=== PATIENT | male | born 1940 | race Caucasian/White ===

== ENCOUNTER 2016-11-12 08:31 | Day surgery (SDC) | payer MEDICARE, OTHER ==
[~2016-11-12 08:31] MED LIST: Acetaminophen TAB* 325 MG PO PRN; Buffered Lidocaine 1% SYR 3ML* 3 ML/SYR SYRINGE INTRADERM ONE
[2016-11-12] MEDS ORDERED: Midazolam* 1 MG/ML 5 ML VIAL (5 MG) ONE (10:05)
[2016-11-12] MEDS ORDERED: fentaNYL* 50 MCG/ML 2 ML VIAL (100 MCG VIAL) ONE (10:05)
[2016-11-12 12:20] VITALS: BP 163/68
--- NOTE | 2016-11-13 04:14 | OP ---
DATE OF OPERATION: 11/12/16 - [facility] DATE OF : 36 SURGEON: Rene Zaldivar MD PREOPERATIVE DIAGNOSIS: Cataract, right eye. POSTOPERATIVE DIAGNOSIS: Cataract, right eye. OPERATIVE PROCEDURE: Phacoemulsification right eye with IOL. DESCRIPTION OF PROCEDURE: The patient was brought to the operating room after being given 1/2% Alcaine with epinephrine drops in the preoperative area. The eye was prepped and draped in the usual sterile fashion. Sterile drape and eyelid speculum were placed. Again, topical 1/2% Alcaine with epinephrine was given. A paracentesis incision was made at the 9 o'clock position with the No.75 blade. Clear cornea incision 2.2 x 2.2-mm was created at the 12 o'clock position starting at the anterior limbus using the 2.2-mm keratome. The anterior chamber was irrigated with 0.4 mL of 1% non-preservative intracameral lidocaine and filled with DisCoVisc. A capsulorrhexis was completed using the cystotome and the Utrata forceps. Hydrodissection was performed with balanced salt solution. The lens nucleus was removed with the Phacoemulsification handpiece without incident. Cortex was removed with the irrigation-aspiration handpiece. The capsular bag was re-inflated using DisCoVisc and an SN60WF 18.5 implant was inserted with the shooter. The irrigation-aspiration handpiece was used to remove all residual DisCoVisc. The eye was refilled with balanced salt solution and the wound checked and found to be watertight. Topical Maxitrol drops were given. The cataract was very dense, of note. [id number]/[facility] #: [id number] [facility]
[2016-11-13] MEDS ORDERED: Lidocaine 1% MPF* 2 ML VIAL ONE (14:34)
[2016-11-13] MEDS ORDERED: Lidocaine 2% EPI 1:200000 MPF* 20 ML VIAL ONE (14:34)
[2016-11-13] MEDS ORDERED: Cyclopentolate 1% OPTH.SOL* 2 ML BTL ONE (14:34)
[2016-11-13] MEDS ORDERED: Phenylephrine 2.5% OPTH.SOL* 2 ML BTL ONE (14:34)
[2016-11-13] MEDS ORDERED: Proparacaine 0.5% OPHTH.SOL* 15 ML BTL ONE (14:34)
[2016-11-13] MEDS ORDERED: acetaZOLAMIDE TAB* 250 MG ONE (14:34)
[2016-11-13] MEDS ORDERED: Povidone Iodine 5% OPTH* 30 ML BTL ONE (14:34)
[2016-11-13] MEDS ORDERED: Flurbiprofen 0.03% OPTH.SOL* 2.5 ML BTL ONE (14:34)
[2016-11-13] MEDS ORDERED: Neomycin/Polymy/Dex OPTH.SUSP* MAXITROL 0.1% 5 ML ONE (14:34)
== END 2016-11-12 12:27 | disposition home or self-care (01) ==
LOC: OREAST 08:31
PROVIDERS: ATTEND Specialist
DX: H25.11 Age-related nuclear cataract, right eye (principal); E11.9 Type 2 diabetes mellitus without complications; I10 Essential (primary) hypertension; I48.91 Unspecified atrial fibrillation; Z79.01 Long term (current) use of anticoagulants
CPT/HCPCS: A9270-GY; J2250; J3010; V2632

== ENCOUNTER 2016-11-19 10:06 | Day surgery (SDC) | payer MEDICARE, OTHER ==
[~2016-11-19 10:06] MED LIST changes: +Cyclopentolate 1% OPTH.SOL* 2 ML BTL ONE; +Flurbiprofen 0.03% OPTH.SOL* 2.5 ML BTL ONE; +Lidocaine 1% MPF* 2 ML VIAL ONE; +Lidocaine 2% EPI 1:200000 MPF* 20 ML VIAL ONE; +Neomycin/Polymy/Dex OPTH.SUSP* MAXITROL 0.1% 5 ML ONE; +Phenylephrine 2.5% OPTH.SOL* 2 ML BTL ONE; +Povidone Iodine 5% OPTH* 30 ML BTL ONE; +Proparacaine 0.5% OPHTH.SOL* 15 ML BTL ONE; +Trypan Blue 0.06% SOL* 0.5 ML BTL ONE; +acetaZOLAMIDE TAB* 250 MG ONE
[2016-11-19] MEDS ORDERED: Propofol* 10 MG/ML 20 ML BTL IV PUSH ONE (13:16)
[2016-11-19 14:50] VITALS: BP 185/69
--- NOTE | 2016-11-20 03:53 | OP ---
DATE OF OPERATION: 11/19/16 - [facility] DATE OF : 36 SURGEON: Rene Zaldivar M.D. PREOPERATIVE DIAGNOSIS: Cataract, left eye. POSTOPERATIVE DIAGNOSIS: Cataract, left eye. OPERATIVE PROCEDURE: Phacoemulsification, left eye, with IOL. DESCRIPTION OF PROCEDURE: The patient was brought to the operating room after being given 1/2% Alcaine with epinephrine drops in the preoperative area. The eye was prepped and draped in the usual sterile fashion. Sterile drape and eyelid speculum were placed. Again, topical 1/2% Alcaine with epinephrine was given. A paracentesis incision was made at the 3 o'clock position with the No.75 blade. Clear cornea incision 2.2 x 2.2-mm was created at the 6 o'clock position starting at the anterior limbus using the 2.2-mm keratome. The anterior chamber was irrigated with 0.4 mL of 1% non-preservative intracameral lidocaine and filled with DisCoVisc. A capsulorrhexis was completed using the cystotome and the Utrata forceps. Hydrodissection was performed with balanced salt solution. The lens nucleus was removed with the Phacoemulsification handpiece without incident. Cortex was removed with the irrigation-aspiration handpiece. The capsular bag was re-inflated using DisCoVisc and an SN60WF 18.5 implant was inserted with the shooter. The irrigation-aspiration handpiece was used to remove all residual DisCoVisc. The eye was refilled with balanced salt solution and the wound checked and found to be watertight. Topical Maxitrol drops were given. A Malyugin ring was used to dilate the pupil prior to capsulorrhexis because of very small pupil removed after insertion of the lens. In addition, prior to the DisCoVisc, VisionBlue was used to stain the anterior capsule. Indication for complex cataract surgery: Iris abnormalities requiring pupil dilation device and white cataract requiring capsular dye. [id number]/[facility] #: [id number] MTDD
== END 2016-11-19 14:08 | disposition home or self-care (01) ==
LOC: OREAST 10:06
PROVIDERS: ATTEND Specialist
DX: H25.12 Age-related nuclear cataract, left eye (principal); Q13.2 Other congenital malformations of iris; E11.9 Type 2 diabetes mellitus without complications; I48.91 Unspecified atrial fibrillation; Z79.01 Long term (current) use of anticoagulants; I10 Essential (primary) hypertension
CPT/HCPCS: A9270-GY; J2704; V2632

== ENCOUNTER 2017-09-13 13:31 | Emergency (ER) | payer MEDICARE, OTHER ==
--- NOTE | 2017-09-13 13:40 | UC ---
Respiratory Complaint HPI - HPI Summary HPI Summary: 77 year old male presents with complains of severe shortness of breath and cough. - History of Current Complaint Stated Complaint: BREATHING COMPLAINT Time Seen by Provider: 09/13/17 13:40 Hx Obtained From: Patient Onset/Duration: Sudden Onset Severity Initially: Moderate Severity Currently: Moderate Pain Scale Used: 0-10 Numeric - 5 Aggravating Factors: Deep Breaths Associated Signs And Symptoms: Positive: Negative - Risk Factors Pulmonary Embolism Risk Factors: Negative - Allergies/Home Medications Allergies/Adverse Reactions: Allergies Allergy/AdvReac Type Severity Reaction Status Date / Time No Known Allergies Allergy Verified 09/13/17 13:45 PMH/Surg Hx/FS Hx/Imm Hx - Surgical History Surgical History: None - Family History Known Family History: Positive: Cardiac Disease - father, in 70s - Social History Alcohol Use: None Substance Use Type: None Smoking Status (MU): Never Smoked Tobacco Review of Systems Constitutional: Negative Skin: Negative Eyes: Negative ENT: Negative Respiratory: Shortness Of Breath, Cough Cardiovascular: Negative Gastrointestinal: Negative Genitourinary: Negative Motor: Negative Neurovascular: Negative Musculoskeletal: Negative Neurological: Negative Psychological: Negative All Other Systems Reviewed And Are Negative: Yes Physical Exam Triage Information Reviewed: Yes Vital Signs Reviewed: Yes Eye Exam: Normal ENT Exam: Normal Dental Exam: Normal Neck exam: Normal Neck: Positive: 1 Respiratory: Positive: Rhonchi, Wheezing Cardiovascular Exam: Normal Abdominal Exam: Normal Musculoskeletal Exam: Normal Neurological Exam: Normal Psychological Exam: Normal Skin Exam: Normal Respiratory Course/Dx - Differential Dx/Diagnosis Provider Diagnoses: shortness of breath. cough Discharge - Discharge Plan Condition: Stable Disposition: [facility] Patient Education Materials: Dyspnea (ED) Referrals: Rafy Dunn MD [Primary Care Provider] -
[2017-09-13 13:51] VITALS: BP 152/93
== END 2017-09-13 14:05 | disposition short-term general hospital (02) ==
LOC: UCEAST 13:31
DX: R06.02 Shortness of breath (principal); R05 Cough; R06.2 Wheezing
CPT/HCPCS: 93005; 99213; G0463

== ENCOUNTER 2017-09-13 14:33 | Inpatient (IN) | payer MEDICARE, OTHER ==
[2017-09-13] MEDS ORDERED: Levofloxacin 750 MG IVPREMIX(* 750 MG/150 ML BAG IVPB ONE (14:52)
[2017-09-13 15:22] LABS: ABS Basophils 0.1 10^3/ul (0-0.2); ABS Eosinophils 0.3 10^3/ul (0-0.6); ABS Lymphocytes 0.7 10^3/ul (1.0-4.8); ABS Monocytes 1.4 10^3/ul (0-0.8); ABS Neutrophils 22.3 10^3/ul (1.5-7.7); ABS Nucleated RBC 0.01 10^3/ul; Eosinophil % 1.1 % (0-6); Hematocrit 39 % (42-52); Hemoglobin 12.9 g/dl (14.0-18.0); Lymphocyte % 2.9 % (25-47); Mean Corpuscular HGB Conc 33 g/dl (31-36); Mean Corpuscular Hemoglobin 27 pg (27-31); Mean Corpuscular Volume 83 fL (80-94); Mean Platelet Volume 8 um3 (7.4-10.4); Nucleated Red Blood Cells % 0; Platelet Count 369 10^3/ul (150-450); Red Blood Count 4.77 10^6/ul (4.0-5.4); Red Cell Distribution Width 16 % (10.5-15); White Blood Count 24.7 10^3/ul (3.5-10.8)
[2017-09-13 15:32] LABS: EGFR Non-African American 91.9 (>60)
--- NOTE | 2017-09-13 15:35 | RAD ---
INDICATION: Shortness of breath and cough x1 week COMPARISON: Chest x-ray dated December 24, 2010 TECHNIQUE: Single AP portable view of the chest was obtained. FINDINGS: Image quality is compromised due to the relative inferiority of a portable chest x-ray. There is moderate cardiomegaly. The pulmonary vasculature appears mildly engorged. Density is seen obscuring the bilateral lung bases and bilateral hemidiaphragms. Visualized bones are normal for the patient's age. IMPRESSION: Chest x-ray findings are most consistent with cardiogenic pulmonary edema with likely bibasilar pleural effusions and possible consolidation at the lung bases.
[2017-09-13] MEDS ORDERED: NS 0.9% 1000 ML* 1,000 ML IV ONE (15:38)
--- NOTE | 2017-09-13 16:34 | RAD ---
INDICATION: Cough and shortness of breath COMPARISON: None TECHNIQUE: Axial source images of the chest were acquired without intravenous contrast from just above the lung apices to the base of the diaphragm. Coronal and sagittal reconstructed images were acquired. FINDINGS: Image quality is degraded by respiratory motion artifact. There is the appearance of circumferential thickening of the right pleura. There are large bibasilar pleural effusions. There is compressive consolidation of the bilateral lower lobes. Fluid extends into the bilateral fissures. There is groundglass opacification in the still aerated portions of the lung. There is no readily apparent mediastinal, hilar, or axillary lymphadenopathy. There is cardiomegaly as well as trace pericardial effusion. At the proximal esophagus just below the level of the epiglottis (sagittal image 44 and axial image 9) there is a air-fluid collection with contrast in the dependent-most portion measuring up to 3 x 4.6 cm in the axial plane and 5 cm in the cephalocaudal projection. More inferiorly there is questionable thickening of the esophagus measuring 6 mm in thickness (image 18). Multilevel degenerative changes of the thoracic spine includes loss of intervertebral disc height and anterior bridging osteophyte formation. Overlying the right chest there is a subcutaneous mixed attenuation collection measuring 3.8 x 4 cm in the axial plane. Limited views of the upper abdomen show no acute abnormalities. IMPRESSION: 1. There are large bibasilar pleural effusions with compressive consolidation of the lower lobes. On the right there is appearance of circumferential pleural thickening, the evaluation of which is limited due to respiratory motion artifact. Differential diagnosis includes loculated pleural effusion or potentially a neoplastic process. 2. Appearance of esophageal thickening at the mid-level esophagus. 3. More proximally there is air-fluid levels in the proximal esophagus including oral contrast in the dependent-most portion. This could represent a Zenker's diverticulum. On a nonemergent basis this can be further characterized with either esophagram or endoscopy. 4. Partially cystic partially solid subcutaneous collection overlying the anterior right chest wall. Please correlate to physical examination.
[2017-09-13] MEDS ORDERED: Albuterol/Ipratropium NEB.SOL* Albuterol 2.5 MG/Ipratropium 0.5 MG 3 ML INH PRN (17:33)
[2017-09-13] MEDS: NS 0.9% 1000 ML* 1,000 ML IV SCH (19:01)
[2017-09-13] MEDS: Ondansetron INJ* 2 MG/ML VIAL IV PRN (19:55)
[2017-09-13] MEDS ORDERED: Rivaroxaban TAB(*) 20 MG TAB PO SCH (21:00)
--- NOTE | 2017-09-13 21:37 | ED ---
Micaela Nix Julia, scribed for Pj Deutsch MD on 09/13/17 at 1455 . Complex/Multi-Sys Presentation - HPI Summary HPI Summary: This patient is a 77 year old M BIBA to [facility] accompanied by his son with a chief complaint of cough for the past two weeks. The patient rates the pain 0/ 10 in severity. Symptoms aggravated by nothing. Symptoms alleviated by nothing. Patient reports nausea, poor appetite, and SOB for the past two weeks. Patient was recently prescribed Cephalexin for bronchitis, but denies any changes in the past 5 days of use. - History Of Current Complaint Chief Complaint: EDGeneral Time Seen by Provider: 09/13/17 14:45 Hx Obtained From: Patient Onset/Duration: Lasting Weeks - 2 Timing: Constant Aggravating Factor(s): nothing Alleviating Factor(s): nothing Associated Signs And Symptoms: Positive: Other - nausea, poor appetite, and SOB - Allergies/Home Medications Allergies/Adverse Reactions: Allergies Allergy/AdvReac Type Severity Reaction Status Date / Time No Known Allergies Allergy Verified 09/13/17 13:45 PMH/Surg Hx/FS Hx/Imm Hx Endocrine/Hematology History: Reports: Hx Diabetes - uses medication to treat Cardiovascular History: Reports: Hx Atrial Fibrillation - treated with blood thinners, Hx Hypertension - uses medication to treat Denies: Hx Myocardial Infarction, Hx Pacemaker/ICD Respiratory History: Denies: Hx Chronic Obstructive Pulmonary Disease (COPD) Musculoskeletal History: Reports: Hx Arthritis - right hand Sensory History: Reports: Hx Cataracts - having surgery, Hx Contacts or Glasses - wears glasses Denies: Hx Hearing Aid Opthamlomology History: Reports: Hx Cataracts - having surgery, Hx Contacts or Glasses - wears glasses - Surgical History Hx Anesthesia Reactions: No Infectious Disease History: No Infectious Disease History: Denies: Traveled Outside the [place] in Last 30 Days - Family History Known Family History: Positive: Cardiac Disease - father, in 70s - Social History Alcohol Use: None Alcohol Amount: quit drinking 12 years ago Hx Substance Use: No Substance Use Type: Reports: None Hx Tobacco Use: No Smoking Status (MU): Never Smoked Tobacco Review of Systems Positive: Shortness Of Breath, Cough Positive: Nausea, Other - decreased appetite All Other Systems Reviewed And Are Negative: Yes Physical Exam - Summary Physical Exam Summary: Appearance: The patient is well-nourished in no acute distress and in no acute pain. Skin: The skin is warm and dry and skin color reflects adequate perfusion. HEENT: The head is normocephalic and atraumatic. The pupils are equal and reactive. The conjunctivae are clear and without drainage. Nares are patent and without drainage. Mouth reveals moist mucous membranes and the throat is without erythema and exudate. The external ears are intact. The ear canals are patent and without drainage. The tympanic membranes are intact. Neck: the neck is supple with full range of motion and non-tender. There are no carotid bruits. There is no neck vein distension. Respiratory: Chest is non-tender. Rhonchi are present bilaterally, worse in R. Lung sounds are symmetrical and equal. Upper airway sounds are present. Cardiovascular: Heart is regular rate and rhythm. There is no murmur or rub auscultated. There is bilateral +2 peripheral edema. Pulses are symmetrical and equal. Abdomen: The abdomen is soft and non-tender. There are normal bowel sounds heard in all four quadrants and there is no organomegaly palpated. Musculoskeletal: There is no back tenderness noted. Extremities are non-tender with full range of motion. There is good capillary refill. There is bilateral +2 peripheral edema with no calf tenderness elicited. Neurological: Patient is alert and oriented to person, place and time. The patient has symmetrical motor strength in all four extremities. Cranial nerves are grossly intact. Deep tendon reflexes are symmetrical and equal in all four extremities. Psychiatric: The patient has an appropriate affect and does not exhibit any anxiety or depression. Triage Information Reviewed: Yes Vital Signs On Initial Exam: Initial Vitals BP 154/70 09/13/17 14:38 Vital Signs Reviewed: Yes - Ran Coma Scale Coma Scale Total: 15 Diagnostics - Vital Signs Vital Signs Temp Pulse Resp BP Pulse Ox 09/13/17 14:39 98.4 F 108 20 154/70 94 09/13/17 14:38 154/70 - Laboratory Lab Results: Lab Results 09/13/17 09/13/17 09/13/17 Range/Units 15:10 15:10 15:10 WBC 24.7 H (3.5-10.8) 10^3/ul RBC 4.77 (4.0-5.4) 10^6/ul Hgb 12.9 L (14.0-18.0) g/dl Hct 39 L (42-52) % MCV 83 (80-94) fL MCH 27 (27-31) pg MCHC 33 (31-36) g/dl RDW 16 H (10.5-15) % Plt Count 369 (150-450) 10^3/ul MPV 8 (7.4-10.4) um3 Neut % (Auto) 90.2 H (38-83) % Lymph % (Auto) 2.9 L (25-47) % [place] % (Auto) 5.5 (1-9) % Eos % (Auto) 1.1 (0-6) % Baso % (Auto) 0.3 (0-2) % Absolute Neuts (auto) 22.3 H (1.5-7.7) 10^3/ul Absolute Lymphs (auto) 0.7 L (1.0-4.8) 10^3/ul Absolute Monos (auto) 1.4 H (0-0.8) 10^3/ul Absolute Eos (auto) 0.3 (0-0.6) 10^3/ul Absolute Basos (auto) 0.1 (0-0.2) 10^3/ul Absolute Nucleated RBC 0.01 10^3/ul Nucleated RBC % 0 Sodium 138 (133-145) mmol/L Potassium 4.2 (3.5-5.0) mmol/L Chloride 106 (101-111) mmol/L Carbon Dioxide 23 (22-32) mmol/L Anion Gap 9 (2-11) mmol/L BUN 30 H (6-24) mg/dL Creatinine 0.81 (0.67-1.17) mg/dL Est GFR ( Amer) 118.2 (>60) Est GFR (Non-Af Amer) 91.9 (>60) BUN/Creatinine Ratio 37.0 H (8-20) Glucose 257 H (70-100) mg/dL Lactic Acid (0.5-2.0) mmol/L Calcium 8.6 (8.6-10.3) mg/dL Total Bilirubin 1.10 H (0.2-1.0) mg/dL AST 53 H (13-39) U/L ALT 61 H (7-52) U/L Alkaline Phosphatase 118 H (34-104) U/L Troponin I 0.03 (<0.04) ng/mL C-Reactive Protein 342.53 H (< 5.00) mg/L B-Natriuretic Peptide 116 H ( - 100) pg/mL Total Protein 6.9 (6.4-8.9) g/dL Albumin 2.6 L (3.2-5.2) g/dL Globulin 4.3 H (2-4) g/dL Albumin/Globulin Ratio 0.6 L (1-3) 09/13/17 Range/Units 15:10 WBC (3.5-10.8) 10^3/ul RBC (4.0-5.4) 10^6/ul Hgb (14.0-18.0) g/dl Hct (42-52) % MCV (80-94) fL MCH (27-31) pg MCHC (31-36) g/dl RDW (10.5-15) % Plt Count (150-450) 10^3/ul MPV (7.4-10.4) um3 Neut % (Auto) (38-83) % Lymph % (Auto) (25-47) % [place] % (Auto) (1-9) % Eos % (Auto) (0-6) % Baso % (Auto) (0-2) % Absolute Neuts (auto) (1.5-7.7) 10^3/ul Absolute Lymphs (auto) (1.0-4.8) 10^3/ul Absolute Monos (auto) (0-0.8) 10^3/ul Absolute Eos (auto) (0-0.6) 10^3/ul Absolute Basos (auto) (0-0.2) 10^3/ul Absolute Nucleated RBC 10^3/ul Nucleated RBC % Sodium (133-145) mmol/L Potassium (3.5-5.0) mmol/L Chloride (101-111) mmol/L Carbon Dioxide (22-32) mmol/L Anion Gap (2-11) mmol/L BUN (6-24) mg/dL Creatinine (0.67-1.17) mg/dL Est GFR ( Amer) (>60) Est GFR (Non-Af Amer) (>60) BUN/Creatinine Ratio (8-20) Glucose (70-100) mg/dL Lactic Acid 1.2 (0.5-2.0) mmol/L Calcium (8.6-10.3) mg/dL Total Bilirubin (0.2-1.0) mg/dL AST (13-39) U/L ALT (7-52) U/L Alkaline Phosphatase (34-104) U/L Troponin I (<0.04) ng/mL C-Reactive Protein (< 5.00) mg/L B-Natriuretic Peptide ( - 100) pg/mL Total Protein (6.4-8.9) g/dL Albumin (3.2-5.2) g/dL Globulin (2-4) g/dL Albumin/Globulin Ratio (1-3) Result Diagrams: 09/13/17 15:10 09/13/17 15:10 Lab Statement: Any lab studies that have been ordered have been reviewed, and results considered in the medical decision making process. - Radiology CXR Radiology Interpretation Completed By: Radiologist - Chest x-ray findings are most consistent with cardiogenic pulmonary edema with likely bibasilar pleural effusions and possible consolidation at the lung bases. ED Physician has reviewed this report. - CT Chest CT Interpretation Completed By: Radiologist - 1. There are large bibasilar pleural effusions with compressive consolidation of the lower lobes. On the right there is appearance of circumferential pleural thickening, the evaluation of which is limited due to respiratory motion artifact. Differential diagnosis includes loculated pleural effusion or potentially a neoplastic process. 2. Appearance of esophageal thickening at the mid-level esophagus. 3. More proximally there is air-fluid levels in the proximal esophagus including oral contrast in the dependent-most portion. This could represent a Zenker's diverticulum. On a nonemergent basis this can be further characterized with either esophagram or endoscopy. 4. Partially cystic partially solid subcutaneous collection overlying the anterior right chest wall. Please correlate to physical examination. ED Physician has reviewed this report. - EKG 14:54 Cardiac Rate: NL EKG Rhythm: Atrial Fibrillation - at 86 BPM EKG Interpretation: L anterior vesicular block, L axis deviation, and L bundle branch block Complex Multi-Symp Course/Dx Course Of Treatment: Mr. Richey presents with worsening SOB and cough. He has been on Keflex for about a week. He was found to have infiltrate vs, pulmonary edema and pleural effusions on CXR and is being admitted to the hospitalist service for further W/U. He got IV antibiotics in the ED and he also did get some IV NS. - Diagnoses Provider Diagnoses: Pneumonia - Critical Care Time Critical Care Time: 30-74 min Discharge - Discharge Plan Condition: Stable Disposition: ADMITTED TO [facility] The documentation as recorded by the Micaela whaley Julia accurately reflects the service I personally performed and the decisions made by me, Pj Deutsch MD.
[2017-09-13] MEDS: Zolpidem TAB* 10 MG PO PRN (23:13)
[2017-09-14] MEDS ORDERED: Metoprolol Tartrate IV* 1 MG/ML 5 ML VIAL IV ONE (02:39)
--- NOTE | 2017-09-14 03:01 | HP ---
cC: Dr. Dunn * [facility] MEDICINE HISTORY AND PHYSICAL: DATE OF ADMISSION: 09/13/17. PRIMARY CARE PHYSICIAN: Dr. Dunn. ATTENDING PHYSICIAN: Dr. Rosalie Montoya * (dictation provided by Buffy Woodward NP ). CHIEF COMPLAINT: Cough and shortness of breath. HISTORY OF PRESENT ILLNESS: Mr. Richey is a 77-year-old male with a past medical history of diabetes, hypertension, AFib on Xarelto, who presents today to the hospital with concern for cough, fever, and shortness of breath. Mr. Richey states that he has been feeling unwell for about a month. He has had a chronic cough. He has had decreased appetite and felt generally unwell. He went to see his primary care physician, Dr. Dunn on Thursday of this past week. At that time it was suspected that perhaps he had bronchitis and he was started on prednisone and Keflex. The patient states that despite starting these antibiotics and prednisone that he has continued to feel worse. He has had worsening cough. He has had fever only as high to about 100. He reports it is painful to take in a deep breath and cough as he feels like his ribs are sore from coughing so much. He reports copious productive sputum; today, he had brown/red sputum. In the emergency room, Mr. Richey had white blood cell count elevated to 24.7. His CRP was 342.53. He went on to have a chest x-ray, which read as follows, "chest x-ray findings are most consistent with cardiogenic pulmonary edema with likely bibasilar pleural effusions and possible consolidations at the lung base." Chest CT is read as follows, "large bibasilar pleural effusions , circumferential pleural thickening, loculated pleural effusion, or potentially a neoplastic process. More proximally there is air fluid level on the proximal esophagus including oral contrast in the dependent most portion, this could represent a Zenker's diverticulum on a nonemergent basis, this can be further characterized with either esophagogram or endoscopy." Patient confirms that he has had some difficulty with swallowing for many years and confirms being told he had a "pouch" in his throat. This symptom is described as unchanged. PAST MEDICAL HISTORY: 1. Diabetes non-insulin dependent. 2. Hypertension. 3. AFib. 4. Gout. 5. History of cataract surgery. MEDICATIONS: 1. Cyanocobalamin 100 mcg p.o. daily. 2. Cholecalciferol 1000 units p.o. daily. 3. Allopurinol 300 mg p.o. daily. 4. Glipizide 20 mg p.o. b.i.d. 5. Amlodipine 10 mg p.o. daily. 6. Rivaroxaban 20 mg p.o. daily. 7. Magnesium 500 mg p.o. daily. 8. Lisinopril 20 mg p.o. b.i.d. ALLERGIES: No known drug allergies. FAMILY HISTORY: The patient reports his dad related to a heart attack at 78, mom related to pancreatitis at 82. SOCIAL HISTORY: No report of alcohol, tobacco, or drug use. The patient lives alone. He states that his son, Timothy, would be the healthcare proxy. REVIEW OF SYSTEMS: In addition to above, the patient does report chronic lower extremity edema. He also has peripheral neuropathy with very poor balance. The other 14-point review of systems was otherwise completed and all those not mentioned above were negative. PHYSICAL EXAMINATION GENERAL: Mr. Richey is sitting in the bed with his son at the bedside. VITAL SIGNS: Temperature 98.4, heart rate 92, respiratory rate 20, O2 saturation 94% on 2 liters nasal cannula, blood pressure 135/59. LUNGS: Diminished bilaterally. There is some tubular breath sounds and some scattered rhonchi. There is no accessory muscle use. HEART: S1, S2. No murmur, rub, or gallop and regular. ABDOMEN: Soft, nontender with bowel sounds positive x4. EXTREMITIES: No cyanosis or edema. NEURO: He alert, he is oriented x3. He moves all extremities equally. There is no facial asymmetry or focal weakness. Extraocular movements are intact. SKIN: Intact. DIAGNOSTIC STUDIES/LAB DATA: Sodium 138, potassium 4.2, chloride 106, serum bicarbonate 23, BUN 30, creatinine 0.81, glucose 257. Troponin 0.03. AST 53, ALT 61, alk phos 118. CRP 342.53, BNP 116. Albumin 2.6. A complete chest CT impression is read as follows: There are large basilar pleural effusions with compressive consolidation of the lower lobe. On the right, there was appearance circumferential pleural thickening the evaluation of which is limited due to respiratory motion artifact. Differential diagnosis includes loculated pleural effusion or potentially a neoplastic process. Appearance of esophageal thickening at the mid level esophagus, more proximally there are air fluid levels in the proximal esophagus including oral contrast in the dependent most portion. This could represent a Zenker's diverticulum on a nonemergent basis, this could be further characterized with either esophagogram or endoscopy. Partially cystic, partially solid subcutaneous collection overlying the right anterior chest wall, please correlate to physical examination. ASSESSMENT AND PLAN: Mr. Richey is a 77-year-old male with a past medical history of atrial fibrillation, hypertension, gout and diabetes, who presents to the hospital today with concern for cough and shortness of breath. In the emergency room, he has been found to have an elevated white blood cell count, elevated CRP, new O2 requirement and concern for pneumonia, possibly with a component of congestive heart failure. Our plans are for inpatient admission as the expected length of stay to be greater than 2 days for the followin. Pneumonia: The patient's elevated CRP and white blood cell count as well as his grossly abnormal CT of the chest raise a strong suspicion for pneumonia. I am also concerned that perhaps he has a loculated abscess. The radiologist is reading this as more of a congestive heart failure with pleural effusion. However, the patient's BNP is low and he has no history of congestive heart failure. I do plan to add on a transthoracic echocardiogram. In terms of the pleural effusions, I would recommend that a thoracentesis be performed for diagnostic and therapeutic purposes. I think based on the fact that the patient is quite stable this evening (only on 2 L nasal cannula) that he does not require an urgent therapeutic thoracentesis tonight. In terms of his pneumonia, plan to treat with ceftriaxone and azithromycin. Blood cultures have been sent. Sputum cultures will be sent. Urine strep and Legionella will be sent. Dr. Wallace has been consulted. The patient will have oxygen available as needed. He will have DuoNeb nebulizers available as needed. In terms of IV fluids, the patient does meet sepsis criteria, but I am very concerned about the extent of his bilateral pleural effusions and worsening respiratory status with large fluid boluses. His blood pressure is stable. His lactic acid is normal. I would like to proceed with fluids with caution and will not be given 30 mL/Kg today. He has had 1 bag of fluids in the emergency room and I can plan to continue at 150 mL/hour times another bag. I will be monitoring his vital signs closely and if he shows any hemodynamic instability, we will repeat lactic acids and adjust fluids as needed. 2. Atrial fibrillation: Continue Xarelto. 3. Hypertension: Plan to hold lisinopril and amlodipine while the patient is acutely ill. 4. Thickened esophagus. Patient reports a long standing history of difficulty swallowing and does not indicate to me that there is any change with these symptoms. Plan to order speech therapy swallow eval. 5. Diabetes: Plan to hold glipizide and provide lispro sliding scale with meals. 6. Code status is full code. This was reviewed with the patient at the bedside. He would accept intubation if necessary. 7. Disposition: To the telemetry floor as the patient is currently only needing 2 L nasal cannula to maintain an O2 saturation greater than 90%. TIME SPENT: Approximately 75 minutes was spent in the admission of this patient , more than half the time spent with the patient at the bedside reviewing the events leading up to this hospitalization, performing physical examination and reviewing my plan of care. BUFFY WOODWARD NP [id number]/[facility] #: [id number] JAIR
[2017-09-14] MEDS: NS 0.9% 1000 ML* 1,000 ML IV SCH (03:37)
[2017-09-14] MEDS ORDERED: Azithromycin IV(*) 500 MG in NS 0.9% 250 ML* 250 ML IVPB SCH (08:00)
[2017-09-14] MEDS: Allopurinol TAB* 300 MG PO SCH (08:46)
[2017-09-14] MEDS: Lisinopril TAB* 10 MG PO SCH ×2 (08:46→20:13)
[2017-09-14] MEDS: Magnesium Oxide TAB* 400 MG PO SCH (08:46)
[2017-09-14] MEDS: amLODIPine TAB* 5 MG PO SCH (08:46)
[2017-09-14] MEDS: Insulin LISPRO* 1 UNITS UNIT SUBCUT SCH ×3 (08:54→18:15)
[2017-09-14 08:55] LABS: ABS Basophils 0.1 10^3/ul (0-0.2); ABS Eosinophils 0 10^3/ul (0-0.6); ABS Lymphocytes 0.6 10^3/ul (1.0-4.8); ABS Monocytes 1.3 10^3/ul (0-0.8); ABS Neutrophils 22.2 10^3/ul (1.5-7.7); ABS Nucleated RBC 0 10^3/ul; Eosinophil % 0 % (0-6); Hematocrit 39 % (42-52); Hemoglobin 12.3 g/dl (14.0-18.0); Lymphocyte % 2.6 % (25-47); Mean Corpuscular HGB Conc 32 g/dl (31-36); Mean Corpuscular Hemoglobin 27 pg (27-31); Mean Corpuscular Volume 84 fL (80-94); Mean Platelet Volume 8 um3 (7.4-10.4); Nucleated Red Blood Cells % 0; Platelet Count 363 10^3/ul (150-450); Red Blood Count 4.63 10^6/ul (4.0-5.4); Red Cell Distribution Width 16 % (10.5-15); White Blood Count 24.2 10^3/ul (3.5-10.8)
[2017-09-14] MEDS ORDERED: cefTRIAXone(*) 1 GM in NS 0.9% 50 ML* 50 ML IVPB SCH (09:00)
[2017-09-14 09:09] LABS: EGFR Non-African American 108.8 (>60)
--- NOTE | 2017-09-14 13:09 | ECHO ---
Patient: ALMA DELIA PANTOJA [facility] Rec#: [id number] : 1940 Date: 09/14/2017 Age: 77y Height: 180.34 cm / 71.0 in Weight: 102.51 kg / 225.9 lbs Sex: M BSA: 2.22 Room#: [facility] Admit Date#: 09/13/2017 Type: Inpatient Referring: Buffy Woodward NP Reading: Farzaneh Brar MD Emergency Room Physician Assistant: Chelsi Blackburn LUIS CC: Lul Marcus MD CC: Rafy Dunn MD Transthoracic Echocardiogram Indication: CHF BP: 150/62 HR: 98 Rhythm: A-Fib Findings History: DM,HTN,a-fib,gout.Study done with HOB at 45 degrees and with patient supine. Technical Comments: The study is technically difficult. Completed at 1207. The study is technically limited due to patient body habitus. The study was technically limited due to the patient's inability to lay in the left lateral decubitus position. Left Ventricle: The left ventricular chamber size is decreased. Moderate concentric left ventricular hypertrophy is observed. There is normal left ventricular systolic function. The estimated ejection fraction is 55-60%. The assessment of diastolic function is non-diagnostic. Left Atrium: The left atrial chamber size is normal. Right Ventricle: The right ventricle is not well visualized. The right ventricular global systolic function is normal. Right Atrium: The right atrium is not well visualized. Aortic Valve: The aortic valve is trileaflet. There is mild thickening of the non coronary cusp. There is no evidence of aortic regurgitation. There is no evidence of aortic stenosis. Mitral Valve: The mitral valve leaflets are mildly thickened. There is a trace of mitral regurgitation. There is no evidence of mitral stenosis. Tricuspid Valve: The tricuspid valve leaflets are normal. There is mild tricuspid regurgitation. There is evidence of mild pulmonary hypertension. There is no tricuspid stenosis. Pulmonic Valve: The pulmonic valve appears normal. There is no evidence of pulmonic regurgitation. There is no pulmonic stenosis. Pericardium: A pericardial fat pad is visualized. Aorta: There is mild dilatation of the ascending aorta. The aortic arch is not well visualized. There is no dilation of the aortic root. Pulmonary Artery: The main pulmonary artery appears normal. Venous: The venous system is not well visualized. Conclusions The study was technically limited, parasternal views good, apicals and subcostals suboptimal. The left ventricular chamber size is decreased. Moderate concentric left ventricular hypertrophy is observed. There is normal left ventricular systolic function. The estimated ejection fraction is 55-60%. The right ventricular global systolic function is normal. The aortic valve is trileaflet, mild sclerosis and normal function. There is a trace of mitral regurgitation. There is mild tricuspid regurgitation. There is evidence of mild pulmonary hypertension: 43 mmHg. There is mild dilatation of the ascending aorta. The patient was in atrial fibrillation throughout the study. Prior echo not available to compare. Measurements Name Value Normal Range RVIDd (AP) 2D 3.2 cm (0.9 - 2.6) IVSd (2D) 1.6 cm (0.6 - 1) LVPWd (2D) 1.3 cm (0.6 - 1) LVIDd (2D) 3.4 cm (3.6 - 5.4) LVIDs (2D) 2.2 cm - LV FS (2D) 36 % (25 - 45) Aortic Annulus 1.7 cm (1.4 - 2.6) Ao root diameter (2D) 3.5 cm (2.1 - 3.5) Ascending Ao 3.5 cm (2.1 - 3.4) LA dimension (AP) 2D 3.7 cm (2.3 - 3.8) Name Value Normal Range MV E-wave Vmax 1.3 m/sec - MV deceleration time 189 msec - LV septal e' Vmax 0.07 m/sec - LV lateral e' Vmax 0.09 m/sec - LV E:e' septal ratio 18.57 ratio - LV E:e' lateral ratio 14.44 ratio - Name Value Normal Range AV Vmax 1.4 m/sec - AV VTI 25.9 cm - AV peak gradient 7.94 mmHg - AV mean gradient 4.38 mmHg - LVOT Vmax 1 m/sec - LVOT VTI 16.3 cm - LVOT peak gradient 3.88 mmHg - LVOT mean gradient 2.06 mmHg - Name Value Normal Range TR Vmax 2.9 m/sec - TR peak gradient 35 mmHg - RAP 8 mmHg - RVSP 43 mmHg - Name Value Normal Range PV Vmax 1 m/sec - PV peak gradient 3.8 mmHg -
--- NOTE | 2017-09-14 14:47 | CONS ---
CC: Dr. Dunn; [facility]; Dr. Lul Marcus. * CONSULTATION/PROCEDURE REPORT: DATE OF CONSULT: 09/14/17. I was contacted by the hospitalist service to evaluate Mr. Richey who was admitted with a diagnosis of pneumonia and started on antibiotics. Patient was noted on a CT scan to have a bilateral pleural effusion and I was contacted for the possibility of thoracentesis. Patient describes a 2-week history of cough, shortness of breath and bilateral rib pain. He has a difficult time taking deep breaths. He denied any fevers. He was started on Keflex by his primary care doctor's office and given a dose of steroids. This did not help at all according to the patient and he presented to the emergency room where a workup included labs and a CT scan described above. Patient is a nonsmoker. PAST MEDICAL HISTORY: Reviewed, insulin-dependent diabetes; hypertension; AFib , on Xarelto, his last dose was yesterday. It has not been started since hospitalization. History of gout. No history of chest surgeries. ALLERGIES: No known drug allergies. SOCIAL HISTORY: He is a never smoker. He lives by himself. His of metastatic breast cancer. REVIEW OF SYSTEMS: He had no fevers or chills. Steroid use as described. Shortness of breath and chest pain as described. 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 He has not been eating. He has been spitting a mucus and has decreased appetite, has not had a bowel movement in at least 3 days. PHYSICAL EXAMINATION: Today, temperature 98.1, heart rate 120s, blood pressure 155/75. He is alert and oriented x3. He has a difficult time moving. He is obese. He is not using accessory muscles for breathing. He is on nasal cannula and has an O2 sat of 94. His respiration rate in the low 20s. Lungs: Decreased breath sounds bilaterally. No wheezing. LABORATORY DATA: White count is 24,000 with left shift. Metabolic panel reviewed, shows an elevated CRP. Shows a mildly elevated alk phos. CT scan of the chest reviewed, shows bilateral pleural effusions. Looks larger on the right with radiology read suggesting loculation. Patient also has esophageal thickening. Elevated white blood cell count and a septic picture with concern for pneumonia , now with CT scan suggestive of bilateral pleural effusions, right worse than left. Differential diagnosis does include parapneumonic process and empyema, but this is less likely with bilateral fluid collections, but given patient's white blood cell count, my recommendation is for thoracentesis for both diagnostic and potentially therapeutic relief. We have chosen the right side to do this and I outlined the details of the procedure to the patient. Going over the risks, benefits and alternatives which include bleeding, infection, need for additional procedures. We described that if the patient had pus on thoracentesis, we consider prompt tube thoracostomy despite him being on blood thinners. Patient agreed. I described briefly with his son as well. Differential diagnosis does include cardiac versus malignant versus infectious process that I am most interested on this day. Patient agreed and signed consent. PROCEDURE NOTE: After prepping the patient thoroughly, the right back was draped. A timeout was performed. The landmarks were obtained and injection of lidocaine for local block was performed at approximately the 9th intercostal space. Incision was made and an 8-Egyptian thoracentesis catheter was placed into the right chest. Yellow transparent fluid was aspirated and the catheter inserted over the needle. Patient tolerated this portion well; however, after I was only able to draw up approximately 100 cc of straw colored material. I slowly withdrew the catheter as we were able to drain more fluid but this did not become anything more than a 100 cc. Specimens were placed in vials for the purpose of both cultures and cytology. A Band-Aid was placed. The patient tolerated the procedure well. Indeed this 100 cc did not reflect what we see on CT scan and patient may benefit from a video assisted thoracostomy. Differential diagnosis again does include malignancy that may be secondary to chest or even possibly esophageal. This is bilaterally and for this reason, I do strongly recommend pulmonary input prior to any intervention. I will discuss this course with Thoracic Surgery, Dr. Gold, regarding the plan going forward and we will see what Dr. Tuttle's input is as well. Meanwhile, we will follow the cultures and we will continue to follow the patient. [id number]/[facility] #: [id number] [facility] CENTERGigi
[2017-09-14] MEDS: Cefepime 2 GM in Dextrose(*) 2 GM/50 ML BAG IV SCH (14:52)
--- NOTE | 2017-09-14 16:16 | PN ---
Subjective Date of Service: 09/14/17 Interval History: Still feels poorly respiratory rivera, had SOB ~3 weeks. outpatient prednisone made him feel nausea. Developed new leg edema 2-3 moths ago. brown and reddish sputum x 1 week pleuritic pain surgery consulted for thora. Dr. Wilkinson drain ~100cc straw color fluid from right. ECHO with EF 55-60% Objective Active Medications: Acetaminophen (Tylenol Tab*) 650 mg PO Q6H PRN PRN Reason: Pain/fever Albuterol/Ipratropium (Duoneb (Albuterol 2.5 Mg/Ipratropium 0.5 Mg)) 1 neb INH Q4H PRN PRN Reason: SOB/WHEEZING Allopurinol (Zyloprim Tab*) 300 mg PO DAILY [facility] Last Admin: 09/14/17 08:46 Dose: 300 mg Amlodipine Besylate (Norvasc Tab*) 10 mg PO DAILY [facility] Last Admin: 09/14/17 08:46 Dose: 10 mg Azithromycin (Zithromax Tab*) 250 mg PO DAILY [facility] Stop: 09/18/17 09:01 Dextrose (D50w Syringe 50 Ml*) 12.5 gm IV PUSH .FOR FS < 60 - SS PRN PRN Reason: FS < 60 Cefepime HCl (Maxipime 2 Gm In Dextrose Duplex (*)) 2 gm in 50 mls @ 100 mls/ hr IV Q12H [facility] Last Admin: 09/14/17 14:52 Dose: 100 mls/hr Insulin Human Lispro (Humalog*) 0 units SUBCUT AC [facility] PRN Reason: Protocol Last Admin: 09/14/17 13:36 Dose: 6 units Lisinopril (Prinivil Tab*) 20 mg PO BID [facility] Last Admin: 09/14/17 08:46 Dose: 20 mg Magnesium Oxide (Magox 400 Tab*) 400 mg PO DAILY [facility] Last Admin: 09/14/17 08:46 Dose: 400 mg Ondansetron HCl (Zofran Inj*) 4 mg IV Q6H PRN PRN Reason: NAUSEA Last Admin: 09/13/17 19:55 Dose: 4 mg Zolpidem Tartrate (Ambien Tab*) 10 mg PO BEDTIME PRN PRN Reason: INSOMNIA Last Admin: 09/13/17 23:13 Dose: 10 mg Vital Signs - 8 hr 09/14/17 11:54 Temperature 98.1 F Pulse Rate 111 Respiratory 17 Rate Blood Pressure 143/70 (mmHg) O2 Sat by Pulse 90 Oximetry Oxygen Devices in Use Now: Simple Face Mask Appearance: somewhat uncomfortable appearing. Eyes: No Scleral Icterus, PERRLA Ears/Nose/Mouth/Throat: NL Teeth, Lips, Gums Respiratory: - - rhonchi left base Cardiovascular: NL Sounds; No Murmurs; No JVD, - - irregularly irregular Abdominal: NL Sounds; No Tenderness; No Distention, No Hepatosplenomegaly Extremities: - - 1+ edema b/l LE. pulses intact. Skin: No Rash or Ulcers Neurological: Alert and Oriented x 3, NL Sensation, NL Muscle Strength and Tone Result Diagrams: 09/14/17 08:41 09/14/17 08:41 Additional Lab and Data: Laboratory Results - last 24 hr 09/14/17 09/14/17 09/14/17 07:48 08:41 08:41 WBC 24.2 H RBC 4.63 Hgb 12.3 L Hct 39 L MCV 84 MCH 27 MCHC 32 RDW 16 H Plt Count 363 MPV 8 Neut % (Auto) 91.7 H Lymph % (Auto) 2.6 L [place] % (Auto) 5.4 Eos % (Auto) 0 Baso % (Auto) 0.3 Absolute Neuts (auto) 22.2 H Absolute Lymphs (auto) 0.6 L Absolute Monos (auto) 1.3 H Absolute Eos (auto) 0 Absolute Basos (auto) 0.1 Absolute Nucleated RBC 0 Nucleated RBC % 0 Sodium 141 Potassium 4.6 Chloride 111 Carbon Dioxide 21 L Anion Gap 9 BUN 22 Creatinine 0.70 Est GFR ( Amer) 139.9 Est GFR (Non-Af Amer) 108.8 BUN/Creatinine Ratio 31.4 H Glucose 226 H POC Glucose (mg/dL) 249 H Calcium 8.7 Total Bilirubin 0.80 AST 40 H ALT 59 H Alkaline Phosphatase 125 H Lactate Dehydrogenase 279 H Total Protein 6.4 Albumin 2.5 L Globulin 3.9 Albumin/Globulin Ratio 0.6 L Procalcitonin Fluid Source Fluid Volume Fluid Color Fluid Appearance Fluid WBC Fluid RBC Fluid Tot Cell Count Fluid Neutrophils Fluid Band Neutrophils Fluid Lymphocytes Fluid Comment Blood Type Antibody Screen 09/14/17 09/14/17 09/14/17 08:41 08:41 13:28 WBC RBC Hgb Hct MCV MCH MCHC RDW Plt Count MPV Neut % (Auto) Lymph % (Auto) [place] % (Auto) Eos % (Auto) Baso % (Auto) Absolute Neuts (auto) Absolute Lymphs (auto) Absolute Monos (auto) Absolute Eos (auto) Absolute Basos (auto) Absolute Nucleated RBC Nucleated RBC % Sodium Potassium Chloride Carbon Dioxide Anion Gap BUN Creatinine Est GFR ( Amer) Est GFR (Non-Af Amer) BUN/Creatinine Ratio Glucose POC Glucose (mg/dL) 250 H Calcium Total Bilirubin AST ALT Alkaline Phosphatase Lactate Dehydrogenase Total Protein Albumin Globulin Albumin/Globulin Ratio Procalcitonin 1.0 H Fluid Source Fluid Volume Fluid Color Fluid Appearance Fluid WBC Fluid RBC Fluid Tot Cell Count Fluid Neutrophils Fluid Band Neutrophils Fluid Lymphocytes Fluid Comment Blood Type B Positive Antibody Screen Negative 09/14/17 13:30 WBC RBC Hgb Hct MCV MCH MCHC RDW Plt Count MPV Neut % (Auto) Lymph % (Auto) [place] % (Auto) Eos % (Auto) Baso % (Auto) Absolute Neuts (auto) Absolute Lymphs (auto) Absolute Monos (auto) Absolute Eos (auto) Absolute Basos (auto) Absolute Nucleated RBC Nucleated RBC % Sodium Potassium Chloride Carbon Dioxide Anion Gap BUN Creatinine Est GFR ( Amer) Est GFR (Non-Af Amer) BUN/Creatinine Ratio Glucose POC Glucose (mg/dL) Calcium Total Bilirubin AST ALT Alkaline Phosphatase Lactate Dehydrogenase Total Protein Albumin Globulin Albumin/Globulin Ratio Procalcitonin Fluid Source Pleural fluid Fluid Volume 10 Fluid Color Deborah Fluid Appearance Cloudy Fluid WBC 38530 Fluid RBC 6181 Fluid Tot Cell Count 100 Fluid Neutrophils 94 Fluid Band Neutrophils 1 Fluid Lymphocytes 5 Fluid Comment Blood Type Antibody Screen Microbiology and Other Data: Microbiology 09/13/17 15:19 Blood Venous Aerobic Blood Culture - Preliminary No Growth Day 1 09/13/17 15:19 Blood Venous Anaerobic Blood Culture - Preliminary No Growth Day 1 09/13/17 15:10 Blood Venous Aerobic Blood Culture - Preliminary No Growth Day 1 09/13/17 15:10 Blood Venous Anaerobic Blood Culture - Preliminary No Growth Day 1 09/14/17 10:30 Nasal Nasal Screen MRSA (PCR)(MACARENA) - Final Mrsa Negative 09/13/17 23:00 Sputum Expectorated Gram Stain - Final 09/13/17 23:00 Sputum Expectorated Sputum Culture - Preliminary YEAST Assess/Plan/Problems-Billing Assessment: 77 yo male PMH NIDDM, HTN, Afib (on Xarelto) presenting with 3 weeks SOB, 1 week productive cough, wbc 24. b/l (R>L) large complex pleural effusions suspicion for parapneumonic. s/p thoracentesis. 2L NC. On cefepime. - Patient Problems (1) Acute respiratory failure with hypoxia Current Visit: Yes Status: Acute Code(s): J96.01 - ACUTE RESPIRATORY FAILURE WITH HYPOXIA SNOMED Code(s): 01608931 Comment: Suspected pneumonia + parapneumonic complex loculated pleural effusions. Switch ceftriaxone to cefepime. continue azithromycin. Appreciate surgery assistance, s/p thoracentesis. f/u studies to determine type of effusion. high wbc. repeat cxr in AM ECHO with preserved EF 55-60% SIRS (leukocytosis, tachycardia, tachypnea). no lactic acidosis MRSA nares negative BCx NGTD x1 sputum cx: YEAST on GS, f/u cx (2) Loculated pleural effusion Current Visit: Yes Status: Acute Code(s): J90 - PLEURAL EFFUSION, NOT ELSEWHERE CLASSIFIED SNOMED Code(s): 212642168 Comment: s/p thora, plan as above. (3) Paroxysmal A-fib Current Visit: Yes Status: Acute Code(s): I48.0 - PAROXYSMAL ATRIAL FIBRILLATION SNOMED Code(s): 865603182 Comment: restart xarelto. (4) Diabetes mellitus Current Visit: Yes Status: Acute Code(s): E11.9 - TYPE 2 DIABETES MELLITUS WITHOUT COMPLICATIONS SNOMED Code(s): 12958383 Comment: takes glipizide, A1Cs around 6 per patient. POCT, SSI qachs carbohydrate consistent diet (5) HTN (hypertension) Current Visit: Yes Status: Acute Code(s): I10 - ESSENTIAL (PRIMARY) HYPERTENSION SNOMED Code(s): 54828571 Comment: home is lisinopril 20mg, amlodipine 10mg. Hold for now in setting of infection. SBP 140-150s. (6) Gout Current Visit: Yes Status: Acute Code(s): M10.9 - GOUT, UNSPECIFIED SNOMED Code(s): 78894681 Comment: continue allopurinol Status and Disposition: medicine inpatient. Attending: Praful Prescott
[2017-09-14] MEDS: GuaiFENesin DM* 5 ML UDC PO PRN ×2 (18:21→19:59)
[2017-09-14] MEDS: Rivaroxaban TAB(*) 20 MG TAB PO SCH (18:49)
[2017-09-14] MEDS: Ondansetron INJ* 2 MG/ML VIAL IV PRN (20:21)
[2017-09-14] MEDS: Zolpidem TAB* 10 MG PO PRN (21:31)
[2017-09-15] MEDS ORDERED: Metoprolol Tartrate IV* 1 MG/ML 5 ML VIAL IV ONE (00:22)
[2017-09-15] MEDS ORDERED: Metoprolol Tartrate IV* 1 MG/ML 5 ML VIAL ONE (00:32)
[2017-09-15] MEDS: Cefepime 2 GM in Dextrose(*) 2 GM/50 ML BAG IV SCH ×2 (01:41→14:51)
[2017-09-15] MEDS: Insulin LISPRO* 1 UNITS UNIT SUBCUT SCH ×3 (08:42→19:02)
[2017-09-15] MEDS ORDERED: Azithromycin TAB* 250 MG PO SCH (09:00)
--- NOTE | 2017-09-15 09:19 | RAD ---
Indication: Pneumonia. 2 views of the chest are reviewed. Interstitial edema consistent with vascular congestion is noted. No alveolar consolidation is identified. Loculated right-sided pleural effusion is noted. When compared to previous exam of September 13, 2017 loculated pleural effusion in the right upper lobe is new. IMPRESSION: Bilateral pleural effusion with new loculated pleural effusion in the right upper lobe.
[2017-09-15] MEDS: amLODIPine TAB* 5 MG PO SCH (10:04)
[2017-09-15] MEDS: Lisinopril TAB* 10 MG PO SCH ×2 (10:04→20:49)
[2017-09-15] MEDS: Magnesium Oxide TAB* 400 MG PO SCH (10:05)
[2017-09-15] MEDS: Allopurinol TAB* 300 MG PO SCH (10:05)
[2017-09-15] MEDS: Rivaroxaban TAB(*) 20 MG TAB PO SCH (10:36)
[2017-09-15 10:59] LABS: ABS Basophils 0 10^3/ul (0-0.2); ABS Eosinophils 0.3 10^3/ul (0-0.6); ABS Lymphocytes 0.8 10^3/ul (1.0-4.8); ABS Monocytes 1.4 10^3/ul (0-0.8); ABS Neutrophils 24.2 10^3/ul (1.5-7.7); ABS Nucleated RBC 0 10^3/ul; Eosinophil % 1.1 % (0-6); Hematocrit 38 % (42-52); Hemoglobin 12.3 g/dl (14.0-18.0); Lymphocyte % 3.1 % (25-47); Mean Corpuscular HGB Conc 32 g/dl (31-36); Mean Corpuscular Hemoglobin 27 pg (27-31); Mean Corpuscular Volume 83 fL (80-94); Mean Platelet Volume 7 um3 (7.4-10.4); Nucleated Red Blood Cells % 0; Platelet Count 378 10^3/ul (150-450); Red Blood Count 4.58 10^6/ul (4.0-5.4); Red Cell Distribution Width 15 % (10.5-15); White Blood Count 26.8 10^3/ul (3.5-10.8)
[2017-09-15] MEDS: Ondansetron INJ* 2 MG/ML VIAL IV PRN (12:53)
--- NOTE | 2017-09-15 15:33 | RAD ---
Indication: Pleural effusions. Real-time sonography of the chest was performed. Complex fluid collection is noted in both hemithorax. Using usual aseptic technique and lidocaine as a local anesthetic a 5-Telugu catheter was placed within the left pleural space. A scant 20 mL of madeline appearing fluid was aspirated. This is likely difficult to aspirate due to the multiple loculation and complex nature of these pleural effusions. The specimen was sent for laboratory evaluation. If drainage is required a chest tube may be indicated. IMPRESSION: Left thoracentesis performed with aspiration of 20 mL of madeline fluid. The pleural fluid appears to be complex bilaterally. This may limit simple aspiration.
[2017-09-15] MEDS: Acetaminophen TAB* 325 MG PO PRN ×2 (15:47→20:50)
--- NOTE | 2017-09-15 17:39 | PN ---
Subjective Date of Service: 09/15/17 Interval History: IR drainage of only 20 cc on left today. Strep Pna from thora yesterday. Cefepime switched to ceftriaxone. Planned OR for right side tomorrow. Objective Active Medications: Acetaminophen (Tylenol Tab*) 650 mg PO Q6H PRN PRN Reason: Pain/fever Last Admin: 09/15/17 15:47 Dose: 650 mg Albuterol/Ipratropium (Duoneb (Albuterol 2.5 Mg/Ipratropium 0.5 Mg)) 1 neb INH Q4H PRN PRN Reason: SOB/WHEEZING Allopurinol (Zyloprim Tab*) 300 mg PO DAILY [facility] Last Admin: 09/15/17 10:05 Dose: 300 mg Amlodipine Besylate (Norvasc Tab*) 10 mg PO DAILY [facility] Last Admin: 09/15/17 10:04 Dose: 10 mg Dextrose (D50w Syringe 50 Ml*) 12.5 gm IV PUSH .FOR FS < 60 - SS PRN PRN Reason: FS < 60 Guaifenesin/Dextromethorphan (Robitussin Dm*) 10 ml PO Q6H PRN PRN Reason: COUGH Last Admin: 09/14/17 19:59 Dose: 10 ml Ceftriaxone Sodium 2 gm/ (Sodium Chloride) 100 mls @ 200 mls/hr IVPB Q24H [facility] Insulin Human Lispro (Humalog*) 0 units SUBCUT AC [facility] PRN Reason: Protocol Last Admin: 09/15/17 12:52 Dose: 6 units Lisinopril (Prinivil Tab*) 20 mg PO BID [facility] Last Admin: 09/15/17 10:04 Dose: 20 mg Magnesium Oxide (Magox 400 Tab*) 400 mg PO DAILY [facility] Last Admin: 09/15/17 10:05 Dose: 400 mg Ondansetron HCl (Zofran Inj*) 4 mg IV Q6H PRN PRN Reason: NAUSEA Last Admin: 09/15/17 12:53 Dose: 4 mg Zolpidem Tartrate (Ambien Tab*) 10 mg PO BEDTIME PRN PRN Reason: INSOMNIA Last Admin: 09/14/17 21:31 Dose: 10 mg Vital Signs - 8 hr 09/15/17 14:56 Temperature 99.1 F Pulse Rate 114 Respiratory 26 Rate Blood Pressure 158/67 (mmHg) O2 Sat by Pulse 94 Oximetry Oxygen Devices in Use Now: Nasal Cannula Appearance: NAD but increasd work of breathing. Neck: NL Appearance and Movements; NL JVP Respiratory: - - rhonchi and decreased sounds on left>right. no wheezing. Cardiovascular: NL Sounds; No Murmurs; No JVD, RRR, - - tachycardic Abdominal: NL Sounds; No Tenderness; No Distention, No Hepatosplenomegaly Extremities: No Edema Skin: No Rash or Ulcers Neurological: Alert and Oriented x 3, NL Sensation, NL Gait Nutrition: Taking PO's Result Diagrams: 09/15/17 10:50 09/15/17 10:50 Additional Lab and Data: Laboratory Results - last 24 hr 09/14/17 09/15/17 09/15/17 13:30 07:39 10:50 WBC 26.8 H RBC 4.58 Hgb 12.3 L Hct 38 L MCV 83 MCH 27 MCHC 32 RDW 15 Plt Count 378 MPV 7 L Neut % (Auto) 90.3 H Lymph % (Auto) 3.1 L [place] % (Auto) 5.4 Eos % (Auto) 1.1 Baso % (Auto) 0.1 Absolute Neuts (auto) 24.2 H Absolute Lymphs (auto) 0.8 L Absolute Monos (auto) 1.4 H Absolute Eos (auto) 0.3 Absolute Basos (auto) 0 Absolute Nucleated RBC 0 Nucleated RBC % 0 Sodium Potassium Chloride Carbon Dioxide Anion Gap BUN Creatinine Est GFR ( Amer) Est GFR (Non-Af Amer) BUN/Creatinine Ratio Glucose POC Glucose (mg/dL) 250 H Calcium Fluid Source Fluid Volume Fluid Color Fluid Appearance Fluid WBC Fluid RBC Fluid Tot Cell Count Fluid Neutrophils Fluid Band Neutrophils Fluid Lymphocytes Fluid Monocytes Fluid Cell Count Rvw By Fluid Comment 09/15/17 09/15/17 09/15/17 10:50 12:37 14:33 WBC RBC Hgb Hct MCV MCH MCHC RDW Plt Count MPV Neut % (Auto) Lymph % (Auto) [place] % (Auto) Eos % (Auto) Baso % (Auto) Absolute Neuts (auto) Absolute Lymphs (auto) Absolute Monos (auto) Absolute Eos (auto) Absolute Basos (auto) Absolute Nucleated RBC Nucleated RBC % Sodium 143 Potassium 4.4 Chloride 112 H Carbon Dioxide 24 Anion Gap 7 BUN 24 Creatinine 0.74 Est GFR ( Amer) 131.2 Est GFR (Non-Af Amer) 102.0 BUN/Creatinine Ratio 32.4 H Glucose 187 H POC Glucose (mg/dL) 205 H Calcium 9.0 Fluid Source Pleural fluid Fluid Volume 27 Fluid Color Yellow Fluid Appearance Clear Fluid WBC 308 Fluid RBC 703 Fluid Tot Cell Count 100 Fluid Neutrophils 88 Fluid Band Neutrophils 2 Fluid Lymphocytes 8 Fluid Monocytes 2 Fluid Cell Count Rvw By Fluid Comment 09/15/17 17:22 WBC RBC Hgb Hct MCV MCH MCHC RDW Plt Count MPV Neut % (Auto) Lymph % (Auto) [place] % (Auto) Eos % (Auto) Baso % (Auto) Absolute Neuts (auto) Absolute Lymphs (auto) Absolute Monos (auto) Absolute Eos (auto) Absolute Basos (auto) Absolute Nucleated RBC Nucleated RBC % Sodium Potassium Chloride Carbon Dioxide Anion Gap BUN Creatinine Est GFR ( Amer) Est GFR (Non-Af Amer) BUN/Creatinine Ratio Glucose POC Glucose (mg/dL) 223 H Calcium Fluid Source Fluid Volume Fluid Color Fluid Appearance Fluid WBC Fluid RBC Fluid Tot Cell Count Fluid Neutrophils Fluid Band Neutrophils Fluid Lymphocytes Fluid Monocytes Fluid Cell Count Rvw By Fluid Comment Microbiology and Other Data: Microbiology 09/15/17 17:05 Urine Legionella Urinary Antigen - Final Negative Legionella 09/15/17 17:05 Urine Streptococcus pneumoniae Ag Screen - Final Negative S. pneumo Antigen 09/15/17 14:33 Pleural Fluid Gram Stain - Preliminary 09/14/17 13:30 Pleural Fluid Gram Stain - Final 09/14/17 13:30 Pleural Fluid Body Fluid Culture - Preliminary Streptococcus Pneumoniae 09/13/17 15:19 Blood Venous Aerobic Blood Culture - Preliminary No Growth Day 2 09/13/17 15:19 Blood Venous Anaerobic Blood Culture - Preliminary No Growth Day 2 09/13/17 15:10 Blood Venous Aerobic Blood Culture - Preliminary No Growth Day 2 09/13/17 15:10 Blood Venous Anaerobic Blood Culture - Preliminary No Growth Day 2 09/13/17 23:00 Sputum Expectorated Gram Stain - Final 09/13/17 23:00 Sputum Expectorated Sputum Culture - Final YEAST 09/14/17 10:30 Nasal Nasal Screen MRSA (PCR)(MACARENA) - Final Mrsa Negative Assess/Plan/Problems-Billing Assessment: 77 yo male PMH NIDDM, HTN, Afib (on Xarelto) presenting with 3 weeks SOB, 1 week productive cough, wbc 24. b/l (R>L) large complex loculated pleural effusions positive for strep pneumonia. s/p thoracentesis x2. Planned OR for possible VATS on right 09/16/16. - Patient Problems (1) Acute respiratory failure with hypoxia Current Visit: Yes Status: Acute Code(s): J96.01 - ACUTE RESPIRATORY FAILURE WITH HYPOXIA SNOMED Code(s): 55500929 Comment: complex loculated pleural effusions. Strep Pna + Appreciate ID recs Switch cefepime back to ceftriaxone 2g q24. stop azithromycin. Appreciate surgery assistance, s/p thoracentesis. f/u studies. high wbc. repeat cxr with right upper effusion ECHO with preserved EF 55-60% SIRS (leukocytosis, tachycardia, tachypnea). no lactic acidosis MRSA nares negative BCx NGTD sputum cx: YEAST on GS (2) Loculated pleural effusion Current Visit: Yes Status: Acute Code(s): J90 - PLEURAL EFFUSION, NOT ELSEWHERE CLASSIFIED SNOMED Code(s): 691603975 Comment: s/p thora, plan as above. (3) Paroxysmal A-fib Current Visit: Yes Status: Acute Code(s): I48.0 - PAROXYSMAL ATRIAL FIBRILLATION SNOMED Code(s): 047117896 Comment: holding xarelto given multiple procedures. (4) Diabetes mellitus Current Visit: Yes Status: Acute Code(s): E11.9 - TYPE 2 DIABETES MELLITUS WITHOUT COMPLICATIONS SNOMED Code(s): 18091908 Comment: takes glipizide, A1Cs around 6 per patient. POCT, SSI qachs carbohydrate consistent diet (5) HTN (hypertension) Current Visit: Yes Status: Acute Code(s): I10 - ESSENTIAL (PRIMARY) HYPERTENSION SNOMED Code(s): 28978394 Comment: lisinopril 20mg BID. amlodipine 10mg (6) Gout Current Visit: Yes Status: Acute Code(s): M10.9 - GOUT, UNSPECIFIED SNOMED Code(s): 50078493 Comment: continue allopurinol Status and Disposition: medicine inpatient. Attending: Praful Prescott
--- NOTE | 2017-09-15 20:39 | CONS ---
PULMONARY CONSULTATION REPORT: DATE OF CONSULT: 09/15/17 CONSULTATION REQUESTED BY: Dr. Prescott; Dr. Wilkinson REASON FOR CONSULTATION: Evaluation of pleural effusion. HISTORY OF PRESENT ILLNESS: The patient is a 77-year-old morbidly obese male with a history of diabetes, hypertension, AFib on Xarelto who presents for evaluation of cough, fever and shortness of breath. The patient is a poor historian. He reports having chronic cough. The patient was seen by a primary care physician for evaluation of generalized malaise and decreased appetite. The patient was suspected to be having bronchitis and was started on prednisone and Keflex. The patient's symptoms did not improve despite treatment with antibiotics and prednisone, cough has worsened. He also reports chest discomfort and difficulty taking deep breath due to the cough. He also reported copious sputum production and also feeling feverish with a T-max of 100. The patient decided to come into the emergency room for further evaluation. The patient reported cough productive of thick brown/red sputum. The patient denies recent travel or sick contacts. The patient also reports having trouble swallowing. He reports choking, while eating on occasions. The patient also reports waking up with cough at night. The patient also reports having regurgitation of food after he finishes eating. The patient never had evaluation for his swallowing difficulty. The patient was noted to have elevated white blood count of 24 in the emergency room along with elevated CRP. I have personally reviewed chest x-ray and CT scan of the chest images with the patient today. The patient noted to have bilateral effusions and basal atelectasis. CT scan showed bilateral pleural effusions with possible loculations, appears to be multiloculated on the right side and with large loculated pocket on the left side. The patient is also noted to have air fluid levels in the proximal esophagus just post glottic area including the oral contrast sitting in the most dependent portion that could be representing Zenker 's diverticulum. The patient reports that he was told that he had pouch in his throat in the past. The patient had a thoracentesis performed by surgery yesterday, only 100 cc of straw colored fluid was being aspirated. Fluid cytology was negative for malignancy, showed neutrophil predominant fluid with a lot of inflammatory cells. Cultures are negative to date, and showed 4+ neutrophils with no organisms. Sputum culture showed yeast and gram positive cocci. The patient was started on broad spectrum antibiotics with cefepime and azithromycin. Pulmonary consultation was requested for evaluation of bilateral pleural effusions. The patient was seen and examined at bedside. Labs and imaging studies were reviewed and were discussed with the patient. The patient reported slight improvement in his symptoms. He still continues to cough significantly and report soreness in his ribs due to the cough. The patient also reports bringing out thick brown tanned phlegm. PAST MEDICAL HISTORY: 1. Diabetes. 2. Hypertension. 3. Afib. 4. Gout. 5. Cataract surgery. MEDICATIONS: 1. Cyanocobalamin. 2. Cholecalciferol. 3. Allopurinol. 4. Glipizide. 5. Amlodipine. 6. Rivaroxaban. 7. Magnesium. 8. Lisinopril. ALLERGIES: No known drug allergies. FAMILY HISTORY: Father of heart attack at age 78, mom related to pancreatitis at age 82. SOCIAL HISTORY: No alcohol, tobacco or drug abuse. REVIEW OF SYSTEMS: All 14 systems were reviewed and as per above. The patient also reports peripheral neuropathy, poor balance and chronic lower extremity edema. The patient denies constipation. The patient also reports difficulty swallowing and choking at times. PHYSICAL EXAM: The patient is a morbidly obese male sitting in bed in no apparent distress. Vital Signs: Temperature 97.9, pulse 103 beats per minute, respiratory rate 20 per minute, O2 sat 94% on 2 L. HEENT: Pupils equal and reactive to light, mucous membranes moist. Lungs: Diminished air entry bilaterally. Scattered rhonchi present. Cardiovascular: S1, S2 present. Regular. No murmurs, gallops, or rubs. Abdomen: Soft, distended. Bowel sounds present. No tenderness. Extremities: Normal range of motion. Skin: No rash or bruises. No cystic lesions noted. Neurologic: No focal deficits. Lymphatic: No palpable cervical or supraclavicular adenopathy. DIAGNOSTIC STUDIES/LAB DATA: WBC count 26.8, hemoglobin 12.3, hematocrit 38, platelet count of 378. Sodium 143, potassium 4.4, chloride 112, bicarb 24, BUN 24, creatinine 0.74, procalcitonin 1, lactic acid within normal limit, CRP elevated at 342. Pleural fluid analysis showed 94% neutrophils with evidence of acute inflammation and cytology negative for malignancy. Chest x-ray and CT scan as described above in HPI. Echocardiogram showed moderate concentric left ventricular hypertrophy with EF of 55% to 60% with normal right ventricular systolic function and mild pulmonary hypertension at 43. Evidence of atrial fibrillation. IMPRESSION/RECOMMENDATION: 77-year-old morbidly obese male with swallowing difficulty and possible episodes of aspiration admitted with bilateral pleural effusions likely loculated effusions due to parapneumonic effusions in the setting of a possible aspiration pneumonia. Multiloculated effusion and pleural thickening on the right side, Dr Wilkinson was unable to drain more than 100 cc yesterday. Given concern with parapneumonic effusion/empyema, he would benefit from VATS given multiple loculations. He also has loculated effusion on the left side that could be drained by IR. The patient is going down for IR-guided thoracentesis on the left side, fluid will be sent for microbiological and hematological testing. I have discussed with Dr. Prescott and Dr. Gold. I have also discussed in detail with the patient the treatment implications. Thank you for allowing me to participate in the care of your patient. Will follow up with you. [id number]/CPS #: [id number] JAIR
[2017-09-15] MEDS: Zolpidem TAB* 10 MG PO PRN (20:50)
--- NOTE | 2017-09-15 23:02 | CONS ---
CONSULTATION REPORT: DATE OF CONSULT: 09/15/17 REQUESTING PHYSICIAN: Dr. Prescott. CONSULTING SERVICE: Infectious Disease. REASON FOR CONSULT: Parapneumonic effusion. IMPRESSION: 1. Likely recent bilateral pneumonia now with bilateral parapneumonic effusion , both have been tapped. The fluid on the right is growing pneumococcus. The one on the left may or may not, he has been on antibiotics for a couple of days so may not grow anything even if it is infected. 2. Diabetes. 3. Hypertension. 4. Atrial fibrillation. RECOMMENDATION: 1. I agree with ceftriaxone 2 g once a day. Plan on 4 to 6 weeks of it through IV via PICC line. 2. He will need definitive drainage of both of the loculated collections on each side. If Surgery is to place a chest tube, perhaps [facility] could place a pigtail drain on the other side. HISTORY OF PRESENT ILLNESS: This is a 77-year-old man with diabetes admitted with 2 to 3 weeks of cough, malaise, fatigue, decreased appetite. He had a CT of his chest done when he came to the hospital on the that showed bilateral pleural effusions with pleural thickening. There is also a note by the radiologist of esophageal thickening and air fluid level in the proximal esophagus. He has ongoing cough, no fevers or chills. He feels a little bit better since he has been here but not really much improvement. He did have thoracentesis on the of the right chest. Today [facility] aspirated the left chest. PAST MEDICAL HISTORY: 1. Diabetes. 2. Hypertension. 3. Atrial fibrillation. 4. Gout. 5. Cataract extraction. MEDICATIONS: 1. Tylenol. 2. Allopurinol. 3. Amlodipine. 4. Lisinopril. 5. Metoprolol. 6. Ceftriaxone 2 g IV 12 hours. 7. Ambien. ALLERGIES: No known drug allergies. FAMILY HISTORY: His father of coronary artery disease at age 80. His mom due to pancreatitis at 82. SOCIAL HISTORY: No alcohol, no tobacco use. He lives by himself in [place]. REVIEW OF SYSTEMS: A 14-point review of systems were all negative except as noted above. PHYSICAL EXAM: Vital Signs: Temperature is 37, heart rate 110, respiratory rate 20, blood pressure 160/67, oxygen saturation 94% on 2 liters. General: He is awake, not in distress. Neurologic: He is oriented x3, follows all commands. HEENT: There is no conjunctival hemorrhage. Oropharynx without lesions. Neck: Supple. Lymph Nodes: There is no inguinal, axillary, or epitrochlear lymphadenopathy. Heart: Irregularly irregular and tachycardic. Lungs: There are decreased breath sounds at the base bilaterally. There is expiratory rhonchi. Abdomen: Soft, nontender, and nondistended. There are bowel sounds present. Skin: There are no rash or splinter hemorrhages. Musculoskeletal: There is no spine tenderness to palpation or joint synovitis. DIAGNOSTIC STUDIES/LAB DATA: White blood cell count 26, hemoglobin 12, platelets 378, creatinine is 0.7. Please see impressions and recommendations as outlined above. Thank you for asking me to see Mr. Richey in consultation. [id number]/CPS #: [id number] JAIR
[2017-09-16] MEDS ORDERED: cefTRIAXone(*) 2 GM in NS 0.9% 100 ML* 100 ML IVPB SCH (02:00)
[2017-09-16] MEDS ORDERED: Diltiazem IV* 5 MG/ML 5 ML VIAL (for loading dose/IV Push) (25 MG) IV SLOW PU ONE (02:43)
[2017-09-16] MEDS: Acetaminophen TAB* 325 MG PO PRN ×3 (02:51→22:13)
--- NOTE | 2017-09-16 02:52 | PN ---
Progress Note - Progress Note Date of Service: 09/16/17 Note: Nursing called reporting AFIB/RVR rate 130s, mildly symptomatic w/ fatigue & sweating. No [address] [place] [address] beds currently available, will therefore transfer to ICU for diltiazem bolus/GTT.
[2017-09-16] MEDS ORDERED: Diltiazem IV VIAL* 125 MG in D5W 100 ML BAG* 100 ML IV SCH (03:00)
[2017-09-16] MEDS ORDERED: Diltiazem DRIP* 100 MG/100 ML ADDV.BAG IVPB ONE (03:12)
[2017-09-16] MEDS ORDERED: Diltiazem IV* 5 MG/ML 5 ML VIAL (for loading dose/IV Push) (25 MG) ONE (03:12)
[2017-09-16 04:53] LABS: ABS Basophils 0 10^3/ul (0-0.2); ABS Eosinophils 0 10^3/ul (0-0.6); ABS Lymphocytes 0.7 10^3/ul (1.0-4.8); ABS Neutrophils 22.7 10^3/ul (1.5-7.7); ABS Nucleated RBC 0.01 10^3/ul; Eosinophil % 0.1 % (0-6); Hematocrit 42 % (42-52); Hemoglobin 13.4 g/dl (14.0-18.0); Lymphocyte % 2.9 % (25-47); Mean Corpuscular HGB Conc 32 g/dl (31-36); Mean Corpuscular Hemoglobin 27 pg (27-31); Mean Corpuscular Volume 85 fL (80-94); Mean Platelet Volume 8 um3 (7.4-10.4); Nucleated Red Blood Cells % 0; Platelet Count 345 10^3/ul (150-450); Red Blood Count 4.93 10^6/ul (4.0-5.4); Red Cell Distribution Width 16 % (10.5-15); White Blood Count 24.5 10^3/ul (3.5-10.8)
[2017-09-16 04:55] LABS: EGFR Non-African American 110.6 (>60)
[2017-09-16] MEDS: Insulin LISPRO* 1 UNITS UNIT SUBCUT SCH ×3 (09:23→18:39)
[2017-09-16] MEDS: amLODIPine TAB* 5 MG PO SCH (09:30)
[2017-09-16] MEDS: Lisinopril TAB* 10 MG PO SCH ×2 (09:30→20:50)
[2017-09-16] MEDS: Magnesium Oxide TAB* 400 MG PO SCH (09:30)
[2017-09-16] MEDS: cefTRIAXone(*) 2 GM in NS 0.9% 100 ML* 100 ML IVPB SCH (09:50)
[2017-09-16] MEDS: Allopurinol TAB* 300 MG PO SCH (10:33)
--- NOTE | 2017-09-16 13:20 | PN ---
Progress Note - Progress Note Date of Service: 09/16/17 - Pulm f/u note Note: Pt seen and examined at bedside. Pt reports not feeling any better, continues to have cough with james brown phleghm with streaks of blood. Was transferred to ICU last night for cardizem drip for A.fib with RVR Active Medications Generic Name Dose Route Start Last Admin Trade Name Freq PRN Reason Stop Dose Admin Acetaminophen 650 mg 09/13/17 17:38 09/16/17 02:51 Tylenol Tab* PO 650 mg Q6H PRN Administration Pain/fever Albuterol/Ipratropium 1 neb 09/13/17 17:33 Duoneb (Albuterol 2.5 Mg/Ipratropium 0.5 Mg) INH Q4H PRN SOB/WHEEZING Allopurinol 300 mg 09/14/17 09:00 09/16/17 10:33 Zyloprim Tab* PO 300 mg DAILY SHIRA Administration Amlodipine Besylate 10 mg 09/14/17 09:00 09/16/17 09:30 Norvasc Tab* PO 10 mg DAILY SHIRA Administration Dextrose 12.5 gm 09/13/17 17:37 D50w Syringe 50 Ml* IV PUSH .FOR FS < 60 - SS PRN FS < 60 Diltiazem HCl 30 mg 09/16/17 13:00 Cardizem Tab* PO Q6HR SHIRA Guaifenesin/Dextromethorphan 10 ml 09/14/17 16:51 09/14/17 19:59 Robitussin Dm* PO 10 ml Q6H PRN Administration COUGH Ceftriaxone Sodium 2 gm/ 100 mls @ 200 mls/hr 09/16/17 09:00 09/16/17 09:50 Sodium Chloride IVPB 200 mls/hr Q24H SHIRA Administration Insulin Human Lispro 0 units 09/14/17 07:30 09/16/17 09:23 Humalog* SUBCUT 6 units AC SHIRA Administration Protocol Lisinopril 20 mg 09/14/17 09:00 09/16/17 09:30 Prinivil Tab* PO 20 mg BID SHIRA Administration Magnesium Oxide 400 mg 09/14/17 09:00 09/16/17 09:30 Magox 400 Tab* PO 400 mg DAILY SHIRA Administration Ondansetron HCl 4 mg 09/13/17 17:39 09/15/17 12:53 Zofran Inj* IV 4 mg Q6H PRN Administration NAUSEA Zolpidem Tartrate 10 mg 09/13/17 22:56 09/15/17 20:50 Ambien Tab* PO 10 mg BEDTIME PRN Administration INSOMNIA Vital Signs Temp Pulse Resp BP Pulse Ox 98.0 F 90 23 137/61 93 09/16/17 03:01 09/16/17 12:01 09/16/17 12:01 09/16/17 12:00 09/16/17 12:01 O/E: Pt in NAD HEENT: PERRLA, No JVD Lungs: diminished air entry, decreased breath sounds at bases, scaterred rhonchi present CVS: S1, S2+ Abd: Obese, BS+ Ext: Normal ROM Neuro: Alert, awake, no focal defecits Laboratory Results - last 24 hr 09/15/17 09/15/17 09/16/17 14:33 17:22 02:35 WBC RBC Hgb Hct MCV MCH MCHC RDW Plt Count MPV Neut % (Auto) Lymph % (Auto) [place] % (Auto) Eos % (Auto) Baso % (Auto) Absolute Neuts (auto) Absolute Lymphs (auto) Absolute Monos (auto) Absolute Eos (auto) Absolute Basos (auto) Absolute Nucleated RBC Nucleated RBC % Sodium Potassium Chloride Carbon Dioxide Anion Gap BUN Creatinine Est GFR ( Amer) Est GFR (Non-Af Amer) BUN/Creatinine Ratio Glucose POC Glucose (mg/dL) 223 H 208 H Calcium Fluid Source Pleural fluid Fluid Volume 27 Fluid Color Yellow Fluid Appearance Clear Fluid WBC 308 Fluid RBC 703 Fluid Tot Cell Count 100 Fluid Neutrophils 88 Fluid Band Neutrophils 2 Fluid Lymphocytes 8 Fluid Monocytes 2 09/16/17 09/16/17 09/16/17 04:23 04:23 08:53 WBC 24.5 H RBC 4.93 Hgb 13.4 L Hct 42 MCV 85 MCH 27 MCHC 32 RDW 16 H Plt Count 345 MPV 8 Neut % (Auto) 92.6 H Lymph % (Auto) 2.9 L [place] % (Auto) 4.2 Eos % (Auto) 0.1 Baso % (Auto) 0.2 Absolute Neuts (auto) 22.7 H Absolute Lymphs (auto) 0.7 L Absolute Monos (auto) 1.0 H Absolute Eos (auto) 0 Absolute Basos (auto) 0 Absolute Nucleated RBC 0.01 Nucleated RBC % 0 Sodium 143 Potassium 4.3 Chloride 112 H Carbon Dioxide 22 Anion Gap 9 BUN 24 Creatinine 0.69 Est GFR ( Amer) 142.2 Est GFR (Non-Af Amer) 110.6 BUN/Creatinine Ratio 34.8 H Glucose 190 H POC Glucose (mg/dL) 213 H Calcium 8.7 Fluid Source Fluid Volume Fluid Color Fluid Appearance Fluid WBC Fluid RBC Fluid Tot Cell Count Fluid Neutrophils Fluid Band Neutrophils Fluid Lymphocytes Fluid Monocytes 09/16/17 12:51 WBC RBC Hgb Hct MCV MCH MCHC RDW Plt Count MPV Neut % (Auto) Lymph % (Auto) [place] % (Auto) Eos % (Auto) Baso % (Auto) Absolute Neuts (auto) Absolute Lymphs (auto) Absolute Monos (auto) Absolute Eos (auto) Absolute Basos (auto) Absolute Nucleated RBC Nucleated RBC % Sodium Potassium Chloride Carbon Dioxide Anion Gap BUN Creatinine Est GFR ( Amer) Est GFR (Non-Af Amer) BUN/Creatinine Ratio Glucose POC Glucose (mg/dL) 208 H Calcium Fluid Source Fluid Volume Fluid Color Fluid Appearance Fluid WBC Fluid RBC Fluid Tot Cell Count Fluid Neutrophils Fluid Band Neutrophils Fluid Lymphocytes Fluid Monocytes 77 y o m non-smoker with swallowing difficulties a/ worsening SOB, cough, fever found to have loculated pl effusions bilaterally Pt with Strep Pneumonia with complex pleural effusions b/l Pt on broad spectrum antibiotics to be adjusted pending susceptibilities D/w dr Gold Pt to have VATS on right side as there is more involvement and to have trial of thrombolytics through chest tube on left side. Plan was also discussed with pt and his sister at bedside He is on Frank drip for A.fib c/w bronchodilators DVT px
--- NOTE | 2017-09-16 13:28 | PN ---
Progress Note - Progress Note Date of Service: 09/16/17 Note: F/U for loculated pleural effusions. Afebrile WBC remains elevated Still dyspsneic and on O2. Unsuccessful attempt to drain left collection yesterday (loculated) Imaging reviewed D/W Matthew Prescott and Parag, as well as with patient. I do not think the right side will be amenable to chest tube with fibrinolystics. He needs a right VATS to clean out the chest and help to re- expand the RLL. Will place left chest tube at the same time, hopefully that will respond to fibrinolytics. If not, may need left VATS to follow. Currently on the OR schedule for Right VATS 09/18/17. He understands and agrees.
[2017-09-16] MEDS: Diltiazem TAB* 30 MG PO SCH ×3 (13:55→23:25)
--- NOTE | 2017-09-16 17:39 | PN ---
Subjective Date of Service: 09/16/17 Interval History: Went into Afib with RVR, placed on dilt gtt at 5. no OR time for VATS today. regurgitating up some food. [employer] did see yesterday. Objective Active Medications: Acetaminophen (Tylenol Tab*) 650 mg PO Q6H PRN PRN Reason: Pain/fever Last Admin: 09/16/17 02:51 Dose: 650 mg Albuterol/Ipratropium (Duoneb (Albuterol 2.5 Mg/Ipratropium 0.5 Mg)) 1 neb INH Q4H PRN PRN Reason: SOB/WHEEZING Allopurinol (Zyloprim Tab*) 300 mg PO DAILY [facility] Last Admin: 09/16/17 10:33 Dose: 300 mg Amlodipine Besylate (Norvasc Tab*) 10 mg PO DAILY [facility] Last Admin: 09/16/17 09:30 Dose: 10 mg Dextrose (D50w Syringe 50 Ml*) 12.5 gm IV PUSH .FOR FS < 60 - SS PRN PRN Reason: FS < 60 Diltiazem HCl (Cardizem Tab*) 30 mg PO Q6HR [facility] Last Admin: 09/16/17 13:55 Dose: 30 mg Guaifenesin/Dextromethorphan (Robitussin Dm*) 10 ml PO Q6H PRN PRN Reason: COUGH Last Admin: 09/14/17 19:59 Dose: 10 ml Ceftriaxone Sodium 2 gm/ (Sodium Chloride) 100 mls @ 200 mls/hr IVPB Q24H [facility] Last Admin: 09/16/17 09:50 Dose: 200 mls/hr Insulin Human Lispro (Humalog*) 0 units SUBCUT AC [facility] PRN Reason: Protocol Last Admin: 09/16/17 13:58 Dose: 6 units Lisinopril (Prinivil Tab*) 20 mg PO BID [facility] Last Admin: 09/16/17 09:30 Dose: 20 mg Magnesium Oxide (Magox 400 Tab*) 400 mg PO DAILY [facility] Last Admin: 09/16/17 09:30 Dose: 400 mg Ondansetron HCl (Zofran Inj*) 4 mg IV Q6H PRN PRN Reason: NAUSEA Last Admin: 09/15/17 12:53 Dose: 4 mg Zolpidem Tartrate (Ambien Tab*) 10 mg PO BEDTIME PRN PRN Reason: INSOMNIA Last Admin: 09/15/17 20:50 Dose: 10 mg Vital Signs - 8 hr 09/16/17 09/16/17 09/16/17 09:45 10:00 11:00 Temperature Pulse Rate 95 95 88 Respiratory 25 36 23 Rate Blood Pressure 145/68 141/69 136/71 (mmHg) O2 Sat by Pulse 96 97 94 Oximetry 09/16/17 09/16/17 09/16/17 11:01 12:00 12:01 Temperature Pulse Rate 90 86 90 Respiratory 22 25 23 Rate Blood Pressure 137/61 (mmHg) O2 Sat by Pulse 94 93 93 Oximetry 09/16/17 15:58 Temperature 98.3 F Pulse Rate Respiratory Rate Blood Pressure (mmHg) O2 Sat by Pulse Oximetry Oxygen Devices in Use Now: Nasal Cannula Appearance: NAD but increased work of breathing. Eyes: No Scleral Icterus, PERRLA Ears/Nose/Mouth/Throat: NL Teeth, Lips, Gums, Mucous Membranes Moist Neck: NL Appearance and Movements; NL JVP Respiratory: Symmetrical Chest Expansion and Respiratory Effort, - - rhonchi and decrreased BS. no wheezing. Cardiovascular: - - irregularly irregular Abdominal: NL Sounds; No Tenderness; No Distention Extremities: No Edema Skin: No Rash or Ulcers Neurological: Alert and Oriented x 3, NL Sensation, NL Muscle Strength and Tone Result Diagrams: 09/16/17 04:23 09/16/17 04:23 Additional Lab and Data: Laboratory Results - last 24 hr 09/14/17 09/14/17 09/15/17 13:30 13:30 14:33 WBC RBC Hgb Hct MCV MCH MCHC RDW Plt Count MPV Neut % (Auto) Lymph % (Auto) [place] % (Auto) Eos % (Auto) Baso % (Auto) Absolute Neuts (auto) Absolute Lymphs (auto) Absolute Monos (auto) Absolute Eos (auto) Absolute Basos (auto) Absolute Nucleated RBC Nucleated RBC % Sodium Potassium Chloride Carbon Dioxide Anion Gap BUN Creatinine Est GFR ( Amer) Est GFR (Non-Af Amer) BUN/Creatinine Ratio Glucose POC Glucose (mg/dL) Calcium Fluid Source Pleural fluid Pleural fluid Fluid Cell Count Rvw By Fluid Glucose Fluid Total Protein 3.7 Fluid LDH 1436 Fluid Amylase 09/15/17 09/15/17 09/15/17 14:33 14:33 14:33 WBC RBC Hgb Hct MCV MCH MCHC RDW Plt Count MPV Neut % (Auto) Lymph % (Auto) [place] % (Auto) Eos % (Auto) Baso % (Auto) Absolute Neuts (auto) Absolute Lymphs (auto) Absolute Monos (auto) Absolute Eos (auto) Absolute Basos (auto) Absolute Nucleated RBC Nucleated RBC % Sodium Potassium Chloride Carbon Dioxide Anion Gap BUN Creatinine Est GFR ( Amer) Est GFR (Non-Af Amer) BUN/Creatinine Ratio Glucose POC Glucose (mg/dL) Calcium Fluid Source Pleural fluid Pleural fluid Pleural fluid Fluid Cell Count Rvw By Fluid Glucose 168 Fluid Total Protein 3.5 Fluid LDH 438 Fluid Amylase 09/15/17 09/16/17 09/16/17 14:33 02:35 04:23 WBC RBC Hgb Hct MCV MCH MCHC RDW Plt Count MPV Neut % (Auto) Lymph % (Auto) [place] % (Auto) Eos % (Auto) Baso % (Auto) Absolute Neuts (auto) Absolute Lymphs (auto) Absolute Monos (auto) Absolute Eos (auto) Absolute Basos (auto) Absolute Nucleated RBC Nucleated RBC % Sodium 143 Potassium 4.3 Chloride 112 H Carbon Dioxide 22 Anion Gap 9 BUN 24 Creatinine 0.69 Est GFR ( Amer) 142.2 Est GFR (Non-Af Amer) 110.6 BUN/Creatinine Ratio 34.8 H Glucose 190 H POC Glucose (mg/dL) 208 H Calcium 8.7 Fluid Source Pleural fluid Fluid Cell Count Rvw By Fluid Glucose Fluid Total Protein Fluid LDH Fluid Amylase 19 09/16/17 09/16/17 09/16/17 04:23 08:53 12:51 WBC 24.5 H RBC 4.93 Hgb 13.4 L Hct 42 MCV 85 MCH 27 MCHC 32 RDW 16 H Plt Count 345 MPV 8 Neut % (Auto) 92.6 H Lymph % (Auto) 2.9 L [place] % (Auto) 4.2 Eos % (Auto) 0.1 Baso % (Auto) 0.2 Absolute Neuts (auto) 22.7 H Absolute Lymphs (auto) 0.7 L Absolute Monos (auto) 1.0 H Absolute Eos (auto) 0 Absolute Basos (auto) 0 Absolute Nucleated RBC 0.01 Nucleated RBC % 0 Sodium Potassium Chloride Carbon Dioxide Anion Gap BUN Creatinine Est GFR ( Amer) Est GFR (Non-Af Amer) BUN/Creatinine Ratio Glucose POC Glucose (mg/dL) 213 H 208 H Calcium Fluid Source Fluid Cell Count Rvw By Fluid Glucose Fluid Total Protein Fluid LDH Fluid Amylase 09/16/17 18:05 WBC RBC Hgb Hct MCV MCH MCHC RDW Plt Count MPV Neut % (Auto) Lymph % (Auto) [place] % (Auto) Eos % (Auto) Baso % (Auto) Absolute Neuts (auto) Absolute Lymphs (auto) Absolute Monos (auto) Absolute Eos (auto) Absolute Basos (auto) Absolute Nucleated RBC Nucleated RBC % Sodium Potassium Chloride Carbon Dioxide Anion Gap BUN Creatinine Est GFR ( Amer) Est GFR (Non-Af Amer) BUN/Creatinine Ratio Glucose POC Glucose (mg/dL) 172 H Calcium Fluid Source Fluid Cell Count Rvw By Fluid Glucose Fluid Total Protein Fluid LDH Fluid Amylase Microbiology and Other Data: Microbiology 09/13/17 15:19 Blood Venous Aerobic Blood Culture - Preliminary No Growth Day 3 09/13/17 15:19 Blood Venous Anaerobic Blood Culture - Preliminary No Growth Day 3 09/13/17 15:10 Blood Venous Aerobic Blood Culture - Preliminary No Growth Day 3 09/13/17 15:10 Blood Venous Anaerobic Blood Culture - Preliminary No Growth Day 3 09/15/17 14:33 Pleural Fluid Gram Stain - Final 09/15/17 14:33 Pleural Fluid Body Fluid Culture - Preliminary No Growth Day 1 09/14/17 13:30 Pleural Fluid Gram Stain - Final 09/14/17 13:30 Pleural Fluid Body Fluid Culture - Preliminary Streptococcus Pneumoniae 09/16/17 03:37 Nasal Nasal Screen MRSA (PCR)(MACARENA) - Final Mrsa Negative 09/15/17 17:05 Urine Legionella Urinary Antigen - Final Negative Legionella 09/15/17 17:05 Urine Streptococcus pneumoniae Ag Screen - Final Negative S. pneumo Antigen 09/13/17 23:00 Sputum Expectorated Gram Stain - Final 09/13/17 23:00 Sputum Expectorated Sputum Culture - Final YEAST 09/14/17 10:30 Nasal Nasal Screen MRSA (PCR)(MACARENA) - Final Mrsa Negative Assess/Plan/Problems-Billing Assessment: 77 yo male PMH NIDDM, HTN, Afib (on Xarelto) presenting with 3 weeks SOB, 1 week productive cough, wbc 24. b/l (R>L) large complex loculated pleural effusions positive for strep pneumonia. s/p thoracentesis x2. Planned OR for possible VATS on right 09/16/16. - Patient Problems (1) Acute respiratory failure with hypoxia Current Visit: Yes Status: Acute Code(s): J96.01 - ACUTE RESPIRATORY FAILURE WITH HYPOXIA SNOMED Code(s): 71738725 Comment: complex loculated pleural exudative effusions. Strep Pna + Planned VATS on right, possibly thursday given booked OR time. will need chest tube and lytics on left. appreciate surgery and pulmonary recs. Appreciate ID recs s/p cefepime back to ceftriaxone 2g q24. Appreciate surgery assistance, s/p thoracentesis. exudative effusion by 11/14 light's criteria. high wbc. repeat cxr with right upper effusion ECHO with preserved EF 55-60% SIRS (leukocytosis, tachycardia, tachypnea). no lactic acidosis MRSA nares negative BCx NGTD sputum cx: YEAST on GS (2) Loculated pleural effusion Current Visit: Yes Status: Acute Code(s): J90 - PLEURAL EFFUSION, NOT ELSEWHERE CLASSIFIED SNOMED Code(s): 089722570 Comment: s/p thora, plan as above. 11/14 Lights criteria: exudative. empyema (3) Paroxysmal A-fib Current Visit: Yes Status: Acute Code(s): I48.0 - PAROXYSMAL ATRIAL FIBRILLATION SNOMED Code(s): 370687119 Comment: holding xarelto given multiple procedures planned. went into RVR s/p dilt gtt. transition to dilt 30po q6. Mg>2, K>4. (4) Diabetes mellitus Current Visit: Yes Status: Acute Code(s): E11.9 - TYPE 2 DIABETES MELLITUS WITHOUT COMPLICATIONS SNOMED Code(s): 61254406 Comment: takes glipizide, A1Cs around 6 per patient. POCT, SSI qachs carbohydrate consistent diet (5) HTN (hypertension) Current Visit: Yes Status: Acute Code(s): I10 - ESSENTIAL (PRIMARY) HYPERTENSION SNOMED Code(s): 66303392 Comment: now dilt as above. lisinopril 20mg BID. amlodipine 10mg (6) Gout Current Visit: Yes Status: Acute Code(s): M10.9 - GOUT, UNSPECIFIED SNOMED Code(s): 47591605 Comment: continue allopurinol Status and Disposition: medicine inpatient. currently boarding in ICU(did not have tele bed during RVR episode), waiting for tele med bed on . Attending: Praful Prescott
[2017-09-16] MEDS: Zolpidem TAB* 10 MG PO PRN (20:49)
[2017-09-17] MEDS: Acetaminophen TAB* 325 MG PO PRN ×2 (03:02→14:47)
[2017-09-17 05:41] LABS: ABS Basophils 0 10^3/ul (0-0.2); ABS Eosinophils 0.1 10^3/ul (0-0.6); ABS Lymphocytes 0.9 10^3/ul (1.0-4.8); ABS Neutrophils 20.1 10^3/ul (1.5-7.7); ABS Nucleated RBC 0 10^3/ul; Eosinophil % 0.4 % (0-6); Hematocrit 38 % (42-52); Hemoglobin 12.1 g/dl (14.0-18.0); Lymphocyte % 3.9 % (25-47); Mean Corpuscular HGB Conc 32 g/dl (31-36); Mean Corpuscular Hemoglobin 27 pg (27-31); Mean Corpuscular Volume 83 fL (80-94); Mean Platelet Volume 8 um3 (7.4-10.4); Nucleated Red Blood Cells % 0; Platelet Count 330 10^3/ul (150-450); Red Blood Count 4.54 10^6/ul (4.0-5.4); Red Cell Distribution Width 16 % (10.5-15); White Blood Count 22.1 10^3/ul (3.5-10.8)
[2017-09-17 06:02] LABS: EGFR Non-African American 118.5 (>60)
[2017-09-17] MEDS: Diltiazem TAB* 30 MG PO SCH ×3 (06:20→17:56)
--- NOTE | 2017-09-17 08:43 | PN ---
Subjective Date of Service: 09/17/17 Interval History: feeling about the same. Afib controlled. Had some abdominal discomfort, was retaining urine >900 on bladder scan and upon insertion of calvo catheter had 3.2L out quickly. relief. longstanding regurgitation of food. Call from lab, unable to get MACARENA on strep pna culture, just not growing. Objective Active Medications: Acetaminophen (Tylenol Tab*) 650 mg PO Q6H PRN PRN Reason: Pain/fever Last Admin: 09/17/17 03:02 Dose: 650 mg Albuterol/Ipratropium (Duoneb (Albuterol 2.5 Mg/Ipratropium 0.5 Mg)) 1 neb INH Q4H PRN PRN Reason: SOB/WHEEZING Allopurinol (Zyloprim Tab*) 300 mg PO DAILY [facility] Last Admin: 09/16/17 10:33 Dose: 300 mg Amlodipine Besylate (Norvasc Tab*) 10 mg PO DAILY [facility] Last Admin: 09/16/17 09:30 Dose: 10 mg Dextrose (D50w Syringe 50 Ml*) 12.5 gm IV PUSH .FOR FS < 60 - SS PRN PRN Reason: FS < 60 Diltiazem HCl (Cardizem Tab*) 30 mg PO Q6HR [facility] Last Admin: 09/17/17 06:20 Dose: 30 mg Guaifenesin/Dextromethorphan (Robitussin Dm*) 10 ml PO Q6H PRN PRN Reason: COUGH Last Admin: 09/14/17 19:59 Dose: 10 ml Ceftriaxone Sodium 2 gm/ (Sodium Chloride) 100 mls @ 200 mls/hr IVPB Q24H [facility] Last Admin: 09/16/17 09:50 Dose: 200 mls/hr Insulin Human Lispro (Humalog*) 0 units SUBCUT AC [facility] PRN Reason: Protocol Last Admin: 09/16/17 18:39 Dose: 3 units Lisinopril (Prinivil Tab*) 20 mg PO BID [facility] Last Admin: 09/16/17 20:50 Dose: 20 mg Magnesium Oxide (Magox 400 Tab*) 400 mg PO DAILY [facility] Last Admin: 09/16/17 09:30 Dose: 400 mg Ondansetron HCl (Zofran Inj*) 4 mg IV Q6H PRN PRN Reason: NAUSEA Last Admin: 09/15/17 12:53 Dose: 4 mg Zolpidem Tartrate (Ambien Tab*) 10 mg PO BEDTIME PRN PRN Reason: INSOMNIA Last Admin: 09/16/17 20:49 Dose: 10 mg Vital Signs - 8 hr 09/17/17 09/17/17 03:36 08:00 Temperature 97.9 F 97.5 F Oxygen Devices in Use Now: Nasal Cannula Appearance: NAD Respiratory: Symmetrical Chest Expansion and Respiratory Effort, - - rhonchi b/l Cardiovascular: - - irregularly irregular, no murmurs Abdominal: NL Sounds; No Tenderness; No Distention, No Hepatosplenomegaly Extremities: - - 1+ edema b/l Skin: No Rash or Ulcers, No Nodules or Sclerosis Neurological: Alert and Oriented x 3, NL Sensation, NL Muscle Strength and Tone Lines/Tubes/Other Access: Clean, Dry and Intact Calvo Result Diagrams: 09/17/17 05:20 09/17/17 05:20 Additional Lab and Data: Laboratory Results - last 24 hr 09/17/17 09/17/17 09/17/17 05:20 05:20 08:14 WBC 22.1 H RBC 4.54 Hgb 12.1 L Hct 38 L MCV 83 MCH 27 MCHC 32 RDW 16 H Plt Count 330 MPV 8 Neut % (Auto) 91.1 H Lymph % (Auto) 3.9 L [place] % (Auto) 4.4 Eos % (Auto) 0.4 Baso % (Auto) 0.2 Absolute Neuts (auto) 20.1 H Absolute Lymphs (auto) 0.9 L Absolute Monos (auto) 1.0 H Absolute Eos (auto) 0.1 Absolute Basos (auto) 0 Absolute Nucleated RBC 0 Nucleated RBC % 0 Sodium 142 Potassium 4.2 Chloride 110 Carbon Dioxide 26 Anion Gap 6 BUN 18 Creatinine 0.65 L Est GFR ( Amer) 152.4 Est GFR (Non-Af Amer) 118.5 BUN/Creatinine Ratio 27.7 H Glucose 226 H POC Glucose (mg/dL) 262 H Calcium 8.4 L Magnesium 2.2 09/17/17 09/17/17 14:02 16:54 WBC RBC Hgb Hct MCV MCH MCHC RDW Plt Count MPV Neut % (Auto) Lymph % (Auto) [place] % (Auto) Eos % (Auto) Baso % (Auto) Absolute Neuts (auto) Absolute Lymphs (auto) Absolute Monos (auto) Absolute Eos (auto) Absolute Basos (auto) Absolute Nucleated RBC Nucleated RBC % Sodium Potassium Chloride Carbon Dioxide Anion Gap BUN Creatinine Est GFR ( Amer) Est GFR (Non-Af Amer) BUN/Creatinine Ratio Glucose POC Glucose (mg/dL) 216 H 286 H Calcium Magnesium Microbiology and Other Data: Microbiology 09/13/17 15:19 Blood Venous Aerobic Blood Culture - Preliminary No Growth Day 4 09/13/17 15:19 Blood Venous Anaerobic Blood Culture - Preliminary No Growth Day 4 09/13/17 15:10 Blood Venous Aerobic Blood Culture - Preliminary No Growth Day 4 09/13/17 15:10 Blood Venous Anaerobic Blood Culture - Preliminary No Growth Day 4 09/15/17 14:33 Pleural Fluid Gram Stain - Final 09/15/17 14:33 Pleural Fluid Body Fluid Culture - Preliminary No Growth Day 2 09/14/17 13:30 Pleural Fluid Gram Stain - Final 09/14/17 13:30 Pleural Fluid Body Fluid Culture - Preliminary Streptococcus Pneumoniae 09/16/17 03:37 Nasal Nasal Screen MRSA (PCR)(MACARENA) - Final Mrsa Negative 09/15/17 17:05 Urine Legionella Urinary Antigen - Final Negative Legionella 09/15/17 17:05 Urine Streptococcus pneumoniae Ag Screen - Final Negative S. pneumo Antigen 09/13/17 23:00 Sputum Expectorated Gram Stain - Final 09/13/17 23:00 Sputum Expectorated Sputum Culture - Final YEAST 09/14/17 10:30 Nasal Nasal Screen MRSA (PCR)([facility]) - Final Mrsa Negative Assess/Plan/Problems-Billing Assessment: 77 yo male PMH NIDDM, HTN, Afib (on Xarelto) presenting with 3 weeks SOB, 1 week productive cough, wbc 24. b/l (R>L) large complex loculated pleural effusions positive for strep pneumonia. s/p thoracentesis x2. Planned OR for VATS on right 09/17/16 and chest tube + lytics on left. Course complicated by Afib w/ RVR and acute urinary retention. - Patient Problems (1) Acute respiratory failure with hypoxia Current Visit: Yes Status: Acute Code(s): J96.01 - ACUTE RESPIRATORY FAILURE WITH HYPOXIA SNOMED Code(s): 73549008 Comment: complex loculated pleural exudative effusions. Strep Pna + Planned VATS on right, monday 09/18. will need chest tube and lytics on left. appreciate surgery and pulmonary recs. Appreciate ID recs s/p cefepime back to ceftriaxone 2g q24. Probably won't be able to get suspetibility as not growing for MACARENA Appreciate surgery assistance, s/p thoracentesis. exudative effusion by 3/3 light's criteria. high wbc. repeat cxr with right upper effusion ECHO with preserved EF 55-60% SIRS (leukocytosis, tachycardia, tachypnea). no lactic acidosis MRSA nares negative BCx NGTD sputum cx: YEAST on GS (2) Loculated pleural effusion Current Visit: Yes Status: Acute Code(s): J90 - PLEURAL EFFUSION, NOT ELSEWHERE CLASSIFIED SNOMED Code(s): 163138336 Comment: s/p thora, plan as above. 11/14 Lights criteria: exudative. empyema (3) Paroxysmal A-fib Current Visit: Yes Status: Acute Code(s): I48.0 - PAROXYSMAL ATRIAL FIBRILLATION SNOMED Code(s): 311936589 Comment: holding xarelto given multiple procedures planned. went into RVR s/p dilt gtt. continue dilt 30po q6. Mg>2, K>4. (4) Diabetes mellitus Current Visit: Yes Status: Acute Code(s): E11.9 - TYPE 2 DIABETES MELLITUS WITHOUT COMPLICATIONS SNOMED Code(s): 92245428 Comment: takes glipizide, A1Cs around 6 per patient. POCT, SSI qachs carbohydrate consistent diet (5) HTN (hypertension) Current Visit: Yes Status: Acute Code(s): I10 - ESSENTIAL (PRIMARY) HYPERTENSION SNOMED Code(s): 67849585 Comment: now dilt as above. lisinopril 20mg BID. amlodipine 10mg (6) Gout Current Visit: Yes Status: Acute Code(s): M10.9 - GOUT, UNSPECIFIED SNOMED Code(s): 12727930 Comment: continue allopurinol (7) Zenker diverticulum Current Visit: Yes Status: Acute Code(s): K22.5 - DIVERTICULUM OF ESOPHAGUS , ACQUIRED SNOMED Code(s): 393034005 Comment: no gus aspiration with TOP COATER eval, regular food, thin liquids with straw. outpatient GI/surgery eval Status and Disposition: medicine inpatient. currently boarding in ICU(did not have tele bed during RVR episode), still waiting for tele med bed on . Attending: Praful Prescott
[2017-09-17] MEDS: Lisinopril TAB* 10 MG PO SCH ×2 (08:52→21:10)
[2017-09-17] MEDS: Allopurinol TAB* 300 MG PO SCH (08:52)
[2017-09-17] MEDS: amLODIPine TAB* 5 MG PO SCH (08:52)
[2017-09-17] MEDS: cefTRIAXone(*) 2 GM in NS 0.9% 100 ML* 100 ML IVPB SCH (08:53)
[2017-09-17] MEDS: Magnesium Oxide TAB* 400 MG PO SCH (08:53)
[2017-09-17] MEDS: Insulin LISPRO* 1 UNITS UNIT SUBCUT SCH ×3 (09:33→17:56)
[2017-09-17] MEDS: traMADol TAB* 50 MG PO PRN ×2 (10:36→18:40)
--- NOTE | 2017-09-17 12:59 | RAD ---
HISTORY: Loculated effusions, hypoxic respiratory failure COMPARISONS: September 15, 2017 VIEWS: 1: frontal portable view of the chest at 11:30 AM FINDINGS: LINES AND TUBES: None. CARDIOMEDIASTINAL SILHOUETTE: The cardiomediastinal silhouette is stable. PLEURA: Again noted are bilateral, right greater than left, pleural effusions. The loculated component of the right upper lobe has resolved. LUNG PARENCHYMA: There is confluent alveolar opacification of the lung bases bilaterally. ABDOMEN: The upper abdomen is clear. There is no subphrenic gas. BONES AND SOFT TISSUES: No bone or soft tissue abnormalities are noted. IMPRESSION: BILATERAL EFFUSIONS WITH BIBASILAR ATELECTASIS VERSUS CONSOLIDATION. THE LOCULATED RIGHT UPPER LOBE COMPONENT IS NO EVIDENT.
--- NOTE | 2017-09-17 14:27 | PN ---
Progress Note - Progress Note Date of Service: 09/17/17 - Pulm f/u note Note: Pt seen and examined at bedside. Reports no change in breathing and cough. Reports chest discomfort from coughing, toradol is helping. Active Medications Generic Name Dose Route Start Last Admin Trade Name Freq PRN Reason Stop Dose Admin Acetaminophen 650 mg 09/13/17 17:38 09/17/17 03:02 Tylenol Tab* PO 650 mg Q6H PRN Administration Pain/fever Albuterol/Ipratropium 1 neb 09/13/17 17:33 Duoneb (Albuterol 2.5 Mg/Ipratropium 0.5 Mg) INH Q4H PRN SOB/WHEEZING Allopurinol 300 mg 09/14/17 09:00 09/17/17 08:52 Zyloprim Tab* PO 300 mg DAILY [facility] Administration Amlodipine Besylate 10 mg 09/14/17 09:00 09/17/17 08:52 Norvasc Tab* PO 10 mg DAILY [facility] Administration Dextrose 12.5 gm 09/13/17 17:37 D50w Syringe 50 Ml* IV PUSH .FOR FS < 60 - SS PRN FS < 60 Diltiazem HCl 30 mg 09/16/17 13:00 09/17/17 06:20 Cardizem Tab* PO 30 mg Q6HR [facility] Administration Guaifenesin/Dextromethorphan 10 ml 09/14/17 16:51 09/14/17 19:59 Robitussin Dm* PO 10 ml Q6H PRN Administration COUGH Ceftriaxone Sodium 2 gm/ 100 mls @ 200 mls/hr 09/16/17 09:00 09/17/17 08:53 Sodium Chloride IVPB 200 mls/hr Q24H [facility] Administration Lactated Ringer's 1,000 mls @ 125 mls/hr 09/18/17 06:00 Lactated Ringers 1000 Ml Bag* IV PER RATE [facility] Insulin Human Lispro 0 units 09/14/17 07:30 09/17/17 09:33 Humalog* SUBCUT 9 units AC [facility] Administration Protocol Lidocaine/Sodium Bicarbonate 0.2 ml 09/18/17 06:00 Buffered Lidocaine 0.9% Syrin* INTRADERM 09/18/17 06:01 ONCE ONE Lisinopril 20 mg 09/14/17 09:00 09/17/17 08:52 Prinivil Tab* PO 20 mg BID [facility] Administration Magnesium Oxide 400 mg 09/14/17 09:00 09/17/17 08:53 Magox 400 Tab* PO 400 mg DAILY [facility] Administration Ondansetron HCl 4 mg 09/13/17 17:39 09/15/17 12:53 Zofran Inj* IV 4 mg Q6H PRN Administration NAUSEA Tramadol HCl 50 mg 09/17/17 10:09 09/17/17 10:36 Ultram* PO 50 mg Q8H PRN Administration PAIN Zolpidem Tartrate 10 mg 09/13/17 22:56 09/16/17 20:49 Ambien Tab* PO 10 mg BEDTIME PRN Administration INSOMNIA Vital Signs Temp Pulse Resp BP Pulse Ox 99.0 F 100 270 137/61 96 09/17/17 11:38 09/17/17 12:43 09/17/17 12:43 09/16/17 12:00 09/17/17 12:43 O/E: Pt in NAD HEENT: PERRLA, No JVD, mucus membrane moist Lungs: diminished air entry, decreased breath sounds at bases, scaterred rhonchi present, no wheeze CVS: S1, S2+ Abd: Obese, BS+ : Dark brown urine through Pink Ext: Normal ROM Neuro: Alert, awake, no focal defecits Laboratory Results - last 24 hr 09/14/17 09/14/17 09/15/17 13:30 13:30 14:33 WBC RBC Hgb Hct MCV MCH MCHC RDW Plt Count MPV Neut % (Auto) Lymph % (Auto) [place] % (Auto) Eos % (Auto) Baso % (Auto) Absolute Neuts (auto) Absolute Lymphs (auto) Absolute Monos (auto) Absolute Eos (auto) Absolute Basos (auto) Absolute Nucleated RBC Nucleated RBC % Sodium Potassium Chloride Carbon Dioxide Anion Gap BUN Creatinine Est GFR ( Amer) Est GFR (Non-Af Amer) BUN/Creatinine Ratio Glucose POC Glucose (mg/dL) Calcium Magnesium Fluid Source Pleural fluid Pleural fluid Fluid Cell Count Rvw By Fluid Glucose Fluid Total Protein 3.7 Fluid LDH 1436 Fluid Amylase 09/15/17 09/15/17 09/15/17 14:33 14:33 14:33 WBC RBC Hgb Hct MCV MCH MCHC RDW Plt Count MPV Neut % (Auto) Lymph % (Auto) [place] % (Auto) Eos % (Auto) Baso % (Auto) Absolute Neuts (auto) Absolute Lymphs (auto) Absolute Monos (auto) Absolute Eos (auto) Absolute Basos (auto) Absolute Nucleated RBC Nucleated RBC % Sodium Potassium Chloride Carbon Dioxide Anion Gap BUN Creatinine Est GFR ( Amer) Est GFR (Non-Af Amer) BUN/Creatinine Ratio Glucose POC Glucose (mg/dL) Calcium Magnesium Fluid Source Pleural fluid Pleural fluid Pleural fluid Fluid Cell Count Rvw By Fluid Glucose 168 Fluid Total Protein 3.5 Fluid LDH 438 Fluid Amylase 09/15/17 09/16/17 09/17/17 14:33 18:05 05:20 WBC RBC Hgb Hct MCV MCH MCHC RDW Plt Count MPV Neut % (Auto) Lymph % (Auto) [place] % (Auto) Eos % (Auto) Baso % (Auto) Absolute Neuts (auto) Absolute Lymphs (auto) Absolute Monos (auto) Absolute Eos (auto) Absolute Basos (auto) Absolute Nucleated RBC Nucleated RBC % Sodium 142 Potassium 4.2 Chloride 110 Carbon Dioxide 26 Anion Gap 6 BUN 18 Creatinine 0.65 L Est GFR ( Amer) 152.4 Est GFR (Non-Af Amer) 118.5 BUN/Creatinine Ratio 27.7 H Glucose 226 H POC Glucose (mg/dL) 172 H Calcium 8.4 L Magnesium 2.2 Fluid Source Pleural fluid Fluid Cell Count Rvw By Fluid Glucose Fluid Total Protein Fluid LDH Fluid Amylase 19 09/17/17 09/17/17 09/17/17 05:20 08:14 14:02 WBC 22.1 H RBC 4.54 Hgb 12.1 L Hct 38 L MCV 83 MCH 27 MCHC 32 RDW 16 H Plt Count 330 MPV 8 Neut % (Auto) 91.1 H Lymph % (Auto) 3.9 L [place] % (Auto) 4.4 Eos % (Auto) 0.4 Baso % (Auto) 0.2 Absolute Neuts (auto) 20.1 H Absolute Lymphs (auto) 0.9 L Absolute Monos (auto) 1.0 H Absolute Eos (auto) 0.1 Absolute Basos (auto) 0 Absolute Nucleated RBC 0 Nucleated RBC % 0 Sodium Potassium Chloride Carbon Dioxide Anion Gap BUN Creatinine Est GFR ( Amer) Est GFR (Non-Af Amer) BUN/Creatinine Ratio Glucose POC Glucose (mg/dL) 262 H 216 H Calcium Magnesium Fluid Source Fluid Cell Count Rvw By Fluid Glucose Fluid Total Protein Fluid LDH Fluid Amylase 77 y o m non-smoker with swallowing difficulties a/ worsening SOB, cough, fever found to have loculated pl effusions bilaterally Pt with Strep Pneumonia with complex pleural effusions b/l Pt on broad spectrum antibiotics to be adjusted pending susceptibilities Continues to have signficant cough with dark phleghm Pt to have VATS on right side as there is more involvement and to have trial of thrombolytics through chest tube on left side, scheduled for tomorrow A.fib is controlled Pain management, incentive spirometry c/w bronchodilators DVT px
[2017-09-17] MEDS: Zolpidem TAB* 10 MG PO PRN (21:05)
[2017-09-18] MEDS: Diltiazem TAB* 30 MG PO SCH ×4 (01:45→18:23)
[2017-09-18] MEDS: Ondansetron INJ* 2 MG/ML VIAL IV PRN (03:27)
[2017-09-18] MEDS ORDERED: Buffered Lidocaine 0.9% SYRIN* 5 ML/SYR SYRINGE INTRADERM ONE (06:00)
[2017-09-18] MEDS: Insulin LISPRO* 1 UNITS UNIT SUBCUT SCH ×4 (08:21→23:48)
[2017-09-18] MEDS: Magnesium Oxide TAB* 400 MG PO SCH (08:47)
[2017-09-18] MEDS: cefTRIAXone(*) 2 GM in NS 0.9% 100 ML* 100 ML IVPB SCH (08:47)
[2017-09-18] MEDS: amLODIPine TAB* 5 MG PO SCH (08:47)
[2017-09-18] MEDS: Allopurinol TAB* 300 MG PO SCH (08:47)
[2017-09-18] MEDS: traMADol TAB* 50 MG PO PRN (09:07)
[2017-09-18 09:21] LABS: Hematocrit 39 % (42-52); Hemoglobin 12.5 g/dl (14.0-18.0); Mean Corpuscular HGB Conc 32 g/dl (31-36); Mean Corpuscular Hemoglobin 27 pg (27-31); Mean Corpuscular Volume 83 fL (80-94); Mean Platelet Volume 8 um3 (7.4-10.4); Platelet Count 316 10^3/ul (150-450); Red Blood Count 4.67 10^6/ul (4.0-5.4); Red Cell Distribution Width 16 % (10.5-15); White Blood Count 20.9 10^3/ul (3.5-10.8)
[2017-09-18 09:34] LABS: EGFR Non-African American 140.7 (>60)
[2017-09-18 10:29] LABS: Monocytes % 4 % (0-13)
[2017-09-18] MEDS ORDERED: Propofol* 10 MG/ML 20 ML BTL IV PUSH ONE (12:23)
[2017-09-18] MEDS ORDERED: Lidocaine 2% PF * 5 ML VIAL ONE (12:23)
[2017-09-18] MEDS ORDERED: Rocuronium* 10 MG/ML VIAL ONE (12:25)
[2017-09-18] MEDS ORDERED: fentaNYL* 50 MCG/ML 2 ML VIAL (100 MCG VIAL) ONE (12:27)
[2017-09-18] MEDS ORDERED: Bupivacaine 0.25% SDV* 30 ML ONE (13:07)
--- NOTE | 2017-09-18 13:56 | PN ---
Progress Note - Progress Note Date of Service: 09/18/17 - Pulm f/u note Note: Pt seen and examined at bedside. Pt denied any new complaints. Pt is awaiting VATS Active Medications Generic Name Dose Route Start Last Admin Trade Name Freq PRN Reason Stop Dose Admin Acetaminophen 650 mg 09/13/17 17:38 09/17/17 14:47 Tylenol Tab* PO 650 mg Q6H PRN Administration Pain/fever Albuterol/Ipratropium 1 neb 09/13/17 17:33 Duoneb (Albuterol 2.5 Mg/Ipratropium 0.5 Mg) INH Q4H PRN SOB/WHEEZING Allopurinol 300 mg 09/14/17 09:00 09/18/17 08:47 Zyloprim Tab* PO 300 mg DAILY [facility] Administration Amlodipine Besylate 10 mg 09/14/17 09:00 09/18/17 08:47 Norvasc Tab* PO 10 mg DAILY [facility] Administration Dextrose 12.5 gm 09/13/17 17:37 D50w Syringe 50 Ml* IV PUSH .FOR FS < 60 - SS PRN FS < 60 Diltiazem HCl 30 mg 09/16/17 13:00 09/18/17 05:57 Cardizem Tab* PO 30 mg Q6HR [facility] Administration Guaifenesin/Dextromethorphan 10 ml 09/14/17 16:51 09/14/17 19:59 Robitussin Dm* PO 10 ml Q6H PRN Administration COUGH Ceftriaxone Sodium 2 gm/ 100 mls @ 200 mls/hr 09/16/17 09:00 09/18/17 08:47 Sodium Chloride IVPB 200 mls/hr Q24H [facility] Administration Lactated Ringer's 1,000 mls @ 125 mls/hr 09/18/17 06:00 09/18/17 07:03 Lactated Ringers 1000 Ml Bag* IV 125 mls/hr PER RATE [facility] Administration Insulin Human Lispro 0 units 09/14/17 07:30 09/18/17 08:21 Humalog* SUBCUT Not Given AC [facility] Protocol Lisinopril 20 mg 09/18/17 21:00 Prinivil Tab* PO BID [facility] Magnesium Oxide 400 mg 09/14/17 09:00 09/18/17 08:47 Magox 400 Tab* PO 400 mg DAILY [facility] Administration Ondansetron HCl 4 mg 09/13/17 17:39 09/18/17 03:27 Zofran Inj* IV 4 mg Q6H PRN Administration NAUSEA Tramadol HCl 50 mg 09/17/17 10:09 09/18/17 09:07 Ultram* PO 50 mg Q8H PRN Administration PAIN Zolpidem Tartrate 10 mg 09/13/17 22:56 09/17/17 21:05 Ambien Tab* PO 10 mg BEDTIME PRN Administration INSOMNIA Vital Signs Temp Pulse Resp BP Pulse Ox 98.4 F 80 20 134/68 92 09/17/17 14:15 09/18/17 07:58 09/18/17 09:07 09/17/17 14:15 09/18/17 07:58 O/E: Pt in NAD HEENT: PERRLA, No JVD, mucus membrane moist Lungs: diminished air entry, decreased breath sounds at bases, scaterred rhonchi present, no wheeze CVS: S1, S2+ Abd: Obese, BS+ : Dark brown urine through Pink Ext: Normal ROM Neuro: Alert, awake, no focal defecits Laboratory Results - last 24 hr 09/17/17 09/17/17 09/18/17 14:02 16:54 06:02 WBC RBC Hgb Hct MCV MCH MCHC RDW Plt Count MPV Neut % (Auto) Lymph % (Auto) [place] % (Auto) Eos % (Auto) Baso % (Auto) Absolute Neuts (auto) Absolute Lymphs (auto) Absolute Monos (auto) Absolute Eos (auto) Absolute Basos (auto) Absolute Nucleated RBC Immature Gran % Neutrophils % Band Neutrophils % Lymphocytes % Monocytes % Eosinophils % Basophils % Myelocytes % Nucleated RBC % Abs Neuts (Manual) Abs Monocytes (Manual) Absolute Eos (Manual) Abs Basophils (Manual) Normal RBC Morphology Sodium Potassium Chloride Carbon Dioxide Anion Gap BUN Creatinine Est GFR ( Amer) Est GFR (Non-Af Amer) BUN/Creatinine Ratio Glucose POC Glucose (mg/dL) 216 H 286 H 228 H Calcium Magnesium 09/18/17 09/18/17 09/18/17 08:31 08:31 10:41 WBC 20.9 H RBC 4.67 Hgb 12.5 L Hct 39 L MCV 83 MCH 27 MCHC 32 RDW 16 H Plt Count 316 MPV 8 Neut % (Auto) Not Reportable Lymph % (Auto) Not Reportable [place] % (Auto) Not Reportable Eos % (Auto) Not Reportable Baso % (Auto) Not Reportable Absolute Neuts (auto) Not Reportable Absolute Lymphs (auto) Not Reportable Absolute Monos (auto) Not Reportable Absolute Eos (auto) Not Reportable Absolute Basos (auto) Not Reportable Absolute Nucleated RBC Not Reportable Immature Gran % 3 Neutrophils % 79 Band Neutrophils % 3 Lymphocytes % 9 L Monocytes % 4 Eosinophils % 0 Basophils % 0 Myelocytes % 5 H Nucleated RBC % Not Reportable Abs Neuts (Manual) 16.5 H Abs Monocytes (Manual) 0.8 Absolute Eos (Manual) 0 Abs Basophils (Manual) 0 Normal RBC Morphology Normal Sodium 140 Potassium 4.0 Chloride 104 Carbon Dioxide 28 Anion Gap 8 BUN 12 Creatinine 0.56 L Est GFR ( Amer) 181.0 Est GFR (Non-Af Amer) 140.7 BUN/Creatinine Ratio 21.4 H Glucose 203 H POC Glucose (mg/dL) 232 H Calcium 8.5 L Magnesium 2.0 09/18/17 12:30 WBC RBC Hgb Hct MCV MCH MCHC RDW Plt Count MPV Neut % (Auto) Lymph % (Auto) [place] % (Auto) Eos % (Auto) Baso % (Auto) Absolute Neuts (auto) Absolute Lymphs (auto) Absolute Monos (auto) Absolute Eos (auto) Absolute Basos (auto) Absolute Nucleated RBC Immature Gran % Neutrophils % Band Neutrophils % Lymphocytes % Monocytes % Eosinophils % Basophils % Myelocytes % Nucleated RBC % Abs Neuts (Manual) Abs Monocytes (Manual) Absolute Eos (Manual) Abs Basophils (Manual) Normal RBC Morphology Sodium Potassium Chloride Carbon Dioxide Anion Gap BUN Creatinine Est GFR ( Amer) Est GFR (Non-Af Amer) BUN/Creatinine Ratio Glucose POC Glucose (mg/dL) 236 H Calcium Magnesium 77 y o m non-smoker with swallowing difficulties a/ worsening SOB, cough, fever found to have loculated pl effusions bilaterally Pt with Strep Pneumonia with complex pleural effusions b/l Pt on broad spectrum antibiotics to be adjusted pending susceptibilities Continues to have signficant cough with dark phleghm inspite of antibiotics Pt to have VATS on right side today as there is more involvement and to have trial of thrombolytics through chest tube on left side after VATS while still in OR Thrombolitics for 3-5 days on left side through chest tube A.fib is controlled Pain management, incentive spirometry c/w bronchodilators DVT px
[2017-09-18] MEDS ORDERED: Cisatracurium* 2 MG/ML MDV 5 ML ONE (14:46)
[2017-09-18] MEDS ORDERED: Midazolam* 1 MG/ML 2 ML VIAL (2 MG) ONE (15:57)
[2017-09-18] MEDS ORDERED: Propofol* 100 ML ONE (15:59)
[2017-09-18] MEDS ORDERED: Morphine INJ* 2 MG/ML 1 ML SYRINGE (TWO MG - NEW SYRINGE VERSION) ONE (16:48)
[2017-09-18] MEDS: Morphine INJ* 2 MG/ML 1 ML SYRINGE (TWO MG - NEW SYRINGE VERSION) IV SCH ×3 (17:00→17:20)
[2017-09-18] MEDS ORDERED: NS 0.9% 1000 ML* 1,000 ML IV ONE (17:22)
[2017-09-18] MEDS ORDERED: Naloxone* 0.4 MG/ML 1 ML VIAL IV PRN (17:39)
--- NOTE | 2017-09-18 17:46 | RAD ---
Indication: Post RIGHT VATS and bilateral chest tube placement. Comparison: September 17, 2017 Technique: Upright AP 1700 hours Report: Endotracheal tube tip 5.8 cm above the [place]. Tip of RIGHT chest tube approximates the mediastinum at the RIGHT midlung zone. Tip of LEFT chest tube approximates the mediastinum at the lower lung zone. Small RIGHT basilar pneumothorax. RIGHT chest wall subcutaneous emphysema.. Negative for mediastinal shift. RIGHT pleural thickening and partial basilar atelectasis. Cardiomegaly. Unremarkable central pulmonary vasculature. IMPRESSION: Small RIGHT basilar pneumothorax. Negative for mediastinal shift. Bilateral chest tubes in place.
[2017-09-18] MEDS ORDERED: Dextrose 50% Syringe 50 ML* 25 GM/50 ML SYRINGE IV PUSH PRN (18:01)
--- NOTE | 2017-09-18 18:05 | PN ---
Subjective Date of Service: 09/18/17 Interval History: Patient sedated with propofol, intubated. Not responding to voice or light touch. Objective Active Medications: Acetaminophen (Tylenol Tab*) 650 mg PO Q6H PRN PRN Reason: Pain/fever Last Admin: 09/17/17 14:47 Dose: 650 mg Albuterol/Ipratropium (Duoneb (Albuterol 2.5 Mg/Ipratropium 0.5 Mg)) 1 neb INH Q4H PRN PRN Reason: SOB/WHEEZING Allopurinol (Zyloprim Tab*) 300 mg PO DAILY [facility] Last Admin: 09/18/17 08:47 Dose: 300 mg Amlodipine Besylate (Norvasc Tab*) 10 mg PO DAILY [facility] Last Admin: 09/18/17 08:47 Dose: 10 mg Chlorhexidine Gluconate (Peridex Mouth Wash 0.12%*) 15 ml TOPICAL Q4H [facility] Dextrose (D50w Syringe 50 Ml*) 12.5 gm IV PUSH .FOR FS < 60 - SS PRN PRN Reason: FS < 60 Diltiazem HCl (Cardizem Tab*) 30 mg PO Q6HR [facility] Last Admin: 09/18/17 16:10 Dose: Not Given Fentanyl Citrate (Fentanyl*) 25 mcg IV SLOW PU Q2H PRN PRN Reason: PAIN Guaifenesin/Dextromethorphan (Robitussin Dm*) 10 ml PO Q6H PRN PRN Reason: COUGH Last Admin: 09/14/17 19:59 Dose: 10 ml Hydrocortisone Sodium Succinate (Solu-Cortef*) 50 mg IV Q6H [facility] Ceftriaxone Sodium 2 gm/ (Sodium Chloride) 100 mls @ 200 mls/hr IVPB Q24H [facility] Last Admin: 09/18/17 08:47 Dose: 200 mls/hr Lactated Ringer's (Lactated Ringers 1000 Ml Bag*) 1,000 mls @ 125 mls/hr IV PER RATE [facility] Last Admin: 09/18/17 07:03 Dose: 125 mls/hr Dornase Santiago 5 mg/ Sodium (Chloride) 50 mls @ 0 mls/hr INTRAPLEUR ONCE ONE PRN Reason: As Directed Stop: 09/19/17 08:01 Alteplase, Recombinant 10 mg/ (Sodium Chloride) 50 mls @ 0 mls/hr INTRAPLEUR ONCE ONE; As Directed PRN Reason: Protocol Stop: 09/19/17 08:01 Propofol (Diprivan*) 100 mls @ 0 mls/hr IV .(Initial Rate) SHIRA; Per Protocol PRN Reason: Protocol Insulin Human Lispro (Humalog*) 0 units SUBCUT AC SHIRA PRN Reason: Protocol Last Admin: 09/18/17 16:09 Dose: Not Given Lisinopril (Prinivil Tab*) 20 mg PO BID [facility] Magnesium Oxide (Magox 400 Tab*) 400 mg PO DAILY [facility] Last Admin: 09/18/17 08:47 Dose: 400 mg Naloxone HCl (Narcan*) 0.08 mg IV Q2M PRN PRN Reason: severe induced resp depression Stop: 09/19/17 09:39 Ondansetron HCl (Zofran Inj*) 4 mg IV Q6H PRN PRN Reason: NAUSEA Last Admin: 09/18/17 03:27 Dose: 4 mg Tramadol HCl (Ultram*) 50 mg PO Q8H PRN PRN Reason: PAIN Last Admin: 09/18/17 09:07 Dose: 50 mg Zolpidem Tartrate (Ambien Tab*) 10 mg PO BEDTIME PRN PRN Reason: INSOMNIA Last Admin: 09/17/17 21:05 Dose: 10 mg Oxygen Devices in Use Now: Endotracheal Tube, Mechanical Ventilator Appearance: Head partly up on ICU bed, intubated. Eyes closed, not moving. Not responding to voice or light touch. Respiratory: Symmetrical Chest Expansion and Respiratory Effort, Clear to Auscultation, Clear to Percussion Cardiovascular: NL Sounds; No Murmurs; No JVD, RRR, No Edema, - Extremities: No Edema, No Clubbing, Cyanosis, - Skin: No Rash or Ulcers, No Nodules or Sclerosis, - Neurological: - - Sedated with propofol. Not responding to voice or light touch. Result Diagrams: 09/18/17 08:31 09/18/17 08:31 Additional Lab and Data: Laboratory Results - last 24 hr 09/17/17 09/17/17 09/17/17 05:20 05:20 08:14 WBC 22.1 H RBC 4.54 Hgb 12.1 L Hct 38 L MCV 83 MCH 27 MCHC 32 RDW 16 H Plt Count 330 MPV 8 Neut % (Auto) 91.1 H Lymph % (Auto) 3.9 L [place] % (Auto) 4.4 Eos % (Auto) 0.4 Baso % (Auto) 0.2 Absolute Neuts (auto) 20.1 H Absolute Lymphs (auto) 0.9 L Absolute Monos (auto) 1.0 H Absolute Eos (auto) 0.1 Absolute Basos (auto) 0 Absolute Nucleated RBC 0 Nucleated RBC % 0 Sodium 142 Potassium 4.2 Chloride 110 Carbon Dioxide 26 Anion Gap 6 BUN 18 Creatinine 0.65 L Est GFR ( Amer) 152.4 Est GFR (Non-Af Amer) 118.5 BUN/Creatinine Ratio 27.7 H Glucose 226 H POC Glucose (mg/dL) 262 H Calcium 8.4 L Magnesium 2.2 09/17/17 09/17/17 14:02 16:54 WBC RBC Hgb Hct MCV MCH MCHC RDW Plt Count MPV Neut % (Auto) Lymph % (Auto) [place] % (Auto) Eos % (Auto) Baso % (Auto) Absolute Neuts (auto) Absolute Lymphs (auto) Absolute Monos (auto) Absolute Eos (auto) Absolute Basos (auto) Absolute Nucleated RBC Nucleated RBC % Sodium Potassium Chloride Carbon Dioxide Anion Gap BUN Creatinine Est GFR ( Amer) Est GFR (Non-Af Amer) BUN/Creatinine Ratio Glucose POC Glucose (mg/dL) 216 H 286 H Calcium Magnesium Microbiology and Other Data: Microbiology 09/13/17 15:19 Blood Venous Aerobic Blood Culture - Preliminary No Growth Day 4 09/13/17 15:19 Blood Venous Anaerobic Blood Culture - Preliminary No Growth Day 4 09/13/17 15:10 Blood Venous Aerobic Blood Culture - Preliminary No Growth Day 4 09/13/17 15:10 Blood Venous Anaerobic Blood Culture - Preliminary No Growth Day 4 09/15/17 14:33 Pleural Fluid Gram Stain - Final 09/15/17 14:33 Pleural Fluid Body Fluid Culture - Preliminary No Growth Day 2 09/14/17 13:30 Pleural Fluid Gram Stain - Final 09/14/17 13:30 Pleural Fluid Body Fluid Culture - Preliminary Streptococcus Pneumoniae 09/16/17 03:37 Nasal Nasal Screen MRSA (PCR)(MACARENA) - Final Mrsa Negative 09/15/17 17:05 Urine Legionella Urinary Antigen - Final Negative Legionella 09/15/17 17:05 Urine Streptococcus pneumoniae Ag Screen - Final Negative S. pneumo Antigen 09/13/17 23:00 Sputum Expectorated Gram Stain - Final 09/13/17 23:00 Sputum Expectorated Sputum Culture - Final YEAST 09/14/17 10:30 Nasal Nasal Screen MRSA (PCR)(MACARENA) - Final Mrsa Negative Assess/Plan/Problems-Billing Assessment: 77 yo male PMH NIDDM, HTN, Afib (on Xarelto) presenting with 3 weeks SOB, 1 week productive cough, wbc 24. b/l (R>L) large complex loculated pleural effusions positive for strep pneumonia. s/p thoracentesis x2. Planned OR for VATS on right 09/17/16 and chest tube + lytics on left. Course complicated by Afib w/ RVR and acute urinary retention. - Patient Problems (1) Loculated pleural effusion Current Visit: Yes Status: Acute Code(s): J90 - PLEURAL EFFUSION, NOT ELSEWHERE CLASSIFIED SNOMED Code(s): 590353919 Comment: S/P VATS 09/18/17, BL CT in place, both draining red fluid. (2) Diabetes mellitus Current Visit: Yes Status: Acute Code(s): E11.9 - TYPE 2 DIABETES MELLITUS WITHOUT COMPLICATIONS SNOMED Code(s): 50161058 Comment: takes glipizide, A1Cs around 6 per patient. POCT, SSI qachs carbohydrate consistent diet (3) Gout Current Visit: Yes Status: Acute Code(s): M10.9 - GOUT, UNSPECIFIED SNOMED Code(s): 92001772 Comment: Resume allopurinol when taking po. (4) HTN (hypertension) Current Visit: Yes Status: Acute Code(s): I10 - ESSENTIAL (PRIMARY) HYPERTENSION SNOMED Code(s): 87611768 Comment: Resume lisinopril 20mg BID, amlodipine 10mg when taking po. Status and Disposition: medicine inpatient. currently boarding in ICU(did not have tele bed during RVR episode), still waiting for tele med bed on .
[2017-09-18] MEDS: Chlorhexidine MOUTHWASH 0.12%* 15 ML UDC TOPICAL SCH ×2 (18:30→20:42)
[2017-09-18] MEDS: Hydrocortisone INJ* 100 MG VIAL IV SCH (18:30)
[2017-09-18] MEDS: Lisinopril TAB* 10 MG PO SCH (21:16)
[2017-09-18] MEDS: Propofol* 100 ML IV SCH (21:31)
[2017-09-18] MEDS ORDERED: NS 0.9% 500 ML* 500 ML IV ONE (22:12)
[2017-09-19] MEDS: Hydrocortisone INJ* 100 MG VIAL IV SCH ×3 (00:06→12:10)
[2017-09-19] MEDS: Insulin LISPRO* 1 UNITS UNIT SUBCUT SCH ×6 (00:06→21:18)
[2017-09-19] MEDS: Chlorhexidine MOUTHWASH 0.12%* 15 ML UDC TOPICAL SCH ×3 (00:06→10:16)
[2017-09-19] MEDS: Diltiazem TAB* 30 MG PO SCH ×5 (00:19→18:01)
[2017-09-19] MEDS: Propofol* 100 ML IV SCH ×3 (02:11→08:58)
[2017-09-19] MEDS ORDERED: Alteplase (CATHFLO)* 10 MG in NS 0.9% 50 ML* 40 ML INTRAPLEUR ONE (08:00)
[2017-09-19] MEDS ORDERED: Alteplase* 100 MG VIAL ONE (08:00)
[2017-09-19] MEDS ORDERED: DORNASE ALFA 1 mg/ml(NF) 5 MG in NS 0.9% 50 ML* 45 ML INTRAPLEUR ONE (08:00)
[2017-09-19 08:10] LABS: Hematocrit 33 % (42-52); Hemoglobin 10.7 g/dl (14.0-18.0); Mean Corpuscular HGB Conc 33 g/dl (31-36); Mean Corpuscular Hemoglobin 27 pg (27-31); Mean Corpuscular Volume 82 fL (80-94); Mean Platelet Volume 8 um3 (7.4-10.4); Platelet Count 302 10^3/ul (150-450); Red Cell Distribution Width 16 % (10.5-15); White Blood Count 21.7 10^3/ul (3.5-10.8)
--- NOTE | 2017-09-19 08:10 | RAD ---
INDICATION: Respiratory failure. COMPARISON: Comparison is made with a prior chest x-ray study from September 18, 2017. TECHNIQUE: A portable view of the chest was obtained. FINDINGS: There is an endotracheal tube present. The catheter tip projects over the midline. The heart appears mildly enlarged and unchanged. There is a chest tube at the right lung base. There appears be a small right basilar pneumothorax which has decreased from the prior exam. There is also a small right basilar infiltrate and pleural reaction present laterally which is unchanged. IMPRESSION: 1. SMALL RIGHT BASILAR PNEUMOTHORAX DECREASED IN SIZE. THERE IS A CHEST TUBE IN PLACE. 2. SMALL RIGHT BASILAR INFILTRATE AND PLEURAL REACTION, UNCHANGED.
[2017-09-19 08:23] LABS: EGFR Non-African American 74.7 (>60)
--- NOTE | 2017-09-19 08:26 | PN ---
Progress Note - Progress Note Date of Service: 09/19/17 Note: POD#1 s/p right VATS for empyema Sedated on vent. Afeb, VS OK UO borderline. right CT level 450, serosang, no airleak left CT level 550. pink serous, no airleak CXR noted, still incomplete expansion of RLL C&S from OR pending WBC 21K Aeration adequate, some coarse sounds dressings clean Plan: Vent, ABX and meds per hospitalist Continue chest tubes Fibrinolytics via LEFT chest tube X 3 days
[2017-09-19 09:05] LABS: Monocytes % 2 % (0-13)
[2017-09-19] MEDS: Allopurinol TAB* 300 MG PO SCH (09:17)
[2017-09-19] MEDS: Lisinopril TAB* 10 MG PO SCH ×2 (09:17→20:42)
[2017-09-19] MEDS: Magnesium Oxide TAB* 400 MG PO SCH (09:17)
[2017-09-19] MEDS: amLODIPine TAB* 5 MG PO SCH (09:17)
[2017-09-19] MEDS: cefTRIAXone(*) 2 GM in NS 0.9% 100 ML* 100 ML IVPB SCH (10:13)
[2017-09-19] MEDS: fentaNYL* 50 MCG/ML 2 ML VIAL (100 MCG VIAL) IV SLOW PU PRN ×2 (11:09→14:26)
--- NOTE | 2017-09-19 11:28 | PN ---
Progress Note - Progress Note Date of Service: 09/19/17 Note: CRITICAL CARE MEDICINE Date: 09/19/2017 Time: 945 SUBJECTIVE: Patient seen and examined. PHYSICAL EXAM: Vital Signs: Reviewed. Neurologic: awakens on prop. follows commands. HEENT: pupils equal. Sclera anicteric. Trachea intubated. Cardiovascular: S1 S2 Respiratory: coarse with b/l rhonchi. able to achieve >50L flow with cpap 15/5 with tv ~500ml. 30% Abdomen: Soft, nt. No r/g/r. Extremities: Warm. Access: pivs, soledad LABS: Reviewed. IMAGING: Reviewed. MEDICATIONS: Reviewed. ASSESSMENT: 77 M Emphyema s/p Right VATS and left chest tube for fibrinolytic tx. Post up, thoracic, resp failure PAF - anticoag held for procedures; not requiring bridge DM HTN PLAN: Neurologic: awakens well. denies pain. stop prop. advance to po pain rx today Cardiovascular: Perfusing. vol status up a touch. seemed to reactive with relative adrenal insuff yesterday and benefit from steroids and IVF. IVF off now and quick back off steroids. Respiratory: gisele. chronic ailments will remain but can liberate from vent. 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 IS. Chest tube, fibrinolytic f/u by surg and pulm. Gastrointestinal: po later today. Renal/Metabolic: stable. f/u lytes Infectious Disease: on C3 and needing chcf with ID follow up. needs picc eventually. Hematology: place on lovenox sq prophylaxis today and then can look to place on therapeutic post soledad out and no more invasive needs. Endocrine: steroid pulse. ssi f/u. Musculoskeletal: oob Psych/Social: f/u support Supportive and preventative care as ordered. SUP: po VTE prophylaxis: lovenox Disposition: ICU today; potential floor tomorrow Code Status: Full Critical Care Time: 35min Arcadio Christopher DO
[2017-09-19] MEDS: Enoxaparin(*) 40 MG/0.4 ML SYR SUBCUT SCH (12:10)
--- NOTE | 2017-09-19 13:04 | PN ---
Progress Note - Progress Note Date of Service: 09/19/17 - Pulm f/u note Note: Pt seen and examined at bedside, Pt s/p extubation this am, had VATS yesterday on right side and chest tube on left side, pain is manageable Active Medications Generic Name Dose Route Start Last Admin Trade Name Freq PRN Reason Stop Dose Admin Acetaminophen 650 mg 09/13/17 17:38 09/17/17 14:47 Tylenol Tab* PO 650 mg Q6H PRN Administration Pain/fever Albuterol/Ipratropium 1 neb 09/13/17 17:33 Duoneb (Albuterol 2.5 Mg/Ipratropium 0.5 Mg) INH Q4H PRN SOB/WHEEZING Allopurinol 300 mg 09/14/17 09:00 09/19/17 09:17 Zyloprim Tab* PO Not Given DAILY [facility]A Amlodipine Besylate 10 mg 09/14/17 09:00 09/19/17 09:17 Norvasc Tab* PO Not Given DAILY [facility] Dextrose 12.5 gm 09/13/17 17:37 D50w Syringe 50 Ml* IV PUSH .FOR FS < 60 - SS PRN FS < 60 Diltiazem HCl 30 mg 09/16/17 13:00 09/19/17 12:11 Cardizem Tab* PO Not Given Q6HR [facility] Enoxaparin Sodium 40 mg 09/19/17 12:00 09/19/17 12:10 Lovenox(*) SUBCUT 40 mg Q24H SHIRA Administration Fentanyl Citrate 25 mcg 09/18/17 16:37 09/19/17 11:09 Fentanyl* IV SLOW PU 25 mcg Q2H PRN Administration PAIN Guaifenesin/Dextromethorphan 10 ml 09/14/17 16:51 09/14/17 19:59 Robitussin Dm* PO 10 ml Q6H PRN Administration COUGH Ceftriaxone Sodium 2 gm/ 100 mls @ 200 mls/hr 09/16/17 09:00 09/19/17 10:13 Sodium Chloride IVPB 200 mls/hr Q24H [facility]A Administration Alteplase, Recombinant 10 mg/ 50 mls @ 0 mls/hr 09/20/17 09:00 Sodium Chloride INTRAPLEUR 09/20/17 09:01 ONCE ONE Protocol As Directed Dornase Santiago 5 mg/ Sodium 50 mls @ 0 mls/hr 09/20/17 09:00 Chloride INTRAPLEUR 09/20/17 09:01 ONCE ONE As Directed Insulin Human Lispro 0 units 09/18/17 20:00 09/19/17 12:10 Humalog* SUBCUT 6 units FS Q4 ICU [facility] Administration Protocol Lisinopril 20 mg 09/18/17 21:00 09/19/17 09:17 Prinivil Tab* PO Not Given BID [facility]A Magnesium Oxide 400 mg 09/14/17 09:00 09/19/17 09:17 Magox 400 Tab* PO Not Given DAILY [facility] Ondansetron HCl 4 mg 09/13/17 17:39 09/18/17 03:27 Zofran Inj* IV 4 mg Q6H PRN Administration NAUSEA Tramadol HCl 50 mg 09/17/17 10:09 09/18/17 09:07 Ultram* PO 50 mg Q8H PRN Administration PAIN Zolpidem Tartrate 10 mg 09/13/17 22:56 09/17/17 21:05 Ambien Tab* PO 10 mg BEDTIME PRN Administration INSOMNIA Vital Signs Temp Pulse Resp BP Pulse Ox 98.4 F 64 24 120/56 99 09/19/17 09:59 09/19/17 10:59 09/19/17 11:09 09/19/17 09:59 09/19/17 10:59 O/E: Pt in NAD HEENT: PERRLA, No JVD, mucus membrane moist Lungs: diminished air entry, decreased breath sounds at bases, scaterred rhonchi present, no wheeze CVS: S1, S2+ Abd: Obese, BS+ : Dark brown urine through Pink Ext: Normal ROM Neuro: Alert, awake, no focal defecits Laboratory Results - last 24 hr 09/18/17 09/18/17 09/18/17 17:15 20:28 23:58 WBC RBC Hgb Hct MCV MCH MCHC RDW Plt Count MPV Neut % (Auto) Lymph % (Auto) [place] % (Auto) Eos % (Auto) Baso % (Auto) Absolute Neuts (auto) Absolute Lymphs (auto) Absolute Monos (auto) Absolute Eos (auto) Absolute Basos (auto) Absolute Nucleated RBC Immature Gran % Neutrophils % Band Neutrophils % Lymphocytes % Monocytes % Eosinophils % Basophils % Metamyelocytes % Promyelocytes % Nucleated RBC % Abs Neuts (Manual) Abs Monocytes (Manual) Absolute Eos (Manual) Abs Basophils (Manual) Normal RBC Morphology Polychromasia Hypochromasia Anisocytosis Sodium Potassium Chloride Carbon Dioxide Anion Gap BUN Creatinine Est GFR ( Amer) Est GFR (Non-Af Amer) BUN/Creatinine Ratio Glucose POC Glucose (mg/dL) 245 H 206 H 221 H Calcium Magnesium 09/19/17 09/19/17 09/19/17 04:37 07:48 07:48 WBC 21.7 H RBC 4.00 Hgb 10.7 L Hct 33 L MCV 82 MCH 27 MCHC 33 RDW 16 H Plt Count 302 MPV 8 Neut % (Auto) Not Reportable Lymph % (Auto) Not Reportable [place] % (Auto) Not Reportable Eos % (Auto) Not Reportable Baso % (Auto) Not Reportable Absolute Neuts (auto) Not Reportable Absolute Lymphs (auto) Not Reportable Absolute Monos (auto) Not Reportable Absolute Eos (auto) Not Reportable Absolute Basos (auto) Not Reportable Absolute Nucleated RBC Not Reportable Immature Gran % 7 Neutrophils % 82 Band Neutrophils % 7 Lymphocytes % 6 L Monocytes % 2 Eosinophils % 0 Basophils % 0 Metamyelocytes % 2 Promyelocytes % 1 Nucleated RBC % Not Reportable Abs Neuts (Manual) 17.8 H Abs Monocytes (Manual) 0.4 Absolute Eos (Manual) 0 Abs Basophils (Manual) 0 Normal RBC Morphology Not Reportable Polychromasia 1+ Hypochromasia 1+ Anisocytosis 1+ Sodium 138 Potassium 4.4 Chloride 106 Carbon Dioxide 26 Anion Gap 6 BUN 24 Creatinine 0.97 Est GFR ( Amer) 96.0 Est GFR (Non-Af Amer) 74.7 BUN/Creatinine Ratio 24.7 H Glucose 179 H POC Glucose (mg/dL) 208 H Calcium 7.6 L Magnesium 1.8 L 09/19/17 11:51 WBC RBC Hgb Hct MCV MCH MCHC RDW Plt Count MPV Neut % (Auto) Lymph % (Auto) [place] % (Auto) Eos % (Auto) Baso % (Auto) Absolute Neuts (auto) Absolute Lymphs (auto) Absolute Monos (auto) Absolute Eos (auto) Absolute Basos (auto) Absolute Nucleated RBC Immature Gran % Neutrophils % Band Neutrophils % Lymphocytes % Monocytes % Eosinophils % Basophils % Metamyelocytes % Promyelocytes % Nucleated RBC % Abs Neuts (Manual) Abs Monocytes (Manual) Absolute Eos (Manual) Abs Basophils (Manual) Normal RBC Morphology Polychromasia Hypochromasia Anisocytosis Sodium Potassium Chloride Carbon Dioxide Anion Gap BUN Creatinine Est GFR ( Amer) Est GFR (Non-Af Amer) BUN/Creatinine Ratio Glucose POC Glucose (mg/dL) 206 H Calcium Magnesium 77 y o m non-smoker with swallowing difficulties a/ worsening SOB, cough, fever found to have loculated pl effusions bilaterally Pt with Strep Pneumonia with complex pleural effusions b/l Pt is s/p VATS on right side and chest tube on left side Pt had tPA and dornase instilled through left chest tube, to be administered twice daily for 3 days No air leak noted, sero sanguinous discharge from chest tubes b/l Pt on broad spectrum antibiotics to be adjusted pending susceptibilities Resp status stable post extubation A.fib is controlled Pain management, incentive spirometry c/w bronchodilators DVT px To be transferred to medical floor later today or tomorrow D/w Dr Arzola
--- NOTE | 2017-09-19 14:00 | OP ---
CC: Dr. Dunn; Dr. Tuttle * DATE OF OPERATION: 09/18/17 - ROOM #332 DATE OF : 36 SURGEON: Tomas Gold MD ENGLISH LANGUAGE ARTS TEACHER: EASTON Mauro ANESTHESIOLOGIST: Dr. Jacky Salomon. ANESTHESIA: General anesthetic, local infiltration by the surgeon. PRE-OP DIAGNOSIS: Bilateral empyema. POST-OP DIAGNOSIS: Bilateral empyema. OPERATIVE PROCEDURE: Right video thoracoscopy with evacuation of empyema and partial pulmonary decortication and left thoracostomy tube. DESCRIPTION OF PROCEDURE: The patient was supine on the operating room table. After adequate general anesthetic, compression stockings, Sathya-Hugger warmer, and Pink catheterization, he was turned in the lateral decubitus position with the right chest upward. He was appropriately padded and secured to the table and appropriately positioned. He had an axillary roll in place. Double-lumen intubation had been accomplished and bronchoscopy was utilized to confirm appropriate placement as well as auscultation. The right chest was then prepped with antiseptic, draped in a sterile fashion. Local infiltrative anesthesia was administered and approximately 3 cm incision was created in roughly the region of the 8th interspace laterally. The pleural space was entered and there was a lot of gelatinous and fibrinous purulent material. This was suctioned out and pulled off the chest wall until a second cannula site could be placed and ultimately a third cannula site was placed, these were both 5 mm. Using the three sites, the entirety of the right pleural space was examined. There was a large amount of empyema fluid and gelatinous material and fibrinopurulent material posteriorly and medially and at the base and this was all picked out and suctioned out. Specimens were sent for culture as well as for pathology. After this was adequately carried out, a 36- [place] chest tube was placed into the right pleural space through the larger incision. It was sutured to the skin with 2-0 Prolene. The skin was closed with 5-0 Vicryl. Sterile dressings were placed. He was then turned back to the supine position and a left chest tube was placed laterally. Approximately a 3-cm incision was created and the chest base entered bluntly. Digital palpation revealed some free space and there was some serous fluid forthcoming. A 32- [place] chest tube was placed into this space and sutured to the skin with 2-0 Prolene and dressing was placed as well. He tolerated the procedure well, was left extubated and brought to intensive care unit in guarded condition. There were no complications. Drain is bilateral chest tube. Sponge, instrument counts were correct. Estimated blood loss less than 100 mL and specimens are as enumerated above. [id number]/[facility] #: [id number] MTDD
[2017-09-19] MEDS: oxyCODONE/Acetamin 5/325 MG* TAB PO PRN ×2 (15:25→20:42)
[2017-09-19] MEDS: Zolpidem TAB* 10 MG PO PRN (22:16)
[2017-09-19] MEDS ORDERED: CMCS: Melatonin (NF) 3 MG TAB PO ONE (23:15)
[2017-09-20] MEDS: traMADol TAB* 50 MG PO PRN (00:19)
[2017-09-20] MEDS: fentaNYL* 50 MCG/ML 2 ML VIAL (100 MCG VIAL) IV SLOW PU PRN ×6 (00:19→22:19)
[2017-09-20] MEDS: Diltiazem TAB* 30 MG PO SCH ×4 (00:19→17:43)
[2017-09-20] MEDS: oxyCODONE/Acetamin 5/325 MG* TAB PO PRN ×4 (05:40→19:26)
[2017-09-20 05:45] LABS: Hematocrit 37 % (42-52); Mean Corpuscular HGB Conc 32 g/dl (31-36); Mean Corpuscular Hemoglobin 27 pg (27-31); Mean Corpuscular Volume 82 fL (80-94); Mean Platelet Volume 9 um3 (7.4-10.4); Platelet Count 300 10^3/ul (150-450); Red Blood Count 4.52 10^6/ul (4.0-5.4); Red Cell Distribution Width 16 % (10.5-15); White Blood Count 19.1 10^3/ul (3.5-10.8)
[2017-09-20 06:01] LABS: EGFR Non-African American 70.5 (>60)
[2017-09-20 07:47] LABS: ABS Basophils 0.1 10^3/ul (0-0.2); ABS Eosinophils 0.1 10^3/ul (0-0.6); ABS Lymphocytes 1.5 10^3/ul (1.0-4.8); ABS Neutrophils 15.8 10^3/ul (1.5-7.7); ABS Nucleated RBC 0 10^3/ul; Eosinophil % 0.4 % (0-6); Lymphocyte % 8.3 % (25-47); Nucleated Red Blood Cells % 0
[2017-09-20] MEDS: Insulin LISPRO* 1 UNITS UNIT SUBCUT SCH ×4 (08:25→20:56)
[2017-09-20] MEDS ORDERED: Alteplase (CATHFLO)* 10 MG in NS 0.9% 50 ML* 40 ML INTRAPLEUR ONE (09:00)
[2017-09-20] MEDS ORDERED: DORNASE ALFA 1 mg/ml(NF) 5 MG in NS 0.9% 50 ML* 45 ML INTRAPLEUR ONE (09:00)
[2017-09-20] MEDS: amLODIPine TAB* 5 MG PO SCH (10:00)
[2017-09-20] MEDS: Magnesium Oxide TAB* 400 MG PO SCH (10:00)
[2017-09-20] MEDS: Lisinopril TAB* 10 MG PO SCH ×2 (10:00→20:53)
[2017-09-20] MEDS: cefTRIAXone(*) 2 GM in NS 0.9% 100 ML* 100 ML IVPB SCH (10:10)
--- NOTE | 2017-09-20 10:16 | PN ---
Progress Note - Progress Note Date of Service: 09/20/17 SOAP: Subjective: Pt seen and examined. POD2 R VATS, L tube thoracostomy Pt extubated yesterday; still c/o b/l "rib pain" Breathing has improved. He is using incentive spirometer and may get transferred to floor today Objective: Temp Pulse Resp BP Pulse Ox 97.3 F 86 20 124/65 98 09/20/17 06:00 09/20/17 06:00 09/20/17 08:51 09/20/17 04:00 09/20/17 06:00 R chest tube 300cc/24hrs serosang, No airleak L chest tube 700cc/24hrs now serosang, but most of the previous output is opaque , james colored; no airleak poor inspiratory effort abdo: obese, NT Pleural fluid strep Pn Assessment: strep pneumonia with b/l pleural effusion/empyema Plan: Dornase,alteplase inused into L shest via chest tube and clamped for 90mins continue current care ID consult;f/u
[2017-09-20] MEDS ORDERED: Furosemide IV* 10 MG/ML VIAL (40 MG) IV SLOW PU ONE (11:11)
[2017-09-20] MEDS ORDERED: Furosemide IV* 10 MG/ML VIAL (40 MG) ONE (11:32)
--- NOTE | 2017-09-20 12:11 | PN ---
Progress Note - Progress Note Date of Service: 09/20/17 Note: CRITICAL CARE MEDICINE Date: 09/20/2017 Time: 935 SUBJECTIVE: Patient seen and examined. doing well. PHYSICAL EXAM: Vital Signs: Reviewed. Neurologic: communicating. HEENT: pupils equal. Sclera anicteric. Cardiovascular: S1 S2 Respiratory: coarse with R rhonchi. NC> chest tubes in place. Abdomen: Soft, nt. No r/g/r. Extremities: Warm. Access: pivs LABS: Reviewed. IMAGING: Reviewed. MEDICATIONS: Reviewed. ASSESSMENT: 77 M Emphyema s/p Right VATS and left chest tube for fibrinolytic tx. Post up, thoracic, resp failure PAF - anticoag held for procedures DM HTN PLAN: Neurologic: stable, explained using po rx for pain control Cardiovascular: Perfusing. vol status up a touch and one dose lasix today and f/ u needs. Respiratory: gisele. NC. IS use. Ct f/u by surg/pulm. Gastrointestinal: po. doing well. Renal/Metabolic: stable. f/u lytes Infectious Disease: on C3 with ID follow up. needs picc eventually. Hematology: place on lovenox sq prophylaxis and f/u with surg for full anticoag start. Endocrine: ssi f/u. start low dose glyburide & then towards home dose needs Musculoskeletal: oob; pt; dc umesh Psych/Social: f/u support Supportive and preventative care as ordered. SUP: po VTE prophylaxis: lovenox Disposition: SSU Code Status: Full Critical Care Time: 25min FCarlos Christopher DO
[2017-09-20] MEDS: Enoxaparin(*) 40 MG/0.4 ML SYR SUBCUT SCH (13:03)
[2017-09-20] MEDS: Allopurinol TAB* 300 MG PO SCH (13:07)
[2017-09-20] MEDS: glipiZIDE TAB* 5 MG PO SCH (13:07)
[2017-09-20] MEDS: Zolpidem TAB* 10 MG PO PRN (20:54)
[2017-09-21] MEDS: oxyCODONE/Acetamin 5/325 MG* TAB PO PRN ×5 (00:10→19:41)
[2017-09-21] MEDS: Diltiazem TAB* 30 MG PO SCH ×4 (00:10→18:06)
[2017-09-21 05:43] LABS: Hematocrit 36 % (42-52); Hemoglobin 11.6 g/dl (14.0-18.0); Mean Corpuscular HGB Conc 32 g/dl (31-36); Mean Corpuscular Hemoglobin 27 pg (27-31); Mean Corpuscular Volume 82 fL (80-94); Mean Platelet Volume 8 um3 (7.4-10.4); Platelet Count 316 10^3/ul (150-450); Red Cell Distribution Width 16 % (10.5-15)
[2017-09-21 06:00] LABS: EGFR Non-African American 68.1 (>60)
[2017-09-21 06:17] LABS: ABS Basophils 0 10^3/ul (0-0.2); ABS Eosinophils 0.1 10^3/ul (0-0.6); ABS Lymphocytes 1.1 10^3/ul (1.0-4.8); ABS Monocytes 1.3 10^3/ul (0-0.8); ABS Neutrophils 23.5 10^3/ul (1.5-7.7); ABS Nucleated RBC 0 10^3/ul; Eosinophil % 0.3 % (0-6); Lymphocyte % 4.1 % (25-47); Nucleated Red Blood Cells % 0
[2017-09-21] MEDS: Insulin LISPRO* 1 UNITS UNIT SUBCUT SCH ×4 (09:21→21:20)
[2017-09-21] MEDS: amLODIPine TAB* 5 MG PO SCH (09:21)
[2017-09-21] MEDS: Magnesium Oxide TAB* 400 MG PO SCH (09:22)
[2017-09-21] MEDS: Allopurinol TAB* 300 MG PO SCH (09:22)
[2017-09-21] MEDS: Lisinopril TAB* 10 MG PO SCH ×2 (09:23→21:18)
[2017-09-21] MEDS: glipiZIDE TAB* 5 MG PO SCH ×2 (09:23→18:05)
[2017-09-21] MEDS: cefTRIAXone(*) 2 GM in NS 0.9% 100 ML* 100 ML IVPB SCH (09:33)
[2017-09-21] MEDS ORDERED: Alteplase (CATHFLO)* 10 MG in NS 0.9% 50 ML* 40 ML INTRAPLEUR ONE (10:00)
[2017-09-21] MEDS ORDERED: DORNASE ALFA 1 mg/ml(NF) 5 MG in NS 0.9% 50 ML* 45 ML INTRAPLEUR ONE (10:00)
[2017-09-21] MEDS ORDERED: Alteplase (CATHFLO)* 2 MG VIAL INTRAPLEUR ONE (10:00)
[2017-09-21] MEDS: Enoxaparin(*) 40 MG/0.4 ML SYR SUBCUT SCH (11:03)
--- NOTE | 2017-09-21 11:32 | PN ---
Subjective Date of Service: 09/21/17 Interval History: Pain level 2-4, relieved by oxycodone/APAP. Some emesis after breakfast, not unusual for him. 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 Objective Active Medications: Acetaminophen (Tylenol Tab*) 650 mg PO Q6H PRN PRN Reason: Pain/fever Last Admin: 09/17/17 14:47 Dose: 650 mg Albuterol/Ipratropium (Duoneb (Albuterol 2.5 Mg/Ipratropium 0.5 Mg)) 1 neb INH Q4H PRN PRN Reason: SOB/WHEEZING Allopurinol (Zyloprim Tab*) 300 mg PO DAILY [facility] Last Admin: 09/21/17 09:22 Dose: 300 mg Amlodipine Besylate (Norvasc Tab*) 10 mg PO DAILY [facility] Last Admin: 09/21/17 09:21 Dose: 10 mg Dextrose (D50w Syringe 50 Ml*) 12.5 gm IV PUSH .FOR FS < 60 - SS PRN PRN Reason: FS < 60 Diltiazem HCl (Cardizem Tab*) 30 mg PO Q6HR [facility] Last Admin: 09/21/17 11:03 Dose: 30 mg Enoxaparin Sodium (Lovenox(*)) 40 mg SUBCUT Q24H [facility] Last Admin: 09/21/17 11:03 Dose: 40 mg Fentanyl Citrate (Fentanyl*) 25 mcg IV SLOW PU Q2H PRN PRN Reason: PAIN Last Admin: 09/20/17 22:19 Dose: 25 mcg Glipizide (Glucotrol Tab*) 10 mg PO 0800,1700 [facility] Guaifenesin/Dextromethorphan (Robitussin Dm*) 10 ml PO Q6H PRN PRN Reason: COUGH Last Admin: 09/14/17 19:59 Dose: 10 ml Ceftriaxone Sodium 2 gm/ (Sodium Chloride) 100 mls @ 200 mls/hr IVPB Q24H [facility] Last Admin: 09/21/17 09:33 Dose: 200 mls/hr Insulin Human Lispro (Humalog*) 0 units SUBCUT ACHS [facility] PRN Reason: Protocol Last Admin: 09/21/17 09:21 Dose: 2 units Lisinopril (Prinivil Tab*) 20 mg PO BID [facility] Last Admin: 09/21/17 09:23 Dose: 20 mg Magnesium Oxide (Magox 400 Tab*) 400 mg PO DAILY [facility] Last Admin: 09/21/17 09:22 Dose: 400 mg Ondansetron HCl (Zofran Inj*) 4 mg IV Q6H PRN PRN Reason: NAUSEA Last Admin: 09/18/17 03:27 Dose: 4 mg Oxycodone/Acetaminophen (Percocet 5/325 Tab*) 2 tab PO Q4H PRN PRN Reason: PAIN Last Admin: 09/21/17 11:03 Dose: 2 tab Tramadol HCl (Ultram*) 50 mg PO Q8H PRN PRN Reason: PAIN Last Admin: 09/20/17 00:19 Dose: 50 mg Vital Signs - 8 hr 09/21/17 09/21/17 09/21/17 04:31 05:52 07:43 Temperature 98.2 F 98.7 F Pulse Rate 88 87 Respiratory 20 18 22 Rate Blood Pressure 151/57 140/57 (mmHg) O2 Sat by Pulse 96 97 Oximetry 09/21/17 09/21/17 09/21/17 08:00 09:13 11:02 Temperature Pulse Rate 80 Respiratory 22 22 Rate Blood Pressure (mmHg) O2 Sat by Pulse 97 Oximetry 09/21/17 11:03 Temperature Pulse Rate Respiratory 18 Rate Blood Pressure (mmHg) O2 Sat by Pulse Oximetry Oxygen Devices in Use Now: Nasal Cannula Appearance: Alert, sitting up in bed. In fair spirits. Looks comfortable at rest. Eyes: No Scleral Icterus Neck: NL Appearance and Movements; NL JVP, No Thyroid Enlargement, Masses Respiratory: Symmetrical Chest Expansion and Respiratory Effort, Clear to Percussion, - - mild diffuse rhonchi Extremities: No Edema, No Clubbing, Cyanosis, - Skin: No Rash or Ulcers, No Nodules or Sclerosis, - - RLE some hyperpigmentation. Neurological: Alert and Oriented x 3, NL Sensation Result Diagrams: 09/21/17 05:16 09/21/17 05:16 Additional Lab and Data: Laboratory Results - last 24 hr 09/17/17 09/17/17 09/17/17 05:20 05:20 08:14 WBC 22.1 H RBC 4.54 Hgb 12.1 L Hct 38 L MCV 83 MCH 27 MCHC 32 RDW 16 H Plt Count 330 MPV 8 Neut % (Auto) 91.1 H Lymph % (Auto) 3.9 L [place] % (Auto) 4.4 Eos % (Auto) 0.4 Baso % (Auto) 0.2 Absolute Neuts (auto) 20.1 H Absolute Lymphs (auto) 0.9 L Absolute Monos (auto) 1.0 H Absolute Eos (auto) 0.1 Absolute Basos (auto) 0 Absolute Nucleated RBC 0 Nucleated RBC % 0 Sodium 142 Potassium 4.2 Chloride 110 Carbon Dioxide 26 Anion Gap 6 BUN 18 Creatinine 0.65 L Est GFR ( Amer) 152.4 Est GFR (Non-Af Amer) 118.5 BUN/Creatinine Ratio 27.7 H Glucose 226 H POC Glucose (mg/dL) 262 H Calcium 8.4 L Magnesium 2.2 09/17/17 09/17/17 14:02 16:54 WBC RBC Hgb Hct MCV MCH MCHC RDW Plt Count MPV Neut % (Auto) Lymph % (Auto) [place] % (Auto) Eos % (Auto) Baso % (Auto) Absolute Neuts (auto) Absolute Lymphs (auto) Absolute Monos (auto) Absolute Eos (auto) Absolute Basos (auto) Absolute Nucleated RBC Nucleated RBC % Sodium Potassium Chloride Carbon Dioxide Anion Gap BUN Creatinine Est GFR ( Amer) Est GFR (Non-Af Amer) BUN/Creatinine Ratio Glucose POC Glucose (mg/dL) 216 H 286 H Calcium Magnesium Microbiology and Other Data: Microbiology 09/13/17 15:19 Blood Venous Aerobic Blood Culture - Preliminary No Growth Day 4 09/13/17 15:19 Blood Venous Anaerobic Blood Culture - Preliminary No Growth Day 4 09/13/17 15:10 Blood Venous Aerobic Blood Culture - Preliminary No Growth Day 4 09/13/17 15:10 Blood Venous Anaerobic Blood Culture - Preliminary No Growth Day 4 09/15/17 14:33 Pleural Fluid Gram Stain - Final 09/15/17 14:33 Pleural Fluid Body Fluid Culture - Preliminary No Growth Day 2 09/14/17 13:30 Pleural Fluid Gram Stain - Final 09/14/17 13:30 Pleural Fluid Body Fluid Culture - Preliminary Streptococcus Pneumoniae 09/16/17 03:37 Nasal Nasal Screen MRSA (PCR)(MACARENA) - Final Mrsa Negative 09/15/17 17:05 Urine Legionella Urinary Antigen - Final Negative Legionella 09/15/17 17:05 Urine Streptococcus pneumoniae Ag Screen - Final Negative S. pneumo Antigen 09/13/17 23:00 Sputum Expectorated Gram Stain - Final 09/13/17 23:00 Sputum Expectorated Sputum Culture - Final YEAST 09/14/17 10:30 Nasal Nasal Screen MRSA (PCR)([facility]ARENA) - Final Mrsa Negative Assess/Plan/Problems-Billing Assessment: 77 yo male PMH NIDDM, HTN, Afib (on Xarelto) presenting with 3 weeks SOB, 1 week productive cough, wbc 24. b/l (R>L) large complex loculated pleural effusions positive for strep pneumonia. s/p thoracentesis x2. Planned OR for VATS on right 09/17/16 and chest tube + lytics on left. Course complicated by Afib w/ RVR and acute urinary retention. - Patient Problems (1) Loculated pleural effusion Current Visit: Yes Status: Acute Code(s): J90 - PLEURAL EFFUSION, NOT ELSEWHERE CLASSIFIED SNOMED Code(s): 064474813 Comment: S/P VATS 09/18/17, BL CT in place, both draining red fluid. C&S grew S. pneumoniae. (2) Diabetes mellitus Current Visit: Yes Status: Acute Code(s): E11.9 - TYPE 2 DIABETES MELLITUS WITHOUT COMPLICATIONS SNOMED Code(s): 48214197 Comment: takes glipizide, A1Cs around 6 per patient. POCT, SSI qachs carbohydrate consistent diet. Increase glypizide to 10 mg bid 09/21. (3) Gout Current Visit: Yes Status: Acute Code(s): M10.9 - GOUT, UNSPECIFIED SNOMED Code(s): 32348358 Comment: Resume allopurinol when taking po. (4) HTN (hypertension) Current Visit: Yes Status: Acute Code(s): I10 - ESSENTIAL (PRIMARY) HYPERTENSION SNOMED Code(s): 60654225 Comment: Continue lisinopril 20mg BID, amlodipine 10mg. (5) Zenker diverticulum Current Visit: Yes Status: Acute Code(s): K22.5 - DIVERTICULUM OF ESOPHAGUS , ACQUIRED SNOMED Code(s): 794806499 Comment: Not clear basis for diagnosis. Video swallow study ordered. Status and Disposition: medicine inpatient. currently boarding in ICU(did not have tele bed during RVR episode), still waiting for tele med bed on 4 .
[2017-09-21] MEDS ORDERED: Bisacodyl SUPP* 10 MG SUPP PR ONE (11:51)
[2017-09-21] MEDS ORDERED: Magnesium Hydroxide LIQ* 30 ML UDC PO PRN (11:53)
[2017-09-21] MEDS: Docusate CAP* 100 MG PO SCH ×2 (14:08→21:18)
--- NOTE | 2017-09-21 14:27 | RAD ---
INDICATION: Pneumonia with history of chest tube placement COMPARISON: Most recent comparison chest x-rays dated September 19, 2017 TECHNIQUE: PA and lateral views of the chest were obtained. FINDINGS: The left-sided chest tube tip terminates over the mid clavicular left lower lung. The right-sided chest tube is appropriately positioned with the tip terminating over the medial aspect of the mid-level right lung. There is no large pneumothorax discernible. There is pleural-based linear density overlying the right lung base. There is right lung costophrenic angle blunting and to a lesser extent left costophrenic angle blunting. IMPRESSION: GIVEN DIFFERENCES IN TECHNIQUE THERE HAS BEEN NO SIGNIFICANT CHANGE IN THE DEGREE OF AERATION RELATIVE TO THE SEPTEMBER 19, 2017 CHEST X-RAY. THERE IS NO VISIBLE PNEUMOTHORAX IN THE PRESENCE OF BILATERAL CHEST TUBES.
--- NOTE | 2017-09-21 14:28 | RAD ---
INDICATION: Recurrent pneumonia. Current bilateral empyema with chest tubes. History of esophageal pouch. Question COMPARISON: No relevant prior exams available on the [facility] [place]ACS for comparison. TECHNIQUE: Videofluoroscopy swallowing function exam performed in conjunction with speech pathology. Patient seated in a Hausted chair and viewed in the lateral plane. The patient swallowed various consistencies of liquids and solid foodstuff coated with barium. Less than one hour fluoroscopy. Multiple cine loops obtained. FINDINGS: Transient laryngeal penetration with thin and nectar thick liquids observed without gus laryngeal aspiration with liquids or solid food stuff. The epiglottis is observed to extend to transverse position without gus inversion on any swallow. Reference [place] images saved on PACS there is a large posteriorly projecting proximal esophageal diverticulum corresponding with findings on September 13, 2017 CT chest exam. IMPRESSION: 1. Transient laryngeal penetration with thin and nectar thick liquids without gus laryngeal aspiration. 2. Decreased excursion of motion of the epiglottis with deglutition. 3. Zenker's diverticulum measuring up to 3 cm AP by 4.6 cm transverse by 5.1 cm cephalocaudal based on correlation with September 13, 2017 CT. CPT II: CPT II Codes: 6045F
--- NOTE | 2017-09-21 15:48 | PN ---
Progress Note - Progress Note Date of Service: 09/21/17 SOAP: Subjective: [][id number] Active Medications Generic Name Dose Route Start Last Admin Trade Name Freq PRN Reason Stop Dose Admin Acetaminophen 650 mg 09/13/17 17:38 09/17/17 14:47 Tylenol Tab* PO 650 mg Q6H PRN Administration Pain/fever Albuterol/Ipratropium 1 neb 09/13/17 17:33 Duoneb (Albuterol 2.5 Mg/Ipratropium 0.5 Mg) INH Q4H PRN SOB/WHEEZING Allopurinol 300 mg 09/14/17 09:00 09/21/17 09:22 Zyloprim Tab* PO 300 mg DAILY [facility] Administration Amlodipine Besylate 10 mg 09/14/17 09:00 09/21/17 09:21 Norvasc Tab* PO 10 mg DAILY [facility] Administration Dextrose 12.5 gm 09/13/17 17:37 D50w Syringe 50 Ml* IV PUSH .FOR FS < 60 - SS PRN FS < 60 Diltiazem HCl 30 mg 09/16/17 13:00 09/21/17 11:03 Cardizem Tab* PO 30 mg Q6HR [facility] Administration Docusate Sodium 100 mg 09/21/17 12:00 09/21/17 14:08 Colace Cap* PO 100 mg BID [facility] Administration Enoxaparin Sodium 40 mg 09/19/17 12:00 09/21/17 11:03 Lovenox(*) SUBCUT 40 mg Q24H [facility] Administration Fentanyl Citrate 25 mcg 09/18/17 16:37 09/20/17 22:19 Fentanyl* IV SLOW PU 25 mcg Q2H PRN Administration PAIN Glipizide 10 mg 09/21/17 17:00 Glucotrol Tab* PO 0800,1700 [facility] Guaifenesin/Dextromethorphan 10 ml 09/14/17 16:51 09/14/17 19:59 Robitussin Dm* PO 10 ml Q6H PRN Administration COUGH Ceftriaxone Sodium 2 gm/ 100 mls @ 200 mls/hr 09/16/17 09:00 09/21/17 09:33 Sodium Chloride IVPB 200 mls/hr Q24H [facility] Administration Insulin Human Lispro 0 units 09/19/17 16:30 09/21/17 14:08 Humalog* SUBCUT 3 units ACHS [facility] Administration Protocol Lisinopril 20 mg 09/18/17 21:00 09/21/17 09:23 Prinivil Tab* PO 20 mg BID [facility] Administration Magnesium Hydroxide 30 ml 09/21/17 11:53 09/21/17 14:07 Milk Of Magnesia Liq* PO 30 ml BID PRN Administration CONSTIPATION Magnesium Oxide 400 mg 09/14/17 09:00 09/21/17 09:22 Magox 400 Tab* PO 400 mg DAILY [facility] Administration Ondansetron HCl 4 mg 09/13/17 17:39 09/18/17 03:27 Zofran Inj* IV 4 mg Q6H PRN Administration NAUSEA Oxycodone/Acetaminophen 2 tab 09/19/17 14:20 09/21/17 15:32 Percocet 5/325 Tab* PO 2 tab Q4H PRN Administration PAIN Tramadol HCl 50 mg 09/17/17 10:09 09/20/17 00:19 Ultram* PO 50 mg Q8H PRN Administration PAIN Objective: [] Vital Signs Temp 98.7 F 09/21/17 07:43 Pulse 80 09/21/17 11:02 Resp 16 09/21/17 15:32 BP 140/57 09/21/17 07:43 Pulse Ox 97 09/21/17 08:00 Intake & Output 09/20/17 09/21/17 09/21/17 18:59 06:59 18:59 Intake Total 1481 620 380 Output Total 4552 662 7699 Balance -134 384 -1053 Intake: IV Fluids 219 LR 219 IVPB 137 LR 137 Oral 1125 620 380 Output: Chest Tube #1 150 160 110 Chest Tube #2 415 76 398 Urine 0 Pink 1050 400 Residual 525 Pink 16 Fr 525 Intake & Output 09/19/17 09/20/17 09/21/17 09/22/17 06:59 06:59 06:59 06:59 Intake Total 3152 2393 2101 380 Output Total 595 2325 1851 1433 Balance 2557 68 250 -1053 Intake: IV Fluids 2846 873 219 LR 2356 614 219 NS (0.9%) 490 259 IVPB 125 120 137 ABX - CEFTRIAXONE 114 120 LR 137 NS (0.9%) 11 Medicated IV 181 80 CC - Propofol/Diprivan 181 80 Oral 0 1320 1745 380 Output: Chest Tube #1 165 275 310 110 Chest Tube #2 120 750 491 398 Urine 0 Pink 310 1300 1050 400 Residual 525 Pink 16 Fr 525 Assessment: [] Plan: []
--- NOTE | 2017-09-21 15:59 | PN ---
Progress Note - Progress Note Date of Service: 09/21/17 - Pulm f/u note Note: Pt seen and examined at bedside. Pt reports pain and discomfort at chest tube insertion site, continues to have trouble swallowing, swallow eval pending Active Medications Generic Name Dose Route Start Last Admin Trade Name Freq PRN Reason Stop Dose Admin Acetaminophen 650 mg 09/13/17 17:38 09/17/17 14:47 Tylenol Tab* PO 650 mg Q6H PRN Administration Pain/fever Albuterol/Ipratropium 1 neb 09/13/17 17:33 Duoneb (Albuterol 2.5 Mg/Ipratropium 0.5 Mg) INH Q4H PRN SOB/WHEEZING Allopurinol 300 mg 09/14/17 09:00 09/21/17 09:22 Zyloprim Tab* PO 300 mg DAILY [facility] Administration Amlodipine Besylate 10 mg 09/14/17 09:00 09/21/17 09:21 Norvasc Tab* PO 10 mg DAILY [facility] Administration Dextrose 12.5 gm 09/13/17 17:37 D50w Syringe 50 Ml* IV PUSH .FOR FS < 60 - SS PRN FS < 60 Diltiazem HCl 30 mg 09/16/17 13:00 09/21/17 11:03 Cardizem Tab* PO 30 mg Q6HR [facility] Administration Docusate Sodium 100 mg 09/21/17 12:00 09/21/17 14:08 Colace Cap* PO 100 mg BID [facility] Administration Enoxaparin Sodium 40 mg 09/19/17 12:00 09/21/17 11:03 Lovenox(*) SUBCUT 40 mg Q24H [facility] Administration Fentanyl Citrate 25 mcg 09/18/17 16:37 09/20/17 22:19 Fentanyl* IV SLOW PU 25 mcg Q2H PRN Administration PAIN Glipizide 10 mg 09/21/17 17:00 Glucotrol Tab* PO 0800,1700 [facility] Guaifenesin/Dextromethorphan 10 ml 09/14/17 16:51 09/14/17 19:59 Robitussin Dm* PO 10 ml Q6H PRN Administration COUGH Ceftriaxone Sodium 2 gm/ 100 mls @ 200 mls/hr 09/16/17 09:00 09/21/17 09:33 Sodium Chloride IVPB 200 mls/hr Q24H [facility] Administration Insulin Human Lispro 0 units 09/19/17 16:30 09/21/17 14:08 Humalog* SUBCUT 3 units ACHS [facility] Administration Protocol Lisinopril 20 mg 09/18/17 21:00 09/21/17 09:23 Prinivil Tab* PO 20 mg BID [facility] Administration Magnesium Hydroxide 30 ml 09/21/17 11:53 09/21/17 14:07 Milk Of Magnesia Liq* PO 30 ml BID PRN Administration CONSTIPATION Magnesium Oxide 400 mg 09/14/17 09:00 09/21/17 09:22 Magox 400 Tab* PO 400 mg DAILY [facility] Administration Ondansetron HCl 4 mg 09/13/17 17:39 09/18/17 03:27 Zofran Inj* IV 4 mg Q6H PRN Administration NAUSEA Oxycodone/Acetaminophen 2 tab 09/19/17 14:20 09/21/17 15:32 Percocet 5/325 Tab* PO 2 tab Q4H PRN Administration PAIN Tramadol HCl 50 mg 09/17/17 10:09 09/20/17 00:19 Ultram* PO 50 mg Q8H PRN Administration PAIN Vital Signs Temp Pulse Resp BP Pulse Ox 97.7 F 110 16 136/48 90 09/21/17 15:25 09/21/17 15:25 09/21/17 15:32 09/21/17 15:25 09/21/17 15:25 O/E: Pt in NAD, morbidly obese male HEENT: PERRLA, No JVD, mucus membrane moist Lungs: diminished air entry, decreased breath sounds at bases, scaterred rhonchi present, no wheeze, b/l chest tubes present CVS: S1, S2+ Abd: Obese, BS+ : Dark brown urine through Pink Ext: Normal ROM Neuro: Alert, awake, no focal defecits WBC 26.0 10^3/ul (3.5-10.8) H RBC 4.40 10^6/ul (4.0-5.4) Hgb 11.6 g/dl (14.0-18.0) L Hct 36 % (42-52) L MCV 82 fL (80-94) MCH 27 pg (27-31) MCHC 32 g/dl (31-36) RDW 16 % (10.5-15) H Plt Count 316 10^3/ul (150-450) MPV 8 um3 (7.4-10.4) Neut % (Auto) 90.6 % (38-83) H Lymph % (Auto) 4.1 % (25-47) L [place] % (Auto) 4.9 % (1-9) Eos % (Auto) 0.3 % (0-6) Baso % (Auto) 0.1 % (0-2) Absolute Neuts (auto) 23.5 10^3/ul (1.5-7.7) H Absolute Lymphs (auto) 1.1 10^3/ul (1.0-4.8) Absolute Monos (auto) 1.3 10^3/ul (0-0.8) H Absolute Eos (auto) 0.1 10^3/ul (0-0.6) Absolute Basos (auto) 0 10^3/ul (0-0.2) Absolute Nucleated RBC 0 10^3/ul Immature Gran % 7 % (0-9) Neutrophils % 82 % (38-83) Band Neutrophils % 7 % (0-8) Lymphocytes % 6 % (25-47) L Monocytes % 2 % (0-13) Eosinophils % 0 % (0-6) Basophils % 0 % (0-2) Metamyelocytes % 2 % (0-2) Myelocytes % 5 % (0-1) H Promyelocytes % 1 % Nucleated RBC % 0 Abs Neuts (Manual) 17.8 10^3/ul (1.5-7.7) H Abs Lymphs (Manual) 1.3 10^3/ul (1.0-4.8) Abs Monocytes (Manual) 0.4 10^3/ul (0-0.8) Absolute Eos (Manual) 0 10^3/ul (0-0.6) Abs Basophils (Manual) 0 10^3/ul (0-0.2) Normal RBC Morphology Not Reportable Polychromasia 1+ Hypochromasia 1+ Anisocytosis 1+ Sodium 138 mmol/L (133-145) Potassium 4.1 mmol/L (3.5-5.0) Chloride 104 mmol/L (101-111) Carbon Dioxide 28 mmol/L (22-32) Anion Gap 6 mmol/L (2-11) BUN 26 mg/dL (6-24) H Creatinine 1.05 mg/dL (0.67-1.17) Est GFR ( Amer) 87.6 (>60) Est GFR (Non-Af Amer) 68.1 (>60) BUN/Creatinine Ratio 24.8 (8-20) H Glucose 180 mg/dL (70-100) H POC Glucose (mg/dL) 152 mg/dL (70-100) H Lactic Acid 1.2 mmol/L (0.5-2.0) Calcium 7.4 mg/dL (8.6-10.3) L Magnesium 1.9 mg/dL (1.9-2.7) Total Bilirubin 0.80 mg/dL (0.2-1.0) AST 40 U/L (13-39) H ALT 59 U/L (7-52) H Alkaline Phosphatase 125 U/L (34-104) H Lactate Dehydrogenase 279 U/L (140-271) H Troponin I 0.03 ng/mL (<0.04) C-Reactive Protein 342.53 mg/L (< 5.00) H B-Natriuretic Peptide 116 pg/mL (-100) H Total Protein 6.4 g/dL (6.4-8.9) Albumin 2.5 g/dL (3.2-5.2) L Globulin 3.9 g/dL (2-4) Albumin/Globulin Ratio 0.6 (1-3) L Procalcitonin 1.0 ng/mL (<0.6) H Fluid Source Pleural fluid Fluid Volume 27 mL Fluid Color Yellow Fluid Appearance Clear Fluid WBC 308 /mcL ([id number]) Fluid RBC 703 /mcL Fluid Tot Cell Count 100 Fluid Neutrophils 88 % Fluid Band Neutrophils 2 % Fluid Lymphocytes 8 % Fluid Monocytes 2 % Fluid Cell Count Rvw By Fluid Glucose 168 mg/dL Fluid Total Protein 3.5 g/dL Fluid LDH 438 U/L Fluid Amylase 19 U/L Fluid Comment Blood Type B Positive Antibody Screen Negative 77 y o m non-smoker with swallowing difficulties a/ worsening SOB, cough, fever found to have loculated pl effusions bilaterally Pt with Strep Pneumonia with complex pleural effusions b/l Pt is s/p VATS on right side and chest tube on left side, chest tubes draining sero sanguinous secretions Pt had tPA and dornase instilled through left chest tube Pt on broad spectrum antibiotics to be adjusted pending susceptibilities A.fib is controlled Pain management, incentive spirometry c/w bronchodilators DVT px
--- NOTE | 2017-09-21 18:29 | PN ---
Progress Note - Progress Note Date of Service: 09/21/17 SOAP: Subjective: [The patient reports rib pain due to coughing and reports white phelgm but denies SOB and chest pain. The pt states he's tolerating the liquid diet but reports nausea this morning that resolved on his own.The patient reports he is not currently ambulating and needs assistance out of bed to the chair. The pt states his last bowel movement was approx. 1.5 weeks ago.] Objective: [] Vital Signs Temp 97.7 F 09/21/17 15:25 Pulse 103 09/21/17 16:08 Resp 20 09/21/17 17:29 BP 136/48 09/21/17 15:25 Pulse Ox 91 09/21/17 16:08 Intake & Output 09/20/17 09/21/17 09/21/17 18:59 06:59 18:59 Intake Total 1481 620 380 Output Total 4886 095 0300 Balance -134 384 -1053 Intake: IV Fluids 219 LR 219 IVPB 137 LR 137 Oral 1125 620 380 Output: Chest Tube #1 150 160 110 Chest Tube #2 415 76 398 Urine 0 Pink 1050 400 Residual 525 Pink 16 Fr 525 Vitals Reviewed: Continue to monitor O2 sat General: The patient was sitting comfortably in his chair. Neurologic: Alert and responsive Lungs: Diffuse rales and rhonchi throughout bilaterally. Heart: S1 and S2 present. Abdomen: Hypoactive bowel sounds. Obese, non-distended, no guarding or rigidity. Serosanguineous fluid is draining bilaterally. Extremities: Distal pulses intact, with +1 edema bilaterally with hyperpigmentation bilaterally below the knees. Assessment: [This is a 77 y.o male POD #3 w/ emphyema s/p right VATS and left chest tube] Plan: [Continue right VATS and left chest tube ] Continue Ceftriaxone <Crystal Valero - Last Filed: 09/22/17 18:10> - Progress Note SOAP: Subjective: [] Objective: [] Assessment: [] Plan: []Will review note w/ student, specifically abd exam findings and plan. <James Washington - Last Filed: 09/23/17 14:38>
[2017-09-22] MEDS: Diltiazem TAB* 30 MG PO SCH ×4 (00:09→17:47)
[2017-09-22] MEDS: oxyCODONE/Acetamin 5/325 MG* TAB PO PRN ×2 (01:59→06:03)
[2017-09-22] MEDS: Allopurinol TAB* 300 MG PO SCH (08:30)
[2017-09-22] MEDS: Docusate CAP* 100 MG PO SCH ×3 (08:31→20:56)
[2017-09-22] MEDS: Lisinopril TAB* 10 MG PO SCH ×2 (08:31→20:39)
[2017-09-22] MEDS: Magnesium Oxide TAB* 400 MG PO SCH (08:31)
[2017-09-22] MEDS: amLODIPine TAB* 5 MG PO SCH (08:31)
[2017-09-22] MEDS: glipiZIDE TAB* 5 MG PO SCH ×2 (08:31→18:17)
[2017-09-22] MEDS: Insulin LISPRO* 1 UNITS UNIT SUBCUT SCH ×4 (08:32→20:52)
[2017-09-22] MEDS: Ondansetron INJ* 2 MG/ML VIAL IV PRN (09:39)
[2017-09-22] MEDS: cefTRIAXone(*) 2 GM in NS 0.9% 100 ML* 100 ML IVPB SCH (10:00)
--- NOTE | 2017-09-22 11:01 | RAD ---
INDICATION: Follow-up empyema. COMPARISON: Comparison is made with a prior CT of the chest from September 13, 2017 and a prior chest x-ray study from September 21, 2017. TECHNIQUE: A CT scan of the chest was performed without intravenous contrast. Contiguous axial sections were obtained from the lung apices through the lung bases. Images were reconstructed in the coronal and sagittal planes. The exam is limited due to motion artifact. FINDINGS: There are small bilateral pleural effusions with chest tubes present toward both lung bases. There is a small right basilar pneumothorax. There are patchy and confluent infiltrates present in the right upper lobe and more confluent bilateral lower lobe infiltrates right greater than left with air bronchograms. There is some high density material within the infiltrates possibly representing contrast from the proper prior swallowing study from September 21, 2017. In addition there is residual contrast at the thoracic inlet within a esophageal diverticulum described on the prior swallowing function test. This measures approximate 4.7 x 3.4 cm in size. There are enlarged lymph nodes in the right paratracheal, pretracheal and subcarinal regions measuring up to 2.2 cm in transverse dimension. These appear slightly more prominent than on the prior study. The heart appears mildly enlarged. There are coronary artery calcifications. No pericardial effusion is present. The thoracic aorta is normal in caliber. There are bridging syndesmophytes in the dorsal spine possibly secondary to ankylosing spondylitis. No significant focal osseous abnormality is seen. IMPRESSION: 1. SMALL BILATERAL PLEURAL EFFUSIONS WITH CHEST TUBES IN PLACE. 2. SMALL RIGHT BASILAR PNEUMOTHORAX. 3. BILATERAL INFILTRATES DEMONSTRATING INTERVAL PROGRESSION WITH SOME HIGH DENSITY MATERIAL WITHIN THE INFILTRATES POSSIBLY FROM ASPIRATION OF CONTRAST FROM THE PRIOR SWALLOWING STUDY. 4. LARGE ZENKER'S DIVERTICULUM CONTAINING RESIDUAL CONTRAST. 5. ENLARGED MEDIASTINAL LYMPH NODES. 6. POSSIBLE ANKYLOSING SPONDYLITIS.
[2017-09-22] MEDS: fentaNYL* 50 MCG/ML 2 ML VIAL (100 MCG VIAL) IV SLOW PU PRN ×4 (11:30→22:47)
--- NOTE | 2017-09-22 11:56 | PN ---
Progress Note - Progress Note Date of Service: 09/22/17 SOAP: Subjective:POD #4 S/P RIGHT VATS;C/O PAIN AT CHEST TUBE SITES [] Objective:ALERT AND ORIENTED;LUNGS:DIMINSHED AIR ENTRY,PRODUCTIVE COUGH,YELLOW SPUTUM;DECREASED BS BASES,SCATTERED RHONCHI,NO WHEEZES;RIGHT CHEST TUBE LEVEL 1340;LEFT CHEST TUBE LEVEL 440,NO AIR LEAK BILAT [] Assessment: Vital Signs Temp 99.0 F 09/22/17 11:33 Pulse 93 09/22/17 11:33 Resp 18 09/22/17 11:33 BP 151/40 09/22/17 11:33 Pulse Ox 87 09/22/17 11:33 Intake & Output 09/21/17 09/22/17 09/22/17 18:59 06:59 18:59 Intake Total 380 740 Output Total 1433 900 Balance -1053 -160 Intake: Oral 380 740 Output: Chest Tube #1 110 150 Chest Tube #2 398 100 Urine 200 Pink 400 450 Residual 525 Pink 16 Fr 525 Other: Estimated Void Small Medium Large # Bowel Movements 0 Estimated Stool Amount Large [] Plan:CT OF CHEST TODAY;CONTINUE SUPPORTIVE CARE []
[2017-09-22] MEDS: Enoxaparin(*) 40 MG/0.4 ML SYR SUBCUT SCH (12:13)
[2017-09-22] MEDS: Albuterol/Ipratropium NEB.SOL* Albuterol 2.5 MG/Ipratropium 0.5 MG 3 ML INH SCH ×2 (13:00→17:04)
[2017-09-22 13:11] LABS: Hematocrit 35 % (42-52); Hemoglobin 11.1 g/dl (14.0-18.0); Mean Corpuscular HGB Conc 32 g/dl (31-36); Mean Corpuscular Hemoglobin 26 pg (27-31); Mean Corpuscular Volume 83 fL (80-94); Mean Platelet Volume 8 um3 (7.4-10.4); Platelet Count 335 10^3/ul (150-450); Red Blood Count 4.23 10^6/ul (4.0-5.4); Red Cell Distribution Width 16 % (10.5-15); White Blood Count 34.5 10^3/ul (3.5-10.8)
--- NOTE | 2017-09-22 13:17 | PN ---
Subjective Date of Service: 09/22/17 Interval History: C/O cough. Objective Active Medications: Acetaminophen (Tylenol Tab*) 650 mg PO Q6H PRN PRN Reason: Pain/fever Last Admin: 09/17/17 14:47 Dose: 650 mg Albuterol/Ipratropium (Duoneb (Albuterol 2.5 Mg/Ipratropium 0.5 Mg)) 1 neb INH [id number] AWAKE [facility] Last Admin: 09/22/17 13:00 Dose: 1 neb Allopurinol (Zyloprim Tab*) 300 mg PO DAILY [facility] Last Admin: 09/22/17 08:30 Dose: 300 mg Amlodipine Besylate (Norvasc Tab*) 10 mg PO DAILY [facility] Last Admin: 09/22/17 08:31 Dose: 10 mg Dextrose (D50w Syringe 50 Ml*) 12.5 gm IV PUSH .FOR FS < 60 - SS PRN PRN Reason: FS < 60 Diltiazem HCl (Cardizem Tab*) 30 mg PO Q6HR [facility] Last Admin: 09/22/17 12:13 Dose: 30 mg Docusate Sodium (Colace Cap*) 100 mg PO BID [facility] Last Admin: 09/22/17 08:31 Dose: 100 mg Enoxaparin Sodium (Lovenox(*)) 40 mg SUBCUT Q24H [facility] Last Admin: 09/22/17 12:13 Dose: 40 mg Fentanyl Citrate (Fentanyl*) 25 mcg IV SLOW PU Q2H PRN PRN Reason: PAIN Last Admin: 09/22/17 11:30 Dose: 25 mcg Glipizide (Glucotrol Tab*) 10 mg PO 0800,1700 [facility] Last Admin: 09/22/17 08:31 Dose: 10 mg Guaifenesin/Dextromethorphan (Robitussin Dm*) 10 ml PO Q6H [facility] Ceftriaxone Sodium 2 gm/ (Sodium Chloride) 100 mls @ 200 mls/hr IVPB Q24H [facility] Last Admin: 09/22/17 10:00 Dose: 200 mls/hr Insulin Human Lispro (Humalog*) 0 units SUBCUT ACHS [facility] PRN Reason: Protocol Last Admin: 09/22/17 12:40 Dose: 2 units Lisinopril (Prinivil Tab*) 20 mg PO BID [facility] Last Admin: 09/22/17 08:31 Dose: 20 mg Magnesium Hydroxide (Milk Of Magnesia Liq*) 30 ml PO BID PRN PRN Reason: CONSTIPATION Last Admin: 09/21/17 14:07 Dose: 30 ml Magnesium Oxide (Magox 400 Tab*) 400 mg PO DAILY [facility] Last Admin: 09/22/17 08:31 Dose: 400 mg Ondansetron HCl (Zofran Inj*) 4 mg IV Q6H PRN PRN Reason: NAUSEA Last Admin: 09/22/17 09:39 Dose: 4 mg Oxycodone/Acetaminophen (Percocet 5/325 Tab*) 2 tab PO Q4H PRN PRN Reason: PAIN Last Admin: 09/22/17 06:03 Dose: 2 tab Tramadol HCl (Ultram*) 50 mg PO Q8H PRN PRN Reason: PAIN Last Admin: 09/20/17 00:19 Dose: 50 mg Vital Signs - 8 hr 09/22/17 09/22/17 09/22/17 06:03 07:26 07:49 Temperature 99.0 F Pulse Rate 78 Respiratory 20 20 16 Rate Blood Pressure 152/45 (mmHg) O2 Sat by Pulse 92 93 Oximetry 09/22/17 09/22/17 09/22/17 08:32 11:30 11:33 Temperature 99.0 F Pulse Rate 93 Respiratory 20 20 18 Rate Blood Pressure 151/40 (mmHg) O2 Sat by Pulse 87 Oximetry 09/22/17 09/22/17 12:45 13:00 Temperature Pulse Rate 92 92 Respiratory 92 Rate Blood Pressure (mmHg) O2 Sat by Pulse 92 Oximetry Oxygen Devices in Use Now: Nasal Cannula, OxyMask Appearance: Alert, partly up in bed. Rhonchorous breathing, tachypneic. Eyes: No Scleral Icterus Neck: NL Appearance and Movements; NL JVP, No Thyroid Enlargement, Masses Respiratory: Symmetrical Chest Expansion and Respiratory Effort, Clear to Percussion, - - diffuse rhonchi/upper airway sounds Extremities: No Edema, No Clubbing, Cyanosis, - Skin: No Rash or Ulcers, No Nodules or Sclerosis, - Neurological: Alert and Oriented x 3, NL Sensation Result Diagrams: 09/22/17 12:51 09/21/17 05:16 Additional Lab and Data: Laboratory Results - last 24 hr 09/17/17 09/17/17 09/17/17 05:20 05:20 08:14 WBC 22.1 H RBC 4.54 Hgb 12.1 L Hct 38 L MCV 83 MCH 27 MCHC 32 RDW 16 H Plt Count 330 MPV 8 Neut % (Auto) 91.1 H Lymph % (Auto) 3.9 L [place] % (Auto) 4.4 Eos % (Auto) 0.4 Baso % (Auto) 0.2 Absolute Neuts (auto) 20.1 H Absolute Lymphs (auto) 0.9 L Absolute Monos (auto) 1.0 H Absolute Eos (auto) 0.1 Absolute Basos (auto) 0 Absolute Nucleated RBC 0 Nucleated RBC % 0 Sodium 142 Potassium 4.2 Chloride 110 Carbon Dioxide 26 Anion Gap 6 BUN 18 Creatinine 0.65 L Est GFR ( Amer) 152.4 Est GFR (Non-Af Amer) 118.5 BUN/Creatinine Ratio 27.7 H Glucose 226 H POC Glucose (mg/dL) 262 H Calcium 8.4 L Magnesium 2.2 09/17/17 09/17/17 14:02 16:54 WBC RBC Hgb Hct MCV MCH MCHC RDW Plt Count MPV Neut % (Auto) Lymph % (Auto) [place] % (Auto) Eos % (Auto) Baso % (Auto) Absolute Neuts (auto) Absolute Lymphs (auto) Absolute Monos (auto) Absolute Eos (auto) Absolute Basos (auto) Absolute Nucleated RBC Nucleated RBC % Sodium Potassium Chloride Carbon Dioxide Anion Gap BUN Creatinine Est GFR ( Amer) Est GFR (Non-Af Amer) BUN/Creatinine Ratio Glucose POC Glucose (mg/dL) 216 H 286 H Calcium Magnesium Microbiology and Other Data: Microbiology 09/13/17 15:19 Blood Venous Aerobic Blood Culture - Preliminary No Growth Day 4 09/13/17 15:19 Blood Venous Anaerobic Blood Culture - Preliminary No Growth Day 4 09/13/17 15:10 Blood Venous Aerobic Blood Culture - Preliminary No Growth Day 4 09/13/17 15:10 Blood Venous Anaerobic Blood Culture - Preliminary No Growth Day 4 09/15/17 14:33 Pleural Fluid Gram Stain - Final 09/15/17 14:33 Pleural Fluid Body Fluid Culture - Preliminary No Growth Day 2 09/14/17 13:30 Pleural Fluid Gram Stain - Final 09/14/17 13:30 Pleural Fluid Body Fluid Culture - Preliminary Streptococcus Pneumoniae 09/16/17 03:37 Nasal Nasal Screen MRSA (PCR)(MACARENA) - Final Mrsa Negative 09/15/17 17:05 Urine Legionella Urinary Antigen - Final Negative Legionella 09/15/17 17:05 Urine Streptococcus pneumoniae Ag Screen - Final Negative S. pneumo Antigen 09/13/17 23:00 Sputum Expectorated Gram Stain - Final 09/13/17 23:00 Sputum Expectorated Sputum Culture - Final YEAST 09/14/17 10:30 Nasal Nasal Screen MRSA (PCR)(MACARENA) - Final Mrsa Negative Assess/Plan/Problems-Billing Assessment: 77 yo male PMH NIDDM, HTN, Afib (on Xarelto) presenting with 3 weeks SOB, 1 week productive cough, wbc 24. b/l (R>L) large complex loculated pleural effusions positive for strep pneumonia. s/p thoracentesis x2. Planned OR for VATS on right 09/17/16 and chest tube + lytics on left. Course complicated by Afib w/ RVR and acute urinary retention. - Patient Problems (1) Loculated pleural effusion Current Visit: Yes Status: Acute Code(s): J90 - PLEURAL EFFUSION, NOT ELSEWHERE CLASSIFIED SNOMED Code(s): 038240836 Comment: S/P VATS 09/18/17, BL CT in place, both draining red fluid. C&S grew S. pneumoniae. Continue ceftriaxone. Alteplase per Dr. Gold. (2) Diabetes mellitus Current Visit: Yes Status: Acute Code(s): E11.9 - TYPE 2 DIABETES MELLITUS WITHOUT COMPLICATIONS SNOMED Code(s): 95134970 Comment: takes glipizide, A1Cs around 6 per patient. POCT, SSI qachs.. FS 155, 144 09/22/17. carbohydrate consistent diet. Increase glypizide to 10 mg bid 09/21. (3) Gout Current Visit: Yes Status: Acute Code(s): M10.9 - GOUT, UNSPECIFIED SNOMED Code(s): 87941269 Comment: Resume allopurinol when taking po. (4) HTN (hypertension) Current Visit: Yes Status: Acute Code(s): I10 - ESSENTIAL (PRIMARY) HYPERTENSION SNOMED Code(s): 18858529 Comment: Continue lisinopril 20mg BID, amlodipine 10mg. (5) Zenker diverticulum Current Visit: Yes Status: Acute Code(s): K22.5 - DIVERTICULUM OF ESOPHAGUS , ACQUIRED SNOMED Code(s): 660859162 Comment: Not clear basis for diagnosis. Video swallow study ordered. (6) COPD (chronic obstructive pulmonary disease) Current Visit: Yes Status: Acute Code(s): J44.9 - CHRONIC OBSTRUCTIVE PULMONARY DISEASE, UNSPECIFIED SNOMED Code(s): 13666720 Comment: Very rnochorous 09/22. Duoneb q4 hr [place]. Guaifenesin scheduled. Status and Disposition: medicine inpatient. currently boarding in ICU(did not have tele bed during RVR episode), still waiting for tele med bed on .
[2017-09-22] MEDS ORDERED: Albuterol (2.5 MG) 0.5 % CONC 2.5 MG/0.5 ML NEB.SOLN (ICU and ED only) INH PRN (13:21)
[2017-09-22 13:58] LABS: ABS Basophils 0 10^3/ul (0-0.2); ABS Eosinophils 0 10^3/ul (0-0.6); ABS Lymphocytes 0.6 10^3/ul (1.0-4.8); ABS Monocytes 1.2 10^3/ul (0-0.8); ABS Neutrophils 32.6 10^3/ul (1.5-7.7); ABS Nucleated RBC 0 10^3/ul; Eosinophil % 0 % (0-6); Lymphocyte % 1.9 % (25-47); Nucleated Red Blood Cells % 0
[2017-09-22] MEDS: GuaiFENesin DM* 5 ML UDC PO SCH ×3 (14:00→20:56)
--- NOTE | 2017-09-22 15:37 | PN ---
Progress Note - Progress Note Date of Service: 09/22/17 Note: Progress Note Critical Care 24 hour events/significant events: Upgraded for respiratory distress. Patient became more tachypneic, hypoxic to 87 %, already on 2-4 L oxygen, but increased to 10L mask now. Sats now 100%. Noted to be more tachycardia and developing lower grade temps to 99.0 today as compared to prior days. Noted WBC increased past 48+ hours, to 34k now. Patient moved to ICU, on 10L, sats 100%, RR 22-28; no acc muscle use now. Tele: rapid afib Vitals: Vital Signs Temp 99.3 F 09/22/17 15:09 Pulse 95 09/22/17 15:09 Resp 27 09/22/17 15:18 BP 121/57 09/22/17 15:09 Pulse Ox 98 09/22/17 15:09 Intake & Output 09/21/17 09/22/17 09/22/17 18:59 06:59 18:59 Intake Total 380 740 0 Output Total 1433 900 235 Balance -1053 -160 -235 Intake: Oral 380 740 0 Output: Chest Tube #1 110 150 60 Chest Tube #2 398 100 25 Urine 200 Pink 400 450 150 Residual 525 Pink 16 Fr 525 Other: Estimated Void Small Medium Large # Bowel Movements 0 Estimated Stool Amount Large O2/Vent: hiflow 30L 100% Infusions: heplock Medications: Acetaminophen (Tylenol Tab*) 650 mg PO Q6H PRN PRN Reason: Pain/fever Last Admin: 09/17/17 14:47 Dose: 650 mg Albuterol (Albuterol (2.5 Mg) 0.5 % Conc) 2.5 mg INH Q2H PRN PRN Reason: DYSPNEA Albuterol/Ipratropium (Duoneb (Albuterol 2.5 Mg/Ipratropium 0.5 Mg)) 1 neb INH [id number] AWAKE [facility] Last Admin: 09/22/17 13:00 Dose: 1 neb Allopurinol (Zyloprim Tab*) 300 mg PO DAILY [facility] Last Admin: 09/22/17 08:30 Dose: 300 mg Amlodipine Besylate (Norvasc Tab*) 10 mg PO DAILY [facility] Last Admin: 09/22/17 08:31 Dose: 10 mg Dextrose (D50w Syringe 50 Ml*) 12.5 gm IV PUSH .FOR FS < 60 - SS PRN PRN Reason: FS < 60 Diltiazem HCl (Cardizem Tab*) 30 mg PO Q6HR [facility] Last Admin: 09/22/17 12:13 Dose: 30 mg Docusate Sodium (Colace Cap*) 100 mg PO BID [facility] Last Admin: 09/22/17 08:31 Dose: 100 mg Enoxaparin Sodium (Lovenox(*)) 40 mg SUBCUT Q24H [facility] Last Admin: 09/22/17 12:13 Dose: 40 mg Fentanyl Citrate (Fentanyl*) 25 mcg IV SLOW PU Q2H PRN PRN Reason: PAIN Last Admin: 09/22/17 11:30 Dose: 25 mcg Glipizide (Glucotrol Tab*) 10 mg PO 0800,1700 [facility] Last Admin: 09/22/17 08:31 Dose: 10 mg Guaifenesin/Dextromethorphan (Robitussin Dm*) 10 ml PO Q6H [facility] Last Admin: 09/22/17 14:00 Dose: Not Given Ceftriaxone Sodium 2 gm/ (Sodium Chloride) 100 mls @ 200 mls/hr IVPB Q24H [facility] Last Admin: 09/22/17 10:00 Dose: 200 mls/hr Insulin Human Lispro (Humalog*) 0 units SUBCUT ACHS [facility] PRN Reason: Protocol Last Admin: 09/22/17 12:40 Dose: 2 units Lisinopril (Prinivil Tab*) 20 mg PO BID [facility] Last Admin: 09/22/17 08:31 Dose: 20 mg Magnesium Hydroxide (Milk Of Magnesia Liq*) 30 ml PO BID PRN PRN Reason: CONSTIPATION Last Admin: 09/21/17 14:07 Dose: 30 ml Magnesium Oxide (Magox 400 Tab*) 400 mg PO DAILY [facility] Last Admin: 09/22/17 08:31 Dose: 400 mg Ondansetron HCl (Zofran Inj*) 4 mg IV Q6H PRN PRN Reason: NAUSEA Last Admin: 09/22/17 09:39 Dose: 4 mg Oxycodone/Acetaminophen (Percocet 5/325 Tab*) 2 tab PO Q4H PRN PRN Reason: PAIN Last Admin: 09/22/17 06:03 Dose: 2 tab Tramadol HCl (Ultram*) 50 mg PO Q8H PRN PRN Reason: PAIN Last Admin: 09/20/17 00:19 Dose: 50 mg Physical Exam: General: awake, alert, mild resp distress, no diaphoresis Head: normocephalic, atraumatic HEENT: no pallor, no icterus, moist mucous membranes Neck: soft, supple, no jvd, no stridor; upper airway secretions+ CVS: tachy, irreg, normal rhythm, no murmur Resp: bilateral air entry, basilar rhales+ and diffuse rhonchi+, no wheeze, no acc muscle use; CTs present b/l Abdomen: soft, nontender, nondistended, bowel sounds present Ext: pulses+, warm, no edema Skin: intact, sacral breakdown++, no dryness Neuro: awake, alert, orientedx3, moving all extremities, no gross focal deficit Labs: Laboratory Results - last 24 hr 09/21/17 09/21/17 09/22/17 17:08 21:09 07:50 WBC RBC Hgb Hct MCV MCH MCHC RDW Plt Count MPV Neut % (Auto) Lymph % (Auto) [place] % (Auto) Eos % (Auto) Baso % (Auto) Absolute Neuts (auto) Absolute Lymphs (auto) Absolute Monos (auto) Absolute Eos (auto) Absolute Basos (auto) Absolute Nucleated RBC Nucleated RBC % POC Glucose (mg/dL) 280 H 203 H 155 H 09/22/17 09/22/17 12:15 12:51 WBC 34.5 H RBC 4.23 Hgb 11.1 L Hct 35 L MCV 83 MCH 26 L MCHC 32 RDW 16 H Plt Count 335 MPV 8 Neut % (Auto) 94.6 H Lymph % (Auto) 1.9 L [place] % (Auto) 3.4 Eos % (Auto) 0 Baso % (Auto) 0.1 Absolute Neuts (auto) 32.6 H Absolute Lymphs (auto) 0.6 L Absolute Monos (auto) 1.2 H Absolute Eos (auto) 0 Absolute Basos (auto) 0 Absolute Nucleated RBC 0 Nucleated RBC % 0 POC Glucose (mg/dL) 144 H Imaging: CT chest 09/22 small effusions bilaterally, small basilar ptx on right only; increased right sided basilar consolidation Assessment: 77y M w/pmhx of NIDDM, HTN, Afib; admitted with resp distress found to have with Strept pneumonia and bilateral empyema, s/p VATS 1/ with decortication. Currently in AFib. Developed respiratory distress on the floor and upgraded to ICU. -Acute Hypoxic Respiratory failure -Strept Pneumonia -Bilateral Strept Empyema, s/p VATS, Bilateral chest tubes, s/p tpa -R/o HCAP -Afib -Zenker Diverticulum COPD Plan: Neuro- stable. awake, alert. delirium prec. CVS- tachy, afib, Rate controlled 90-110. increase cardizem 60mg po q6h. may need IV lopressor if NPO. no AC at this time. repeat blood cx. check LA now. Resp- resp distress. noted CT chest with increased infiltrates. send sputum cx. change ceftriaxone to cefepime and vanco x1 now. cxr tomorrow. Cont hiflow 100% 30lpm, more comfortable now. needs Chest PT. Bronchodilators q4h prn. NPO for today. No indication for intubation at this time, avoid NIV for upper airway secretions for now. CTs in place and draining serous fluid now. will follow. ID- tmax 99, wbc increased to 34. increased RLL infiltrates+. Blood and sputum cx. Change ceftriaxone to cefepime, add vanco. possible HCAP? GI- seems like he cant swallow, gurgling when drinking liquids; keep NPO, repeat swallow tomorrow. Renal- Cr okay, noted slightly increasing. Appears euvolemic. Start NS. check BMP now. Heme- hg okay. plt okay. no full dose AC started back for AFib yet. Endo- fingersticks as needed. will add long acting insulin if BS remain high. Musculsk-pressure ulcer proph. Wounds- new stage 2 sacral pressure wound; pressure prophlaxis, wound care. Nutrition- NPO DVT prophylaxis: SCDs, lovenox sq GI prophylaxis: - Central Line: no Arterial Line: no Pink Cathetor: no Disposition: upgraded to ICU for respiratory failure Code Status: full code Total Critical Care time is 40 minutes, excluding procedures/teaching Jean-Paul Grey MD [employer] (Electronically Signed)
[2017-09-22] MEDS ORDERED: Vancomycin(*) 1,000 MG in NS 0.9% 250 ML* 250 ML IVPB ONE (15:53)
[2017-09-22] MEDS ORDERED: Vancomycin per Pharmacy* NOTE FOLLOW UP SCH (16:00)
[2017-09-22] MEDS: Cefepime(*) 1 GM in NS 0.9% 50 ML* 50 ML IVPB SCH (16:51)
[2017-09-22 17:24] LABS: EGFR Non-African American 75.6 (>60)
--- NOTE | 2017-09-22 22:23 | PN ---
Progress Note - Progress Note Date of Service: 09/22/17 Note: Per RN - patient coughed up after taking applesauce - will keep NPO for now. Order speech therapy eval
[2017-09-23] MEDS: fentaNYL* 50 MCG/ML 2 ML VIAL (100 MCG VIAL) IV SLOW PU PRN ×8 (00:49→14:56)
[2017-09-23] MEDS: GuaiFENesin DM* 5 ML UDC PO SCH ×4 (01:17→22:01)
[2017-09-23] MEDS: Diltiazem TAB* 30 MG PO SCH ×4 (01:17→16:49)
[2017-09-23] MEDS: Vancomycin(*) 1,000 MG in NS 0.9% 250 ML* 250 ML IVPB SCH ×3 (02:05→17:03)
[2017-09-23] MEDS: Cefepime(*) 1 GM in NS 0.9% 50 ML* 50 ML IVPB SCH ×2 (04:44→16:21)
[2017-09-23 05:31] LABS: Hematocrit 33 % (42-52); Hemoglobin 10.2 g/dl (14.0-18.0); Mean Corpuscular HGB Conc 31 g/dl (31-36); Mean Corpuscular Hemoglobin 26 pg (27-31); Mean Corpuscular Volume 83 fL (80-94); Mean Platelet Volume 8 um3 (7.4-10.4); Platelet Count 302 10^3/ul (150-450); Red Blood Count 3.93 10^6/ul (4.0-5.4); Red Cell Distribution Width 16 % (10.5-15); White Blood Count 31.8 10^3/ul (3.5-10.8)
[2017-09-23 05:47] LABS: EGFR Non-African American 73.8 (>60)
--- NOTE | 2017-09-23 08:21 | RAD ---
INDICATION: Pneumonia. COMPARISON: Comparison is made with a prior study from September 21, 2017. TECHNIQUE: A portable view of the chest was obtained. FINDINGS: The heart is moderately enlarged and unchanged. There are bilateral infiltrates in the mid and lower lung martínez which have progressed from the prior study. IMPRESSION: BILATERAL INFILTRATES DEMONSTRATING INTERVAL PROGRESSION.
--- NOTE | 2017-09-23 08:26 | PN ---
Progress Note - Progress Note Date of Service: 09/23/17 Note: POD#5 s/p VATS Back in ICU with resp failure Afeb, VS OK UO large Right CT level 1500ML, no air leak. Still has incomplete expansion RLL Left CT level 500 ml, No air leak Lung sounds still w/ rhonchi CT noted Not expanding RLL. Will discuss w/ Dr Parag Boss Abx per hosp service.
[2017-09-23] MEDS: Insulin LISPRO* 1 UNITS UNIT SUBCUT SCH ×4 (09:47→22:23)
[2017-09-23] MEDS: glipiZIDE TAB* 5 MG PO SCH ×2 (09:51→16:49)
[2017-09-23] MEDS: Allopurinol TAB* 300 MG PO SCH (09:51)
[2017-09-23] MEDS: Docusate CAP* 100 MG PO SCH ×2 (09:51→22:00)
[2017-09-23] MEDS: amLODIPine TAB* 5 MG PO SCH (09:51)
[2017-09-23] MEDS: Magnesium Oxide TAB* 400 MG PO SCH (09:51)
[2017-09-23] MEDS: Lisinopril TAB* 10 MG PO SCH ×2 (09:51→22:00)
--- NOTE | 2017-09-23 10:46 | PN ---
Progress Note - Progress Note Date of Service: 09/23/17 SOAP: Subjective: CC: empyema HPI: 77 yo man with zencker's diverticulum, aspiration, bilateral empyema s/p VATS. More dyspnea yesterday, transferred to ICU. Ongoing cough which is productive. No chest pain, fever, or diarrhea. Objective: Vital Signs Temp 36.8 C 09/23/17 08:00 Pulse 85 09/23/17 07:59 Resp 28 09/23/17 08:52 BP 136/50 09/23/17 07:30 Pulse Ox 100 09/23/17 07:59 Intake & Output 09/22/17 09/23/17 09/23/17 18:59 06:59 18:59 Intake Total 0 808 Output Total 235 575 Balance -235 233 Weight 246 lb 14.684 oz Intake: IV Fluids 98 NS (0.9%) 98 IVPB 710 NS (0.9%) 710 Oral 0 0 Output: Chest Tube #1 60 135 Chest Tube #2 25 15 Pink 150 425 Gen:awake, no distress HEENT:MMM Heart:RRR no murmur Lungs:decr BS at bases, R chest tube serosanguinous fluid Abd:+BS NTND soft Skin: no rash Laboratory Results - last 24 hr 09/22/17 09/22/17 09/22/17 12:15 12:51 16:50 WBC 34.5 H RBC 4.23 Hgb 11.1 L Hct 35 L MCV 83 MCH 26 L MCHC 32 RDW 16 H Plt Count 335 MPV 8 Neut % (Auto) 94.6 H Lymph % (Auto) 1.9 L [place] % (Auto) 3.4 Eos % (Auto) 0 Baso % (Auto) 0.1 Absolute Neuts (auto) 32.6 H Absolute Lymphs (auto) 0.6 L Absolute Monos (auto) 1.2 H Absolute Eos (auto) 0 Absolute Basos (auto) 0 Absolute Nucleated RBC 0 Nucleated RBC % 0 Sodium 137 Potassium 4.7 Chloride 103 Carbon Dioxide 30 Anion Gap 4 BUN 23 Creatinine 0.96 Est GFR ( Amer) 97.2 Est GFR (Non-Af Amer) 75.6 BUN/Creatinine Ratio 24.0 H Glucose 107 H POC Glucose (mg/dL) 144 H Lactic Acid Calcium 7.8 L Magnesium B-Natriuretic Peptide 09/22/17 09/22/17 09/22/17 16:50 16:50 16:59 WBC RBC Hgb Hct MCV MCH MCHC RDW Plt Count MPV Neut % (Auto) Lymph % (Auto) [place] % (Auto) Eos % (Auto) Baso % (Auto) Absolute Neuts (auto) Absolute Lymphs (auto) Absolute Monos (auto) Absolute Eos (auto) Absolute Basos (auto) Absolute Nucleated RBC Nucleated RBC % Sodium Potassium Chloride Carbon Dioxide Anion Gap BUN Creatinine Est GFR ( Amer) Est GFR (Non-Af Amer) BUN/Creatinine Ratio Glucose POC Glucose (mg/dL) 128 H Lactic Acid 1.1 Calcium Magnesium B-Natriuretic Peptide 263 H 09/22/17 09/23/17 09/23/17 20:35 05:15 05:15 WBC 31.8 H RBC 3.93 L Hgb 10.2 L Hct 33 L MCV 83 MCH 26 L MCHC 31 RDW 16 H Plt Count 302 MPV 8 Neut % (Auto) Lymph % (Auto) [place] % (Auto) Eos % (Auto) Baso % (Auto) Absolute Neuts (auto) Absolute Lymphs (auto) Absolute Monos (auto) Absolute Eos (auto) Absolute Basos (auto) Absolute Nucleated RBC Nucleated RBC % Sodium 139 Potassium 5.0 Chloride 105 Carbon Dioxide 27 Anion Gap 7 BUN 26 H Creatinine 0.98 Est GFR ( Amer) 94.9 Est GFR (Non-Af Amer) 73.8 BUN/Creatinine Ratio 26.5 H Glucose 135 H POC Glucose (mg/dL) 150 H Lactic Acid Calcium 8.0 L Magnesium 2.4 B-Natriuretic Peptide Assessment: 1. leukocytosis, slight improvement today ?ongoing aspiration pneumonia/ pneumonitis 2. empyema s/p vats and chest tube; S. pneumo, could also be anaerobes 3. obesity 4. aspiration 5. zenckers diverticulum 6. diabetes Plan: 1. continue ceftriaxone will add clinda, if not improving repeat chest imaging. Discussed with Dr Gold who will discuss thoracotomy with [facility] thoracic surgeon.
--- NOTE | 2017-09-23 11:57 | PN ---
Progress Note - Progress Note Date of Service: 09/23/17 Note: Progress Note Critical Care 24 hour events/significant events: -in bed, less distress -on hiflow, down to 70% now -afebrile -bringing up whatever he eats, vomitting up, only able to take clears/liquids only -run of NSVT this morning x1 Tele: afib, better controlled rate now Vitals: Vital Signs Temp 98.2 F 09/23/17 08:00 Pulse 67 09/23/17 11:31 Resp 24 09/23/17 11:31 BP 127/52 09/23/17 11:31 Pulse Ox 95 09/23/17 11:31 Intake & Output 09/22/17 09/23/17 09/23/17 18:59 06:59 18:59 Intake Total 0 808 Output Total 235 575 Balance -235 233 Weight 246 lb 14.684 oz Intake: IV Fluids 98 NS (0.9%) 98 IVPB 710 NS (0.9%) 710 Oral 0 0 Output: Chest Tube #1 60 135 Chest Tube #2 25 15 Pink 150 425 O2/Vent: hiflow 30L 70% Infusions: heplock Medications: Acetaminophen (Tylenol Tab*) 650 mg PO Q6H PRN PRN Reason: Pain/fever Last Admin: 09/17/17 14:47 Dose: 650 mg Albuterol (Albuterol (2.5 Mg) 0.5 % Conc) 2.5 mg INH Q2H PRN PRN Reason: DYSPNEA Albuterol (Ventolin 2.5 Mg/3 Ml Neb.Dina*) 2.5 mg INH Q4H PRN PRN Reason: SOB/WHEEZING Allopurinol (Zyloprim Tab*) 300 mg PO DAILY REPLACED BY [facility] Last Admin: 09/23/17 09:51 Dose: Not Given Amlodipine Besylate (Norvasc Tab*) 10 mg PO DAILY REPLACED BY [facility] Last Admin: 09/23/17 09:51 Dose: Not Given Dextrose (D50w Syringe 50 Ml*) 12.5 gm IV PUSH .FOR FS < 60 - SS PRN PRN Reason: FS < 60 Diltiazem HCl (Cardizem Tab*) 60 mg PO Q6HR REPLACED BY [facility] Last Admin: 09/23/17 09:36 Dose: Not Given Docusate Sodium (Colace Cap*) 100 mg PO BID REPLACED BY [facility] Last Admin: 09/23/17 09:51 Dose: Not Given Enoxaparin Sodium (Lovenox(*)) 40 mg SUBCUT Q24H REPLACED BY [facility] Last Admin: 09/22/17 12:13 Dose: 40 mg Fentanyl Citrate (Fentanyl*) 25 mcg IV SLOW PU Q2H PRN PRN Reason: PAIN Last Admin: 09/23/17 11:06 Dose: 25 mcg Glipizide (Glucotrol Tab*) 10 mg PO 0800,1700 REPLACED BY [facility] Last Admin: 09/23/17 09:51 Dose: Not Given Guaifenesin/Dextromethorphan (Robitussin Dm*) 10 ml PO Q6H REPLACED BY [facility] Last Admin: 09/23/17 09:36 Dose: Not Given Cefepime HCl 1 gm/ Sodium (Chloride) 50 mls @ 100 mls/hr IVPB Q12H REPLACED BY [facility] Last Admin: 09/23/17 04:44 Dose: 100 mls/hr Vancomycin HCl 1,000 mg/ (Sodium Chloride) 250 mls @ 166.667 mls/hr IVPB Q8H REPLACED BY [facility] Last Admin: 09/23/17 10:05 Dose: 166.667 mls/hr Insulin Human Lispro (Humalog*) 0 units SUBCUT ACHS REPLACED BY [facility] PRN Reason: Protocol Last Admin: 09/23/17 09:47 Dose: 3 units Lisinopril (Prinivil Tab*) 20 mg PO BID REPLACED BY [facility] Last Admin: 09/23/17 09:51 Dose: Not Given Magnesium Hydroxide (Milk Of Magnesia Liq*) 30 ml PO BID PRN PRN Reason: CONSTIPATION Last Admin: 09/21/17 14:07 Dose: 30 ml Magnesium Oxide (Magox 400 Tab*) 400 mg PO DAILY REPLACED BY [facility] Last Admin: 09/23/17 09:51 Dose: Not Given Ondansetron HCl (Zofran Inj*) 4 mg IV Q6H PRN PRN Reason: NAUSEA Last Admin: 09/22/17 09:39 Dose: 4 mg Oxycodone/Acetaminophen (Percocet 5/325 Tab*) 2 tab PO Q4H PRN PRN Reason: PAIN Last Admin: 09/22/17 06:03 Dose: 2 tab Pharmacy Consult (Vancomycin Per Pharmacy*) 1 note FOLLOW UP .VANC PER PHARMACY REPLACED BY [facility] Pharmacy Profile Note (Vancomycin Trough Check) 1 note FOLLOW UP 0900 ONE Stop: 09/24/17 09:01 Tramadol HCl (Ultram*) 50 mg PO Q8H PRN PRN Reason: PAIN Last Admin: 09/20/17 00:19 Dose: 50 mg Physical Exam: General: awake, alert, less resp distress, no diaphoresis Head: normocephalic, atraumatic HEENT: no pallor, no icterus, moist mucous membranes Neck: soft, supple, no jvd, no stridor; upper airway secretions+ CVS: tachy, irreg, normal rhythm, no murmur Resp: bilateral air entry, basilar rhales+ and diffuse rhonchi+, no wheeze, no acc muscle use; CTs present b/l Abdomen: soft, nontender, nondistended, bowel sounds present Ext: pulses+, warm, no edema Skin: intact, sacral breakdown++, no dryness Neuro: awake, alert, orientedx3, moving all extremities, no gross focal deficit Labs: Laboratory Results - last 24 hr 09/22/17 09/22/17 09/22/17 12:15 12:51 16:50 WBC 34.5 H RBC 4.23 Hgb 11.1 L Hct 35 L MCV 83 MCH 26 L MCHC 32 RDW 16 H Plt Count 335 MPV 8 Neut % (Auto) 94.6 H Lymph % (Auto) 1.9 L [place] % (Auto) 3.4 Eos % (Auto) 0 Baso % (Auto) 0.1 Absolute Neuts (auto) 32.6 H Absolute Lymphs (auto) 0.6 L Absolute Monos (auto) 1.2 H Absolute Eos (auto) 0 Absolute Basos (auto) 0 Absolute Nucleated RBC 0 Nucleated RBC % 0 Sodium 137 Potassium 4.7 Chloride 103 Carbon Dioxide 30 Anion Gap 4 BUN 23 Creatinine 0.96 Est GFR ( Amer) 97.2 Est GFR (Non-Af Amer) 75.6 BUN/Creatinine Ratio 24.0 H Glucose 107 H POC Glucose (mg/dL) 144 H Lactic Acid Calcium 7.8 L Magnesium B-Natriuretic Peptide 09/22/17 09/22/17 09/22/17 16:50 16:50 16:59 WBC RBC Hgb Hct MCV MCH MCHC RDW Plt Count MPV Neut % (Auto) Lymph % (Auto) [place] % (Auto) Eos % (Auto) Baso % (Auto) Absolute Neuts (auto) Absolute Lymphs (auto) Absolute Monos (auto) Absolute Eos (auto) Absolute Basos (auto) Absolute Nucleated RBC Nucleated RBC % Sodium Potassium Chloride Carbon Dioxide Anion Gap BUN Creatinine Est GFR ( Amer) Est GFR (Non-Af Amer) BUN/Creatinine Ratio Glucose POC Glucose (mg/dL) 128 H Lactic Acid 1.1 Calcium Magnesium B-Natriuretic Peptide 263 H 09/22/17 09/23/17 09/23/17 20:35 05:15 05:15 WBC 31.8 H RBC 3.93 L Hgb 10.2 L Hct 33 L MCV 83 MCH 26 L MCHC 31 RDW 16 H Plt Count 302 MPV 8 Neut % (Auto) Lymph % (Auto) [place] % (Auto) Eos % (Auto) Baso % (Auto) Absolute Neuts (auto) Absolute Lymphs (auto) Absolute Monos (auto) Absolute Eos (auto) Absolute Basos (auto) Absolute Nucleated RBC Nucleated RBC % Sodium 139 Potassium 5.0 Chloride 105 Carbon Dioxide 27 Anion Gap 7 BUN 26 H Creatinine 0.98 Est GFR ( Amer) 94.9 Est GFR (Non-Af Amer) 73.8 BUN/Creatinine Ratio 26.5 H Glucose 135 H POC Glucose (mg/dL) 150 H Lactic Acid Calcium 8.0 L Magnesium 2.4 B-Natriuretic Peptide Imaging: CT chest 09/22 small effusions bilaterally, small basilar ptx on right only; increased right sided basilar consolidation cxr 09/23 - right lower lobe/middle consolidation increased from prior films, likely left sided retrocardiac infiltrate also. Assessment: 77y M w/pmhx of NIDDM, HTN, Afib; admitted with resp distress found to have with Strept pneumonia and bilateral empyema, s/p VATS 09/18 with decortication. Currently in AFib. Developed respiratory distress on the floor and upgraded to ICU. -Acute Hypoxic Respiratory failure -Strept Pneumonia -Bilateral Strept Empyema, s/p VATS, Bilateral chest tubes, s/p tpa -R/o HCAP, suspect more aspiration pneumonia overlying previous pneumonia -Afib -Zenker Diverticulum COPD Plan: Neuro- stable. awake, alert. delirium prec. CVS- tachy, afib, Rate controlled 90-110. NSVT x1, K 5. check magnesium level. if able to take cardizem then continue. will start cardizem infusion otherwise or PRN iv push. cont cardizem 60mg po q6h. no AC at this time. IV abx for strept pneumonia and aspiration. Resp- on hiflow now, dec fio2 to 70% 30lpm. CXR similar, not worsenign it seems compared to CT. cont to wean fio2. bronchodilators as needed. sputum cx pending. On cefepime now, possible clinda coverage by ID. Bronchodilators q4h prn. NPO now. CTs in place with <150 drainage; air leak on right noted on wall suction. ID- tmax 98-99, wbc increased to 31. increased RLL infiltrates+; suspicious for aspiration, likely from zenkers diverticulum. Now on cefepime. GI- vomitting if more than liquids taken, putrid looking with cough afterward, suspicious for aspiration. keep NPO. GI consult, may need intervention. Renal- Cr okay, start IVF infusion ns 75cc/hr. K 5, will monitor. Heme- hg okay. plt okay. no full dose AC started back for AFib yet. Endo- fingersticks as needed. will add long acting insulin if BS remain high. Musculsk-pressure ulcer proph. Wounds- new stage 2 sacral pressure wound; pressure prophlaxis, wound care. Nutrition- NPO DVT prophylaxis: SCDs, lovenox sq GI prophylaxis: - Central Line: no Arterial Line: no Pink Cathetor: no Disposition: ICU for respiratory failure, suspected aspiration pneumonia Code Status: full code Total Critical Care time is 35 minutes, excluding procedures/teaching Jean-Paul Grey MD Dependency Counselor (Electronically Signed)
[2017-09-23] MEDS: Enoxaparin(*) 40 MG/0.4 ML SYR SUBCUT SCH (12:58)
--- NOTE | 2017-09-23 13:11 | PN ---
Progress Note - Progress Note Date of Service: 09/23/17 - Pulm f/u note Note: Pt seen and examined at bedside. Pt needing high flow, documented aspiration with food. Had another aspiration episode with worsening resp status, b/l chest tubes in place. Active Medications Generic Name Dose Route Start Last Admin Trade Name Freq PRN Reason Stop Dose Admin Acetaminophen 650 mg 09/13/17 17:38 09/17/17 14:47 Tylenol Tab* PO 650 mg Q6H PRN Administration Pain/fever Albuterol 2.5 mg 09/22/17 13:21 Albuterol (2.5 Mg) 0.5 % Conc INH Q2H PRN DYSPNEA Albuterol 2.5 mg 09/22/17 17:16 Ventolin 2.5 Mg/3 Ml Neb.Dina* INH Q4H PRN SOB/WHEEZING Allopurinol 300 mg 09/14/17 09:00 09/23/17 09:51 Zyloprim Tab* PO Not Given DAILY [facility] Amlodipine Besylate 10 mg 09/14/17 09:00 09/23/17 09:51 Norvasc Tab* PO Not Given DAILY [facility] Dextrose 12.5 gm 09/13/17 17:37 D50w Syringe 50 Ml* IV PUSH .FOR FS < 60 - SS PRN FS < 60 Diltiazem HCl 60 mg 09/22/17 15:54 09/23/17 12:25 Cardizem Tab* PO Not Given Q6HR [facility] Docusate Sodium 100 mg 09/21/17 12:00 09/23/17 09:51 Colace Cap* PO Not Given BID [facility] Enoxaparin Sodium 40 mg 09/19/17 12:00 09/23/17 12:58 Lovenox(*) SUBCUT 40 mg Q24H SHIRA Administration Fentanyl Citrate 25 mcg 09/18/17 16:37 09/23/17 12:55 Fentanyl* IV SLOW PU 25 mcg Q2H PRN Administration PAIN Glipizide 10 mg 09/21/17 17:00 09/23/17 09:51 Glucotrol Tab* PO Not Given 0800,1700 SHIRA Guaifenesin/Dextromethorphan 10 ml 09/22/17 13:00 09/23/17 12:59 Robitussin Dm* PO Not Given Q6H [facility] Cefepime HCl 1 gm/ Sodium 50 mls @ 100 mls/hr 09/22/17 16:00 09/23/17 04:44 Chloride IVPB 100 mls/hr Q12H SHIRA Administration Vancomycin HCl 1,000 mg/ 250 mls @ 166.667 mls/hr 09/23/17 01:30 09/23/17 10: 05 Sodium Chloride IVPB 166.667 mls/hr Q8H SHIRA Administration Sodium Chloride 1,000 mls @ 75 mls/hr 09/23/17 12:00 Ns 0.9% 1000 Ml* IV PER RATE SHIRA Insulin Human Lispro 0 units 09/19/17 16:30 09/23/17 12:24 Humalog* SUBCUT 3 units ACHS SHIRA Administration Protocol Lisinopril 20 mg 09/18/17 21:00 09/23/17 09:51 Prinivil Tab* PO Not Given BID [facility] Magnesium Hydroxide 30 ml 09/21/17 11:53 09/21/17 14:07 Milk Of Magnesia Liq* PO 30 ml BID PRN Administration CONSTIPATION Magnesium Oxide 400 mg 09/14/17 09:00 09/23/17 09:51 Magox 400 Tab* PO Not Given DAILY [facility] Ondansetron HCl 4 mg 09/13/17 17:39 09/22/17 09:39 Zofran Inj* IV 4 mg Q6H PRN Administration NAUSEA Oxycodone/Acetaminophen 2 tab 09/19/17 14:20 09/22/17 06:03 Percocet 5/325 Tab* PO 2 tab Q4H PRN Administration PAIN Pharmacy Consult 1 note 09/22/17 16:00 Vancomycin Per Pharmacy* FOLLOW UP .VANC PER PHARMACY [facility] Pharmacy Profile Note 1 note 09/24/17 09:00 Vancomycin Trough Check FOLLOW UP 09/24/17 09:01 0900 ONE Tramadol HCl 50 mg 09/17/17 10:09 09/20/17 00:19 Ultram* PO 50 mg Q8H PRN Administration PAIN Vital Signs Temp Pulse Resp BP Pulse Ox 98.2 F 66 24 137/53 95 09/23/17 08:00 09/23/17 12:15 09/23/17 12:55 09/23/17 12:15 09/23/17 12:15 O/E: Pt in NAD, morbidly obese male HEENT: PERRLA, No JVD, mucus membrane moist Lungs: diminished air entry, decreased breath sounds at bases, scaterred rhonchi present, no wheeze, b/l chest tubes present CVS: S1, S2+ Abd: Obese, BS+ : Dark brown urine through Pink Ext: Normal ROM Neuro: Alert, awake, no focal defecits Laboratory Results - last 24 hr 09/22/17 09/22/17 09/22/17 12:51 16:50 16:50 WBC 34.5 H RBC 4.23 Hgb 11.1 L Hct 35 L MCV 83 MCH 26 L MCHC 32 RDW 16 H Plt Count 335 MPV 8 Neut % (Auto) 94.6 H Lymph % (Auto) 1.9 L [place] % (Auto) 3.4 Eos % (Auto) 0 Baso % (Auto) 0.1 Absolute Neuts (auto) 32.6 H Absolute Lymphs (auto) 0.6 L Absolute Monos (auto) 1.2 H Absolute Eos (auto) 0 Absolute Basos (auto) 0 Absolute Nucleated RBC 0 Nucleated RBC % 0 Sodium 137 Potassium 4.7 Chloride 103 Carbon Dioxide 30 Anion Gap 4 BUN 23 Creatinine 0.96 Est GFR ( Amer) 97.2 Est GFR (Non-Af Amer) 75.6 BUN/Creatinine Ratio 24.0 H Glucose 107 H POC Glucose (mg/dL) Lactic Acid 1.1 Calcium 7.8 L Magnesium B-Natriuretic Peptide 09/22/17 09/22/17 09/22/17 16:50 16:59 20:35 WBC RBC Hgb Hct MCV MCH MCHC RDW Plt Count MPV Neut % (Auto) Lymph % (Auto) [place] % (Auto) Eos % (Auto) Baso % (Auto) Absolute Neuts (auto) Absolute Lymphs (auto) Absolute Monos (auto) Absolute Eos (auto) Absolute Basos (auto) Absolute Nucleated RBC Nucleated RBC % Sodium Potassium Chloride Carbon Dioxide Anion Gap BUN Creatinine Est GFR ( Amer) Est GFR (Non-Af Amer) BUN/Creatinine Ratio Glucose POC Glucose (mg/dL) 128 H 150 H Lactic Acid Calcium Magnesium B-Natriuretic Peptide 263 H 09/23/17 09/23/17 09/23/17 05:15 05:15 09:41 WBC 31.8 H RBC 3.93 L Hgb 10.2 L Hct 33 L MCV 83 MCH 26 L MCHC 31 RDW 16 H Plt Count 302 MPV 8 Neut % (Auto) Lymph % (Auto) [place] % (Auto) Eos % (Auto) Baso % (Auto) Absolute Neuts (auto) Absolute Lymphs (auto) Absolute Monos (auto) Absolute Eos (auto) Absolute Basos (auto) Absolute Nucleated RBC Nucleated RBC % Sodium 139 Potassium 5.0 Chloride 105 Carbon Dioxide 27 Anion Gap 7 BUN 26 H Creatinine 0.98 Est GFR ( Amer) 94.9 Est GFR (Non-Af Amer) 73.8 BUN/Creatinine Ratio 26.5 H Glucose 135 H POC Glucose (mg/dL) 170 H Lactic Acid Calcium 8.0 L Magnesium 2.4 B-Natriuretic Peptide 09/23/17 12:10 WBC RBC Hgb Hct MCV MCH MCHC RDW Plt Count MPV Neut % (Auto) Lymph % (Auto) [place] % (Auto) Eos % (Auto) Baso % (Auto) Absolute Neuts (auto) Absolute Lymphs (auto) Absolute Monos (auto) Absolute Eos (auto) Absolute Basos (auto) Absolute Nucleated RBC Nucleated RBC % Sodium Potassium Chloride Carbon Dioxide Anion Gap BUN Creatinine Est GFR ( Amer) Est GFR (Non-Af Amer) BUN/Creatinine Ratio Glucose POC Glucose (mg/dL) 163 H Lactic Acid Calcium Magnesium B-Natriuretic Peptide 77 y o m non-smoker with swallowing difficulties a/ worsening SOB, cough, fever found to have loculated pl effusions bilaterally Pt with Strep Pneumonia with complex pleural effusions b/l Pt is s/p VATS on right side and chest tube on left side, chest tubes draining sero sanguinous secretions CT chest reviewed, RLL atelectasis and small effusions Pt had non-sustained V tach this am, electrolytes normal Significant hypoxia Might end up needing intubation during bronchoscopy, therefore high risk for procedure Concern remains with possible mucus plugs in RLL with inability to expand the lobe Will discuss with pt and family regarding bronchoscopy given high risk In setting of ongoing aspirations, not sure if bronchoscopy would be permanant fix A.fib is controlled Pain management, incentive spirometry c/w bronchodilators DVT px
--- NOTE | 2017-09-23 14:52 | PN ---
Progress Note - Progress Note Date of Service: 09/23/17 Note: Given continued RLL collapse, I had the CT scans sent to Dr Jorge Vazquez, Chief of Thoracic Surgery at [facility] in [place]. We discussed the clinical picture and the findings at surgery. His interpretation of the scenario is that Mr Richey does NOT need additional surgery at present, and that the major problem is RLL infiltrate, not trapped lung. He believes (as do I) that continued aspiration is likely the driving factor, perhaps from the Zenker's diverticulum. Therefore, I will defer to Pulmonary and Granulator regarding continued medical therapy.
[2017-09-23] MEDS ORDERED: HYDROmorphone INJ* 1 MG/ML CARPUJECT SYRINGE ONE (17:00)
[2017-09-23] MEDS ORDERED: HYDROmorphone INJ* 2 MG/ML CARPUJECT SYRINGE IV SLOW PU ONE (17:10)
[2017-09-23] MEDS ORDERED: HYDROmorphone INJ* 2 MG/ML CARPUJECT SYRINGE IV SLOW PU PRN (20:16)
[2017-09-23] MEDS: HYDROmorphone INJ* 2 MG/ML CARPUJECT SYRINGE IV SLOW PU PRN (22:17)
[2017-09-24] MEDS: Diltiazem TAB* 30 MG PO SCH ×4 (00:20→16:59)
[2017-09-24] MEDS: GuaiFENesin DM* 5 ML UDC PO SCH ×4 (00:53→21:34)
[2017-09-24] MEDS: Vancomycin(*) 1,000 MG in NS 0.9% 250 ML* 250 ML IVPB SCH ×2 (02:27→11:45)
[2017-09-24] MEDS: HYDROmorphone INJ* 2 MG/ML CARPUJECT SYRINGE IV SLOW PU PRN ×7 (02:27→21:58)
[2017-09-24] MEDS: NS 0.9% 1000 ML* 1,000 ML IV SCH ×2 (02:27→16:18)
[2017-09-24] MEDS: Cefepime(*) 1 GM in NS 0.9% 50 ML* 50 ML IVPB SCH (03:53)
[2017-09-24 05:08] LABS: Hematocrit 32 % (42-52); Hemoglobin 10.1 g/dl (14.0-18.0); Mean Corpuscular HGB Conc 31 g/dl (31-36); Mean Corpuscular Hemoglobin 26 pg (27-31); Mean Corpuscular Volume 84 fL (80-94); Mean Platelet Volume 8 um3 (7.4-10.4); Platelet Count 310 10^3/ul (150-450); Red Blood Count 3.85 10^6/ul (4.0-5.4); Red Cell Distribution Width 16 % (10.5-15); White Blood Count 28.3 10^3/ul (3.5-10.8)
[2017-09-24] MEDS: glipiZIDE TAB* 5 MG PO SCH ×2 (07:48→16:59)
[2017-09-24] MEDS: Docusate CAP* 100 MG PO SCH ×2 (08:47→21:36)
[2017-09-24] MEDS: Allopurinol TAB* 300 MG PO SCH (08:47)
[2017-09-24] MEDS: amLODIPine TAB* 5 MG PO SCH (08:47)
[2017-09-24] MEDS: Lisinopril TAB* 10 MG PO SCH ×2 (08:47→21:37)
[2017-09-24] MEDS: Magnesium Oxide TAB* 400 MG PO SCH (08:47)
[2017-09-24] MEDS: Insulin LISPRO* 1 UNITS UNIT SUBCUT SCH ×4 (08:51→21:37)
[2017-09-24] MEDS ORDERED: Vancomycin Trough Check NOTE FOLLOW UP ONE (09:00)
[2017-09-24] MEDS ORDERED: Diltiazem DRIP* 100 MG/100 ML ADDV.BAG IVPB SCH ×2 (10:00→10:58)
[2017-09-24] MEDS ORDERED: metroNIDAZOLE IV 500 MG/100ML* 500 MG/100 ML BAG IVPB SCH (10:00)
--- NOTE | 2017-09-24 10:06 | PN ---
Progress Note - Progress Note Date of Service: 09/24/17 Note: Progress Note Critical Care 24 hour events/significant events: -afebrile, in bed, still with distress -yesterday kept have aspiration with any feeding, would bring up this brownish putrid material with regug -on hiflow 100% and 20lpm now; weaning down -discussed with family yesterday Tele: afib Vitals: Vital Signs Temp 97.8 F 09/24/17 08:00 Pulse 97 09/24/17 09:33 Resp 27 09/24/17 09:33 BP 124/64 09/24/17 09:33 Pulse Ox 94 09/24/17 09:33 Intake & Output 09/23/17 09/24/17 09/24/17 18:59 06:59 18:59 Intake Total 463 1477 Output Total 250 690 Balance 213 787 Weight 250 lb 7.122 oz Intake: IV Fluids 463 811 NS (0.9%) 463 811 IVPB 666 NS (0.9%) 666 Output: Chest Tube #1 170 Chest Tube #2 20 Pink 250 500 Other: # Bowel Movements 1 Estimated Stool Amount Large O2/Vent: hiflow 20L 100% Infusions: ns 75cc/hr Medications: Acetaminophen (Tylenol Tab*) 650 mg PO Q6H PRN PRN Reason: Pain/fever Last Admin: 09/17/17 14:47 Dose: 650 mg Albuterol (Albuterol (2.5 Mg) 0.5 % Conc) 2.5 mg INH Q2H PRN PRN Reason: DYSPNEA Albuterol (Ventolin 2.5 Mg/3 Ml Neb.Dina*) 2.5 mg INH Q4H PRN PRN Reason: SOB/WHEEZING Allopurinol (Zyloprim Tab*) 300 mg PO DAILY [facility] Last Admin: 09/24/17 08:47 Dose: Not Given Amlodipine Besylate (Norvasc Tab*) 10 mg PO DAILY [facility] Last Admin: 09/24/17 08:47 Dose: Not Given Dextrose (D50w Syringe 50 Ml*) 12.5 gm IV PUSH .FOR FS < 60 - SS PRN PRN Reason: FS < 60 Diltiazem HCl (Cardizem Tab*) 60 mg PO Q6HR [facility] Last Admin: 09/24/17 05:38 Dose: Not Given Docusate Sodium (Colace Cap*) 100 mg PO BID [facility] Last Admin: 09/24/17 08:47 Dose: Not Given Enoxaparin Sodium (Lovenox(*)) 40 mg SUBCUT Q24H [facility] Last Admin: 09/23/17 12:58 Dose: 40 mg Glipizide (Glucotrol Tab*) 10 mg PO 0800,1700 [facility] Last Admin: 09/24/17 07:48 Dose: Not Given Guaifenesin/Dextromethorphan (Robitussin Dm*) 10 ml PO Q6H [facility] Last Admin: 09/24/17 06:21 Dose: Not Given Hydromorphone HCl (Dilaudid Inj*) 0.5 mg IV SLOW PU Q2HR PRN PRN Reason: PAIN Last Admin: 09/24/17 02:27 Dose: 0.5 mg Cefepime HCl 1 gm/ Sodium (Chloride) 50 mls @ 100 mls/hr IVPB Q12H [facility] Last Admin: 09/24/17 03:53 Dose: 100 mls/hr Vancomycin HCl 1,000 mg/ (Sodium Chloride) 250 mls @ 166.667 mls/hr IVPB Q8H [facility] Last Admin: 09/24/17 02:27 Dose: 166.667 mls/hr Sodium Chloride (Ns 0.9% 1000 Ml*) 1,000 mls @ 75 mls/hr IV PER RATE [facility] Last Admin: 09/24/17 02:27 Dose: 75 mls/hr Diltiazem HCl (Cardizem Iv Advan*) 100 mg in 100 mls @ 10 mls/hr IVPB .PER RATE [facility] PRN Reason: 10 MG/HR Insulin Human Lispro (Humalog*) 0 units SUBCUT ACHS [facility] PRN Reason: Protocol Last Admin: 09/24/17 08:51 Dose: 3 units Lisinopril (Prinivil Tab*) 20 mg PO BID [facility] Last Admin: 09/24/17 08:47 Dose: Not Given Magnesium Hydroxide (Milk Of Magnesia Liq*) 30 ml PO BID PRN PRN Reason: CONSTIPATION Last Admin: 09/21/17 14:07 Dose: 30 ml Magnesium Oxide (Magox 400 Tab*) 400 mg PO DAILY [facility] Last Admin: 09/24/17 08:47 Dose: Not Given Ondansetron HCl (Zofran Inj*) 4 mg IV Q6H PRN PRN Reason: NAUSEA Last Admin: 09/22/17 09:39 Dose: 4 mg Oxycodone/Acetaminophen (Percocet 5/325 Tab*) 2 tab PO Q4H PRN PRN Reason: PAIN Last Admin: 09/22/17 06:03 Dose: 2 tab Pharmacy Consult (Vancomycin Per Pharmacy*) 1 note FOLLOW UP .VANC PER PHARMACY SHIRA Tramadol HCl (Ultram*) 50 mg PO Q8H PRN PRN Reason: PAIN Last Admin: 09/20/17 00:19 Dose: 50 mg Physical Exam: General: awake, alert, mild resp distress, no diaphoresis Head: normocephalic, atraumatic HEENT: no pallor, no icterus, moist mucous membranes Neck: soft, supple, no jvd, no stridor; upper airway secretions+ CVS: tachy, irreg, normal rhythm, no murmur Resp: bilateral air entry, basilar rhales+ and diffuse rhonchi+, no wheeze, no acc muscle use; CTs present b/l Abdomen: soft, nontender, nondistended, bowel sounds present Ext: pulses+, warm; edema+ b/l LE and upper ext Skin: intact, sacral breakdown++, no dryness Neuro: awake, alert, orientedx3, moving all extremities, no gross focal deficit Labs: Laboratory Results - last 24 hr 09/23/17 09/23/17 09/23/17 09:41 12:10 16:12 WBC RBC Hgb Hct MCV MCH MCHC RDW Plt Count MPV Sodium Potassium Chloride Carbon Dioxide Anion Gap BUN Creatinine Est GFR ( Amer) Est GFR (Non-Af Amer) BUN/Creatinine Ratio Glucose POC Glucose (mg/dL) 170 H 163 H 151 H Calcium Vancomycin Trough 09/24/17 09/24/17 09/24/17 04:55 04:55 07:46 WBC 28.3 H RBC 3.85 L Hgb 10.1 L Hct 32 L MCV 84 MCH 26 L MCHC 31 RDW 16 H Plt Count 310 MPV 8 Sodium 140 Potassium 4.7 Chloride 106 Carbon Dioxide 24 Anion Gap 10 BUN 27 H Creatinine 0.85 Est GFR ( Amer) 111.8 Est GFR (Non-Af Amer) 87.0 BUN/Creatinine Ratio 31.8 H Glucose 145 H POC Glucose (mg/dL) 180 H Calcium 8.2 L Vancomycin Trough 09/24/17 09:30 WBC RBC Hgb Hct MCV MCH MCHC RDW Plt Count MPV Sodium Potassium Chloride Carbon Dioxide Anion Gap BUN Creatinine Est GFR ( Amer) Est GFR (Non-Af Amer) BUN/Creatinine Ratio Glucose POC Glucose (mg/dL) Calcium Vancomycin Trough 18.0 Imaging: CT chest 09/22 small effusions bilaterally, small basilar ptx on right only; increased right sided basilar consolidation cxr 09/23 - right lower lobe/middle consolidation increased from prior films, likely left sided retrocardiac infiltrate also. Assessment: 77y M w/pmhx of NIDDM, HTN, Afib; admitted with resp distress found to have with Strept pneumonia and bilateral empyema, s/p VATS 09/18 with decortication. Currently in AFib. Developed respiratory distress on the floor and upgraded to ICU. -Acute Hypoxic Respiratory failure -Strept Pneumonia -Bilateral Strept Empyema, s/p VATS, Bilateral chest tubes, s/p tpa -acute aspiration pneumonia, Right > Left -Afib -Zenker Diverticulum -aspiration most likely from zenkers divert COPD Plan: Neuro- stable. awake, alert. delirium prec. CVS- tachy, afib, Rate controlled 90-110. unable to take PO due to aspiration. start cardizem infusion 5mg/hr, can wean down if rate controlled. cont cardizem 60mg po q6h if able. no AC at this time. IV abx for strept pneumonia and aspiration. Mild edema, Lasix 40mg iv x1 now. Resp- on hiflow now, 100% but less flow. still has some resp distress, no need for NIV/intubation at this time. Discussed with Pulm yesterday, we all suspect acute aspiration causing this worsening pneumonia. Sputum cx mixed. Chest PT if able. Left CT 10cc and Right Chest tube 40cc, can probably d/c left chest tube in coming 24 hours if surgery okay with it. Changed IV abx to zosyn for anerobe coverage. Bronchodilators q4h prn. NPO now. ID- tmax 98-99, wbc increased to 28. Suspect acute aspiration pneumonia on right , possibly from zenkers. IV abx changed to zosyn for anaerobe coverage, will still cover strept. GI- vomitting with more than a little intake, more like regurgitated contacts that look putrid. keep NPO. GI consult placed. Renal- Cr okay, IVF infusion ns 75cc/hr. Lasix 40mg iv x1 now for edema. Heme- hg okay. plt okay. no full dose AC started back for AFib yet. Endo- fingersticks as needed. will add long acting insulin if BS remain high. Musculsk-pressure ulcer proph. Wounds- new stage 2 sacral pressure wound; pressure prophlaxis, wound care. Nutrition- NPO DVT prophylaxis: SCDs, lovenox sq GI prophylaxis: - Central Line: no Arterial Line: no Pink Cathetor: no Disposition: ICU for respiratory failure, suspected aspiration pneumonia Code Status: full code Total Critical Care time is 35 minutes, excluding procedures/teaching Jean-Paul Grey MD Clinical Cytogeneticist (Electronically Signed)
[2017-09-24] MEDS: Furosemide IV* 10 MG/ML 2 ML VIAL (20 MG) IV SLOW PU ONE ×2 (10:17→20:57)
[2017-09-24] MEDS ORDERED: ZOSYN 3.375 GM x ONE DOSE over 30 miuntes IVPB ×2 (11:15)
[2017-09-24] MEDS: Enoxaparin(*) 40 MG/0.4 ML SYR SUBCUT SCH (12:08)
[2017-09-24] MEDS ORDERED: Piperacillin/Tazobac ADVAN(*) 3.375 GM in NS 0.9% 100 ML* 100 ML IVPB SCH (14:00)
[2017-09-24] MEDS ORDERED: Diltiazem IV VIAL* 125 MG in NS 0.9% 100 ML* 100 ML IV SCH (15:00)
--- NOTE | 2017-09-24 15:13 | PN ---
Progress Note - Progress Note Date of Service: 09/24/17 Note: POD# 6 s/p right VATS Afeb, VS noted UO adequate NPO, still aspiration risk Right CT level 1750, 250 ml since yest AM. No air leak. RLL still not expanded. Left CT unchanged from yest. Alert and comfortable. Rhonchi R>L Cont Abx and nutrition per tank riveter. D/W Dr Grey. Left chest tube removed Leave right chest tube until RLL expanded and Ptx resolved.
[2017-09-24] MEDS: Piperacillin/Tazobactam 13.5 GM IV 24 hour continuous infusion IVPB SCH ×2 (15:37)
--- NOTE | 2017-09-24 16:10 | RAD ---
INDICATION: Status post PICC line placement COMPARISON: Most recent comparison chest x-ray September 23, 2017 TECHNIQUE: Single AP portable view of the chest was obtained. FINDINGS: Image quality is compromised due to the relative inferiority of a portable chest x-ray. There has been interval placement of a right-sided PICC line with the tip terminating at the superior vena cava. Bilateral chest tubes remain in position. Again seen are patchy densities obscuring the bilateral lung bases worse on the left than the right. There is stable cardiomegaly also similar to the previous chest x-ray. Again incidentally noted is a large contrast filled Zenker's diverticulum. IMPRESSION: Interval placement of a right-sided PICC line with the tip terminating at the superior vena cava. Additional chronic and iatrogenic findings are unchanged since the previous chest x-ray.
[2017-09-24] MEDS ORDERED: Diltiazem IV VIAL* 125 MG in NS 0.9% 100 ML* 100 ML IV PRN (17:00)
[2017-09-24] MEDS ORDERED: Furosemide IV* 10 MG/ML VIAL (40 MG) IV SLOW PU ONE (20:00)
[2017-09-24] MEDS: Albuterol 2.5 MG/3 ML NEB.SOL* (0.083%) INH PRN (20:25)
--- NOTE | 2017-09-24 20:41 | RAD ---
INDICATION: Respiratory distress COMPARISON: Chest x-ray September 24, 2017 TECHNIQUE: An AP portable view obtained at 23 2 hours is submitted. FINDINGS: Bones/Soft Tissues: There are no acute bony findings. Cardiomediastinal: The cardiac silhouette is mildly enlarged. The central pulmonary vessels and interstitium are prominent compatible with vascular congestive change with worsening. LUNGS: There are bilateral perihilar infiltrates with consolidation. This could represent alveolar edema or infectious infiltrates. There are bilateral pleural effusions. Overall there is mild worsening. Pleura: There are no pleural effusions. Other: There is residual contrast within the Zenker's diverticulum IMPRESSION: Worsening vascular congestive findings and bilateral infiltrates
[2017-09-24] MEDS ORDERED: Furosemide IV* 10 MG/ML VIAL (40 MG) IV ONE (20:46)
[2017-09-24] MEDS ORDERED: nitroGLYCERIN DRIP* 25,000 MCG/250 ML BTL ONE (20:53)
[2017-09-24] MEDS ORDERED: nitroGLYCERIN DRIP* 25,000 MCG/250 ML BTL IV SCH (21:00)
--- NOTE | 2017-09-24 21:09 | PN ---
Progress Note - Progress Note Date of Service: 09/24/17 Note: Paged for acutely worsening dyspnea. Patient had left CT removed today and right CT is hooked up to water seal. Patient given Lasix 40 mg IV and placed on max vapotherm settings. Repeat CXR shows worsening pulmonary edema. Will give another lasix [address] Grey who also recommended low dose nitro drip at 10 mcg
[2017-09-25] MEDS: Diltiazem TAB* 30 MG PO SCH ×5 (00:58→23:45)
[2017-09-25] MEDS: GuaiFENesin DM* 5 ML UDC PO SCH ×4 (00:58→17:40)
[2017-09-25] MEDS: HYDROmorphone INJ* 2 MG/ML CARPUJECT SYRINGE IV SLOW PU PRN ×6 (04:36→21:54)
[2017-09-25 07:32] LABS: Hematocrit 32 % (42-52); Mean Corpuscular HGB Conc 31 g/dl (31-36); Mean Corpuscular Hemoglobin 26 pg (27-31); Mean Corpuscular Volume 84 fL (80-94); Mean Platelet Volume 8 um3 (7.4-10.4); Platelet Count 287 10^3/ul (150-450); Red Blood Count 3.83 10^6/ul (4.0-5.4); Red Cell Distribution Width 17 % (10.5-15); White Blood Count 21.1 10^3/ul (3.5-10.8)
--- NOTE | 2017-09-25 08:33 | PN ---
Progress Note - Progress Note Date of Service: 09/25/17 Note: S/P VATS Still with dyspnea, needs a lot of support. Right chest tube level 1850 (100 since yest PM) No air leak. Still incomplete expansion RLL. Disc w/ Dr Tuttle No need for additional surgery Abx and nutrition per painting technician. GI & ENT cons for Zenkers and/or PEG
[2017-09-25 08:54] LABS: EGFR Non-African American 68.9 (>60)
[2017-09-25] MEDS: Insulin LISPRO* 1 UNITS UNIT SUBCUT SCH ×5 (09:20→20:29)
[2017-09-25] MEDS: Docusate CAP* 100 MG PO SCH (10:56)
[2017-09-25] MEDS: Magnesium Oxide TAB* 400 MG PO SCH (10:56)
[2017-09-25] MEDS: glipiZIDE TAB* 5 MG PO SCH ×2 (11:08→17:44)
[2017-09-25] MEDS: Allopurinol TAB* 300 MG PO SCH (11:08)
[2017-09-25] MEDS: Lisinopril TAB* 10 MG PO SCH ×2 (11:47→21:08)
[2017-09-25] MEDS: amLODIPine TAB* 5 MG PO SCH (11:47)
--- NOTE | 2017-09-25 12:48 | PN ---
Date of Service: 09/25/17 - [facility] progress note Critical Care Services: Pt seen and examined at bedside, overnight events noted. Pt had worsening hypoxia and is on high flow with 100% FiO2 this am. Continues to have productive cough with thick phleghm. Feeds on hold as he has demonstrated significant aspiration Vital Signs: Temp Pulse Resp BP SpO2 FiO2 97.3 F 85 20 132/62 100 100 09/25/17 11:30 09/25/17 12:00 09/25/17 12:00 09/25/17 12:00 09/25/17 12:00 09/25 08:00 Physical Exam: Gen: Pt in NAD, alert, awake, oriented x3 HEENT: PERRLA, No JVD Lungs: Diminished air entry b/l, rhonchi present, rt chest tube in place Cardiac: S1, S2+, tachycardic, irregular Abdomen: Soft, BS+, Obese Extremities: No edema, pulses+, warm; edema+ b/l LE and upper ext Neuro: awake, alert, orientedx3, moving all extremities, no gross focal deficit Fluid Balance (Past 24 Hours): P=0947 Y=0311 Net 3669 Intake & Output 09/23/17 09/24/17 09/25/17 09/26/17 06:59 06:59 06:59 06:59 Intake Total 808 1940 1416 Output Total 333 526 9587 Balance -2 1000 -3669 Weight 246 lb 14.684 oz 250 lb 7.122 oz Intake: IV Fluids 98 1274 962 NS (0.9%) 98 1274 962 IVPB 710 666 442 NS (0.9%) 710 666 442 Medicated IV 12 Nitro 12 Oral 0 Output: Chest Tube #1 195 170 50 Chest Tube #2 40 20 10 Pink 147 387 2285 Other: Date of Last Bowel 09/24/17 Movement # Bowel Movements 1 1 Estimated Stool Amount Large Small Labs: Laboratory Results - last 24 hr 09/24/17 09/25/17 09/25/17 16:51 06:43 06:43 WBC 21.1 H RBC 3.83 L Hgb 10.0 L Hct 32 L MCV 84 MCH 26 L MCHC 31 RDW 17 H Plt Count 287 MPV 8 Sodium 144 Potassium 4.1 Chloride 108 Carbon Dioxide 27 Anion Gap 9 BUN 27 H Creatinine 1.04 Est GFR ( Amer) 88.6 Est GFR (Non-Af Amer) 68.9 BUN/Creatinine Ratio 26.0 H Glucose 183 H POC Glucose (mg/dL) 149 H Calcium 8.0 L 09/25/17 09:13 WBC RBC Hgb Hct MCV MCH MCHC RDW Plt Count MPV Sodium Potassium Chloride Carbon Dioxide Anion Gap BUN Creatinine Est GFR ( Amer) Est GFR (Non-Af Amer) BUN/Creatinine Ratio Glucose POC Glucose (mg/dL) 192 H Calcium Impression: 77y obese M w/pmhx of NIDDM, HTN, Afib; admitted with resp distress found to have with Strept pneumonia and bilateral loculated effusions, s/p VATS 09/18 with decortication on right side and chest tube with tPA instilled on left with ongong aspiration due to Zenkers diverticulum, worsening hypoxic resp failure, AFib. -Acute Hypoxic Respiratory failure secondary to aspiration PNA -Strept Pneumonia with loculated parapneumonic effusions b/l s/p Rt VATS, s/p tpa on left -Ongoing aspiration pneumonias -Afib, on cardizem -Zenker Diverticulum needs repair -COPD, no exacerbation Plan: 1. Neuro- Awake, alert. No acute neuro issues, delirium prec, aspiration prec. 2. CVS- Afib, Rate controlled for most part, intermittent tachycardic episodes. PO held due to aspiration. c/w cardizem drip 5mg/hr, cont cardizem 60mg po q6h if able to swallow, for now being held. Lasix 40mg iv prn for fluid overload 3. Resp- on hiflow now, 100% FiO2. Resp status is strenuous, might improve with sputum mobilization. Chest PT, percussion bed. Left CT removed 09/24, Right Chest tube 100cc, plan to c/w rt chest tube as per surgery. Bronchodilators q4h prn. 4. ID- Afebrile, wbc trending down, worsening in resp status due to acute aspiration pneumonia, possibly from zenkers. c/w zosyn for anaerobe coverage, D/ w ENT Dr Sims and Dr Gold. Plan to clip Zenkers when resp status slightly improved, might be scheduled for Thursday. 5. GI- ONgoing aspiration with feeds. Will keep NPO. GI consulted yesterday. Doubt if would should be placed with active infection. On TPN until Zenkers could be fixed. Couldnot pass NGT, was coiling in Diverticulum. 6. Renal- Cr okay, Good UO, c/w IVF until TPN is initiated, will d/c IVF then. Lasix prn for edema. 7. Heme- Normocytic anemia, normal platelets, leucocytosis sec to infection. not on anticoagulation for AFib 8. Endo- C/w Sliding scale insulin, Bl sugars not too high. 9. Musculsk- new stage 2 sacral pressure wound, pressure ulcer proph, frequent turning and positioning, wound care. 10. Nutrition- NPO due to aspiration, started on TPN 11. DVT prophylaxis: SCDs, lovenox sq 12. GI prophylaxis: - 13. Psychosocial : Family at bedside, pt and family updated Pink Catheter to prevent bedsores given current bedridden status Disposition: ICU for respiratory failure, aspiration pneumonia Code Status: Full code D/w Dr Sims, Dr Gold Total Critical Care time is 40 minutes, excluding procedures
[2017-09-25] MEDS: Enoxaparin(*) 40 MG/0.4 ML SYR SUBCUT SCH (12:57)
[2017-09-25 13:35] LABS: EGFR Non-African American 70.5 (>60)
[2017-09-25] MEDS: Piperacillin/Tazobactam 13.5 GM IV 24 hour continuous infusion IVPB SCH ×2 (15:43)
[2017-09-25] MEDS: TPN* 24 HR with Dextrose 50% Water* 500 ML, Amino Acid Infusion 10%* 850 ML, Sterile Wa... CENTR SCH ×12 (17:27)
[2017-09-26] MEDS: HYDROmorphone INJ* 2 MG/ML CARPUJECT SYRINGE IV SLOW PU PRN ×8 (00:10→22:35)
[2017-09-26] MEDS: GuaiFENesin DM* 5 ML UDC PO SCH ×4 (00:59→19:26)
[2017-09-26] MEDS: Insulin LISPRO* 1 UNITS UNIT SUBCUT SCH ×6 (02:19→22:34)
[2017-09-26] MEDS: Diltiazem TAB* 30 MG PO SCH (06:07)
[2017-09-26 06:42] LABS: Hematocrit 34 % (42-52); Hemoglobin 10.6 g/dl (14.0-18.0); Mean Corpuscular HGB Conc 32 g/dl (31-36); Mean Corpuscular Hemoglobin 26 pg (27-31); Mean Corpuscular Volume 83 fL (80-94); Mean Platelet Volume 8 um3 (7.4-10.4); Platelet Count 266 10^3/ul (150-450); Red Blood Count 4.04 10^6/ul (4.0-5.4); Red Cell Distribution Width 16 % (10.5-15); White Blood Count 13.7 10^3/ul (3.5-10.8)
[2017-09-26 06:48] LABS: EGFR Non-African American 71.3 (>60)
[2017-09-26] MEDS: Lisinopril TAB* 10 MG PO SCH ×2 (08:20→21:38)
[2017-09-26] MEDS: Allopurinol TAB* 300 MG PO SCH (08:20)
--- NOTE | 2017-09-26 09:26 | PN ---
Date of Service: 09/26/17 - [facility] progress note Critical Care Services: Pt seen and examined at bedside. Pt c/o dry mouth and feeling not well. Asking for ice chips. No acute events o/n. FiO2 requirements coming down. Secretions decreased in amounts Vital Signs: Temp Pulse Resp BP SpO2 FiO2 99.1 F 96 28 126/62 94 60 09/26/17 07:59 09/26/17 09:01 09/26/17 09:01 09/26/17 09:01 09/26/17 09:01 09/26 07:25 Physical Exam: Gen: Pt in NAD, alert, awake, oriented x3 HEENT: PERRLA, No JVD, dry mucus membranes Lungs: Diminished air entry b/l, rhonchi improved, rt chest tube in place, drained 40cc overnight Cardiac: S1, S2+, tachycardic, irregular Abdomen: Soft, BS+, NT Extremities: No edema, pulses+, warm, edema+ b/l LE and upper ext Neuro: awake, alert, orientedx3, moving all extremities, no gross focal deficit Fluid Balance (Past 24 Hours): E=3186 O= 1250 Net 1879 Intake & Output 09/24/17 09/25/17 09/26/17 09/27/17 06:59 06:59 06:59 06:59 Intake Total 1940 1416 3129.1 Output Total 940 5085 1250 Balance 1000 -3669 1879.1 Weight 250 lb 7.122 oz 249 lb 1.957 oz Intake: IV Fluids 8329 793 3256 ABX - ZOSYN 318 NS (0.9%) 9673 009 6060 IVPB 666 442 338 ABX - ZOSYN 338 NS (0.9%) 666 442 Medicated IV 12 189.1 Nitro 12 189.1 TPN/PPN 1034 Oral 0 Output: Chest Tube #1 170 50 150 Chest Tube #2 20 10 Urine 600 Pink 750 5025 500 Other: Date of Last Bowel 09/24/17 Movement # Bowel Movements 1 1 Estimated Stool Amount Large Small Labs: Laboratory Results - last 24 hr 09/25/17 09/25/17 09/25/17 09:13 12:48 13:04 WBC RBC Hgb Hct MCV MCH MCHC RDW Plt Count MPV Sodium 145 Potassium 3.8 Chloride 107 Carbon Dioxide 30 Anion Gap 8 BUN 26 H Creatinine 1.02 Est GFR ( Amer) 90.6 Est GFR (Non-Af Amer) 70.5 BUN/Creatinine Ratio 25.5 H Glucose 165 H POC Glucose (mg/dL) 192 H 191 H Calcium 7.9 L Phosphorus 3.7 Magnesium 2.1 Total Bilirubin 0.40 AST 12 L ALT 12 Alkaline Phosphatase 90 Total Protein 5.6 L Albumin 1.8 L Globulin 3.8 Albumin/Globulin Ratio 0.5 L Prealbumin < 3 L Triglycerides 85 Cholesterol 74 09/25/17 09/25/17 09/26/17 17:27 20:11 02:13 WBC RBC Hgb Hct MCV MCH MCHC RDW Plt Count MPV Sodium Potassium Chloride Carbon Dioxide Anion Gap BUN Creatinine Est GFR ( Amer) Est GFR (Non-Af Amer) BUN/Creatinine Ratio Glucose POC Glucose (mg/dL) 161 H 243 H 350 H Calcium Phosphorus Magnesium Total Bilirubin AST ALT Alkaline Phosphatase Total Protein Albumin Globulin Albumin/Globulin Ratio Prealbumin Triglycerides Cholesterol 09/26/17 09/26/17 09/26/17 06:23 06:24 06:24 WBC 13.7 H RBC 4.04 Hgb 10.6 L Hct 34 L MCV 83 MCH 26 L MCHC 32 RDW 16 H Plt Count 266 MPV 8 Sodium 146 H Potassium 3.6 Chloride 110 Carbon Dioxide 32 Anion Gap 4 BUN 27 H Creatinine 1.01 Est GFR ( Amer) 91.6 Est GFR (Non-Af Amer) 71.3 BUN/Creatinine Ratio 26.7 H Glucose 326 H POC Glucose (mg/dL) 339 H Calcium 8.2 L Phosphorus Magnesium Total Bilirubin AST ALT Alkaline Phosphatase Total Protein Albumin Globulin Albumin/Globulin Ratio Prealbumin Triglycerides Cholesterol Nutrition: NPO due to concern with ongoing aspiration from Zenkers diverticulum, started TPN 09/25/17 Impression: Acute Hypoxic Respiratory failure secondary to aspiration PNA, improving Strept Pneumonia with loculated parapneumonic effusions b/l s/p Rt VATS, s/p tpa on left Ongoing aspiration pneumonias Afib, on cardizem, will start metoprolol IV for rate control as pt is NPO Zenker Diverticulum needs repair COPD, no exacerbation Plan: 1. Neuro- Awake, alert. No acute neuro issues, delirium prec, aspiration prec. 2. CVS- Afib, Rate controlled for most part, intermittent tachycardic episodes. PO held due to aspiration. c/w cardizem drip 5mg/hr, will add metoprolol IV and taper off Cardizem drip given slow recovery. Lasix 40mg iv prn for fluid overload 3. Resp- on hiflow now, FiO2 requirements trending down, will switch to salter. C/w sputum mobilization. Chest PT, percussion bed. Left CT removed 09/24, Right Chest tube 40cc overnight, plan to c/w rt chest tube as per surgery in hope to have expansion of RLL. Bronchodilators q4h prn. 4. ID- Afebrile, wbc trending down, worsening in resp status due to acute aspiration pneumonia, possibly from zenkers. c/w zosyn for anaerobe coverage, watch for hypernatremia, D/w ENT Dr Sims and Dr Gold. Plan to clip Zenkers when resp status slightly improved, might be scheduled for Thursday. Low grade fever overnight. Leucocytosis trending down 5. GI- Ongoing aspiration with feeds. Will keep NPO. GI consult appreciated. Await PEG placement until sepsis resolves and resp status improves. On TPN until Zenkers could be fixed. Couldnot pass NGT yesterday, was coiling in Diverticulum. Pt asking for ice chips, will have to watch closely for aspiration risk 6. Renal- Cr okay, Good UO, TPN is initiated 09/25/17 through PICC line, will d/ c IVF given concern with fluid overload. Lasix prn for edema. 7. Heme- Normocytic anemia, normal platelets, leucocytosis sec to infection, improving. Not on anticoagulation for AFib which likely is recent onset due to sepsis. Will start Lovenox. 8. Endo- C/w Sliding scale insulin, Bl sugars not too high. 9. Musculsk- new stage 2 sacral pressure wound, pressure ulcer proph, frequent turning and positioning, wound care. 10. Nutrition- NPO due to aspiration, started on TPN 11. DVT prophylaxis: SCDs, lovenox sq 12. GI prophylaxis: - PPI 13. Psychosocial : Family at bedside, pt and family updated Pink Catheter to prevent bedsores given current bedridden status Disposition: ICU for respiratory failure, aspiration pneumonia Code Status: Full code Total Critical Care time is 30 minutes, excluding procedures
--- NOTE | 2017-09-26 10:42 | PN ---
Progress Note - Progress Note Date of Service: 09/26/17 Note: S/P right VATS Afeb, VS OK UO large. On TPN Right CT level 1950, 100ml/24 hrs, no air leak Cont pulm care, abx and nutrition per metal grinder and Pulm. Cont right CT Consider repeat CT scan of chest next week
[2017-09-26] MEDS: Metoprolol Tartrate IV* 1 MG/ML 5 ML VIAL IV PRN (10:43)
[2017-09-26] MEDS: Enoxaparin(*) 40 MG/0.4 ML SYR SUBCUT SCH (13:04)
[2017-09-26] MEDS ORDERED: Furosemide IV* 10 MG/ML VIAL (40 MG) IV SLOW PU ONE (13:33)
[2017-09-26] MEDS: Piperacillin/Tazobactam 13.5 GM IV 24 hour continuous infusion IVPB SCH ×2 (15:46)
[2017-09-26] MEDS: TPN* 24 HR with Dextrose 50% Water* 500 ML, Amino Acid Infusion 10%* 850 ML, Sterile Wa... CENTR SCH ×12 (17:09)
[2017-09-26 18:28] LABS: EGFR Non-African American 79.4 (>60)
[2017-09-26] MEDS ORDERED: Magnesium Sulfate 1 GM IV* 1 GM/100 ML BAG IV ONE (21:00)
[2017-09-26] MEDS: KCL premix 10MEQ/50 ML x 4 RUNS IV SCH ×2 (21:54→22:34)
[2017-09-27] MEDS: KCL premix 10MEQ/50 ML x 4 RUNS IV SCH ×2 (00:03→00:54)
[2017-09-27] MEDS ORDERED: KCL 10 MEQ/50 ML IVPREMIX* 10 MEQ/50 ML BAG ONE (00:54)
[2017-09-27] MEDS: GuaiFENesin DM* 5 ML UDC PO SCH ×4 (00:55→19:36)
[2017-09-27] MEDS: HYDROmorphone INJ* 2 MG/ML CARPUJECT SYRINGE IV SLOW PU PRN ×8 (00:58→21:34)
[2017-09-27] MEDS: Insulin LISPRO* 1 UNITS UNIT SUBCUT SCH ×6 (02:23→21:50)
[2017-09-27 06:21] LABS: Hematocrit 27 % (42-52); Hemoglobin 8.6 g/dl (14.0-18.0); Mean Corpuscular HGB Conc 32 g/dl (31-36); Mean Corpuscular Hemoglobin 26 pg (27-31); Mean Corpuscular Volume 83 fL (80-94); Mean Platelet Volume 8 um3 (7.4-10.4); Platelet Count 250 10^3/ul (150-450); Red Blood Count 3.25 10^6/ul (4.0-5.4); Red Cell Distribution Width 16 % (10.5-15); White Blood Count 12.1 10^3/ul (3.5-10.8)
[2017-09-27 06:34] LABS: EGFR Non-African American 74.7 (>60)
[2017-09-27] MEDS: Furosemide IV* 10 MG/ML VIAL (40 MG) IV SLOW PU SCH (08:45)
--- NOTE | 2017-09-27 08:52 | PN ---
Date of Service: 09/27/17 - Critical care f/u note Critical Care Services: Pt seen and examined at bedside this am. Reports feeling better today, asks for ice chips. No acute events o/. Has been able to titrate FiO2 and is currently only salter. Chest PT continued with good mobilization of secretions Vital Signs: Temp Pulse Resp BP SpO2 FiO2 98.8 F 89 16 161/70 100 60 09/27/17 08:00 09/27/17 08:00 09/27/17 08:00 09/27/17 08:00 09/27/17 08:00 09/26 08:00 Physical Exam: Gen: Pt in NAD, alert, awake, sitting upright in bed HEENT:PERRLA, mucus membranes dry, no scleral icterus Lungs:Dimnished air entry at bases, scattered rhonchi + Cardiac: S1, S2+, regular Abdomen:Obese, BS+ Extremities: Edema +b/l LE and upper ext, pulses + Skin: Sacral skin break down Fluid Balance (Past 24 Hours): P=8371 O= 4210 Net-1564 Intake & Output 09/25/17 09/26/17 09/27/17 09/28/17 06:59 06:59 06:59 06:59 Intake Total 1416 3129.1 2646 Output Total 5085 1250 4210 Balance -3669 1879.1 -1564 Weight 249 lb 1.957 oz 244 lb 11.41 oz Intake: IV Fluids 962 1568 812 ABX - ZOSYN 318 488 Mg sulfate 108 NS (0.9%) 962 1250 potassium 216 IVPB 442 338 ABX - ZOSYN 338 NS (0.9%) 442 Medicated IV 12 189.1 23 Nitro 12 189.1 23 TPN/PPN 1034 1791 Oral 0 20 Output: Chest Tube #1 50 150 110 Chest Tube #2 10 Urine 600 Pink 5025 500 4100 Other: Date of Last Bowel 09/24/17 Movement # Bowel Movements 1 Estimated Stool Amount Small Labs: Laboratory Results - last 24 hr 09/26/17 09/26/17 09/26/17 10:42 14:55 18:05 WBC RBC Hgb Hct MCV MCH MCHC RDW Plt Count MPV Sodium 146 H Potassium 3.1 L Chloride 107 Carbon Dioxide 31 Anion Gap 8 BUN 24 Creatinine 0.92 Est GFR ( Amer) 102.1 Est GFR (Non-Af Amer) 79.4 BUN/Creatinine Ratio 26.1 H Glucose 255 H POC Glucose (mg/dL) 225 H 343 H Calcium 7.6 L Magnesium 1.8 L 09/26/17 09/27/17 09/27/17 22:28 02:16 06:05 WBC RBC Hgb Hct MCV MCH MCHC RDW Plt Count MPV Sodium 147 H Potassium 3.8 Chloride 110 Carbon Dioxide 34 H Anion Gap 3 BUN 25 H Creatinine 0.97 Est GFR ( Amer) 96.0 Est GFR (Non-Af Amer) 74.7 BUN/Creatinine Ratio 25.8 H Glucose 269 H POC Glucose (mg/dL) 320 H 297 H Calcium 8.4 L Magnesium 09/27/17 09/27/17 06:05 06:10 WBC 12.1 H RBC 3.25 L Hgb 8.6 L Hct 27 L MCV 83 MCH 26 L MCHC 32 RDW 16 H Plt Count 250 MPV 8 Sodium Potassium Chloride Carbon Dioxide Anion Gap BUN Creatinine Est GFR ( Amer) Est GFR (Non-Af Amer) BUN/Creatinine Ratio Glucose POC Glucose (mg/dL) 299 H Calcium Magnesium Nutrition: Receiving TPN to prevent aspiration PNA. NGT was attempted however was coiling in Zenkers diverticulum, needs adjustment of TPN given electrolyte abnormalities Impression: Acute Hypoxic Respiratory failure secondary to aspiration PNA, improving, now on salter 15L Strept Pneumonia with loculated parapneumonic effusions b/l s/p Rt VATS, s/p tpa on left Ongoing aspiration pneumonias due to Zenkers diverticulum, strict NPO status currently Afib, on metoprolol IV for rate control Zenker Diverticulum needs repair COPD, no exacerbation Plan: 1. Neuro- Awake, alert. No acute neuro issues, delirium prec, aspiration prec. 2. CVS- Afib, Rate controlled, metoprolol IV, Lovenox. Lasix 40mg iv prn for fluid overload 3. Resp- on salter this morning, will taper as tolerated. C/w sputum mobilization. Chest PT, percussion bed. Left CT removed 09/24, Right Chest tube ~ 125cc /24 hrs, plan to c/w rt chest tube as per surgery in hope to have expansion of RLL. Bronchodilators q4h prn. 4. ID- Remains afebrile, wbc trending down, worsening in resp status due to acute aspiration pneumonia, possibly from zenkers. c/w zosyn for anaerobe coverage, hypernatremia, will need adjustments to TPN Plan to clip Zenkers when resp status slightly improved, might be scheduled for 09/29. 5. GI- Ongoing aspiration with feeds. C/w NPO status. Await PEG placement until sepsis resolves and resp status improves if unable to tolerate po inspite of Zenkers being fixed. Pt asking for ice chips, will have to watch closely for aspiration risk. GI ppx 6. Renal- Cr okay, Good UO with Lasix, in negative fluid balance, TPN is initiated 09/25/17 through PICC line, will need adjustment given elctrolyte abnormalities. Hypokalemia, hypomagnesemia, repleted, hypernatremia and elevated bicarb likely sec to contraction alkalosis. D/zaid Nitro drip and IVF. Lasix prn for edema. 7. Heme- Normocytic anemia, normal platelets, leucocytosis sec to infection, improving. C/w Lovenox for DVT px and A.fib. 8. Endo- C/w Sliding scale insulin, Bl sugars slightly elevated since TPN. Will add Insulin through TPN 9. Musculsk- new stage 2 sacral pressure wound, pressure ulcer proph, frequent turning and positioning, wound care to follow on Thursday. 10. Nutrition- NPO due to aspiration, c/w TPN 11. DVT prophylaxis: SCDs, lovenox sq 12. GI prophylaxis: - PPI 13. Psychosocial : Family at bedside, pt and family updated Pink Catheter to prevent bedsores given current bedridden status Disposition: ICU for respiratory failure, aspiration pneumonia Code Status: Full code Total Critical Care time is 25 minutes
[2017-09-27] MEDS: Lisinopril TAB* 10 MG PO SCH ×2 (09:24→19:36)
[2017-09-27] MEDS: Allopurinol TAB* 300 MG PO SCH (09:26)
[2017-09-27] MEDS ORDERED: Insulin GLARGINE(*) 1 UNITS UNIT SUBCUT ONE (10:07)
[2017-09-27] MEDS: Enoxaparin(*) 40 MG/0.4 ML SYR SUBCUT SCH (10:41)
--- NOTE | 2017-09-27 12:12 | PN ---
Progress Note - Progress Note Date of Service: 09/27/17 Note: S/P right VATS Afeb, VS OK UO large. On TPN Right CT level 2100, 150ml/24 hrs, no air leak Cont pulm care, abx and nutrition per clinical professor and Pulm. PEG vs Zenkers repair in the next week Cont right CT Consider repeat CT scan of chest next week
[2017-09-27 14:32] LABS: EGFR Non-African American 74.7 (>60)
[2017-09-27] MEDS: KCL 10 MEQ/50 ML IVPREMIX* 20 MEQ/100 ML BAG IV ONE ×2 (15:17→16:33)
[2017-09-27] MEDS: Piperacillin/Tazobactam 13.5 GM IV 24 hour continuous infusion IVPB SCH ×2 (15:35)
[2017-09-27] MEDS ORDERED: TPN* 24 HR with Dextrose 50% Water* 500 ML, Amino Acid Infusion 10%* 850 ML, Sterile Wa... CENTR SCH ×12 (17:00)
[2017-09-27] MEDS: Metoprolol Tartrate IV* 1 MG/ML 5 ML VIAL IV PRN (19:33)
[2017-09-28] MEDS: HYDROmorphone INJ* 2 MG/ML CARPUJECT SYRINGE IV SLOW PU PRN ×8 (01:24→22:57)
[2017-09-28] MEDS: GuaiFENesin DM* 5 ML UDC PO SCH ×4 (02:15→19:22)
[2017-09-28] MEDS: Insulin LISPRO* 1 UNITS UNIT SUBCUT SCH ×6 (04:00→22:18)
[2017-09-28 05:45] LABS: Hematocrit 29 % (42-52); Hemoglobin 9.4 g/dl (14.0-18.0); Mean Corpuscular HGB Conc 32 g/dl (31-36); Mean Corpuscular Hemoglobin 26 pg (27-31); Mean Corpuscular Volume 82 fL (80-94); Mean Platelet Volume 8 um3 (7.4-10.4); Platelet Count 227 10^3/ul (150-450); Red Blood Count 3.57 10^6/ul (4.0-5.4); Red Cell Distribution Width 16 % (10.5-15); White Blood Count 9.8 10^3/ul (3.5-10.8)
[2017-09-28 05:48] LABS: EGFR Non-African American 85.8 (>60)
[2017-09-28] MEDS: Lisinopril TAB* 10 MG PO SCH ×2 (08:13→21:55)
[2017-09-28] MEDS: Allopurinol TAB* 300 MG PO SCH (08:13)
[2017-09-28] MEDS ORDERED: Insulin GLARGINE(*) 1 UNITS UNIT SUBCUT ONE (10:00)
[2017-09-28] MEDS: Enoxaparin(*) 40 MG/0.4 ML SYR SUBCUT SCH (10:40)
[2017-09-28] MEDS: Furosemide IV* 10 MG/ML VIAL (40 MG) IV SLOW PU SCH (10:44)
[2017-09-28] MEDS ORDERED: Potassium Phosphate IV* 30 MMOLE in NS 0.9% 250 ML* 250 ML IVPB ONE (11:35)
--- NOTE | 2017-09-28 12:01 | PN ---
Progress Note - Progress Note Date of Service: 09/28/17 Note: CRITICAL CARE MEDICINE Date: 09/28/2017 Time: 915 SUBJECTIVE: Patient seen and examined. doing ok. PHYSICAL EXAM: Vital Signs: Reviewed. 6LO2 Neurologic: communicating. HEENT: pupils equal. Sclera anicteric. Cardiovascular: S1 S2 Respiratory: coarse with bl R>L rhonchi. chest tube in place. Abdomen: Soft, nt. No r/g/r. Extremities: Warm. dep edema; stage 2 sacral decubitus Access: picc LABS: Reviewed. IMAGING: Reviewed. MEDICATIONS: Reviewed. ASSESSMENT: 77 M Emphyema s/p Right VATS and left chest tube for fibrinolytic tx; with continued ct. Recurrent aspiration pneumonitis - asssoicated with large zenker divertic Malnutrition mod degree Stage II decub PAF - anticoag held for procedures DM HTN Deconditioning PLAN: Neurologic: stable Cardiovascular: Perfusing. vol status still up a touch and continued lasix use. Respiratory: gisele. NC. IS. Check noncontrast Ct chest today to eval progress. surg following Gastrointestinal: TPN adjusted. sup. plan for zenkers clipping this week. sup Renal/Metabolic: stable. f/u lytes Infectious Disease: on zosyn with ID follow up. Hematology: place on lovenox sq prophylaxis and full anticoag needs post surgical needs. Endocrine: ssi f/u. lantus adjusted. Musculoskeletal: oob; pt. Psych/Social: f/u support Supportive and preventative care as ordered. SUP: H2 added to tpn VTE prophylaxis: lovenox Disposition: ICU thru surgical needs Code Status: Full Critical Care Time: 30min Arcadio Christopher DO
[2017-09-28] MEDS: Piperacillin/Tazobactam 13.5 GM IV 24 hour continuous infusion IVPB SCH ×2 (15:41)
--- NOTE | 2017-09-28 15:52 | RAD ---
HISTORY: Follow-up chest tube, effusions, pneumonitis COMPARISONS: September 22, 2017, September 13, 2017 TECHNIQUE: Multiple contiguous axial CT scans of the chest were obtained without intravenous contrast. Coronal and sagittal multiplanar reformations are also submitted for review. FINDINGS: NECK AND THYROID: The lower neck and thyroid are unremarkable. CHEST WALL: There is no lower cervical, axillary, or supraclavicular lymphadenopathy by size criteria. HEART AND PERICARDIUM: The heart is unremarkable. AORTA AND PULMONARY VASCULATURE: The aorta and pulmonary vasculature are normal. A right-sided PICC line is noted with the tip in the superior cava. MEDIASTINUM: Again noted are enlarged mediastinal lymph nodes, stable. DAIANA: There is no hilar lymphadenopathy by size criteria. AIRWAY AND ESOPHAGUS: Again noted is increased diverticulum containing oral contrast LUNG PARENCHYMA: There is been interval development of a random pattern of nodularity throughout both lungs with patchy ground glass opacification, greater on the right than on the left. There is a 2.4 cm mass of the right upper lobe centered on axial image 21. There is persistent but improving consolidation of the right lower lobe. Again noted is high attenuation material within the right lower lobe PLEURA: There is a right-sided chest tube. There are small bilateral pleural effusions. UPPER ABDOMEN: The upper abdomen is unremarkable. BONES AND SOFT TISSUES: Again noted is diffuse osteopenia with ossification of the anterior syndesmophytes. Again noted is complex soft tissue density of the right breast OTHER: None. IMPRESSION: 1. THERE HAS BEEN INTERVAL DEVELOPMENT OF DIFFUSE NODULARITY THROUGHOUT BOTH LUNGS, GREATER ON THE RIGHT THAN ON THE LEFT. THE PATTERN OF NODULARITY SUGGEST HEMATOGENOUS SPREAD OF INFECTION OR NEOPLASM. 2. PERSISTENT BUT IMPROVING CONSOLIDATION OF THE RIGHT LOWER LOBE. AGAIN NOTED IS HIGH ATTENUATION MATERIAL IN THE RIGHT LOWER LOBE WHICH MAY REFLECT ASPIRATED CONTRAST. 3. THERE IS A 2.4 CM MASS OF THE RIGHT UPPER LOBE. 4. THERE IS A ZENKER'S DIVERTICULUM CONTAINING ORAL CONTRAST. 5. THERE IS STABLE MEDIASTINAL LYMPHADENOPATHY. 6. AGAIN NOTED IS A COMPLEX SOFT TISSUE DENSITY OF THE RIGHT BREAST 7. THERE ARE SMALL BILATERAL PLEURAL EFFUSIONS..
[2017-09-28] MEDS: TPN* 24 HR with Dextrose 50% Water* 500 ML, Amino Acid Infusion 10%* 850 ML, Sterile Wa... CENTR SCH ×12 (17:24)
[2017-09-29] MEDS: HYDROmorphone INJ* 2 MG/ML CARPUJECT SYRINGE IV SLOW PU PRN ×8 (00:59→21:39)
[2017-09-29] MEDS: GuaiFENesin DM* 5 ML UDC PO SCH ×4 (02:21→21:34)
[2017-09-29] MEDS: Insulin LISPRO* 1 UNITS UNIT SUBCUT SCH ×7 (02:25→22:26)
[2017-09-29 06:12] LABS: Hematocrit 43 % (42-52); Mean Corpuscular HGB Conc 33 g/dl (31-36); Mean Corpuscular Hemoglobin 27 pg (27-31); Mean Corpuscular Volume 82 fL (80-94); Mean Platelet Volume 8 um3 (7.4-10.4); Platelet Count 158 10^3/ul (150-450); Red Blood Count 5.24 10^6/ul (4.0-5.4); Red Cell Distribution Width 16 % (10.5-15); White Blood Count 4.5 10^3/ul (3.5-10.8)
[2017-09-29 06:17] LABS: EGFR Non-African American 90.6 (>60)
[2017-09-29] MEDS ORDERED: acetaZOLAMIDE VIAL* 250 MG in NS 0.9% 50 ML* 50 ML IVPB SCH (10:00)
[2017-09-29] MEDS: acetaZOLAMIDE VIAL* 500 MG VIAL IV PUSH SCH ×2 (10:37→22:25)
[2017-09-29] MEDS: Furosemide IV* 10 MG/ML VIAL (40 MG) IV SLOW PU SCH (10:37)
--- NOTE | 2017-09-29 11:37 | PN ---
Progress Note - Progress Note Date of Service: 09/29/17 Note: CRITICAL CARE MEDICINE Date: 09/29/2017 Time: 950 SUBJECTIVE: Patient seen and examined. PHYSICAL EXAM: Vital Signs: Reviewed. 6LO2 Neurologic: communicating. HEENT: pupils equal. Sclera anicteric. Cardiovascular: S1 S2 Respiratory: coarse bl with bl R>L rhonchi. chest tube in place; no leak Abdomen: Soft, nt. No r/g/r. Extremities: Warm. dep edema improved; stage 2 sacral decubitus Access: picc LABS: Reviewed. IMAGING: Reviewed. MEDICATIONS: Reviewed. ASSESSMENT: 77 M Emphyema s/p Right VATS and left chest tube for fibrinolytic tx; with continued ct. Recurrent aspiration pneumonitis - asssoicated with large zenker divertic Malnutrition mod degree PAF - anticoag held for procedures DM, uncontrolled HTN Deconditioning Stage II decub PLAN: Neurologic: stable Cardiovascular: Perfusing. vol status improving. lasix today. Respiratory: gisele on NC. IS. Still week and airation issues. try metaneb today to help maximize his pulm toliet. surg following Gastrointestinal: TPN adjusted, + sup. plan for zenkers clipping tomorrow afternoon. Renal/Metabolic: stable. f/u lytes needs Infectious Disease: on zosyn; picc. ID follow up. Hematology: lovenox sq prophylaxis and full anticoag needs post surgical needs. Endocrine: ssi f/u. lantus adjusted. Musculoskeletal: oob; pt. Psych/Social: f/u support Supportive and preventative care as ordered. SUP: H2 with tpn VTE prophylaxis: lovenox Disposition: ICU thru surgical needs Code Status: Full Critical Care Time: 25min Arcadio Christopher DO
[2017-09-29] MEDS ORDERED: Insulin GLARGINE(*) 1 UNITS UNIT SUBCUT ONE (12:00)
[2017-09-29] MEDS: Albuterol 2.5 MG/3 ML NEB.SOL* (0.083%) INH PRN (12:03)
[2017-09-29] MEDS: Enoxaparin(*) 40 MG/0.4 ML SYR SUBCUT SCH (12:05)
--- NOTE | 2017-09-29 12:15 | PN ---
Progress Note - Progress Note Date of Service: 09/29/17 SOAP: Subjective: Patient seen and examined, feeling about the same. No new complaints. Breathing still an issue, getting a neb treatment at this time. 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
[2017-09-29] MEDS: TPN* 24 HR with Dextrose 50% Water* 500 ML, Amino Acid Infusion 10%* 850 ML, Sterile Wa... CENTR SCH ×12 (17:21)
[2017-09-29] MEDS: Piperacillin/Tazobactam 13.5 GM IV 24 hour continuous infusion IVPB SCH ×2 (18:17)
[2017-09-30] MEDS: HYDROmorphone INJ* 2 MG/ML CARPUJECT SYRINGE IV SLOW PU PRN ×6 (00:33→21:53)
[2017-09-30] MEDS: GuaiFENesin DM* 5 ML UDC PO SCH ×4 (01:10→21:04)
[2017-09-30] MEDS: Insulin LISPRO* 1 UNITS UNIT SUBCUT SCH ×5 (02:40→21:52)
[2017-09-30 08:12] LABS: EGFR Non-African American 83.5 (>60)
[2017-09-30 08:14] LABS: Hematocrit 32 % (42-52); Hemoglobin 10.1 g/dl (14.0-18.0); Mean Corpuscular HGB Conc 32 g/dl (31-36); Mean Corpuscular Hemoglobin 26 pg (27-31); Mean Corpuscular Volume 82 fL (80-94); Mean Platelet Volume 8 um3 (7.4-10.4); Platelet Count 239 10^3/ul (150-450); Red Blood Count 3.84 10^6/ul (4.0-5.4); Red Cell Distribution Width 16 % (10.5-15); White Blood Count 8.4 10^3/ul (3.5-10.8)
[2017-09-30 08:45] LABS: ABS Basophils 0.1 10^3/ul (0-0.2); ABS Eosinophils 0.1 10^3/ul (0-0.6); ABS Lymphocytes 0.9 10^3/ul (1.0-4.8); ABS Monocytes 0.5 10^3/ul (0-0.8); ABS Neutrophils 6.8 10^3/ul (1.5-7.7); ABS Nucleated RBC 0 10^3/ul; Eosinophil % 1.3 % (0-6); Lymphocyte % 10.8 % (25-47); Nucleated Red Blood Cells % 0
--- NOTE | 2017-09-30 08:52 | PN ---
Progress Note - Progress Note Date of Service: 09/30/17 Note: S/P VATS for epyema. Afeb Feels better every day. Breathing getting easier, less O2 requirements. Right chest tube, new pleurevac, level 200 ml. No air leak, still probable small ptx. Abx and nutrition per hotel maintenance engineer. For Zenkers repair today Keep tube at present.
[2017-09-30] MEDS: acetaZOLAMIDE VIAL* 500 MG VIAL IV PUSH SCH (09:50)
[2017-09-30] MEDS: Furosemide IV* 10 MG/ML VIAL (40 MG) IV SLOW PU SCH (09:51)
--- NOTE | 2017-09-30 11:04 | PN ---
Progress Note - Progress Note Date of Service: 09/30/17 Note: CRITICAL CARE MEDICINE Date: 09/30/2017 Time: 950 SUBJECTIVE: Patient seen and examined. PHYSICAL EXAM: Vital Signs: Reviewed. 6LO2 Neurologic: communicating. HEENT: pupils equal. Sclera anicteric. Cardiovascular: S1 S2 Respiratory: coarse but better with less rhonchi. chest tube in place; no leak Abdomen: Soft, nt. No r/g/r. Extremities: Warm. dep edema much better. stage 2 sacral decubitus Access: picc LABS: Reviewed. IMAGING: Reviewed. MEDICATIONS: Reviewed. ASSESSMENT: 77 M Emphyema s/p Right VATS and left chest tube for fibrinolytic tx; with continued ct. Recurrent aspiration pneumonitis - asssoicated with large zenker divertic Malnutrition mod degree PAF - anticoag held for procedures DM, uncontrolled HTN Deconditioning Stage II decub PLAN: plan for OR tonight with pt remaining vented overnight - may be able to maximize lungs a bit more overnight with ppv tx course and look to liberate in am - d/w anesthesia yesterday for this Neurologic: stable; propofol anticipated overnight Cardiovascular: Perfusing. vol status better. on tpn for fluid. can hold further lasix for now. Respiratory: gisele on NC. better with metaneb. again, ppv planned for overnight to help maximize microatelectasis and liberation in am. leaving ct thru or/ppv needs. Gastrointestinal: TPN adjusted. sup. plan for zenkers clipping tonight Renal/Metabolic: stable. lytes better Infectious Disease: on zosyn; picc. ID following Hematology: lovenox held for tonight and resume tomorrow. full anticoag needs post surgical needs. Endocrine: ssi f/u. lantus adjusted. Musculoskeletal: oob; pt. Psych/Social: pt expressed understanding Supportive and preventative care as ordered. SUP: H2 with tpn VTE prophylaxis: lovenox Disposition: ICU Code Status: Full Critical Care Time: 25min Arcadio Christopher DO
[2017-09-30] MEDS ORDERED: Insulin GLARGINE(*) 1 UNITS UNIT SUBCUT ONE (12:00)
--- NOTE | 2017-09-30 15:13 | CONS ---
CONSULTATION REPORT: DATE OF CONSULT: 09/24/17 REQUESTING PHYSICIAN: ICU physician. INDICATION: Zenker's diverticulum. HISTORY OF PRESENT ILLNESS: Mr. Richey is a 77-year-old gentleman with a history of diabetes, hypertension, atrial fibrillation, who presented with aspiration pneumonia and was admitted on the 09/13/17. He has had a long complicated course. He is now in the intensive care unit. He has required bilateral chest tubes. He was found to have a very large Zenker's diverticulum. Reportedly, the patient has known about this for many years and has declined any surgical intervention. Currently, he is on high flow oxygen and the question is whether or not his Zenker's diverticulum is contributing to his aspiration pneumonia. The patient pretty much chokes on anything he eats or drinks. I did have a long discussion with the patient's son in the room with the patient present. He also had a speech and swallow evaluation. PAST MEDICAL HISTORY: Please see the HPI. PAST SURGICAL HISTORY: Include cataract surgery. MEDICATIONS: Upon admission include: 1. Glipizide. 2. Allopurinol. 3. Vitamin B12. 4. Lisinopril. 5. Magnesium. 6. Xarelto. 7. Amlodipine. ALLERGIES: None. FAMILY HISTORY: Coronary artery disease and pancreatitis. SOCIAL HISTORY: The patient's son states that he does not smoke or drink alcohol. REVIEW OF SYSTEMS: Please see the HPI, otherwise 12 systems were reviewed and were unremarkable. PHYSICAL EXAM: Temperature is 97.4, blood pressure is 133/65, O2 sat is 99% on high flow oxygen, pulse is 86. General: Chronically ill-appearing male, alert , fluent, pleasant. HEENT: Mucous membranes are dry without lesions, ulcers, or exudate. Lungs: Coarse breath sounds bilaterally, diminished breath sounds bilaterally. Bilateral chest tubes. Heart: Irregular rate and rhythm. Abdomen: Positive bowel sounds, soft, obese, nontender, and nondistended. DIAGNOSTIC STUDIES/LAB DATA: Of note, his white count is 28.3, hemoglobin is 10.1, platelets of 310, glucose 183, BUN 27. He does have speech and swallow evaluation and a chest CT, which shows a very large Zenker's diverticulum. ASSESSMENT AND PLAN: This pleasant 77-year-old gentleman with multiple medical comorbidities, who continues to have aspiration pneumonia likely from aspiration from a Zenker's diverticulum. at this point, the question is whether or not to repair the Zenker's diverticulum. From a GI standpoint, there is nothing we can offer to repair it. Sometimes, the ears, nose, and throat doctors are able to staple across it. I think it is worthwhile having the ENT surgeon see the patient. Unfortunately, his lungs are in absolutely terrible condition. He is very high risk for any type of procedure. I do not think that an endoscopy is going to benefit him at all. I think even trying to place a Corpak or NG, or feeding tube is going to be very difficult and I would not recommend it. I would not recommend an endoscopy at this point. He may be best served by TPN. I do not think that interventional radiology could either place a PEG tube, as they would have to place the Corpak and I think anytime his upper esophageal sphincter is attempted to be intubated whatever is used will go directly into the extremely large Zenker's. Unfortunately, there is not much for GI to offer at this point, but are available for any further questions. [id number]/[facility] #: [id number] JAIR
[2017-09-30] MEDS ORDERED: Lidocaine 2% PF * 5 ML VIAL ONE (16:43)
[2017-09-30] MEDS ORDERED: Rocuronium* 10 MG/ML VIAL ONE (16:44)
[2017-09-30] MEDS ORDERED: Propofol* 10 MG/ML 20 ML BTL IV PUSH ONE (16:46)
[2017-09-30] MEDS: TPN* 24 HR with Dextrose 50% Water* 500 ML, Amino Acid Infusion 10%* 850 ML, Sterile Wa... CENTR SCH ×12 (16:58)
[2017-09-30] MEDS: Piperacillin/Tazobactam 13.5 GM IV 24 hour continuous infusion IVPB SCH ×2 (16:58)
[2017-09-30] MEDS ORDERED: fentaNYL* 50 MCG/ML 2 ML VIAL (100 MCG VIAL) ONE (17:28)
[2017-09-30] MEDS ORDERED: Midazolam* 1 MG/ML 2 ML VIAL (2 MG) ONE (18:15)
[2017-09-30] MEDS ORDERED: Propofol* 100 ML ONE (18:47)
[2017-09-30] MEDS: Propofol* 100 ML IV SCH (19:00)
--- NOTE | 2017-09-30 19:10 | RAD ---
INDICATION: Postintubation COMPARISON: Most recent comparison chest x-ray September 24, 2017 TECHNIQUE: Single AP portable view of the chest was obtained. FINDINGS: Image quality is compromised due to the relative inferiority of a portable chest x-ray. There is been interval placement of an endotracheal tube with the tip terminating 3 cm above the elif. The right-sided chest tube remains in position with the tip terminating over the medial right upper lung. The heart and mediastinum exhibit normal size and contour. The lungs continue to exhibit patchy density bilaterally but the aeration appears improved when compared to the most recent chest x-ray. There is persistent bibasilar costophrenic angle blunting. Visualized bones are normal for the patient's age. IMPRESSION: 1. Interval placement of an endotracheal tube with the tip terminating about 3 cm above the elif. 2. Relative to the most recent September 24, 2017 chest x-ray there is been mild improvement in the degree of aeration.
[2017-09-30] MEDS: Chlorhexidine MOUTHWASH 0.12%* 15 ML UDC TOPICAL SCH (22:54)
[2017-10-01] MEDS: Propofol* 100 ML IV SCH (00:03)
[2017-10-01] MEDS: Insulin LISPRO* 1 UNITS UNIT SUBCUT SCH ×7 (00:25→23:55)
--- NOTE | 2017-10-01 02:40 | OP ---
DATE OF OPERATION: 09/30/17 - ROOM #ICU-09 DATE OF : 36 SURGEON: Darryl Sims MD ASSOCIATE PROFESSOR OF PHILOSOPHY: None. ANESTHESIA: General. PRE-OP DIAGNOSIS: Zenker's diverticulum. POST-OP DIAGNOSIS: Zenker's diverticulum. OPERATIVE PROCEDURE: Endoscopic stapling of Zenker's diverticulum. ESTIMATED BLOOD LOSS: Negligible. FINDINGS: Large Zenker's diverticulum filled with barium and other particulates. INDICATION: This is a 77-year-old male who was admitted with aspiration pneumonia secondary to Zenker's diverticulum. He ultimately was stabilized from his pulmonary standpoint and the decision was made to proceed with endoscopic stapling. DESCRIPTION OF PROCEDURE: On 09/30/17, the patient was brought to the operating room, general anesthesia was induced and an oral endotracheal tube was placed. The table was turned. The patient was draped and the time-out was performed. A bivalve laryngoscope was used to facilitate exposure to the proximal esophagus. Ultimately, the true esophageal lumen was identified, an OG tube was passed through this and position in the stomach was confirmed, both by aspirating stomach gastric juices as well as listening over the abdomen when air was insufflated. An EndoGIA stapler was then brought into the field. It was placed across the republican wall. It was fired. The area was then inspected with a 0 degree urologic scope. It appeared that there was some more republican wall that could be taken down and so a second firing was performed. Once the entire republican wall was taken down, the procedure was terminated. The orogastric tube was removed, and the patient was then transferred to the ICU bed where he was kept intubated overnight in the ICU. [id number]/[facility] #: [id number] [facility]QUARE HOSPITALGigi
[2017-10-01] MEDS: GuaiFENesin DM* 5 ML UDC PO SCH ×4 (03:27→17:57)
[2017-10-01] MEDS: Chlorhexidine MOUTHWASH 0.12%* 15 ML UDC TOPICAL SCH ×3 (03:30→11:33)
[2017-10-01] MEDS ORDERED: Pantoprazole IV* 40 MG IV SCH (07:30)
[2017-10-01 08:19] LABS: Hematocrit 30 % (42-52); Hemoglobin 9.6 g/dl (14.0-18.0); Mean Corpuscular HGB Conc 33 g/dl (31-36); Mean Corpuscular Hemoglobin 27 pg (27-31); Mean Corpuscular Volume 81 fL (80-94); Mean Platelet Volume 8 um3 (7.4-10.4); Platelet Count 259 10^3/ul (150-450); Red Blood Count 3.62 10^6/ul (4.0-5.4); Red Cell Distribution Width 16 % (10.5-15); White Blood Count 10.9 10^3/ul (3.5-10.8)
[2017-10-01 08:32] LABS: EGFR Non-African American 74.7 (>60)
[2017-10-01 09:20] LABS: Monocytes % 4 % (0-13)
--- NOTE | 2017-10-01 09:57 | PN ---
Progress Note - Progress Note Date of Service: 10/01/17 Note: S/P right Vats for empyema On vent s/p Zenkers repair. Right chest tube 275 ml (75/24 hr) No air leak, still large fluctuation. Right breast mass about 3 cm, unchanged from previous. Likely benign sebaceous cyst, but will arrange FNA to prove. Vent, abx, nutrition per gameroom technician FNA by Dr Dorsey, I D/W him. Keep chest tube at present
[2017-10-01] MEDS: Enoxaparin(*) 40 MG/0.4 ML SYR SUBCUT SCH (10:06)
--- NOTE | 2017-10-01 11:04 | PN ---
Progress Note - Progress Note Date of Service: 10/01/17 Note: CRITICAL CARE MEDICINE Date: 10/01/2017 Time: 915 SUBJECTIVE: Patient seen and examined. PHYSICAL EXAM: Vital Signs: Reviewed. 30%, cmv. Neurologic: communicating. rass -1 HEENT: pupils equal. Sclera anicteric. Cardiovascular: S1 S2 distant Respiratory: coarse bl; less rhonchi but there. ct ok. ett in place Abdomen: Soft, nt. No r/g/r. Extremities: Warm. dep edema better. Access: picc LABS: Reviewed. IMAGING: Reviewed. MEDICATIONS: Reviewed. ASSESSMENT: 77 M Emphysema s/p Right VATS and left chest tube for fibrinolytic tx; with continued ct. Recurrent aspiration pneumonitis Acute hypoxic resp failure large zenker divertic s/p clipping Malnutrition mod degree PAF - anticoag held for procedures DM, uncontrolled HTN Deconditioning Stage II decub PLAN: Neurologic: stable; off propofol. denies pain Cardiovascular: Perfusing. vol status ok. on tpn. Respiratory: gisele ppv and benefits for what it was worth overnight. liberate back to nc today. Gastrointestinal: TPN adjusted. sup. swallow eval tomorrow and potential clears tomorrow Renal/Metabolic: stable. lytes ok Infectious Disease: on zosyn; ID following Hematology: lovenox sq. soft tissue bx planned via surg Endocrine: ssi. lantus adjusted. Musculoskeletal: oob; pt reconsult Psych/Social: pt expressed understanding of plans Supportive and preventative care as ordered. SUP: H2 with tpn VTE prophylaxis: lovenox Disposition: ICU Code Status: Full Critical Care Time: 35min Arcadio Christopher DO
[2017-10-01] MEDS: HYDROmorphone INJ* 2 MG/ML CARPUJECT SYRINGE IV SLOW PU PRN ×6 (11:24→22:49)
[2017-10-01] MEDS ORDERED: Insulin GLARGINE(*) 1 UNITS UNIT SUBCUT ONE (12:00)
[2017-10-01] MEDS: Piperacillin/Tazobactam 13.5 GM IV 24 hour continuous infusion IVPB SCH ×2 (15:38)
[2017-10-01] MEDS: AMINO ACID INFUSION CENTR SCH ×12 (16:30)
[2017-10-01] MEDS: [UNRECOGNIZED DRUG - OTHER] CENTR SCH ×12 (16:30)
[2017-10-01] MEDS: WATER CENTR SCH ×12 (16:30)
[2017-10-01] MEDS: DEXTROSE CENTR SCH ×12 (16:30)
[2017-10-01] MEDS: TPN CENTR SCH ×12 (16:30)
[2017-10-02] MEDS: GuaiFENesin DM* 5 ML UDC PO SCH ×4 (00:29→18:13)
[2017-10-02] MEDS: HYDROmorphone INJ* 2 MG/ML CARPUJECT SYRINGE IV PRN ×7 (02:05→21:59)
[2017-10-02] MEDS: Insulin LISPRO* 1 UNITS UNIT SUBCUT SCH ×5 (04:35→22:18)
[2017-10-02 06:47] LABS: EGFR Non-African American 79.4 (>60)
[2017-10-02 06:55] LABS: Hematocrit 29 % (42-52); Hemoglobin 9.1 g/dl (14.0-18.0); Mean Corpuscular HGB Conc 32 g/dl (31-36); Mean Corpuscular Hemoglobin 26 pg (27-31); Mean Corpuscular Volume 82 fL (80-94); Mean Platelet Volume 9 um3 (7.4-10.4); Platelet Count 261 10^3/ul (150-450); Red Blood Count 3.53 10^6/ul (4.0-5.4); Red Cell Distribution Width 16 % (10.5-15); White Blood Count 10.7 10^3/ul (3.5-10.8)
[2017-10-02] MEDS: Enoxaparin(*) 40 MG/0.4 ML SYR SUBCUT SCH (07:57)
--- NOTE | 2017-10-02 08:14 | PN ---
Progress Note - Progress Note Date of Service: 10/02/17 SOAP: Subjective:s/p Right VATS for empyema 09/18/17 [] Objective:afeb,VSS,extubated s/p zenker's repair,O2 sat 98%;R chest tube level 340(65ml/24h) [] Assessment:no air leak [] Plan:continue chest tube abx diet recommendations per ENT;nutrition per music producer []
--- NOTE | 2017-10-02 09:37 | PN ---
Progress Note - Progress Note Date of Service: 10/02/17 Note: CRITICAL CARE MEDICINE Date: 10/02/2017 Time: 920 SUBJECTIVE: Patient seen and examined. PHYSICAL EXAM: Vital Signs: Reviewed. 6L Neurologic: communicating well. HEENT: pupils equal. Sclera anicteric. Cardiovascular: S1 S2 distant Respiratory: coarse but fairly well; better patten. nonlabored. ct Abdomen: Soft, nt. No r/g/r. Extremities: Warm. dep edema improving Access: picc LABS: Reviewed. IMAGING: Reviewed. MEDICATIONS: Reviewed. ASSESSMENT: 77 M Emphysema s/p Right VATS and chest tube. Recurrent aspiration pneumonitis Acute hypoxic resp failure large zenker divertic s/p clipping 09/30 Malnutrition mod degree PAF - anticoag held for procedures - look to resume soon DM, uncontrolled HTN Deconditioning Stage II decub PLAN: Neurologic: stable Cardiovascular: Perfusing. vol status ok. Respiratory: gisele well. IS. oob. chest tube f/u per surg. Gastrointestinal: TPN adjusted. sup. swallow eval today and possible clears. go slow Renal/Metabolic: stable. lytes ok. bun up post lasix. Infectious Disease: on zosyn; ID following Hematology: lovenox sq. soft tissue bx and then consider resumption of his full anticoag needs Endocrine: ssi. lantus adjusted. Musculoskeletal: oob; pt Psych/Social: pt expressed understanding of plans Supportive and preventative care as ordered. SUP: H2 with tpn VTE prophylaxis: lovenox prophylaxis currently Disposition: ICU Code Status: Full Critical Care Time: 25min Arcadio Christopher DO
[2017-10-02] MEDS: Insulin GLARGINE(*) 1 UNITS UNIT SUBCUT SCH (10:33)
[2017-10-02] MEDS: Allopurinol TAB* 300 MG PO SCH (13:20)
[2017-10-02] MEDS: Lisinopril TAB* 10 MG PO SCH (13:21)
[2017-10-02] MEDS: [UNRECOGNIZED DRUG - OTHER] CENTR SCH ×12 (18:09)
[2017-10-02] MEDS: WATER CENTR SCH ×12 (18:09)
[2017-10-02] MEDS: TPN CENTR SCH ×12 (18:09)
[2017-10-02] MEDS: AMINO ACID INFUSION CENTR SCH ×12 (18:09)
[2017-10-02] MEDS: DEXTROSE CENTR SCH ×12 (18:09)
[2017-10-02] MEDS: ZOSYN 3.375 GM Q8H per EXTENDED INFUSION IVPB SCH ×2 (18:23)
[2017-10-03] MEDS: HYDROmorphone INJ* 2 MG/ML CARPUJECT SYRINGE IV PRN ×8 (01:05→23:50)
[2017-10-03] MEDS: GuaiFENesin DM* 5 ML UDC PO SCH ×4 (01:05→21:05)
[2017-10-03] MEDS: ZOSYN 3.375 GM Q8H per EXTENDED INFUSION IVPB SCH ×6 (03:10→17:57)
[2017-10-03] MEDS: Insulin LISPRO* 1 UNITS UNIT SUBCUT SCH ×4 (04:08→22:35)
[2017-10-03] MEDS: Enoxaparin(*) 40 MG/0.4 ML SYR SUBCUT SCH (09:59)
[2017-10-03] MEDS: Insulin GLARGINE(*) 1 UNITS UNIT SUBCUT SCH (10:00)
--- NOTE | 2017-10-03 12:35 | PN ---
Subjective Date of Service: 10/03/17 Interval History: Pt is feeling about the same. He continues to intermittently cough up sputum that is creamy with blood streaks. He denies significant SOB at rest but does state when he gets rolled around in bed he becomes SOB. He denies any diarrhea. He does not like thickened liquids and is resistant to taking liquids that are thickened. Objective Active Medications: Albuterol (Ventolin 2.5 Mg/3 Ml Neb.Dina*) 2.5 mg INH Q4H PRN PRN Reason: SOB/WHEEZING Last Admin: 09/29/17 12:03 Dose: 2.5 mg Dextrose (D50w Syringe 50 Ml*) 12.5 gm IV PUSH .FOR FS < 60 - SS PRN PRN Reason: FS < 60 Enoxaparin Sodium (Lovenox(*)) 40 mg SUBCUT Q24H [facility] [place] Last Admin: 10/03/17 09:59 Dose: 40 mg Guaifenesin/Dextromethorphan (Robitussin Dm*) 10 ml PO Q6H [facility] [place] Last Admin: 10/03/17 06:15 Dose: Not Given Heparin Sodium (Porcine) (Heparin Flush Picc/Ml/Cvc(*)) 0 ml FLUSH 0600,1800 [facility] [place] PRN Reason: Protocol Last Admin: 10/03/17 06:18 Dose: 1 ml Hydromorphone HCl (Dilaudid Inj*) 1 mg IV Q3H PRN PRN Reason: PAIN Last Admin: 10/03/17 11:25 Dose: 1 mg Dextrose 500 ml/ Amino Acids 1 ,000 ml/ Fat Emulsion Intravenous 250 ml/ Sodium Chloride 75 meq/ Potassium Chloride 80 meq/ Potassium Phosphate 15 mmole/ Calcium Gluconate 15 meq/ Magnesium Sulfate 10 meq/ Multivitamins 10 ml/ Trace Metals 1 ml/Famotidine 20 mg/ Nutrition ( Parenteral) 1,861.471 mls @ 77.5 mls/ hr CENTR 1700 [facility] [place] Last Admin: 10/02/17 18:09 Dose: 77.5 mls/hr Piperacillin Sod/Tazobactam (Sod 3.375 gm/ Sodium Chloride) 100 mls @ 25 mls/ hr IVPB Q8H [facility] [place] Last Admin: 10/03/17 11:26 Dose: 25 mls/hr Insulin Glargine (Lantus(*)) 80 units SUBCUT Q24H [facility] Last Admin: 10/03/17 10:00 Dose: 80 units Insulin Human Lispro (Humalog*) 0 units SUBCUT Q6H [facility] PRN Reason: Protocol Last Admin: 10/03/17 09:59 Dose: 6 units Metoprolol Tartrate (Lopressor Iv*) 5 mg IV Q6H PRN PRN Reason: BLOOD PRESSURE Last Admin: 09/27/17 19:33 Dose: 5 mg Ondansetron HCl (Zofran Inj*) 4 mg IV Q6H PRN PRN Reason: NAUSEA Last Admin: 09/22/17 09:39 Dose: 4 mg Vital Signs - 8 hr 10/03/17 10/03/17 10/03/17 04:27 05:11 07:24 Temperature 97.9 F 97.3 F Pulse Rate 66 66 Respiratory 16 18 20 Rate Blood Pressure 153/49 154/54 (mmHg) O2 Sat by Pulse 99 97 Oximetry 10/03/17 10/03/17 10/03/17 07:25 08:00 08:50 Temperature Pulse Rate Respiratory 20 20 19 Rate Blood Pressure (mmHg) O2 Sat by Pulse Oximetry 10/03/17 11:25 Temperature Pulse Rate Respiratory 18 Rate Blood Pressure (mmHg) O2 Sat by Pulse Oximetry Oxygen Devices in Use Now: Nasal Cannula Appearance: Elderly male sitting up in a chair, NAD Eyes: No Scleral Icterus Ears/Nose/Mouth/Throat: Mucous Membranes Moist Respiratory: Symmetrical Chest Expansion and Respiratory Effort, - - coarse ronchi in lower lobes, upper lobes sound clear Cardiovascular: NL Sounds; No Murmurs; No JVD, RRR, No Edema Abdominal: NL Sounds; No Tenderness; No Distention Extremities: No Clubbing, Cyanosis Skin: No Nodules or Sclerosis Neurological: Alert and Oriented x 3 Result Diagrams: 10/02/17 06:18 10/02/17 06:18 Additional Lab and Data: Laboratory Results - last 24 hr 09/17/17 09/17/17 09/17/17 05:20 05:20 08:14 WBC 22.1 H RBC 4.54 Hgb 12.1 L Hct 38 L MCV 83 MCH 27 MCHC 32 RDW 16 H Plt Count 330 MPV 8 Neut % (Auto) 91.1 H Lymph % (Auto) 3.9 L [place] % (Auto) 4.4 Eos % (Auto) 0.4 Baso % (Auto) 0.2 Absolute Neuts (auto) 20.1 H Absolute Lymphs (auto) 0.9 L Absolute Monos (auto) 1.0 H Absolute Eos (auto) 0.1 Absolute Basos (auto) 0 Absolute Nucleated RBC 0 Nucleated RBC % 0 Sodium 142 Potassium 4.2 Chloride 110 Carbon Dioxide 26 Anion Gap 6 BUN 18 Creatinine 0.65 L Est GFR ( Amer) 152.4 Est GFR (Non-Af Amer) 118.5 BUN/Creatinine Ratio 27.7 H Glucose 226 H POC Glucose (mg/dL) 262 H Calcium 8.4 L Magnesium 2.2 09/17/17 09/17/17 14:02 16:54 WBC RBC Hgb Hct MCV MCH MCHC RDW Plt Count MPV Neut % (Auto) Lymph % (Auto) [place] % (Auto) Eos % (Auto) Baso % (Auto) Absolute Neuts (auto) Absolute Lymphs (auto) Absolute Monos (auto) Absolute Eos (auto) Absolute Basos (auto) Absolute Nucleated RBC Nucleated RBC % Sodium Potassium Chloride Carbon Dioxide Anion Gap BUN Creatinine Est GFR ( Amer) Est GFR (Non-Af Amer) BUN/Creatinine Ratio Glucose POC Glucose (mg/dL) 216 H 286 H Calcium Magnesium Microbiology and Other Data: Microbiology 09/13/17 15:19 Blood Venous Aerobic Blood Culture - Preliminary No Growth Day 4 09/13/17 15:19 Blood Venous Anaerobic Blood Culture - Preliminary No Growth Day 4 09/13/17 15:10 Blood Venous Aerobic Blood Culture - Preliminary No Growth Day 4 09/13/17 15:10 Blood Venous Anaerobic Blood Culture - Preliminary No Growth Day 4 09/15/17 14:33 Pleural Fluid Gram Stain - Final 09/15/17 14:33 Pleural Fluid Body Fluid Culture - Preliminary No Growth Day 2 09/14/17 13:30 Pleural Fluid Gram Stain - Final 09/14/17 13:30 Pleural Fluid Body Fluid Culture - Preliminary Streptococcus Pneumoniae 09/16/17 03:37 Nasal Nasal Screen MRSA (PCR)(MACARENA) - Final Mrsa Negative 09/15/17 17:05 Urine Legionella Urinary Antigen - Final Negative Legionella 09/15/17 17:05 Urine Streptococcus pneumoniae Ag Screen - Final Negative S. pneumo Antigen 09/13/17 23:00 Sputum Expectorated Gram Stain - Final 09/13/17 23:00 Sputum Expectorated Sputum Culture - Final YEAST 09/14/17 10:30 Nasal Nasal Screen MRSA (PCR)(MACARENA) - Final Mrsa Negative Assess/Plan/Problems-Billing Mr Richey is a 77 yo M who has a PMHx significant for NIDDM, HTN and Afib (on Xarelto) who presented to the ER with 3 weeks of SOB, 1 week productive cough and was admitted for bilateral pneumonia with empyema. - Patient Problems (1) Acute respiratory failure with hypoxia Current Visit: Yes Status: Acute Code(s): J96.01 - ACUTE RESPIRATORY FAILURE WITH HYPOXIA SNOMED Code(s): 96422814 Comment: Present on admission secondary to bilateral pneumococcal pneumonia with bilateral empyema +/- aspiration pneumonitis secondary to zenker's diverticulum. The patient is now down to 3L supplemental O2. (2) Empyema Current Visit: Yes Status: Acute Code(s): J86.9 - PYOTHORAX WITHOUT FISTULA SNOMED Code(s): 911862518 Comment: On presentation to the hospital the patient was diagnsosed with bilateral pneumonia and likely empyemas. He had a L chest tube, now removed, and a VATS on the R with the chest tube still in place. Continue IV Abx therapy x [address] Wallace. Will need to decide on which abx to continue however -for now continue zosyn. (3) Zenker diverticulum Current Visit: Yes Status: Acute Code(s): K22.5 - DIVERTICULUM OF ESOPHAGUS , ACQUIRED SNOMED Code(s): 604844745 Comment: The patient is now s/p clipping of the zenker diverticulum. Advance slowly per ENT recommendations. It is thought the diverticulum was likely leading to recurrent aspiration. (4) Malnutrition of moderate degree Current Visit: Yes Status: Acute Code(s): E44.0 - MODERATE PROTEIN-CALORIE MALNUTRITION SNOMED Code(s): 518769723 Comment: Continue TPN for now. Continue clear liquid diet (nectar thick) x48hr then full liquids x48hr then soft x 48hr then regular x48hr. (5) Diabetes mellitus Current Visit: Yes Status: Acute Code(s): E11.9 - TYPE 2 DIABETES MELLITUS WITHOUT COMPLICATIONS SNOMED Code(s): 07849874 Comment: While on TPN will continue lantus as his sugars are under decent control, but at home he only takes glipizide 20mg BID. We do not have a recent A1c in the hospital labs. (6) Urinary retention Current Visit: Yes Status: Acute Code(s): R33.9 - RETENTION OF URINE, UNSPECIFIED SNOMED Code(s): 442961124 Comment: Keep calvo in place as he had >3L of urine in his bladder when the calvo was placed. He will need to follow up with urology as an outpatient. (7) Paroxysmal A-fib Current Visit: Yes Status: Acute Code(s): I48.0 - PAROXYSMAL ATRIAL FIBRILLATION SNOMED Code(s): 428499971 Comment: Xarelto remain on hold due to numerous procedures this hospitalization. Once his chest tube is removed I suspect it can be resumed. His HR is regular today. Will continue prn metoprolol. (8) HTN (hypertension) Current Visit: Yes Status: Acute Code(s): I10 - ESSENTIAL (PRIMARY) HYPERTENSION SNOMED Code(s): 83785088 Comment: BP is under fair control off his usual home medications. Continue to monitor. (9) DVT prophylaxis Current Visit: Yes Status: Acute Code(s): WTG7347 - SNOMED Code(s): 704893791 Comment: lovenox for now-will need to determine when to restart xarelto (10) Full code status Current Visit: Yes Status: Acute Code(s): Z78.9 - OTHER SPECIFIED HEALTH STATUS SNOMED Code(s): 892697461 Status and Disposition: .
[2017-10-03] MEDS: [UNRECOGNIZED DRUG - OTHER] CENTR SCH ×12 (17:32)
[2017-10-03] MEDS: AMINO ACID INFUSION CENTR SCH ×12 (17:32)
[2017-10-03] MEDS: DEXTROSE CENTR SCH ×12 (17:32)
[2017-10-03] MEDS: WATER CENTR SCH ×12 (17:32)
[2017-10-03] MEDS: TPN CENTR SCH ×12 (17:32)
[2017-10-04] MEDS: GuaiFENesin DM* 5 ML UDC PO SCH ×4 (01:03→17:48)
[2017-10-04] MEDS: HYDROmorphone INJ* 2 MG/ML CARPUJECT SYRINGE IV PRN ×6 (02:57→22:46)
[2017-10-04] MEDS: ZOSYN 3.375 GM Q8H per EXTENDED INFUSION IVPB SCH ×6 (03:03→18:01)
[2017-10-04] MEDS: Insulin LISPRO* 1 UNITS UNIT SUBCUT SCH ×4 (05:19→22:48)
[2017-10-04] MEDS: Albuterol 2.5 MG/3 ML NEB.SOL* (0.083%) INH PRN (06:55)
[2017-10-04] MEDS: Enoxaparin(*) 40 MG/0.4 ML SYR SUBCUT SCH (08:32)
--- NOTE | 2017-10-04 10:24 | PN ---
Progress Note - Progress Note Date of Service: 10/04/17 SOAP: Subjective: C/o chest tube, "was only supposed to be in 3 days." Breathing OK. Objective: Vital Signs Temp 98.0 F 10/04/17 07:51 Pulse 65 10/04/17 07:51 Resp 22 10/04/17 08:30 BP 157/51 10/04/17 07:51 Pulse Ox 96 10/04/17 07:51 Right chest tube intact with 100ml/28h Intake & Output 10/03/17 10/04/17 10/04/17 18:59 06:59 18:59 Intake Total 2770 258 Output Total 850 1428 Balance 1920 -1170 Intake: IV Fluids 45 22 ABX - ZOSYN 25 NS (0.9%) 20 22 IVPB 100 116 ABX - ZOSYN 100 116 TPN/PPN 1735 Oral 890 120 Output: Chest Tube #1 0 78 Pink 850 1350 Other: Estimated Stool Amount Large Medium Large Laboratory Results - last 24 hr 10/03/17 10/03/17 10/03/17 09:51 16:15 22:30 POC Glucose (mg/dL) 201 H 195 H 181 H 10/04/17 05:10 POC Glucose (mg/dL) 199 H Assessment: s/p VATS Plan: Cont CT to H20 seal. Likely removal in next few days.
[2017-10-04] MEDS: Insulin GLARGINE(*) 1 UNITS UNIT SUBCUT SCH ×2 (10:47→22:49)
--- NOTE | 2017-10-04 11:16 | PN ---
Subjective Date of Service: 10/04/17 Interval History: Pt is feeling about the same today. Nursing notes that the patient has liquid stool just oozing out of his bottom constantly. He denies any SOB while sitting upright but does note SOB when being turned and positioned. He is frustrated that the R chest tube has not been removed yet. Objective Active Medications: Albuterol (Ventolin 2.5 Mg/3 Ml Neb.Dina*) 2.5 mg INH Q4H PRN PRN Reason: SOB/WHEEZING Last Admin: 10/04/17 06:55 Dose: 2.5 mg Dextrose (D50w Syringe 50 Ml*) 12.5 gm IV PUSH .FOR FS < 60 - SS PRN PRN Reason: FS < 60 Enoxaparin Sodium (Lovenox(*)) 40 mg SUBCUT Q24H [facility] Last Admin: 10/04/17 08:32 Dose: 40 mg Guaifenesin/Dextromethorphan (Robitussin Dm*) 10 ml PO Q6H [facility] Last Admin: 10/04/17 06:23 Dose: Not Given Heparin Sodium (Porcine) (Heparin Flush Picc/Ml/Cvc(*)) 0 ml FLUSH 0600,1800 [facility] PRN Reason: Protocol Last Admin: 10/04/17 06:29 Dose: 1 ml Hydromorphone HCl (Dilaudid Inj*) 1 mg IV Q3H PRN PRN Reason: PAIN Last Admin: 10/04/17 08:28 Dose: 1 mg Dextrose 500 ml/ Amino Acids 1 ,000 ml/ Fat Emulsion Intravenous 250 ml/ Sodium Chloride 75 meq/ Potassium Chloride 80 meq/ Potassium Phosphate 15 mmole/ Calcium Gluconate 15 meq/ Magnesium Sulfate 10 meq/ Multivitamins 10 ml/ Trace Metals 1 ml/Famotidine 20 mg/ Nutrition ( Parenteral) 1,861.471 mls @ 77.5 mls/ hr CENTR 1700 [facility] Last Admin: 10/03/17 17:32 Dose: 77.5 mls/hr Piperacillin Sod/Tazobactam (Sod 3.375 gm/ Sodium Chloride) 100 mls @ 25 mls/ hr IVPB Q8H [facility] Last Admin: 10/04/17 10:47 Dose: 25 mls/hr Insulin Glargine (Lantus(*)) 10 units SUBCUT BEDTIME [facility] Insulin Glargine (Lantus(*)) 80 units SUBCUT 0900 [facility] Insulin Human Lispro (Humalog*) 0 units SUBCUT Q6H [facility] PRN Reason: Protocol Last Admin: 10/04/17 10:45 Dose: 6 units Ondansetron HCl (Zofran Inj*) 4 mg IV Q6H PRN PRN Reason: NAUSEA Last Admin: 09/22/17 09:39 Dose: 4 mg Vital Signs - 8 hr 10/04/17 10/04/17 10/04/17 03:42 04:00 04:10 Temperature 98.2 F Pulse Rate 64 Respiratory 20 24 Rate Blood Pressure 156/58 (mmHg) O2 Sat by Pulse 98 100 Oximetry 10/04/17 10/04/17 10/04/17 07:51 08:28 08:30 Temperature 98.0 F Pulse Rate 65 Respiratory 24 22 22 Rate Blood Pressure 157/51 (mmHg) O2 Sat by Pulse 96 Oximetry 10/04/17 09:30 Temperature Pulse Rate Respiratory 16 Rate Blood Pressure (mmHg) O2 Sat by Pulse Oximetry Oxygen Devices in Use Now: Nasal Cannula Appearance: Elderly male sitting up in bed, NAD Eyes: No Scleral Icterus Ears/Nose/Mouth/Throat: Mucous Membranes Moist Respiratory: Symmetrical Chest Expansion and Respiratory Effort, Clear to Auscultation - with coarse ronchi at the bases Cardiovascular: NL Sounds; No Murmurs; No JVD, RRR, No Edema Abdominal: - - hyperactive bowel sounds, soft, NT, ND Extremities: No Clubbing, Cyanosis Skin: No Nodules or Sclerosis, - - shearing wounds noted to both buttocks, yoli cleft and sacrum Neurological: Alert and Oriented x 3 Result Diagrams: 10/02/17 06:18 10/02/17 06:18 Additional Lab and Data: Laboratory Results - last 24 hr 09/17/17 09/17/17 09/17/17 05:20 05:20 08:14 WBC 22.1 H RBC 4.54 Hgb 12.1 L Hct 38 L MCV 83 MCH 27 MCHC 32 RDW 16 H Plt Count 330 MPV 8 Neut % (Auto) 91.1 H Lymph % (Auto) 3.9 L [place] % (Auto) 4.4 Eos % (Auto) 0.4 Baso % (Auto) 0.2 Absolute Neuts (auto) 20.1 H Absolute Lymphs (auto) 0.9 L Absolute Monos (auto) 1.0 H Absolute Eos (auto) 0.1 Absolute Basos (auto) 0 Absolute Nucleated RBC 0 Nucleated RBC % 0 Sodium 142 Potassium 4.2 Chloride 110 Carbon Dioxide 26 Anion Gap 6 BUN 18 Creatinine 0.65 L Est GFR ( Amer) 152.4 Est GFR (Non-Af Amer) 118.5 BUN/Creatinine Ratio 27.7 H Glucose 226 H POC Glucose (mg/dL) 262 H Calcium 8.4 L Magnesium 2.2 09/17/17 09/17/17 14:02 16:54 WBC RBC Hgb Hct MCV MCH MCHC RDW Plt Count MPV Neut % (Auto) Lymph % (Auto) [place] % (Auto) Eos % (Auto) Baso % (Auto) Absolute Neuts (auto) Absolute Lymphs (auto) Absolute Monos (auto) Absolute Eos (auto) Absolute Basos (auto) Absolute Nucleated RBC Nucleated RBC % Sodium Potassium Chloride Carbon Dioxide Anion Gap BUN Creatinine Est GFR ( Amer) Est GFR (Non-Af Amer) BUN/Creatinine Ratio Glucose POC Glucose (mg/dL) 216 H 286 H Calcium Magnesium Microbiology and Other Data: Microbiology 09/13/17 15:19 Blood Venous Aerobic Blood Culture - Preliminary No Growth Day 4 09/13/17 15:19 Blood Venous Anaerobic Blood Culture - Preliminary No Growth Day 4 09/13/17 15:10 Blood Venous Aerobic Blood Culture - Preliminary No Growth Day 4 09/13/17 15:10 Blood Venous Anaerobic Blood Culture - Preliminary No Growth Day 4 09/15/17 14:33 Pleural Fluid Gram Stain - Final 09/15/17 14:33 Pleural Fluid Body Fluid Culture - Preliminary No Growth Day 2 09/14/17 13:30 Pleural Fluid Gram Stain - Final 09/14/17 13:30 Pleural Fluid Body Fluid Culture - Preliminary Streptococcus Pneumoniae 09/16/17 03:37 Nasal Nasal Screen MRSA (PCR)(MACARENA) - Final Mrsa Negative 09/15/17 17:05 Urine Legionella Urinary Antigen - Final Negative Legionella 09/15/17 17:05 Urine Streptococcus pneumoniae Ag Screen - Final Negative S. pneumo Antigen 09/13/17 23:00 Sputum Expectorated Gram Stain - Final 09/13/17 23:00 Sputum Expectorated Sputum Culture - Final YEAST 09/14/17 10:30 Nasal Nasal Screen MRSA (PCR)(MACARENA) - Final Mrsa Negative Assess/Plan/Problems-Billing Mr Richey is a 77 yo M who has a PMHx significant for NIDDM, HTN and Afib (on Xarelto) who presented to the ER with 3 weeks of SOB, 1 week productive cough and was admitted for bilateral pneumonia with empyema. - Patient Problems (1) Acute respiratory failure with hypoxia Current Visit: Yes Status: Acute Code(s): J96.01 - ACUTE RESPIRATORY FAILURE WITH HYPOXIA SNOMED Code(s): 09916401 Comment: Present on admission secondary to bilateral pneumococcal pneumonia with bilateral empyema +/- aspiration pneumonitis secondary to zenker's diverticulum. The patient is now down to 2-3L supplemental O2 with saturations in the mid to high 90's. (2) Empyema Current Visit: Yes Status: Acute Code(s): J86.9 - PYOTHORAX WITHOUT FISTULA SNOMED Code(s): 550635062 Comment: On presentation to the hospital the patient was diagnsosed with bilateral pneumonia and likely empyemas. He had a L chest tube, now removed, and a VATS on the R with the chest tube still in place-~100ml of fluid drained in 28hr. Will need to keep R chest tube in place for now and I have tried to explain to the patient why it needs to stay. He states his pain is controlled well on his current regimen. Continue IV Abx therapy x [address] Wallace. Will need to decide on which abx to continue however-for now continue zosyn. (3) Zenker diverticulum Current Visit: Yes Status: Acute Code(s): K22.5 - DIVERTICULUM OF ESOPHAGUS , ACQUIRED SNOMED Code(s): 399096570 Comment: The patient is now s/p clipping of the zenker diverticulum. Advance slowly per ENT recommendations. It is thought the diverticulum was likely leading to recurrent aspiration. Advance diet to full liquids starting tomorrow. The patient hates the thickened clears-repeat swallow eval to see if he still needs thickened liquids. (4) Malnutrition of moderate degree Current Visit: Yes Status: Acute Code(s): E44.0 - MODERATE PROTEIN-CALORIE MALNUTRITION SNOMED Code(s): 900941425 Comment: Continue TPN for now. Continue clear liquid diet (nectar thick) x48hr then full liquids x48hr then soft x 48hr then regular x48hr. (5) Diabetes mellitus Current Visit: Yes Status: Acute Code(s): E11.9 - TYPE 2 DIABETES MELLITUS WITHOUT COMPLICATIONS SNOMED Code(s): 69991044 Comment: Sugars are now quite elevated. Add lantus 10 units SQ at bedtime. Continue to follow sugars and cover with lispro. (6) Urinary retention Current Visit: Yes Status: Acute Code(s): R33.9 - RETENTION OF URINE, UNSPECIFIED SNOMED Code(s): 762376084 Comment: Keep calvo in place as he had >3L of urine in his bladder when the calvo was placed. He will need to follow up with urology as an outpatient. (7) Paroxysmal A-fib Current Visit: Yes Status: Acute Code(s): I48.0 - PAROXYSMAL ATRIAL FIBRILLATION SNOMED Code(s): 063219937 Comment: Xarelto remain on hold due to numerous procedures this hospitalization. Once his chest tube is removed I suspect it can be resumed. His HR is regular today. Will continue prn metoprolol. (8) HTN (hypertension) Current Visit: Yes Status: Acute Code(s): I10 - ESSENTIAL (PRIMARY) HYPERTENSION SNOMED Code(s): 53640417 Comment: BP is under fair control off his usual home medications. Continue to monitor. (9) DVT prophylaxis Current Visit: Yes Status: Acute Code(s): YBD6838 - SNOMED Code(s): 982786394 Comment: lovenox for now-will need to determine when to restart xarelto (10) Full code status Current Visit: Yes Status: Acute Code(s): Z78.9 - OTHER SPECIFIED HEALTH STATUS SNOMED Code(s): 399460677 Status and Disposition: .
[2017-10-04] MEDS: [UNRECOGNIZED DRUG - OTHER] CENTR SCH ×12 (17:49)
[2017-10-04] MEDS: AMINO ACID INFUSION CENTR SCH ×12 (17:49)
[2017-10-04] MEDS: WATER CENTR SCH ×12 (17:49)
[2017-10-04] MEDS: DEXTROSE CENTR SCH ×12 (17:49)
[2017-10-04] MEDS: TPN CENTR SCH ×12 (17:49)
[2017-10-05] MEDS: GuaiFENesin DM* 5 ML UDC PO SCH ×4 (03:18→19:32)
[2017-10-05] MEDS: ZOSYN 3.375 GM Q8H per EXTENDED INFUSION IVPB SCH ×2 (03:21)
[2017-10-05] MEDS: HYDROmorphone INJ* 2 MG/ML CARPUJECT SYRINGE IV PRN ×6 (03:39→22:15)
[2017-10-05] MEDS: Insulin LISPRO* 1 UNITS UNIT SUBCUT SCH ×4 (04:27→22:11)
[2017-10-05] MEDS ORDERED: Alteplase (CATHFLO)* 2 MG VIAL IV ONE ×3 (05:43→07:00)
[2017-10-05 05:54] LABS: Hematocrit 29 % (42-52); Hemoglobin 9.5 g/dl (14.0-18.0); Mean Corpuscular HGB Conc 33 g/dl (31-36); Mean Corpuscular Hemoglobin 27 pg (27-31); Mean Corpuscular Volume 81 fL (80-94); Mean Platelet Volume 8 um3 (7.4-10.4); Platelet Count 291 10^3/ul (150-450); Red Blood Count 3.54 10^6/ul (4.0-5.4); Red Cell Distribution Width 17 % (10.5-15); White Blood Count 10.4 10^3/ul (3.5-10.8)
[2017-10-05 06:10] LABS: EGFR Non-African American 116.4 (>60)
--- NOTE | 2017-10-05 09:16 | PN ---
Progress Note - Progress Note Date of Service: 10/05/17 Note: S/P right VATS for empyema. Comfortable, breathing well, no dyspnea at rest. CT level 180 ml, serous. No air leak. Hopefully get CT out in the next couple of days.
--- NOTE | 2017-10-05 09:31 | PN ---
Subjective Date of Service: 10/05/17 Interval History: Pt is feeling ok. He continues to have profuse diarrhea. He denies any SOB. No significant pain at the chest tube site. He states he worked with PT today. Objective Active Medications: Albuterol (Ventolin 2.5 Mg/3 Ml Neb.Dina*) 2.5 mg INH Q4H PRN PRN Reason: SOB/WHEEZING Last Admin: 10/04/17 06:55 Dose: 2.5 mg Dextrose (D50w Syringe 50 Ml*) 12.5 gm IV PUSH .FOR FS < 60 - SS PRN PRN Reason: FS < 60 Enoxaparin Sodium (Lovenox(*)) 40 mg SUBCUT Q24H [facility] Last Admin: 10/04/17 08:32 Dose: 40 mg Guaifenesin/Dextromethorphan (Robitussin Dm*) 10 ml PO Q6H [facility] Last Admin: 10/05/17 08:06 Dose: Not Given Heparin Sodium (Porcine) (Heparin Flush Picc/Ml/Cvc(*)) 0 ml FLUSH 0600,1800 [facility] PRN Reason: Protocol Last Admin: 10/05/17 05:13 Dose: 1 ml Hydromorphone HCl (Dilaudid Inj*) 1 mg IV Q3H PRN PRN Reason: PAIN Last Admin: 10/05/17 08:11 Dose: 1 mg Dextrose 500 ml/ Amino Acids 1 ,000 ml/ Fat Emulsion Intravenous 250 ml/ Sodium Chloride 75 meq/ Potassium Chloride 80 meq/ Potassium Phosphate 15 mmole/ Calcium Gluconate 15 meq/ Magnesium Sulfate 10 meq/ Multivitamins 10 ml/ Trace Metals 1 ml/Famotidine 20 mg/ Nutrition ( Parenteral) 1,861.471 mls @ 77.5 mls/ hr CENTR 1700 [facility] Last Admin: 10/04/17 17:49 Dose: 77.5 mls/hr Piperacillin Sod/Tazobactam (Sod 3.375 gm/ Sodium Chloride) 100 mls @ 25 mls/ hr IVPB Q8H [facility] Last Admin: 10/05/17 03:21 Dose: 25 mls/hr Insulin Glargine (Lantus(*)) 10 units SUBCUT BEDTIME [facility] Last Admin: 10/04/17 22:49 Dose: 10 units Insulin Glargine (Lantus(*)) 80 units SUBCUT 0900 [facility] Insulin Human Lispro (Humalog*) 0 units SUBCUT Q6H [facility] PRN Reason: Protocol Last Admin: 10/05/17 04:27 Dose: 2 units Ondansetron HCl (Zofran Inj*) 4 mg IV Q6H PRN PRN Reason: NAUSEA Last Admin: 09/22/17 09:39 Dose: 4 mg Opium Tincture (Opium Tincture*) 6 mg PO QID [facility] Vital Signs - 8 hr 10/05/17 10/05/17 10/05/17 01:51 03:39 03:45 Temperature 98.1 F Pulse Rate 65 Respiratory 22 30 Rate Blood Pressure 171/57 (mmHg) O2 Sat by Pulse 99 97 Oximetry 10/05/17 10/05/17 07:10 08:11 Temperature 97.9 F Pulse Rate 65 Respiratory 20 18 Rate Blood Pressure 156/56 (mmHg) O2 Sat by Pulse 98 Oximetry Oxygen Devices in Use Now: Nasal Cannula Appearance: Elderly male sitting up eating breakfast, NAD Eyes: No Scleral Icterus Ears/Nose/Mouth/Throat: Mucous Membranes Moist Respiratory: Symmetrical Chest Expansion and Respiratory Effort, - - ronchi at bases Cardiovascular: NL Sounds; No Murmurs; No JVD, RRR, No Edema Abdominal: NL Sounds; No Tenderness; No Distention Extremities: No Clubbing, Cyanosis Skin: No Nodules or Sclerosis, - - nurse will contact me at the time of dressing change to inspect the wounds Neurological: Alert and Oriented x 3 Result Diagrams: 10/05/17 05:41 10/05/17 05:41 Additional Lab and Data: Laboratory Results - last 24 hr 09/17/17 09/17/17 09/17/17 05:20 05:20 08:14 WBC 22.1 H RBC 4.54 Hgb 12.1 L Hct 38 L MCV 83 MCH 27 MCHC 32 RDW 16 H Plt Count 330 MPV 8 Neut % (Auto) 91.1 H Lymph % (Auto) 3.9 L [place] % (Auto) 4.4 Eos % (Auto) 0.4 Baso % (Auto) 0.2 Absolute Neuts (auto) 20.1 H Absolute Lymphs (auto) 0.9 L Absolute Monos (auto) 1.0 H Absolute Eos (auto) 0.1 Absolute Basos (auto) 0 Absolute Nucleated RBC 0 Nucleated RBC % 0 Sodium 142 Potassium 4.2 Chloride 110 Carbon Dioxide 26 Anion Gap 6 BUN 18 Creatinine 0.65 L Est GFR ( Amer) 152.4 Est GFR (Non-Af Amer) 118.5 BUN/Creatinine Ratio 27.7 H Glucose 226 H POC Glucose (mg/dL) 262 H Calcium 8.4 L Magnesium 2.2 09/17/17 09/17/17 14:02 16:54 WBC RBC Hgb Hct MCV MCH MCHC RDW Plt Count MPV Neut % (Auto) Lymph % (Auto) [place] % (Auto) Eos % (Auto) Baso % (Auto) Absolute Neuts (auto) Absolute Lymphs (auto) Absolute Monos (auto) Absolute Eos (auto) Absolute Basos (auto) Absolute Nucleated RBC Nucleated RBC % Sodium Potassium Chloride Carbon Dioxide Anion Gap BUN Creatinine Est GFR ( Amer) Est GFR (Non-Af Amer) BUN/Creatinine Ratio Glucose POC Glucose (mg/dL) 216 H 286 H Calcium Magnesium Microbiology and Other Data: Microbiology 09/13/17 15:19 Blood Venous Aerobic Blood Culture - Preliminary No Growth Day 4 09/13/17 15:19 Blood Venous Anaerobic Blood Culture - Preliminary No Growth Day 4 09/13/17 15:10 Blood Venous Aerobic Blood Culture - Preliminary No Growth Day 4 09/13/17 15:10 Blood Venous Anaerobic Blood Culture - Preliminary No Growth Day 4 09/15/17 14:33 Pleural Fluid Gram Stain - Final 09/15/17 14:33 Pleural Fluid Body Fluid Culture - Preliminary No Growth Day 2 09/14/17 13:30 Pleural Fluid Gram Stain - Final 09/14/17 13:30 Pleural Fluid Body Fluid Culture - Preliminary Streptococcus Pneumoniae 09/16/17 03:37 Nasal Nasal Screen MRSA (PCR)(MACARENA) - Final Mrsa Negative 09/15/17 17:05 Urine Legionella Urinary Antigen - Final Negative Legionella 09/15/17 17:05 Urine Streptococcus pneumoniae Ag Screen - Final Negative S. pneumo Antigen 09/13/17 23:00 Sputum Expectorated Gram Stain - Final 09/13/17 23:00 Sputum Expectorated Sputum Culture - Final YEAST 09/14/17 10:30 Nasal Nasal Screen MRSA (PCR)(MACARENA) - Final Mrsa Negative Assess/Plan/Problems-Billing Mr Richey is a 77 yo M who has a PMHx significant for NIDDM, HTN and Afib (on Xarelto) who presented to the ER with 3 weeks of SOB, 1 week productive cough and was admitted for bilateral pneumonia with empyema. - Patient Problems (1) Acute respiratory failure with hypoxia Current Visit: Yes Status: Acute Code(s): J96.01 - ACUTE RESPIRATORY FAILURE WITH HYPOXIA SNOMED Code(s): 04532229 Comment: Present on admission secondary to bilateral pneumococcal pneumonia with bilateral empyema +/- aspiration pneumonitis secondary to zenker's diverticulum. The patient is now down to 2L supplemental O2 with saturations in the mid to high 90's. Wean off O2 today. (2) Empyema Current Visit: Yes Status: Acute Code(s): J86.9 - PYOTHORAX WITHOUT FISTULA SNOMED Code(s): 951153985 Comment: The patient, once taking soft foods, will be changed to ceftriaxone 2g IV daily and clinadmycin orally to complete several more weeks of therapy. Continue chest tube drainage for now. Possibly the chest tube can be removed in the next couple days and he can go to [facility] later this week. (3) Zenker diverticulum Current Visit: Yes Status: Acute Code(s): K22.5 - DIVERTICULUM OF ESOPHAGUS , ACQUIRED SNOMED Code(s): 701868771 Comment: The patient is now s/p clipping of the zenker diverticulum. Advance diet to full liquids today. I believe the patient is still aspirating as when I went in his room this AM he was drinking grape juice that was not thickened and he subsequently coughed very vigorously afterward. Repeat swallow eval is needed. (4) Malnutrition of moderate degree Current Visit: Yes Status: Acute Code(s): E44.0 - MODERATE PROTEIN-CALORIE MALNUTRITION SNOMED Code(s): 789869438 Comment: Continue TPN and advance diet to fulls. Likely stop TPN if pt is able to eat soft foods without difficulty. (5) Diabetes mellitus Current Visit: Yes Status: Acute Code(s): E11.9 - TYPE 2 DIABETES MELLITUS WITHOUT COMPLICATIONS SNOMED Code(s): 10204373 Comment: Sugars have been improved over the last couple checks. Will continue current regimen and monitor the sugars. As he comes off the TPN the amount of lantus needed will likely decrease dramatically. (6) Urinary retention Current Visit: Yes Status: Acute Code(s): R33.9 - RETENTION OF URINE, UNSPECIFIED SNOMED Code(s): 916819840 Comment: Keep calvo in place as he had >3L of urine in his bladder when the calvo was placed. He will need to follow up with urology as an outpatient. (7) Paroxysmal A-fib Current Visit: Yes Status: Acute Code(s): I48.0 - PAROXYSMAL ATRIAL FIBRILLATION SNOMED Code(s): 334782607 Comment: Xarelto remain on hold due to numerous procedures this hospitalization. Once his chest tube is removed I suspect it can be resumed. His HR is regular today. (8) HTN (hypertension) Current Visit: Yes Status: Acute Code(s): I10 - ESSENTIAL (PRIMARY) HYPERTENSION SNOMED Code(s): 45362920 Comment: BP is now elevated will start enalaprilat until taking pills. (9) DVT prophylaxis Current Visit: Yes Status: Acute Code(s): [id number] - SNOMED Code(s): 502721014 Comment: lovenox for now-will need to determine when to restart xarelto (10) Full code status Current Visit: Yes Status: Acute Code(s): Z78.9 - OTHER SPECIFIED HEALTH STATUS SNOMED Code(s): 471362848 Status and Disposition: .
[2017-10-05] MEDS: Insulin GLARGINE(*) 1 UNITS UNIT SUBCUT SCH ×2 (09:41→20:00)
[2017-10-05] MEDS: Enoxaparin(*) 40 MG/0.4 ML SYR SUBCUT SCH (09:41)
--- NOTE | 2017-10-05 10:26 | PN ---
Progress Note - Progress Note Date of Service: 10/05/17 SOAP: Subjective: CC: empyema HPI: 77 yo man with zencker's diverticulum which was repaired here, aspiration, bilateral empyema s/p VATS. Multiple liquid stools per day. No abd pain fever or rash. Objective: Vital Signs Temp 36.6 C 10/05/17 07:10 Pulse 65 10/05/17 07:10 Resp 18 10/05/17 09:51 BP 156/56 10/05/17 07:10 Pulse Ox 98 10/05/17 07:10 Intake & Output 10/04/17 10/05/17 10/05/17 18:59 06:59 18:59 Intake Total 2840 50 320 Output Total 476 1338 Balance 2364 -1288 320 Intake: IV Fluids 175 NS (0.9%) 175 IVPB 220 ABX - ZOSYN 220 TPN/PPN 1795 Oral 650 50 320 Output: Chest Tube #1 26 38 Pink 450 1300 Other: Date of Last Bowel 10/05/17 Movement # Bowel Movements 1 1 Estimated Stool Amount Medium Large Gen:awake, no distress HEENT:MMM Heart:RRR no murmur Lungs: CTA BL Abd:+BS NTND soft Skin: no rash Laboratory Results - last 24 hr 10/04/17 10/04/17 10/04/17 10:28 16:57 22:34 WBC RBC Hgb Hct MCV MCH MCHC RDW Plt Count MPV Sodium Potassium Chloride Carbon Dioxide Anion Gap BUN Creatinine Est GFR ( Amer) Est GFR (Non-Af Amer) BUN/Creatinine Ratio Glucose POC Glucose (mg/dL) 242 H 192 H 143 H Calcium Total Bilirubin AST ALT Alkaline Phosphatase C-Reactive Protein Total Protein Albumin Globulin Albumin/Globulin Ratio 10/05/17 10/05/17 10/05/17 04:20 05:41 05:41 WBC 10.4 RBC 3.54 L Hgb 9.5 L Hct 29 L MCV 81 MCH 27 MCHC 33 RDW 17 H Plt Count 291 MPV 8 Sodium 135 Potassium 4.5 Chloride 111 Carbon Dioxide 22 Anion Gap 2 BUN 20 Creatinine 0.66 L Est GFR ( Amer) 149.7 Est GFR (Non-Af Amer) 116.4 BUN/Creatinine Ratio 30.3 H Glucose 87 POC Glucose (mg/dL) 135 H Calcium 8.5 L Total Bilirubin 0.50 AST 23 ALT 31 Alkaline Phosphatase 85 C-Reactive Protein 90.11 H Total Protein 6.5 Albumin 2.0 L Globulin 4.5 H Albumin/Globulin Ratio 0.4 L 10/05/17 09:56 WBC RBC Hgb Hct MCV MCH MCHC RDW Plt Count MPV Sodium Potassium Chloride Carbon Dioxide Anion Gap BUN Creatinine Est GFR ( Amer) Est GFR (Non-Af Amer) BUN/Creatinine Ratio Glucose POC Glucose (mg/dL) 95 Calcium Total Bilirubin AST ALT Alkaline Phosphatase C-Reactive Protein Total Protein Albumin Globulin Albumin/Globulin Ratio Assessment: 1. empyema s/p vats and chest tube; S. pneumo, could also be anaerobes 2. zencker's diverticulum s/p endoscopic repair 3. obesity 4. aspiration 5. diabetes 6. diarrhea due to zosyn Plan: 1. change zosyn to ceftriaxone day with follow up chest imaging. 25 minutes floor time >50% face to face in counseling regarding antibiotic and follow up imaging plans
[2017-10-05] MEDS: Opium Tincture* 6 MG/0.6 ML ORAL.LIQ SYRINGE PO SCH ×4 (10:32→20:00)
--- NOTE | 2017-10-05 10:49 | PN ---
Progress Note - Progress Note Date of Service: 10/05/17 Note: Buttock wounds inspected as pt was getting cleaned up. Areas of shearing noted but on the medial R buttock there is a stage II-III pressure ulcer. Will get wound care consult. For now continue pressure relieving measures and mepilex over the wound. The patient's frequent loose stools are likely a major impact to wound development. I have started tincture of opium to try to firm up the stools. No evidence of Cdiff.
[2017-10-05] MEDS: cefTRIAXone(*) 2 GM in NS 0.9% 100 ML* 100 ML IVPB SCH (11:34)
[2017-10-05] MEDS: Enalaprilat IV* 1.25 MG/ML 1 ML VIAL (1.25 MG) IV PRN (12:37)
[2017-10-05] MEDS: TPN CENTR SCH ×12 (18:34)
[2017-10-05] MEDS: WATER CENTR SCH ×12 (18:34)
[2017-10-05] MEDS: [UNRECOGNIZED DRUG - OTHER] CENTR SCH ×12 (18:34)
[2017-10-05] MEDS: DEXTROSE CENTR SCH ×12 (18:34)
[2017-10-05] MEDS: AMINO ACID INFUSION CENTR SCH ×12 (18:34)
[2017-10-06] MEDS: Enalaprilat IV* 1.25 MG/ML 1 ML VIAL (1.25 MG) IV PRN ×3 (00:04→19:45)
[2017-10-06] MEDS: GuaiFENesin DM* 5 ML UDC PO SCH ×4 (01:43→17:59)
[2017-10-06] MEDS: HYDROmorphone INJ* 2 MG/ML CARPUJECT SYRINGE IV PRN ×6 (02:51→22:04)
[2017-10-06] MEDS: Insulin LISPRO* 1 UNITS UNIT SUBCUT SCH ×4 (04:19→21:59)
[2017-10-06] MEDS: Albuterol 2.5 MG/3 ML NEB.SOL* (0.083%) INH PRN (04:24)
[2017-10-06] MEDS: Opium Tincture* 6 MG/0.6 ML ORAL.LIQ SYRINGE PO SCH ×4 (08:54→20:36)
[2017-10-06] MEDS: Enoxaparin(*) 40 MG/0.4 ML SYR SUBCUT SCH (08:56)
[2017-10-06] MEDS: Insulin GLARGINE(*) 1 UNITS UNIT SUBCUT SCH ×2 (11:34→20:36)
[2017-10-06] MEDS: cefTRIAXone(*) 2 GM in NS 0.9% 100 ML* 100 ML IVPB SCH (12:09)
--- NOTE | 2017-10-06 12:45 | PN ---
Progress Note - Progress Note Date of Service: 10/06/17 SOAP: Subjective: Reports doing well, feeling better everyday, anxious to go back home. Denies any complaints. Would like his CT out if possible. Objective: Awake and alert, in NAD VSS, afebrile Lungs with decreased breath sounds, no wheezes, CT secured, no air leak. CT output [address] removed, Vaseline gauze and clean dressing applied. Assessment: Right sided empyema, s/p VATS, improving, Chest Tube d/c'ed Plan: D/C plans per medicine. Please contact surgical associates with any concerns.
--- NOTE | 2017-10-06 16:18 | PN ---
Subjective Date of Service: 10/06/17 Interval History: Pt is feeling fine. He denies any pain or SOB. His chest tube was removed earlier today. Diarrhea is improved today. Objective Active Medications: Albuterol (Ventolin 2.5 Mg/3 Ml Neb.Dina*) 2.5 mg INH Q4H PRN PRN Reason: SOB/WHEEZING Last Admin: 10/06/17 04:24 Dose: 2.5 mg Dextrose (D50w Syringe 50 Ml*) 12.5 gm IV PUSH .FOR FS < 60 - SS PRN PRN Reason: FS < 60 Enalaprilat (Vasotec Iv*) 0.625 mg IV Q6H PRN PRN Reason: SBP>150 Last Admin: 10/06/17 08:55 Dose: 0.625 mg Enoxaparin Sodium (Lovenox(*)) 40 mg SUBCUT Q24H [facility] Last Admin: 10/06/17 08:56 Dose: 40 mg Guaifenesin/Dextromethorphan (Robitussin Dm*) 10 ml PO Q6H [facility] Last Admin: 10/06/17 12:15 Dose: Not Given Heparin Sodium (Porcine) (Heparin Flush Picc/Ml/Cvc(*)) 0 ml FLUSH 0600,1800 [facility] PRN Reason: Protocol Last Admin: 10/06/17 05:35 Dose: 2 ml Hydromorphone HCl (Dilaudid Inj*) 1 mg IV Q3H PRN PRN Reason: PAIN Last Admin: 10/06/17 15:32 Dose: 1 mg Dextrose 500 ml/ Amino Acids 1 ,000 ml/ Fat Emulsion Intravenous 250 ml/ Sodium Chloride 75 meq/ Potassium Chloride 80 meq/ Potassium Phosphate 15 mmole/ Calcium Gluconate 15 meq/ Magnesium Sulfate 10 meq/ Multivitamins 10 ml/ Trace Metals 1 ml/Famotidine 20 mg/ Nutrition ( Parenteral) 1,861.471 mls @ 77.5 mls/ hr CENTR 1700 [facility] Last Admin: 10/05/17 18:34 Dose: 77.5 mls/hr Ceftriaxone Sodium 2 gm/ (Sodium Chloride) 100 mls @ 200 mls/hr IVPB Q24H [facility] Last Admin: 10/06/17 12:09 Dose: 200 mls/hr Insulin Glargine (Lantus(*)) 10 units SUBCUT BEDTIME [facility] Last Admin: 10/05/17 20:00 Dose: 10 units Insulin Glargine (Lantus(*)) 80 units SUBCUT 0900 [facility] Last Admin: 10/06/17 11:34 Dose: 80 unit Insulin Human Lispro (Humalog*) 0 units SUBCUT Q6H [facility] PRN Reason: Protocol Last Admin: 10/06/17 11:32 Dose: 3 units Ondansetron HCl (Zofran Inj*) 4 mg IV Q6H PRN PRN Reason: NAUSEA Last Admin: 09/22/17 09:39 Dose: 4 mg Opium Tincture (Opium Tincture*) 6 mg PO QID [facility] Last Admin: 10/06/17 14:20 Dose: 6 mg Vital Signs - 8 hr 10/06/17 10/06/17 10/06/17 08:54 08:55 11:35 Temperature Pulse Rate 70 Respiratory 16 16 20 Rate Blood Pressure (mmHg) O2 Sat by Pulse 99 Oximetry 10/06/17 10/06/17 10/06/17 11:42 12:09 13:10 Temperature 98.6 F Pulse Rate 66 Respiratory 20 16 20 Rate Blood Pressure 151/50 (mmHg) O2 Sat by Pulse 98 Oximetry 10/06/17 10/06/17 10/06/17 14:20 15:25 15:32 Temperature 98.6 F Pulse Rate 65 Respiratory 20 20 18 Rate Blood Pressure 157/48 (mmHg) O2 Sat by Pulse 99 Oximetry Oxygen Devices in Use Now: Nasal Cannula Appearance: Elderly male sitting up in bed, NAD Eyes: No Scleral Icterus Ears/Nose/Mouth/Throat: Mucous Membranes Moist Respiratory: Symmetrical Chest Expansion and Respiratory Effort, Clear to Auscultation - diminished breath sounds in all lung martínez but clear Cardiovascular: NL Sounds; No Murmurs; No JVD, RRR, No Edema Abdominal: NL Sounds; No Tenderness; No Distention Extremities: No Clubbing, Cyanosis Skin: No Nodules or Sclerosis Neurological: Alert and Oriented x 3 Result Diagrams: 10/05/17 05:41 10/05/17 05:41 Additional Lab and Data: Laboratory Results - last 24 hr 09/17/17 09/17/17 09/17/17 05:20 05:20 08:14 WBC 22.1 H RBC 4.54 Hgb 12.1 L Hct 38 L MCV 83 MCH 27 MCHC 32 RDW 16 H Plt Count 330 MPV 8 Neut % (Auto) 91.1 H Lymph % (Auto) 3.9 L [place] % (Auto) 4.4 Eos % (Auto) 0.4 Baso % (Auto) 0.2 Absolute Neuts (auto) 20.1 H Absolute Lymphs (auto) 0.9 L Absolute Monos (auto) 1.0 H Absolute Eos (auto) 0.1 Absolute Basos (auto) 0 Absolute Nucleated RBC 0 Nucleated RBC % 0 Sodium 142 Potassium 4.2 Chloride 110 Carbon Dioxide 26 Anion Gap 6 BUN 18 Creatinine 0.65 L Est GFR ( Amer) 152.4 Est GFR (Non-Af Amer) 118.5 BUN/Creatinine Ratio 27.7 H Glucose 226 H POC Glucose (mg/dL) 262 H Calcium 8.4 L Magnesium 2.2 09/17/17 09/17/17 14:02 16:54 WBC RBC Hgb Hct MCV MCH MCHC RDW Plt Count MPV Neut % (Auto) Lymph % (Auto) [place] % (Auto) Eos % (Auto) Baso % (Auto) Absolute Neuts (auto) Absolute Lymphs (auto) Absolute Monos (auto) Absolute Eos (auto) Absolute Basos (auto) Absolute Nucleated RBC Nucleated RBC % Sodium Potassium Chloride Carbon Dioxide Anion Gap BUN Creatinine Est GFR ( Amer) Est GFR (Non-Af Amer) BUN/Creatinine Ratio Glucose POC Glucose (mg/dL) 216 H 286 H Calcium Magnesium Microbiology and Other Data: Microbiology 09/13/17 15:19 Blood Venous Aerobic Blood Culture - Preliminary No Growth Day 4 09/13/17 15:19 Blood Venous Anaerobic Blood Culture - Preliminary No Growth Day 4 09/13/17 15:10 Blood Venous Aerobic Blood Culture - Preliminary No Growth Day 4 09/13/17 15:10 Blood Venous Anaerobic Blood Culture - Preliminary No Growth Day 4 09/15/17 14:33 Pleural Fluid Gram Stain - Final 09/15/17 14:33 Pleural Fluid Body Fluid Culture - Preliminary No Growth Day 2 09/14/17 13:30 Pleural Fluid Gram Stain - Final 09/14/17 13:30 Pleural Fluid Body Fluid Culture - Preliminary Streptococcus Pneumoniae 09/16/17 03:37 Nasal Nasal Screen MRSA (PCR)(MACARENA) - Final Mrsa Negative 09/15/17 17:05 Urine Legionella Urinary Antigen - Final Negative Legionella 09/15/17 17:05 Urine Streptococcus pneumoniae Ag Screen - Final Negative S. pneumo Antigen 09/13/17 23:00 Sputum Expectorated Gram Stain - Final 09/13/17 23:00 Sputum Expectorated Sputum Culture - Final YEAST 09/14/17 10:30 Nasal Nasal Screen MRSA (PCR)(MACARENA) - Final Mrsa Negative Assess/Plan/Problems-Billing Mr Richey is a 77 yo M who has a PMHx significant for NIDDM, HTN and Afib (on Xarelto) who presented to the ER with 3 weeks of SOB, 1 week productive cough and was admitted for bilateral pneumonia with empyema. - Patient Problems (1) Acute respiratory failure with hypoxia Current Visit: Yes Status: Acute Code(s): J96.01 - ACUTE RESPIRATORY FAILURE WITH HYPOXIA SNOMED Code(s): 14505576 Comment: Present on admission secondary to bilateral pneumococcal pneumonia with bilateral empyema +/- aspiration pneumonitis secondary to zenker's diverticulum. The patient is now down to 2L supplemental O2 with saturations in the mid to high 90's. The patient remains on the O2 and is hesitant to be weaned. (2) Empyema Current Visit: Yes Status: Acute Code(s): J86.9 - PYOTHORAX WITHOUT FISTULA SNOMED Code(s): 021996279 Comment: The had severe sepsis evolving on admission secondary bilateral pneumoccal pneumonia and bilateraly empyemas. Sepsis has since resolved. His chest tube was removed today. Will repeat labs tomorrow AM. Monitor for signs of worsening infection. Continue ceftriaxone 2g IV daily. Will discuss adding clindamycin with Dr. Wallace. (3) Zenker diverticulum Current Visit: Yes Status: Acute Code(s): K22.5 - DIVERTICULUM OF ESOPHAGUS , ACQUIRED SNOMED Code(s): 775134333 Comment: The patient is now s/p clipping of the zenker diverticulum. Continue full liquids today and if he continues to do well will advance to soft tomorrow. (4) Malnutrition of moderate degree Current Visit: Yes Status: Acute Code(s): E44.0 - MODERATE PROTEIN-CALORIE MALNUTRITION SNOMED Code(s): 718019568 Comment: Continue TPN and advance diet to fulls. Stop TPN tomorrow evening after advancing to soft foods. (5) Diabetes mellitus Current Visit: Yes Status: Acute Code(s): E11.9 - TYPE 2 DIABETES MELLITUS WITHOUT COMPLICATIONS SNOMED Code(s): 64950880 Comment: Sugars are generally under good control. Continue current regimen of lantus. (6) Urinary retention Current Visit: Yes Status: Acute Code(s): R33.9 - RETENTION OF URINE, UNSPECIFIED SNOMED Code(s): 171044534 Comment: Keep calvo in place as he had >3L of urine in his bladder when the calvo was placed. He will need to follow up with urology as an outpatient. (7) Paroxysmal A-fib Current Visit: Yes Status: Acute Code(s): I48.0 - PAROXYSMAL ATRIAL FIBRILLATION SNOMED Code(s): 317383739 Comment: Resume xarelto tomorrow. (8) HTN (hypertension) Current Visit: Yes Status: Acute Code(s): I10 - ESSENTIAL (PRIMARY) HYPERTENSION SNOMED Code(s): 05345248 Comment: BP is mildly elevated. Continue enalaprilat and likely resume oral antihypertensive tomorrow. (9) DVT prophylaxis Current Visit: Yes Status: Acute Code(s): WLW8197 - SNOMED Code(s): 903152303 Comment: lovenox for now-will need to determine when to restart xarelto (10) Full code status Current Visit: Yes Status: Acute Code(s): Z78.9 - OTHER SPECIFIED HEALTH STATUS SNOMED Code(s): 194347683 Status and Disposition: .
[2017-10-06] MEDS: [UNRECOGNIZED DRUG - OTHER] CENTR SCH ×12 (18:11)
[2017-10-06] MEDS: AMINO ACID INFUSION CENTR SCH ×12 (18:11)
[2017-10-06] MEDS: TPN CENTR SCH ×12 (18:11)
[2017-10-06] MEDS: DEXTROSE CENTR SCH ×12 (18:11)
[2017-10-06] MEDS: WATER CENTR SCH ×12 (18:11)
[2017-10-07] MEDS: GuaiFENesin DM* 5 ML UDC PO SCH ×3 (00:32→13:09)
[2017-10-07] MEDS: HYDROmorphone INJ* 2 MG/ML CARPUJECT SYRINGE IV PRN ×7 (02:38→22:40)
[2017-10-07] MEDS: Insulin LISPRO* 1 UNITS UNIT SUBCUT SCH ×4 (04:45→21:26)
[2017-10-07] MEDS: Enalaprilat IV* 1.25 MG/ML 1 ML VIAL (1.25 MG) IV PRN ×2 (04:46→20:03)
[2017-10-07 05:18] LABS: EGFR Non-African American 132.5 (>60)
[2017-10-07 05:31] LABS: Hematocrit 28 % (42-52); Hemoglobin 8.8 g/dl (14.0-18.0); Mean Corpuscular HGB Conc 32 g/dl (31-36); Mean Corpuscular Hemoglobin 26 pg (27-31); Mean Corpuscular Volume 81 fL (80-94); Mean Platelet Volume 8 um3 (7.4-10.4); Platelet Count 335 10^3/ul (150-450); Red Cell Distribution Width 17 % (10.5-15); White Blood Count 9.5 10^3/ul (3.5-10.8)
[2017-10-07 05:55] LABS: ABS Basophils 0.1 10^3/ul (0-0.2); ABS Eosinophils 0.2 10^3/ul (0-0.6); ABS Monocytes 0.8 10^3/ul (0-0.8); ABS Neutrophils 7.4 10^3/ul (1.5-7.7); ABS Nucleated RBC 0 10^3/ul; Eosinophil % 1.7 % (0-6); Lymphocyte % 10.2 % (25-47); Nucleated Red Blood Cells % 0
[2017-10-07] MEDS: Opium Tincture* 6 MG/0.6 ML ORAL.LIQ SYRINGE PO SCH ×2 (09:45→13:08)
[2017-10-07] MEDS: Insulin GLARGINE(*) 1 UNITS UNIT SUBCUT SCH (09:46)
[2017-10-07] MEDS: Enoxaparin(*) 40 MG/0.4 ML SYR SUBCUT SCH (09:47)
[2017-10-07] MEDS: Albuterol 2.5 MG/3 ML NEB.SOL* (0.083%) INH PRN (10:40)
[2017-10-07] MEDS: cefTRIAXone(*) 2 GM in NS 0.9% 100 ML* 100 ML IVPB SCH (10:41)
--- NOTE | 2017-10-07 15:07 | PN ---
Subjective Date of Service: 10/07/17 Interval History: Pt is feeling ok. He denies any SOB. He states his diarrhea had essentially resolved. Objective Active Medications: Albuterol (Ventolin 2.5 Mg/3 Ml Neb.Dina*) 2.5 mg INH Q4H PRN PRN Reason: SOB/WHEEZING Last Admin: 10/07/17 10:40 Dose: 2.5 mg Dextrose (D50w Syringe 50 Ml*) 12.5 gm IV PUSH .FOR FS < 60 - SS PRN PRN Reason: FS < 60 Enalaprilat (Vasotec Iv*) 0.625 mg IV Q6H PRN PRN Reason: SBP>150 Last Admin: 10/07/17 04:46 Dose: 0.625 mg Enoxaparin Sodium (Lovenox(*)) 40 mg SUBCUT Q24H [facility] Last Admin: 10/07/17 09:47 Dose: 40 mg Guaifenesin/Dextromethorphan (Robitussin Dm*) 10 ml PO Q6H [facility] Last Admin: 10/07/17 13:09 Dose: Not Given Heparin Sodium (Porcine) (Heparin Flush Picc/Ml/Cvc(*)) 0 ml FLUSH 0600,1800 [facility] PRN Reason: Protocol Last Admin: 10/07/17 11:48 Dose: 1 ml Hydromorphone HCl (Dilaudid Inj*) 1 mg IV Q3H PRN PRN Reason: PAIN Last Admin: 10/07/17 13:09 Dose: 1 mg Dextrose 500 ml/ Amino Acids 1 ,000 ml/ Fat Emulsion Intravenous 250 ml/ Sodium Chloride 75 meq/ Potassium Chloride 80 meq/ Potassium Phosphate 15 mmole/ Calcium Gluconate 15 meq/ Magnesium Sulfate 10 meq/ Multivitamins 10 ml/ Trace Metals 1 ml/Famotidine 20 mg/ Nutrition ( Parenteral) 1,861.471 mls @ 77.5 mls/ hr [facility] 1700 [facility] Stop: 10/07/17 16:59 Last Admin: 10/06/17 18:11 Dose: 77.5 mls/hr Ceftriaxone Sodium 2 gm/ (Sodium Chloride) 100 mls @ 200 mls/hr IVPB Q24H [facility] Last Admin: 10/07/17 10:41 Dose: 200 mls/hr Insulin Glargine (Lantus(*)) 10 units SUBCUT BEDTIME [facility] Last Admin: 10/06/17 20:36 Dose: 10 units Insulin Glargine (Lantus(*)) 80 units SUBCUT 0900 [facility] Last Admin: 10/07/17 09:46 Dose: 80 unit Insulin Human Lispro (Humalog*) 0 units SUBCUT Q6H [facility] PRN Reason: Protocol Last Admin: 10/07/17 09:33 Dose: Not Given Ondansetron HCl (Zofran Inj*) 4 mg IV Q6H PRN PRN Reason: NAUSEA Last Admin: 09/22/17 09:39 Dose: 4 mg Opium Tincture (Opium Tincture*) 6 mg PO QID [facility] Last Admin: 10/07/17 13:08 Dose: 6 mg Vital Signs - 8 hr 10/07/17 10/07/17 10/07/17 07:43 07:45 07:56 Temperature 99.0 F Pulse Rate 137 136 Respiratory 20 16 Rate Blood Pressure 157/74 (mmHg) O2 Sat by Pulse 90 94 Oximetry 10/07/17 10/07/17 10/07/17 08:02 08:03 08:26 Temperature Pulse Rate 65 108 Respiratory 19 Rate Blood Pressure (mmHg) O2 Sat by Pulse 95 95 95 Oximetry 10/07/17 10/07/17 10/07/17 09:45 09:48 11:31 Temperature 98.0 F Pulse Rate 73 Respiratory 16 16 20 Rate Blood Pressure 146/56 (mmHg) O2 Sat by Pulse 97 Oximetry 10/07/17 10/07/17 10/07/17 11:38 11:51 13:08 Temperature Pulse Rate Respiratory 18 16 16 Rate Blood Pressure (mmHg) O2 Sat by Pulse Oximetry 10/07/17 10/07/17 13:09 14:25 Temperature Pulse Rate Respiratory 16 16 Rate Blood Pressure (mmHg) O2 Sat by Pulse Oximetry Oxygen Devices in Use Now: Nasal Cannula Appearance: Elderly male lying in bed, NAD Eyes: No Scleral Icterus Ears/Nose/Mouth/Throat: Mucous Membranes Moist Respiratory: Symmetrical Chest Expansion and Respiratory Effort, Clear to Auscultation Cardiovascular: NL Sounds; No Murmurs; No JVD, RRR, No Edema Abdominal: NL Sounds; No Tenderness; No Distention Extremities: No Clubbing, Cyanosis Skin: No Nodules or Sclerosis, - - decubitus ulcer not inspected today Neurological: Alert and Oriented x 3 Result Diagrams: 10/07/17 04:50 10/07/17 04:50 Additional Lab and Data: Laboratory Results - last 24 hr 09/17/17 09/17/17 09/17/17 05:20 05:20 08:14 WBC 22.1 H RBC 4.54 Hgb 12.1 L Hct 38 L MCV 83 MCH 27 MCHC 32 RDW 16 H Plt Count 330 MPV 8 Neut % (Auto) 91.1 H Lymph % (Auto) 3.9 L [place] % (Auto) 4.4 Eos % (Auto) 0.4 Baso % (Auto) 0.2 Absolute Neuts (auto) 20.1 H Absolute Lymphs (auto) 0.9 L Absolute Monos (auto) 1.0 H Absolute Eos (auto) 0.1 Absolute Basos (auto) 0 Absolute Nucleated RBC 0 Nucleated RBC % 0 Sodium 142 Potassium 4.2 Chloride 110 Carbon Dioxide 26 Anion Gap 6 BUN 18 Creatinine 0.65 L Est GFR ( Amer) 152.4 Est GFR (Non-Af Amer) 118.5 BUN/Creatinine Ratio 27.7 H Glucose 226 H POC Glucose (mg/dL) 262 H Calcium 8.4 L Magnesium 2.2 09/17/17 09/17/17 14:02 16:54 WBC RBC Hgb Hct MCV MCH MCHC RDW Plt Count MPV Neut % (Auto) Lymph % (Auto) [place] % (Auto) Eos % (Auto) Baso % (Auto) Absolute Neuts (auto) Absolute Lymphs (auto) Absolute Monos (auto) Absolute Eos (auto) Absolute Basos (auto) Absolute Nucleated RBC Nucleated RBC % Sodium Potassium Chloride Carbon Dioxide Anion Gap BUN Creatinine Est GFR ( Amer) Est GFR (Non-Af Amer) BUN/Creatinine Ratio Glucose POC Glucose (mg/dL) 216 H 286 H Calcium Magnesium Microbiology and Other Data: Microbiology 09/13/17 15:19 Blood Venous Aerobic Blood Culture - Preliminary No Growth Day 4 09/13/17 15:19 Blood Venous Anaerobic Blood Culture - Preliminary No Growth Day 4 09/13/17 15:10 Blood Venous Aerobic Blood Culture - Preliminary No Growth Day 4 09/13/17 15:10 Blood Venous Anaerobic Blood Culture - Preliminary No Growth Day 4 09/15/17 14:33 Pleural Fluid Gram Stain - Final 09/15/17 14:33 Pleural Fluid Body Fluid Culture - Preliminary No Growth Day 2 09/14/17 13:30 Pleural Fluid Gram Stain - Final 09/14/17 13:30 Pleural Fluid Body Fluid Culture - Preliminary Streptococcus Pneumoniae 09/16/17 03:37 Nasal Nasal Screen MRSA (PCR)(MACARENA) - Final Mrsa Negative 09/15/17 17:05 Urine Legionella Urinary Antigen - Final Negative Legionella 09/15/17 17:05 Urine Streptococcus pneumoniae Ag Screen - Final Negative S. pneumo Antigen 09/13/17 23:00 Sputum Expectorated Gram Stain - Final 09/13/17 23:00 Sputum Expectorated Sputum Culture - Final YEAST 09/14/17 10:30 Nasal Nasal Screen MRSA (PCR)(MACARENA) - Final Mrsa Negative Assess/Plan/Problems-Billing Mr Richey is a 77 yo M who has a PMHx significant for NIDDM, HTN and Afib (on Xarelto) who presented to the ER with 3 weeks of SOB, 1 week productive cough and was admitted for bilateral pneumonia with empyema. - Patient Problems (1) Acute respiratory failure with hypoxia Current Visit: Yes Status: Acute Code(s): J96.01 - ACUTE RESPIRATORY FAILURE WITH HYPOXIA SNOMED Code(s): 49470670 Comment: Present on admission secondary to bilateral pneumococcal pneumonia with bilateral empyema +/- aspiration pneumonitis secondary to zenker's diverticulum. The patient is now down to 2L supplemental O2 with saturations in the mid to high 90's. The patient remains on the O2 and is hesitant to be weaned. (2) Empyema Current Visit: Yes Status: Acute Code(s): J86.9 - PYOTHORAX WITHOUT FISTULA SNOMED Code(s): 820865513 Comment: The had severe sepsis evolving on admission secondary bilateral pneumoccal pneumonia and bilateraly empyemas. Sepsis has since resolved. His chest tube was removed 10/06/17. Repeat labs show a normal WBC count. Continue ceftriaxone 2g IV daily. Today is D#. (3) Zenker diverticulum Current Visit: Yes Status: Acute Code(s): K22.5 - DIVERTICULUM OF ESOPHAGUS , ACQUIRED SNOMED Code(s): 697100710 Comment: The patient is now s/p clipping of the zenker diverticulum. Diet advanced to soft. Continue to monitor for tolerance of diet and get repeat swallow eval to see if he can be advanced from nectar to thin liquids. (4) Malnutrition of moderate degree Current Visit: Yes Status: Acute Code(s): E44.0 - MODERATE PROTEIN-CALORIE MALNUTRITION SNOMED Code(s): 801189969 Comment: Stop TPN after today's bag finishes. Continue soft diet x48hr then advance to regular. (5) Diabetes mellitus Current Visit: Yes Status: Acute Code(s): E11.9 - TYPE 2 DIABETES MELLITUS WITHOUT COMPLICATIONS SNOMED Code(s): 42276748 Comment: Sugars are under good control but I suspect after the TPN stops his sugars will drop. Stop lantus starting tomorrow and watch sugars. (6) Urinary retention Current Visit: Yes Status: Acute Code(s): R33.9 - RETENTION OF URINE, UNSPECIFIED SNOMED Code(s): 383350412 Comment: Keep calvo in place as he had >3L of urine in his bladder when the calvo was placed. He will need to follow up with urology as an outpatient. (7) Paroxysmal A-fib Current Visit: Yes Status: Acute Code(s): I48.0 - PAROXYSMAL ATRIAL FIBRILLATION SNOMED Code(s): 053277326 Comment: Resume xarelto tonight. The patient had an elevated HR early this AM but spontaneously decreased. EKG not completely difinitive for afib but I am suspicious as he has the h/o PAF. (8) HTN (hypertension) Current Visit: Yes Status: Acute Code(s): I10 - ESSENTIAL (PRIMARY) HYPERTENSION SNOMED Code(s): 81459287 Comment: Resume amlodipine tomorrow. (9) DVT prophylaxis Current Visit: Yes Status: Acute Code(s): [id number] - SNOMED Code(s): 592230561 Comment: start xarelto this evening (10) Full code status Current Visit: Yes Status: Acute Code(s): Z78.9 - OTHER SPECIFIED HEALTH STATUS SNOMED Code(s): 578800704 Status and Disposition: .
[2017-10-07] MEDS: Opium Tincture* 6 MG/0.6 ML ORAL.LIQ SYRINGE PO PRN ×2 (18:14→21:41)
[2017-10-07] MEDS: Rivaroxaban TAB(*) 20 MG TAB PO SCH (21:30)
[2017-10-07] MEDS: D5NS 0.9% 1000 ML BAG* 1,000 ML IV SCH (21:33)
[2017-10-08] MEDS: HYDROmorphone INJ* 2 MG/ML CARPUJECT SYRINGE IV PRN ×2 (01:53→06:28)
[2017-10-08] MEDS: Enalaprilat IV* 1.25 MG/ML 1 ML VIAL (1.25 MG) IV PRN (03:33)
[2017-10-08] MEDS: Dextrose 50% Syringe 50 ML* 25 GM/50 ML SYRINGE IV PUSH PRN (06:01)
[2017-10-08] MEDS: Insulin LISPRO* 1 UNITS UNIT SUBCUT SCH ×4 (07:43→21:40)
--- NOTE | 2017-10-08 08:27 | PN ---
Subjective Date of Service: 10/08/17 Interval History: Pt is feeling fine this AM. He was noted to be lethargic when his blood sugar was so low. He denies any pain currently. He is upset that I want to hold his d/ c to CR until his sugars are stable. Objective Active Medications: Albuterol (Ventolin 2.5 Mg/3 Ml Neb.Dina*) 2.5 mg INH Q4H PRN PRN Reason: SOB/WHEEZING Last Admin: 10/07/17 10:40 Dose: 2.5 mg Amlodipine Besylate (Norvasc Tab*) 5 mg PO DAILY REPLACED BY [facility] Dextrose (D50w Syringe 50 Ml*) 12.5 gm IV PUSH .FOR FS < 60 - SS PRN PRN Reason: FS < 60 Last Admin: 10/08/17 06:01 Dose: 12.5 gm Enalaprilat (Vasotec Iv*) 0.625 mg IV Q6H PRN PRN Reason: SBP>150 Last Admin: 10/08/17 03:33 Dose: 0.625 mg Heparin Sodium (Porcine) (Heparin Flush Picc/Ml/Cvc(*)) 0 ml FLUSH 0600,1800 REPLACED BY [facility] PRN Reason: Protocol Last Admin: 10/08/17 06:13 Dose: 2 ml Hydromorphone HCl (Dilaudid Inj*) 1 mg IV Q3H PRN PRN Reason: PAIN Last Admin: 10/08/17 06:28 Dose: 1 mg Ceftriaxone Sodium 2 gm/ (Sodium Chloride) 100 mls @ 200 mls/hr IVPB Q24H REPLACED BY [facility] Last Admin: 10/07/17 10:41 Dose: 200 mls/hr Dextrose/Sodium Chloride (D5ns 0.9% 1000 Ml Bag*) 1,000 mls @ 75 mls/hr IV PER RATE REPLACED BY [facility] Last Admin: 10/07/17 21:33 Dose: 75 mls/hr Insulin Human Lispro (Humalog*) 0 units SUBCUT ACHS REPLACED BY [facility] PRN Reason: Protocol Last Admin: 10/08/17 07:43 Dose: Not Given Ondansetron HCl (Zofran Inj*) 4 mg IV Q6H PRN PRN Reason: NAUSEA Last Admin: 09/22/17 09:39 Dose: 4 mg Opium Tincture (Opium Tincture*) 6 mg PO QID PRN PRN Reason: diarrhea Last Admin: 10/07/17 21:41 Dose: 6 mg Oxycodone/Acetaminophen (Percocet 5/325 Tab*) 1 tab PO Q4H PRN PRN Reason: PAIN Rivaroxaban (Xarelto(*)) 20 mg PO DAILY@2100 [facility] Last Admin: 10/07/17 21:30 Dose: 20 mg Vital Signs - 8 hr 10/08/17 10/08/17 10/08/17 01:53 03:24 03:29 Temperature 97.7 F Pulse Rate 88 Respiratory 20 18 16 Rate Blood Pressure 158/46 (mmHg) O2 Sat by Pulse 95 Oximetry 10/08/17 10/08/17 10/08/17 06:28 07:32 07:43 Temperature 98.2 F Pulse Rate 66 Respiratory 18 24 16 Rate Blood Pressure 145/55 (mmHg) O2 Sat by Pulse 97 Oximetry Oxygen Devices in Use Now: Nasal Cannula Appearance: Elderly male sitting up in bed, awake, alert, NAD Eyes: No Scleral Icterus Ears/Nose/Mouth/Throat: Mucous Membranes Moist Respiratory: Symmetrical Chest Expansion and Respiratory Effort, Clear to Auscultation - diminished breath sounds at the bases Cardiovascular: NL Sounds; No Murmurs; No JVD, RRR, No Edema Abdominal: NL Sounds; No Tenderness; No Distention Extremities: No Clubbing, Cyanosis Skin: No Nodules or Sclerosis, - - decubitus to be inspected when he is getting cleaned up Neurological: Alert and Oriented x 3 Result Diagrams: 10/07/17 04:50 10/07/17 04:50 Additional Lab and Data: Laboratory Results - last 24 hr 09/17/17 09/17/17 09/17/17 05:20 05:20 08:14 WBC 22.1 H RBC 4.54 Hgb 12.1 L Hct 38 L MCV 83 MCH 27 MCHC 32 RDW 16 H Plt Count 330 MPV 8 Neut % (Auto) 91.1 H Lymph % (Auto) 3.9 L [place] % (Auto) 4.4 Eos % (Auto) 0.4 Baso % (Auto) 0.2 Absolute Neuts (auto) 20.1 H Absolute Lymphs (auto) 0.9 L Absolute Monos (auto) 1.0 H Absolute Eos (auto) 0.1 Absolute Basos (auto) 0 Absolute Nucleated RBC 0 Nucleated RBC % 0 Sodium 142 Potassium 4.2 Chloride 110 Carbon Dioxide 26 Anion Gap 6 BUN 18 Creatinine 0.65 L Est GFR ( Amer) 152.4 Est GFR (Non-Af Amer) 118.5 BUN/Creatinine Ratio 27.7 H Glucose 226 H POC Glucose (mg/dL) 262 H Calcium 8.4 L Magnesium 2.2 09/17/17 09/17/17 14:02 16:54 WBC RBC Hgb Hct MCV MCH MCHC RDW Plt Count MPV Neut % (Auto) Lymph % (Auto) [place] % (Auto) Eos % (Auto) Baso % (Auto) Absolute Neuts (auto) Absolute Lymphs (auto) Absolute Monos (auto) Absolute Eos (auto) Absolute Basos (auto) Absolute Nucleated RBC Nucleated RBC % Sodium Potassium Chloride Carbon Dioxide Anion Gap BUN Creatinine Est GFR ( Amer) Est GFR (Non-Af Amer) BUN/Creatinine Ratio Glucose POC Glucose (mg/dL) 216 H 286 H Calcium Magnesium Microbiology and Other Data: Microbiology 09/13/17 15:19 Blood Venous Aerobic Blood Culture - Preliminary No Growth Day 4 09/13/17 15:19 Blood Venous Anaerobic Blood Culture - Preliminary No Growth Day 4 09/13/17 15:10 Blood Venous Aerobic Blood Culture - Preliminary No Growth Day 4 09/13/17 15:10 Blood Venous Anaerobic Blood Culture - Preliminary No Growth Day 4 09/15/17 14:33 Pleural Fluid Gram Stain - Final 09/15/17 14:33 Pleural Fluid Body Fluid Culture - Preliminary No Growth Day 2 09/14/17 13:30 Pleural Fluid Gram Stain - Final 09/14/17 13:30 Pleural Fluid Body Fluid Culture - Preliminary Streptococcus Pneumoniae 09/16/17 03:37 Nasal Nasal Screen MRSA (PCR)(MACARENA) - Final Mrsa Negative 09/15/17 17:05 Urine Legionella Urinary Antigen - Final Negative Legionella 09/15/17 17:05 Urine Streptococcus pneumoniae Ag Screen - Final Negative S. pneumo Antigen 09/13/17 23:00 Sputum Expectorated Gram Stain - Final 09/13/17 23:00 Sputum Expectorated Sputum Culture - Final YEAST 09/14/17 10:30 Nasal Nasal Screen MRSA (PCR)([facility]ARE[facility]) - Final Mrsa Negative Assess/Plan/Problems-Billing Mr Richey is a 77 yo M who has a PMHx significant for NIDDM, HTN and Afib (on Xarelto) who presented to the ER with 3 weeks of SOB, 1 week productive cough and was admitted for bilateral pneumonia with empyema. - Patient Problems (1) Acute respiratory failure with hypoxia Current Visit: Yes Status: Acute Code(s): J96.01 - ACUTE RESPIRATORY FAILURE WITH HYPOXIA SNOMED Code(s): 21991068 Comment: Present on admission secondary to bilateral pneumococcal pneumonia with bilateral empyema +/- aspiration pneumonitis secondary to zenker's diverticulum-now resolved. The patient is now down to 2L supplemental O2 with saturations in the mid to high 90's. (2) Empyema Current Visit: Yes Status: Acute Code(s): J86.9 - PYOTHORAX WITHOUT FISTULA SNOMED Code(s): 571511803 Comment: The patient developed the empyema secondary to likely bilateral S. pneumoniae pneumonia. He is s/p VATS on the R and bilateral chest tubes. Continue ceftriaxone 2g IV daily. Today is D#. (3) Zenker diverticulum Current Visit: Yes Status: Acute Code(s): K22.5 - DIVERTICULUM OF ESOPHAGUS , ACQUIRED SNOMED Code(s): 562131864 Comment: The patient is now s/p clipping of the zenker diverticulum. Continue soft diet today and can advance to regular consistency diet starting tomorrow. Speech still recommends nectar thick liquids. He will need a swallow eval next week to see if he can be upgraded to thin liquids. (4) Malnutrition of moderate degree Current Visit: Yes Status: Acute Code(s): E44.0 - MODERATE PROTEIN-CALORIE MALNUTRITION SNOMED Code(s): 044248716 Comment: TPN stopped last night. Continue soft diet advancing to regular. (5) Diabetes mellitus Current Visit: Yes Status: Acute Code(s): E11.9 - TYPE 2 DIABETES MELLITUS WITHOUT COMPLICATIONS SNOMED Code(s): 20819875 Comment: The patient went hypoglycemic last night like I suspected. He was started on D5NS but still dropped his sugars even lower this AM. Will hold off on discharging the patient to [facility] today to make sure his sugars stabilize. (6) Urinary retention Current Visit: Yes Status: Acute Code(s): R33.9 - RETENTION OF URINE, UNSPECIFIED SNOMED Code(s): 367043123 Comment: Keep calvo in place as he had >3L of urine in his bladder when the calvo was placed. He will need to follow up with urology as an outpatient. (7) Paroxysmal A-fib Current Visit: Yes Status: Acute Code(s): I48.0 - PAROXYSMAL ATRIAL FIBRILLATION SNOMED Code(s): 431732839 Comment: Continue xarelto and monitor for elevated HRs. (8) HTN (hypertension) Current Visit: Yes Status: Acute Code(s): I10 - ESSENTIAL (PRIMARY) HYPERTENSION SNOMED Code(s): 36252713 Comment: BP mildly elevated. Will monitor BP after pt gets his amlodipine. (9) DVT prophylaxis Current Visit: Yes Status: Acute Code(s): GBA3780 - SNOMED Code(s): 462451220 Comment: dejahto (10) Full code status Current Visit: Yes Status: Acute Code(s): Z78.9 - OTHER SPECIFIED HEALTH STATUS SNOMED Code(s): 726263238 Status and Disposition: .
[2017-10-08] MEDS ORDERED: Loperamide CAP* 2 MG PO PRN (08:40)
[2017-10-08] MEDS: oxyCODONE/Acetamin 5/325 MG* TAB PO PRN ×3 (10:44→19:02)
[2017-10-08] MEDS: cefTRIAXone(*) 2 GM in NS 0.9% 100 ML* 100 ML IVPB SCH (10:45)
[2017-10-08] MEDS: amLODIPine TAB* 5 MG PO SCH (10:45)
[2017-10-08] MEDS: D5NS 0.9% 1000 ML BAG* 1,000 ML IV SCH (10:48)
[2017-10-08] MEDS ORDERED: cefTRIAXone(*) 2 GM in D5W 50 ML BAG* 50 ML IVPB SCH (12:19)
[2017-10-08] MEDS: Rivaroxaban TAB(*) 20 MG TAB PO SCH (21:50)
[2017-10-09] MEDS: Dextrose 50% Syringe 50 ML* 25 GM/50 ML SYRINGE IV PUSH PRN ×2 (01:26→07:33)
[2017-10-09] MEDS: oxyCODONE/Acetamin 5/325 MG* TAB PO PRN ×4 (02:33→17:03)
[2017-10-09 06:25] LABS: Hematocrit 28 % (42-52); Hemoglobin 9.2 g/dl (14.0-18.0); Mean Corpuscular HGB Conc 32 g/dl (31-36); Mean Corpuscular Hemoglobin 26 pg (27-31); Mean Corpuscular Volume 80 fL (80-94); Mean Platelet Volume 8 um3 (7.4-10.4); Platelet Count 337 10^3/ul (150-450); Red Blood Count 3.54 10^6/ul (4.0-5.4); Red Cell Distribution Width 17 % (10.5-15); White Blood Count 9.1 10^3/ul (3.5-10.8)
[2017-10-09 06:45] LABS: EGFR Non-African American 135.2 (>60)
[2017-10-09 06:49] LABS: ABS Basophils 0.1 10^3/ul (0-0.2); ABS Eosinophils 0.2 10^3/ul (0-0.6); ABS Lymphocytes 0.9 10^3/ul (1.0-4.8); ABS Monocytes 0.7 10^3/ul (0-0.8); ABS Neutrophils 7.4 10^3/ul (1.5-7.7); ABS Nucleated RBC 0 10^3/ul; Lymphocyte % 9.6 % (25-47); Nucleated Red Blood Cells % 0
[2017-10-09] MEDS: Insulin LISPRO* 1 UNITS UNIT SUBCUT SCH ×4 (08:10→21:11)
[2017-10-09] MEDS: amLODIPine TAB* 5 MG PO SCH (08:15)
--- NOTE | 2017-10-09 08:26 | PN ---
Progress Note - Progress Note Date of Service: 10/09/17 SOAP: Subjective: Patient seen and examined at bedside. Reports nausea since yesterday, but no vomiting. Denies abdominal pain or chest pain. Less appetite, moving his bowels , denies any distension. No dizziness or syncopal episodes, not ambulating much. Objective: Awake and alert, comfortable in bed, in NAD Vitals stable, afebrile, BP 160s/90s Abdomen soft, NT, mildly distended. Bowel sounds active. Lungs clear to auscultation. Heart RRR Labs noted, blood glucose still low 50s and 60s last night. I/O's noted Assessment: s/p R VATS for bilateral pneumonia complicated with empyema Hypoglycemia Plan: Medical management, D/C plans Chest tube removed earlier this week, may shower at this point. Keep clean, dry dressing on CT insertion site until completely healed F/U with [facility] as outpatient once discharged
--- NOTE | 2017-10-09 08:53 | PN ---
Subjective Date of Service: 10/09/17 Interval History: Pt is feeling poorly today. He c/o nausea that has been present for the last couple days. He states he has not been eating much over the last couple days. He passed a large amount of gas this AM. Objective Active Medications: Albuterol (Ventolin 2.5 Mg/3 Ml Neb.Dina*) 2.5 mg INH Q4H PRN PRN Reason: SOB/WHEEZING Last Admin: 10/07/17 10:40 Dose: 2.5 mg Amlodipine Besylate (Norvasc Tab*) 5 mg PO DAILY [facility] Last Admin: 10/09/17 08:15 Dose: 5 mg Dextrose (D50w Syringe 50 Ml*) 12.5 gm IV PUSH .FOR FS < 60 - SS PRN PRN Reason: FS < 60 Last Admin: 10/09/17 07:33 Dose: 12.5 gm Heparin Sodium (Porcine) (Heparin Flush Picc/Ml/Cvc(*)) 0 ml FLUSH 0600,1800 [facility] PRN Reason: Protocol Last Admin: 10/09/17 06:30 Dose: 3 ml Ceftriaxone Sodium 2 gm/ (Dextrose) 50 mls @ 100 mls/hr IVPB 1100 [facility] Insulin Human Lispro (Humalog*) 0 units SUBCUT ACHS [facility] PRN Reason: Protocol Last Admin: 10/09/17 08:10 Dose: Not Given Loperamide HCl (Imodium Cap*) 2 mg PO .SEE DIRECTIONS PRN PRN Reason: DIARRHEA Ondansetron HCl (Zofran Inj*) 4 mg IV Q6H PRN PRN Reason: NAUSEA Last Admin: 09/22/17 09:39 Dose: 4 mg Oxycodone/Acetaminophen (Percocet 5/325 Tab*) 1 tab PO Q4H PRN PRN Reason: PAIN Last Admin: 10/09/17 02:33 Dose: 1 tab Rivaroxaban (Xarelto(*)) 20 mg PO DAILY@2100 [facility] Last Admin: 10/08/17 21:50 Dose: 20 mg Simethicone (Mylicon Tab*) 80 mg PO Q6H PRN PRN Reason: gas distention Vital Signs - 8 hr 10/09/17 10/09/17 10/09/17 02:33 03:46 05:30 Temperature 98.1 F Pulse Rate 65 84 Respiratory 20 16 22 Rate Blood Pressure 178/59 (mmHg) O2 Sat by Pulse 98 Oximetry 10/09/17 10/09/17 10/09/17 07:41 08:03 08:22 Temperature 98.4 F Pulse Rate 69 Respiratory 22 20 18 Rate Blood Pressure 169/63 (mmHg) O2 Sat by Pulse 99 Oximetry Oxygen Devices in Use Now: Nasal Cannula - 2L-99% Appearance: Elderly male sitting up in bed, NAD Eyes: No Scleral Icterus Ears/Nose/Mouth/Throat: Mucous Membranes Moist Respiratory: Symmetrical Chest Expansion and Respiratory Effort, - - bibasilar coarse crackles Cardiovascular: NL Sounds; No Murmurs; No JVD, RRR, No Edema Abdominal: - - BS hypoactive, soft, NT, mildly distended, tympanic to percussion Extremities: No Clubbing, Cyanosis Skin: - - decubitus ulcer not inspected today Neurological: Alert and Oriented x 3 Result Diagrams: 10/09/17 05:43 10/09/17 05:43 Additional Lab and Data: Laboratory Results - last 24 hr 09/17/17 09/17/17 09/17/17 05:20 05:20 08:14 WBC 22.1 H RBC 4.54 Hgb 12.1 L Hct 38 L MCV 83 MCH 27 MCHC 32 RDW 16 H Plt Count 330 MPV 8 Neut % (Auto) 91.1 H Lymph % (Auto) 3.9 L Otoe % (Auto) 4.4 Eos % (Auto) 0.4 Baso % (Auto) 0.2 Absolute Neuts (auto) 20.1 H Absolute Lymphs (auto) 0.9 L Absolute Monos (auto) 1.0 H Absolute Eos (auto) 0.1 Absolute Basos (auto) 0 Absolute Nucleated RBC 0 Nucleated RBC % 0 Sodium 142 Potassium 4.2 Chloride 110 Carbon Dioxide 26 Anion Gap 6 BUN 18 Creatinine 0.65 L Est GFR ( Amer) 152.4 Est GFR (Non-Af Amer) 118.5 BUN/Creatinine Ratio 27.7 H Glucose 226 H POC Glucose (mg/dL) 262 H Calcium 8.4 L Magnesium 2.2 09/17/17 09/17/17 14:02 16:54 WBC RBC Hgb Hct MCV MCH MCHC RDW Plt Count MPV Neut % (Auto) Lymph % (Auto) Otoe % (Auto) Eos % (Auto) Baso % (Auto) Absolute Neuts (auto) Absolute Lymphs (auto) Absolute Monos (auto) Absolute Eos (auto) Absolute Basos (auto) Absolute Nucleated RBC Nucleated RBC % Sodium Potassium Chloride Carbon Dioxide Anion Gap BUN Creatinine Est GFR ( Amer) Est GFR (Non-Af Amer) BUN/Creatinine Ratio Glucose POC Glucose (mg/dL) 216 H 286 H Calcium Magnesium Microbiology and Other Data: Microbiology 09/13/17 15:19 Blood Venous Aerobic Blood Culture - Preliminary No Growth Day 4 09/13/17 15:19 Blood Venous Anaerobic Blood Culture - Preliminary No Growth Day 4 09/13/17 15:10 Blood Venous Aerobic Blood Culture - Preliminary No Growth Day 4 09/13/17 15:10 Blood Venous Anaerobic Blood Culture - Preliminary No Growth Day 4 09/15/17 14:33 Pleural Fluid Gram Stain - Final 09/15/17 14:33 Pleural Fluid Body Fluid Culture - Preliminary No Growth Day 2 09/14/17 13:30 Pleural Fluid Gram Stain - Final 09/14/17 13:30 Pleural Fluid Body Fluid Culture - Preliminary Streptococcus Pneumoniae 09/16/17 03:37 Nasal Nasal Screen MRSA (PCR)(MACARENA) - Final Mrsa Negative 09/15/17 17:05 Urine Legionella Urinary Antigen - Final Negative Legionella 09/15/17 17:05 Urine Streptococcus pneumoniae Ag Screen - Final Negative S. pneumo Antigen 09/13/17 23:00 Sputum Expectorated Gram Stain - Final 09/13/17 23:00 Sputum Expectorated Sputum Culture - Final YEAST 09/14/17 10:30 Nasal Nasal Screen MRSA (PCR)(MACARENA) - Final Mrsa Negative Assess/Plan/Problems-Billing Mr Richey is a 77 yo M who has a PMHx significant for NIDDM, HTN and Afib (on Xarelto) who presented to the ER with 3 weeks of SOB, 1 week productive cough and was admitted for bilateral pneumonia with empyema. - Patient Problems (1) Acute respiratory failure with hypoxia Current Visit: Yes Status: Acute Code(s): J96.01 - ACUTE RESPIRATORY FAILURE WITH HYPOXIA SNOMED Code(s): 35127344 Comment: Present on admission secondary to bilateral pneumococcal pneumonia with bilateral empyema +/- aspiration pneumonitis secondary to zenker's diverticulum-now resolved. The patient was taken off O2 yesterday but has been placed back on 2L for comfort. (2) Empyema Current Visit: Yes Status: Acute Code(s): J86.9 - PYOTHORAX WITHOUT FISTULA SNOMED Code(s): 551630298 Comment: The patient developed the empyema secondary to bilateral S. pneumoniae pneumonia. He is s/p VATS on the R and bilateral chest tubes. Continue ceftriaxone 2g IV daily. Today is D# . (3) Zenker diverticulum Current Visit: Yes Status: Acute Code(s): K22.5 - DIVERTICULUM OF ESOPHAGUS , ACQUIRED SNOMED Code(s): 629766292 Comment: Will advance diet to regular consistency today but he still needs nectar thick liquids. He will need a swallow eval at [facility] next week. Will need to determine if he needs to follow up with ENT. (4) Malnutrition of moderate degree Current Visit: Yes Status: Acute Code(s): E44.0 - MODERATE PROTEIN-CALORIE MALNUTRITION SNOMED Code(s): 198235407 Comment: Off TPN. Continue regular diet. (5) Diabetes mellitus Current Visit: Yes Status: Acute Code(s): E11.9 - TYPE 2 DIABETES MELLITUS WITHOUT COMPLICATIONS SNOMED Code(s): 30902177 Comment: The patient remains hypoglycemic this AM. He has not been eating much as he has been nauseated. No insulin at this time. Hold glipizide. Will hold off on d/c to rehab until his sugars have stabilized. (6) Urinary retention Current Visit: Yes Status: Acute Code(s): R33.9 - RETENTION OF URINE, UNSPECIFIED SNOMED Code(s): 936189336 Comment: Keep calvo in place as he had >3L of urine in his bladder when the calvo was placed. He will need to follow up with urology as an outpatient. (7) Paroxysmal A-fib Current Visit: Yes Status: Acute Code(s): I48.0 - PAROXYSMAL ATRIAL FIBRILLATION SNOMED Code(s): 306435500 Comment: Continue xarelto and monitor for elevated HRs. (8) HTN (hypertension) Current Visit: Yes Status: Acute Code(s): I10 - ESSENTIAL (PRIMARY) HYPERTENSION SNOMED Code(s): 55541134 Comment: BP is more elevated today. Will increase amlodipine to 10mg daily. (9) DVT prophylaxis Current Visit: Yes Status: Acute Code(s): TRI0274 - SNOMED Code(s): 334073560 Comment: darline (10) Full code status Current Visit: Yes Status: Acute Code(s): Z78.9 - OTHER SPECIFIED HEALTH STATUS SNOMED Code(s): 478971569 Status and Disposition: .
[2017-10-09] MEDS: Simethicone TAB* 80 MG TAB.CHEW PO PRN ×2 (09:49→17:03)
[2017-10-09] MEDS ORDERED: amLODIPine TAB* 5 MG PO ONE (10:00)
--- NOTE | 2017-10-09 10:00 | RAD ---
HISTORY: Evaluate for obstruction. Pneumonia. No other history is provided. COMPARISONS: None relevant VIEWS: Frontal and left lateral decubitus views of the abdomen. FINDINGS: BOWEL: There is diffuse distention of the large bowel measuring up to 4.5 cm. There is distention mild dilatation of the cecum. There is a paucity of bowel gas in the rectum. There is enlargement of stool within the distal colon. CALCULI: There are no abnormal calculi. BONES AND SOFT TISSUES: Degenerative changes are noted of the spine. OTHER FINDINGS: The lung bases are clear. There is no appreciable free intraperitoneal gas. IMPRESSION: GASEOUS DISTENTION AND MILD DILATATION OF THE COLON WITH PAUCITY OF GAS IN THE RECTUM. THE DIFFERENTIAL INCLUDES DISTAL COLONIC OBSTRUCTION, OBSTIPATION, OR COLONIC PSEUDOOBSTRUCTION.
[2017-10-09] MEDS: cefTRIAXone(*) 2 GM in D5W 50 ML BAG* 50 ML IVPB SCH (12:07)
[2017-10-09] MEDS: Lisinopril TAB* 10 MG PO SCH (14:45)
[2017-10-09] MEDS: Rivaroxaban TAB(*) 20 MG TAB PO SCH (21:11)
[2017-10-10] MEDS: Albuterol 2.5 MG/3 ML NEB.SOL* (0.083%) INH PRN ×3 (02:53→20:00)
[2017-10-10] MEDS: oxyCODONE/Acetamin 5/325 MG* TAB PO PRN ×4 (07:58→20:28)
[2017-10-10] MEDS: Insulin LISPRO* 1 UNITS UNIT SUBCUT SCH ×4 (09:41→20:28)
[2017-10-10] MEDS: amLODIPine TAB* 5 MG PO SCH (09:41)
[2017-10-10] MEDS: Lisinopril TAB* 10 MG PO SCH (09:41)
--- NOTE | 2017-10-10 11:06 | PN ---
Subjective Date of Service: 10/10/17 Interval History: Patient had dyspnea overnight, responded well to nebulized albuterol. Had diarrhea overnight, messed bed. Denies abdo pain. This morning having intermittent chest pain, anterior, respirophasic. Has h/o a- fib Family History: Unchanged from Admission Social History: Unchanged from Admission Past Medical History: Unchanged from Admission Objective Active Medications: Albuterol (Ventolin 2.5 Mg/3 Ml Neb.Dina*) 2.5 mg INH Q4H PRN PRN Reason: SOB/WHEEZING Last Admin: 10/10/17 02:53 Dose: 2.5 mg Amlodipine Besylate (Norvasc Tab*) 10 mg PO DAILY [facility] Last Admin: 10/10/17 09:41 Dose: 10 mg Dextrose (D50w Syringe 50 Ml*) 12.5 gm IV PUSH .FOR FS < 60 - SS PRN PRN Reason: FS < 60 Last Admin: 10/09/17 07:33 Dose: 12.5 gm Heparin Sodium (Porcine) (Heparin Flush Picc/Ml/Cvc(*)) 0 ml FLUSH 0600,1800 [facility] PRN Reason: Protocol Last Admin: 10/10/17 05:58 Dose: 3 ml Ceftriaxone Sodium 2 gm/ (Dextrose) 50 mls @ 100 mls/hr IVPB 1100 [facility] Last Admin: 10/09/17 12:07 Dose: 100 mls/hr Insulin Human Lispro (Humalog*) 0 units SUBCUT ACHS [facility] PRN Reason: Protocol Last Admin: 10/10/17 09:41 Dose: 3 unit Lisinopril (Prinivil Tab*) 10 mg PO DAILY [facility] Last Admin: 10/10/17 09:41 Dose: 10 mg Ondansetron HCl (Zofran Inj*) 4 mg IV Q6H PRN PRN Reason: NAUSEA Last Admin: 09/22/17 09:39 Dose: 4 mg Oxycodone/Acetaminophen (Percocet 5/325 Tab*) 1 tab PO Q4H PRN PRN Reason: PAIN Last Admin: 10/10/17 07:58 Dose: 1 tab Rivaroxaban (Xarelto(*)) 20 mg PO DAILY@2100 [facility] Last Admin: 10/09/17 21:11 Dose: 20 mg Simethicone (Mylicon Tab*) 80 mg PO Q6H PRN PRN Reason: gas distention Last Admin: 10/09/17 17:03 Dose: 80 mg Vital Signs - 8 hr 10/10/17 10/10/17 07:58 09:34 Temperature 36.3 C Pulse Rate 66 93 Respiratory 20 Rate Blood Pressure 146/52 151/63 (mmHg) O2 Sat by Pulse 98 93 Oximetry Oxygen Devices in Use Now: Nasal Cannula Appearance: no distress Eyes: No Scleral Icterus Ears/Nose/Mouth/Throat: NL Teeth, Lips, Gums Neck: No Thyroid Enlargement, Masses Respiratory: - - rales LLL, coarse airways sounds Cardiovascular: NL Sounds; No Murmurs; No JVD, - - irregular Abdominal: NL Sounds; No Tenderness; No Distention, No Hepatosplenomegaly Lymphatic: No Cervical Adenopathy Neurological: Alert and Oriented x 3 Lines/Tubes/Other Access: Clean, Dry and Intact Pink, Clean, Dry and Intact Peripheral IV Nutrition: Taking PO's Result Diagrams: 10/09/17 05:43 10/09/17 05:43 Additional Lab and Data: Microbiology and Other Data: Microbiology 10/04/17 18:30 Stool Stool Gross Appearance - Final 10/04/17 18:30 Stool C. difficile DNA Amplification - Final 027 Presumptive NEGATIVE Toxigenic C.diff NEGATIVE 09/18/17 14:15 Tissue - Pleura, Rt Lung Wound Gram Stain - Final 09/18/17 14:15 Tissue - Pleura, Rt Lung Skin and Soft Tissue MRSA/MSSA (PCR - Final Mrsa Negative S.aureus Negative No Growth Day 4 09/14/17 13:30 Pleural Fluid Gram Stain - Final 09/14/17 13:30 Pleural Fluid Body Fluid Culture - Final Streptococcus Pneumoniae Assess/Plan/Problems-Billing Mr Richey is a 77 yo M who has a PMHx significant for NIDDM, HTN and Afib (on Xarelto) who presented to the ER with 3 weeks of SOB, 1 week productive cough and was admitted for bilateral pneumonia with empyema. - Patient Problems (1) Chest pain at rest Current Visit: Yes Status: Acute Priority: Medium Code(s): R07.9 - CHEST PAIN, UNSPECIFIED SNOMED Code(s): 9159606 Comment: - EKG shows a-fib, RBBB, LAFB, no ischemia - new chest pain is likely due to pleural irritation or GERD (2) Loculated pleural effusion Current Visit: Yes Status: Acute Priority: Medium Code(s): J90 - PLEURAL EFFUSION, NOT ELSEWHERE CLASSIFIED SNOMED Code(s): 511607897 Comment: S/P VATS 09/18/17, BL CT in place, both draining red fluid. C&S grew S. pneumoniae. Continue ceftriaxone. Alteplase per Dr. Glod. (3) Acute respiratory failure with hypoxia Current Visit: Yes Status: Acute Priority: High Code(s): J96.01 - ACUTE RESPIRATORY FAILURE WITH HYPOXIA SNOMED Code(s): 61930469 Comment: Resp failure now resolved, was secondary to bilateral pneumococcal pneumonia with bilateral empyema (4) Paroxysmal A-fib Current Visit: Yes Status: Acute Priority: Medium Code(s): I48.0 - PAROXYSMAL ATRIAL FIBRILLATION SNOMED Code(s): 251542876 Comment: Continue xarelto and monitor for elevated HRs. (5) Empyema Current Visit: Yes Status: Acute Priority: High Code(s): J86.9 - PYOTHORAX WITHOUT FISTULA SNOMED Code(s): 220291716 Comment: The patient developed the empyema secondary to bilateral S. pneumoniae pneumonia. He is s/p VATS on the R and bilateral chest tubes, now removed. Continue ceftriaxone 2g IV daily. Today is D# . (6) DVT prophylaxis Current Visit: Yes Status: Acute Priority: Low Code(s): IQT3843 - SNOMED Code(s): 121986567 Comment: xarelto (7) Diabetes mellitus Current Visit: Yes Status: Acute Priority: Medium Code(s): E11.9 - TYPE 2 DIABETES MELLITUS WITHOUT COMPLICATIONS SNOMED Code(s): 56430510 Comment: - hypoglycemia resolved - continue to hold glipizide. - can be discharged to SNF bed or transition to [facility] when available Status and Disposition: Inpatient. Will need acute rehab at SNF in 1-2 days when antibiotics completed
[2017-10-10] MEDS: cefTRIAXone(*) 2 GM in D5W 50 ML BAG* 50 ML IVPB SCH (11:11)
[2017-10-10] MEDS: Rivaroxaban TAB(*) 20 MG TAB PO SCH (20:28)
[2017-10-10] MEDS: CMCS Melatonin (NF) 3 MG TAB PO SCH (23:43)
[2017-10-11] MEDS: Albuterol 2.5 MG/3 ML NEB.SOL* (0.083%) INH PRN ×2 (00:18→08:13)
[2017-10-11] MEDS: oxyCODONE/Acetamin 5/325 MG* TAB PO PRN ×6 (00:29→23:00)
[2017-10-11] MEDS ORDERED: Albuterol 2.5 MG/3 ML NEB.SOL* (0.083%) INH ONE (01:36)
[2017-10-11 05:58] LABS: Hematocrit 25 % (42-52); Hematocrit for Retic CNT 25 % (42-52); Hemoglobin 8.1 g/dl (14.0-18.0); Mean Corpuscular HGB Conc 32 g/dl (31-36); Mean Corpuscular Hemoglobin 26 pg (27-31); Mean Corpuscular Volume 80 fL (80-94); Mean Platelet Volume 8 um3 (7.4-10.4); Platelet Count 285 10^3/ul (150-450); RBC Retic Count 3.12 10^6/ul (4.6-6.2); Red Blood Count 3.12 10^6/ul (4.0-5.4); Red Cell Distribution Width 17 % (10.5-15); White Blood Count 7.6 10^3/ul (3.5-10.8)
[2017-10-11 06:26] LABS: ABS Basophils 0.1 10^3/ul (0-0.2); ABS Eosinophils 0.2 10^3/ul (0-0.6); ABS Lymphocytes 0.9 10^3/ul (1.0-4.8); ABS Monocytes 0.6 10^3/ul (0-0.8); ABS Neutrophils 5.8 10^3/ul (1.5-7.7); ABS Nucleated RBC 0 10^3/ul; Corrected Retic Count 2.2 % (0.5-1.5); Lymphocyte % 11.6 % (25-47); Nucleated Red Blood Cells % 0
[2017-10-11] MEDS: Ondansetron INJ* 2 MG/ML VIAL IV PRN (07:08)
[2017-10-11] MEDS: amLODIPine TAB* 5 MG PO SCH (08:58)
[2017-10-11] MEDS: Insulin LISPRO* 1 UNITS UNIT SUBCUT SCH ×4 (08:58→21:12)
[2017-10-11] MEDS: Lisinopril TAB* 10 MG PO SCH (08:59)
[2017-10-11] MEDS ORDERED: Docusate CAP* 100 MG PO PRN (09:23)
--- NOTE | 2017-10-11 09:36 | PN ---
Subjective Date of Service: 10/11/17 Interval History: Patient had some wheezing overnight, had albuterol X2. Still coughing, but managable. No significant chest pain. Willing to get up to chair today. Family History: Unchanged from Admission Social History: Unchanged from Admission Past Medical History: Unchanged from Admission Objective Active Medications: Albuterol (Ventolin 2.5 Mg/3 Ml Neb.Dina*) 2.5 mg INH Q4H PRN PRN Reason: SOB/WHEEZING Last Admin: 10/11/17 08:13 Dose: 2.5 mg Amlodipine Besylate (Norvasc Tab*) 10 mg PO DAILY [facility] Last Admin: 10/11/17 08:58 Dose: 10 mg Dextrose (D50w Syringe 50 Ml*) 12.5 gm IV PUSH .FOR FS < 60 - SS PRN PRN Reason: FS < 60 Last Admin: 10/09/17 07:33 Dose: 12.5 gm Docusate Sodium (Colace Cap*) 100 mg PO BID PRN PRN Reason: CONSTIPATION Ferrous Sulfate (Ferrous Sulfate Tab*) 325 mg PO BID [facility] Glipizide (Glucotrol Tab*) 2.5 mg PO BID [facility] Heparin Sodium (Porcine) (Heparin Flush Picc/Ml/Cvc(*)) 0 ml FLUSH 0600,1800 [facility] PRN Reason: Protocol Last Admin: 10/11/17 05:24 Dose: 3 ml Ceftriaxone Sodium 2 gm/ (Dextrose) 50 mls @ 100 mls/hr IVPB 1100 [facility] Stop: 10/12/17 10:59 Last Admin: 10/10/17 11:11 Dose: 100 mls/hr Ceftriaxone Sodium 2 gm/ (Sodium Chloride) 50 mls @ 100 mls/hr IVPB DAILY@1100 [facility] Insulin Human Lispro (Humalog*) 0 units SUBCUT ACHS [facility] PRN Reason: Protocol Last Admin: 10/11/17 08:58 Dose: 6 unit Lisinopril (Prinivil Tab*) 10 mg PO DAILY [facility] Last Admin: 10/11/17 08:59 Dose: 10 mg Melatonin (Melatonin (Nf)) 3 mg PO BEDTIME [facility] Last Admin: 10/10/17 23:43 Dose: 3 mg Ondansetron HCl (Zofran Inj*) 4 mg IV Q6H PRN PRN Reason: NAUSEA Last Admin: 10/11/17 07:08 Dose: 4 mg Oxycodone/Acetaminophen (Percocet 5/325 Tab*) 1 tab PO Q4H PRN PRN Reason: PAIN Last Admin: 10/11/17 08:59 Dose: 1 tab Rivaroxaban (Xarelto(*)) 20 mg PO DAILY@2100 [facility] Last Admin: 10/10/17 20:28 Dose: 20 mg Simethicone (Mylicon Tab*) 80 mg PO Q6H PRN PRN Reason: gas distention Last Admin: 10/09/17 17:03 Dose: 80 mg Vital Signs - 8 hr 10/11/17 10/11/17 10/11/17 08:00 08:16 08:17 Temperature Pulse Rate 65 Respiratory 20 20 Rate Blood Pressure (mmHg) O2 Sat by Pulse 97 97 Oximetry Oxygen Devices in Use Now: Nasal Cannula Appearance: alert, no distress Ears/Nose/Mouth/Throat: Clear Oropharnyx Respiratory: - - rales LT base, otherwise clear Cardiovascular: RRR, - - 2/6 systolic murmur Abdominal: NL Sounds; No Tenderness; No Distention, No Hepatosplenomegaly Extremities: No Edema Neurological: Alert and Oriented x 3 Lines/Tubes/Other Access: Clean, Dry and Intact PICC Line Nutrition: Taking PO's Result Diagrams: 10/11/17 05:33 10/09/17 05:43 Additional Lab and Data: Laboratory Tests 10/11/17 10/11/17 05:33 05:33 RBC (Retic) 3.12 L HCT (Retic) 25 L Retic Count, Calc 4.0 H Corrected Retic Count 2.2 H Iron 15 L TIBC 176 L % Saturation 9 L Unsat Iron Binding 161 Vitamin B12 1313 H Microbiology and Other Data: Microbiology 10/04/17 18:30 Stool Stool Gross Appearance - Final 10/04/17 18:30 Stool C. difficile DNA Amplification - Final 027 Presumptive NEGATIVE Toxigenic C.diff NEGATIVE 09/22/17 17:35 Sputum Expectorated Gram Stain - Final 09/22/17 17:35 Sputum Expectorated Sputum Culture - Final YEAST Normal Marjorie 09/22/17 16:50 Blood Venous Aerobic Blood Culture - Final 09/22/17 16:50 Blood Venous Anaerobic Blood Culture - Final No Growth Day 5 No Growth Day 5 09/18/17 14:15 Tissue - Pleura, Rt Lung Wound Gram Stain - Final 09/18/17 14:15 Tissue - Pleura, Rt Lung Skin and Soft Tissue MRSA/MSSA (PCR - Final Mrsa Negative S.aureus Negative No Growth Day 4 09/18/17 14:15 Misc Source (See Comment) - Pleura, Rt Lung Anaerobic Culture - Final No Growth Day 4 09/16/17 03:37 Nasal Nasal Screen MRSA (PCR)([facility]ARE[facility]) - Final Mrsa Negative 09/15/17 14:33 Pleural Fluid Gram Stain - Final 09/15/17 14:33 Pleural Fluid Body Fluid Culture - Final No Growth Day 4 Assess/Plan/Problems-Billing Mr Richey is a 77 yo M who has a PMHx significant for NIDDM, HTN and Afib (on Xarelto) who presented to the ER with 3 weeks of SOB, 1 week productive cough and was admitted for bilateral pneumonia with empyema. - Patient Problems (1) Chest pain at rest Current Visit: Yes Status: Acute Priority: Medium Code(s): R07.9 - CHEST PAIN, UNSPECIFIED SNOMED Code(s): 5343178 Comment: - mild chest pain is likely due to pleural irritation or GERD (2) Loculated pleural effusion Current Visit: Yes Status: Acute Priority: Medium Code(s): J90 - PLEURAL EFFUSION, NOT ELSEWHERE CLASSIFIED SNOMED Code(s): 432361272 Comment: S/P VATS 09/18/17, chest tubes now removed C&S grew S. pneumoniae. Continue ceftriaxone. (3) Acute respiratory failure with hypoxia Current Visit: Yes Status: Acute Priority: High Code(s): J96.01 - ACUTE RESPIRATORY FAILURE WITH HYPOXIA SNOMED Code(s): 62593213 Comment: Resp failure now resolved, was secondary to bilateral pneumococcal pneumonia with bilateral empyema (4) Paroxysmal A-fib Current Visit: Yes Status: Acute Priority: Medium Code(s): I48.0 - PAROXYSMAL ATRIAL FIBRILLATION SNOMED Code(s): 849333033 Comment: Continue xarelto and monitor for elevated HRs. (5) Empyema Current Visit: Yes Status: Acute Priority: High Code(s): J86.9 - PYOTHORAX WITHOUT FISTULA SNOMED Code(s): 446666903 Comment: The patient developed the empyema secondary to bilateral S. pneumoniae pneumonia. He is s/p VATS on the R and bilateral chest tubes, now removed. Continue ceftriaxone 2g IV daily. Today is D# . (6) DVT prophylaxis Current Visit: Yes Status: Acute Priority: Low Code(s): FYX2332 - SNOMED Code(s): 886523881 Comment: darline (7) Diabetes mellitus Current Visit: Yes Status: Acute Priority: Medium Code(s): E11.9 - TYPE 2 DIABETES MELLITUS WITHOUT COMPLICATIONS SNOMED Code(s): 93779461 Comment: - hypoglycemia resolved - sugars trending higher, restarting lower dose glipizide - can be discharged to SNF bed or transition to [facility] when available (8) Iron deficiency anemia Current Visit: Yes Status: Acute Priority: Medium Code(s): D50.9 - IRON DEFICIENCY ANEMIA, UNSPECIFIED SNOMED Code(s): 18986379 Comment: -iron indices low -starting oral iron and stool softener Status and Disposition: Inpatient. Will need acute rehab at SNF in 1-2 days, can go to SNF with IV antibiotics if allowed
[2017-10-11] MEDS: Ferrous Sulfate TAB* 325 MG PO SCH ×2 (10:44→21:12)
[2017-10-11] MEDS: cefTRIAXone(*) 2 GM in D5W 50 ML BAG* 50 ML IVPB SCH (10:44)
[2017-10-11] MEDS: glipiZIDE TAB* 5 MG PO SCH ×2 (10:44→21:12)
[2017-10-11] MEDS: CMCS Melatonin (NF) 3 MG TAB PO SCH (21:12)
[2017-10-11] MEDS: Rivaroxaban TAB(*) 20 MG TAB PO SCH (21:12)
[2017-10-12] MEDS: oxyCODONE/Acetamin 5/325 MG* TAB PO PRN ×2 (06:31→10:43)
[2017-10-12] MEDS: Ondansetron INJ* 2 MG/ML VIAL IV PRN (07:56)
[2017-10-12] MEDS: Albuterol 2.5 MG/3 ML NEB.SOL* (0.083%) INH PRN (09:39)
[2017-10-12] MEDS: Ferrous Sulfate TAB* 325 MG PO SCH (10:09)
[2017-10-12] MEDS: Lisinopril TAB* 10 MG PO SCH (10:09)
[2017-10-12] MEDS: amLODIPine TAB* 5 MG PO SCH (10:10)
[2017-10-12] MEDS: glipiZIDE TAB* 5 MG PO SCH (10:11)
[2017-10-12] MEDS: Insulin LISPRO* 1 UNITS UNIT SUBCUT SCH ×2 (10:12→13:58)
--- NOTE | 2017-10-12 10:58 | PN ---
Subjective Date of Service: 10/12/17 Interval History: Patient seen and examined at bedside. Denies fever, chills, V/D Pt states that he continues to intermittently have shortness of breath and upper chest discomfort when he is turned and repositioned in bed. Pt also reports continued intermittent nausea. Verbal permission obtained from the patient to photograph buttock wound for chart. Family History: Unchanged from Admission Social History: Unchanged from Admission Past Medical History: Unchanged from Admission Objective Active Medications: Albuterol (Ventolin 2.5 Mg/3 Ml Neb.Dina*) 2.5 mg INH Q4H PRN Reason: SOB/ WHEEZING Amlodipine Besylate (Norvasc Tab*) 10 mg PO DAILY [facility] Dextrose (D50w Syringe 50 Ml*) 12.5 gm IV PUSH .FOR FS < 60 - SS PRN Reason: FS < 60 Docusate Sodium (Colace Cap*) 100 mg PO BID PRN Reason: CONSTIPATION Ferrous Sulfate (Ferrous Sulfate Tab*) 325 mg PO BID [facility] Glipizide (Glucotrol Tab*) 2.5 mg PO BID [facility] Heparin Sodium (Porcine) (Heparin Flush Picc/Ml/Cvc(*)) 0 ml FLUSH 0600,1800 [facility] Ceftriaxone Sodium 2 gm/ (Dextrose) 50 mls @ 100 mls/hr IVPB 1100 SHIRA Stop: 10/12/17 10:59 Ceftriaxone Sodium 2 gm/ (Sodium Chloride) 50 mls @ 100 mls/hr IVPB DAILY@1100 [facility] Insulin Human Lispro (Humalog*) 0 units SUBCUT ACHS [facility] Lisinopril (Prinivil Tab*) 10 mg PO DAILY [facility] Melatonin (Melatonin (Nf)) 3 mg PO BEDTIME [facility] Ondansetron HCl (Zofran Inj*) 4 mg IV Q6H PRN Reason: NAUSEA Oxycodone/Acetaminophen (Percocet 5/325 Tab*) 1 tab PO Q4H PRN Reason: PAIN Rivaroxaban (Xarelto(*)) 20 mg PO DAILY@2100 [facility] Simethicone (Mylicon Tab*) 80 mg PO Q6H PRN Reason: gas distention Vital Signs - 8 hr 10/12/17 10/12/17 10/12/17 03:31 06:31 07:28 Temperature 98.3 F 98.1 F Pulse Rate 65 66 Respiratory 20 24 24 Rate Blood Pressure 136/50 135/57 (mmHg) O2 Sat by Pulse 94 90 Oximetry 10/12/17 10/12/17 10/12/17 08:18 08:19 09:06 Temperature Pulse Rate 66 Respiratory 20 20 Rate Blood Pressure (mmHg) O2 Sat by Pulse 92 92 Oximetry 10/12/17 10:43 Temperature Pulse Rate Respiratory 20 Rate Blood Pressure (mmHg) O2 Sat by Pulse Oximetry Oxygen Devices in Use Now: Nasal Cannula - 2L Appearance: NAD, laying in bed Ears/Nose/Mouth/Throat: Mucous Membranes Moist Respiratory: Symmetrical Chest Expansion and Respiratory Effort, Clear to Auscultation - , diminished Cardiovascular: NL Sounds; No Murmurs; No JVD, - - Heart rate irregular Abdominal: NL Sounds; No Tenderness; No Distention Extremities: - - 1+ bilateral LE edema Skin: - - Stage 2 pressure injury to right buttock/leatha cleft. Leatha cleft wound 1 x 4 cm and right buttock 3 x 3 cm. Neurological: Alert and Oriented x 3, NL Muscle Strength and Tone Lines/Tubes/Other Access: Clean, Dry and Intact PICC Line - site benign Nutrition: Taking PO's Result Diagrams: 10/11/17 05:33 10/09/17 05:43 Additional Lab and Data: Laboratory Tests 10/11/17 10/11/17 05:33 05:33 RBC (Retic) 3.12 L HCT (Retic) 25 L Retic Count, Calc 4.0 H Corrected Retic Count 2.2 H Iron 15 L TIBC 176 L % Saturation 9 L Unsat Iron Binding 161 Vitamin B12 1313 H Microbiology and Other Data: Microbiology 10/04/17 18:30 Stool Stool Gross Appearance - Final 10/04/17 18:30 Stool C. difficile DNA Amplification - Final 027 Presumptive NEGATIVE Toxigenic C.diff NEGATIVE 09/22/17 17:35 Sputum Expectorated Gram Stain - Final 09/22/17 17:35 Sputum Expectorated Sputum Culture - Final YEAST Normal Marjorie 09/22/17 16:50 Blood Venous Aerobic Blood Culture - Final 09/22/17 16:50 Blood Venous Anaerobic Blood Culture - Final No Growth Day 5 No Growth Day 5 09/18/17 14:15 Tissue - Pleura, Rt Lung Wound Gram Stain - Final 09/18/17 14:15 Tissue - Pleura, Rt Lung Skin and Soft Tissue MRSA/MSSA (PCR - Final Mrsa Negative S.aureus Negative No Growth Day 4 09/18/17 14:15 Misc Source (See Comment) - Pleura, Rt Lung Anaerobic Culture - Final No Growth Day 4 09/16/17 03:37 Nasal Nasal Screen MRSA (PCR)(MACARENA) - Final Mrsa Negative 09/15/17 14:33 Pleural Fluid Gram Stain - Final 09/15/17 14:33 Pleural Fluid Body Fluid Culture - Final No Growth Day 4 Assess/Plan/Problems-Billing Mr. Richey is a 77 yo M who has a PMHx significant for NIDDM, HTN and Afib ( on Xarelto) who presented to the ER with 3 weeks of SOB, 1 week productive cough and was admitted for bilateral pneumonia with empyema. - Patient Problems (1) Acute respiratory failure with hypoxia Code(s): J96.01 - ACUTE RESPIRATORY FAILURE WITH HYPOXIA SNOMED Code(s): 00830815 Comment: - Improving, continues to require supplemental O2 @ 2L via NC - Secondary to bilateral pneumococcal pneumonia with bilateral empyema and possible aspiration PNA secondary to zenker's diverticulum (2) Empyema Code(s): J86.9 - PYOTHORAX WITHOUT FISTULA SNOMED Code(s): 959471589 Comment: - The patient developed empyema secondary to bilateral S. pneumoniae pneumonia. - 1/5 s/p VATS on the R and bilateral chest tubes, now removed. - Continue ceftriaxone 2g IV daily for 2 more weeks. (3) Zenker diverticulum Code(s): K22.5 - DIVERTICULUM OF ESOPHAGUS, ACQUIRED SNOMED Code(s): 801558488 Comment: - S/P endoscopic clipping - He will need a swallow eval at [facility] week - Continue to advance diet as able per speech therapy recomendatins - Will need follow up with ENT, Dr. Sims's office will call Pt's family (4) Malnutrition of moderate degree Code(s): E44.0 - MODERATE PROTEIN-CALORIE MALNUTRITION SNOMED Code(s): 094045615 Comment: - Off TPN. Continue to advance diet as able per Speech Therapy. (5) Urinary retention Code(s): R33.9 - RETENTION OF URINE, UNSPECIFIED SNOMED Code(s): 096167113 Comment: - Keep calvo in place as he had >3L of urine in his bladder when the calvo was placed. - He will need to follow up with urology as an outpatient. (6) Diabetes mellitus Code(s): E11.9 - TYPE 2 DIABETES MELLITUS WITHOUT COMPLICATIONS SNOMED Code(s) : 79075632 Comment: - Hypoglycemia resolved - Glucose 120-180's - Continue glipizide (7) Paroxysmal A-fib Code(s): I48.0 - PAROXYSMAL ATRIAL FIBRILLATION SNOMED Code(s): 411456083 Comment: - Continue xarelto and monitor for elevated HRs. (8) COPD (chronic obstructive pulmonary disease) Code(s): J44.9 - CHRONIC OBSTRUCTIVE PULMONARY DISEASE, UNSPECIFIED SNOMED Code(s): 76514618 Comment: - No signs of acute exacerbation at this time - Continue albuterol nebs as needed (9) Gout Code(s): M10.9 - GOUT, UNSPECIFIED SNOMED Code(s): 63721281 Comment: - Resume allopurinol (10) HTN (hypertension) Code(s): I10 - ESSENTIAL (PRIMARY) HYPERTENSION SNOMED Code(s): 92907908 Comment: - SBP 120-140's - Continue amlodipine (11) Iron deficiency anemia Code(s): D50.9 - IRON DEFICIENCY ANEMIA, UNSPECIFIED SNOMED Code(s): 53005505 Comment: - Iron indices low - Continue Iron (12) DVT prophylaxis Code(s): SCA6276 - SNOMED Code(s): 001427179 Comment: - Xarelto (13) Full code status Code(s): Z78.9 - OTHER SPECIFIED HEALTH STATUS SNOMED Code(s): 543985454 Status and Disposition: Inpatient. Plan for discharge to [facility] today with 2 more weeks of IV ABX.
[2017-10-12] MEDS ORDERED: CEFTRIAXONE IVPB SCH (11:00)
[2017-10-12] MEDS ORDERED: NS 0.9% IVPB SCH (11:00)
[2017-10-12 11:39] VITALS: BP 141/51
--- NOTE | 2017-10-12 12:46 | RAD ---
INDICATION: Empyema COMPARISON: Chest x-ray September 30, 2017; CT chest September 28, 2017 TECHNIQUE: AP seated and views were obtained. FINDINGS: Bones/Soft Tissues: There are no acute bony findings. There is interval extubation. There is a right-sided PICC catheter terminating in the superior vena cava. The right-sided chest tube is been removed Cardiomediastinal: Cardiac silhouette and central pulmonary vessels are prominent. Lungs: There is diffuse interstitial infiltrative changes which appear stable. There may be right retrocardiac consolidative change. This portion lung field is not well evaluated on this AP seated view. There is hyperaeration.. Pleura: There are small bilateral pleural effusions.. Other: None IMPRESSION: ENLARGED CARDIAC SILHOUETTE WITH DIFFUSE INTERSTITIAL INFILTRATIVE CHANGES AND SMALL BILATERAL PLEURAL EFFUSIONS. INTERVAL REMOVAL OF RIGHT-SIDED CHEST TUBE
--- NOTE | 2017-10-12 15:42 | DS ---
CC: Dr. Dunn; [facility]* DISCHARGE SUMMARY: DATE OF ADMISSION: 09/13/17 DATE OF DISCHARGE: 10/12/17 ATTENDING PHYSICIAN: Dr. Meme Will* (dictated by Kvng Villafana NP) PRIMARY CARE PROVIDER: Dr. Dunn. PRIMARY DIAGNOSES: 1. Sepsis, resolved. 2. Acute respiratory failure with hypoxia, improving. 3. Bilateral pneumococcal pneumonia with bilateral empyemas, improving. 4. Zenker's diverticulum. 5. Malnutrition. 6. Urinary retention. 7. Sepsis on admission, resolved. 8. Stage II pressure injury to right buttock and yoli cleft. SECONDARY DIAGNOSES: 1. Diabetes mellitus. 2. Hypertension. 3. Atrial fibrillation. 4. Gout. CONSULTATIONS WHILE IN THE HOSPITAL: 1. Dr. Fili Wilkinson with General Surgery. 2. Dr. Mattie Tuttle with Pulmonology. 3. Dr. Crow Wallace with Infectious Disease. 4. Dr. Dequan Sheehan with Gastroenterology. 5. Dr. Darryl Sims with ENT. PROCEDURES WHILE IN THE HOSPITAL: 1. Status post thoracentesis on 09/14/[address] Fili Wilkinson. 2. Status post left thoracentesis on 09/15/[address] Davidson. 3. Status post a right video thoracoscopy with evacuation of empyema and partial pulmonary decortication and left thoracostomy tube on 09/18/[address] Gold. 4. Status post endoscopic stapling of Zenker's diverticulum on 09/30/[address] Darryl Sims. 5. Status post fine-needle aspiration of right breast lump on 10/01/[address] Tomas Gold. STUDIES WHILE IN THE HOSPITAL: 1. Chest x-ray on 09/13/17. Radiologist's impression: Chest x-ray findings are more consistent with cardiogenic pulmonary edema with likely bibasilar pleural effusions and possible consolidation at the lung bases. 2. Chest CTA on 09/13/17. Radiologist's impression: There are large bibasilar pleural effusions with compressive consolidation at the lower lobes. On the right, there is appearance of circumferential pleural thickening, the evaluation of which is limited due to respiratory motion artifact. Differential diagnosis includes loculated pleural effusion or potentially a neoplastic process. Appearance of esophageal thickening at the mid level esophagus. More prominently, there is fluid- filled level in the proximal esophagus including oral contrast in the dependent most portion. This could represent a Zenker's diverticulum. On a nonemergent basis, this can be further characterized with either esophagogram or endoscopy. Partial cystic, partially solid subcutaneous collection underlying the anterior right chest wall. Please correlate to physical examination. 3. Transthoracic echocardiogram on 09/14/17. Music Theory Teacher's conclusion: The study was technically limited, parasternal views good, apical and subcostal suboptimal. The left ventricle chamber size is decreased. Moderate concentric left ventricular hypertrophy is observed. There is normal left ventricular systolic function. The estimated ejection fraction is 55% to 60%. The right ventricular global systolic function is normal. Aortic valve is trileaflet, mild sclerosis, and normal function. There is trace of mitral regurgitation, mild tricuspid regurgitation. There is evidence of mild pulmonary hypertension , 43 mmHg. There is mild dilation of the ascending aorta. The patient was in atrial fibrillation throughout the study, prior echo not available for comparison. 4. Chest x-ray on 09/15/17. Radiologist's impression: Bilateral pleural effusions with new loculated pleural effusions in the right upper lobe. 5. Thoracentesis, ultrasound on 09/15/17. Radiologist's impression: Left thoracentesis performed with aspiration of 20 mL of madeline fluid. The pleural fluid appears to be complex bilaterally. This may limit simple aspiration. 6. Chest x-ray on 09/17/17. Radiologist's impression: Bilateral effusions with bibasilar atelectasis versus consolidation. The loculated right upper lobe component is not evident. 7. Chest x-ray on 09/18/17. Radiologist's impression: Small right basilar pneumothorax. Negative for mediastinal shift. Bilateral chest tubes in place. 8. Chest x-ray on 09/19/17. Radiologist's impression: Small right basilar pneumothorax decreased in size. There is a chest tube in place. Small right basilar infiltrate and pleural reaction, unchanged. 9. Chest x-ray on 09/21/17. Radiologist's impression: Given differences in technique, there has been no significant change in the decrease of aeration relative to 09/19/17 chest x-ray. There is no visible pneumothorax in the presence of bilateral chest tubes. 10. Video fluoroscopic swallow function test on 09/21/17. Radiologist's impression: Transient laryngeal penetration with thin and nectar thick liquids without gus laryngeal aspiration. Decreased excursion of motion of the epiglottis with . Zenker's diverticulum measuring up to 3 cm AP x 4.6 cm transverse x 5.1 cm cephalocaudal based on correlation with 09/13/[address] on 09/22/17. Radiologist's impression: Small bilateral pleural effusions with chest tubes in place, small right basilar pneumothorax. Bilateral infiltrates demonstrating interval progression with some high-density material within the infiltrates possibly from aspiration of contrast from the prior swallow study. Large Zenker's diverticulum containing residual contrast. Enlarged mediastinal lymph nodes. Possible ankylosing spondylitis. 12. Chest x-ray on 09/23/17. Radiologist's impression: Bilateral infiltrates demonstrating interval progression. 13. Chest x-ray on 09/24/17 at 1504. Radiologist's impression: Interval placement of right-sided PICC with the tip terminating at the superior vena cava. Additional chronic and iatrogenic findings are unchanged since the previous chest x- ray. 14. Chest x-ray on 09/24/17 at 2025. Radiologist's impression: Worsening vascular congestive findings and bilateral infiltrates. 15. Chest CT on 09/28/17. Radiologist's impression: There has been interval development of diffuse nodularity throughout both lungs, greater on the right than the left. The pattern of nodularity suggests hematogenous spread of infection or neoplasm. Persistent but improving consolidation of the right lower lobe. Again noted is high-attenuation material in the right lower lobe, which may reflect aspirated contrast. There is a 2.4-cm mass of the right upper lobe. There is a Zenker's diverticulum containing oral contrast. There is a stable mediastinal lymphadenopathy. Again, noticed is a complex soft tissue density of the right breast. There is a small bilateral pleural effusion. 16. Chest x-ray from 09/30/17. Radiologist's impression: Interval placement of an endotracheal tube with tip terminating at about 3 cm above the elif. Relative to the most recent 09/24/17 chest x-ray, there has been a mild improvement in the degree of aeration. 17. Abdominal x-ray on 10/09/17. Radiologist's impression: Gaseous distention and mild dilation of the colon with paucity of gas in the rectum. A differential includes distal colonic obstruction, obstipation, or colonic pseudoobstruction. 18. Chest x-ray from 10/12/17. Radiologist's impression: Enlarged cardiac silhouette with diffuse interstitial infiltrative changes and small bilateral pleural effusions. Interval removal of right-sided chest tube. DISCHARGE MEDICATIONS: New home medications: 1. Albuterol 2.5 mg/3 mL 0.083% 2.5 mg inhalation every 4 hours as needed for shortness of breath or wheeze. 2. Colace 100 mg oral twice daily as needed for constipation. 3. Ferrous sulfate 325 mg oral twice daily. 4. Heparin flush 1 mL twice daily per protocol. 5. Lispro insulin sliding scale, 2 units of lispro for 130 to 150 glucose; glucose 151 to 200, 3 units; 201 to 250, 6 units; 251 to 300, 9 units; 301 to 350, 12 units; 351 to 400, 15 units. 6. Melatonin 3 mg oral daily at bedtime as needed for sleep. 7. Percocet 5/325 one tablet oral every 4 hours as needed for pain. 8. Simethicone 80 mg oral every 6 hours as needed for gas distention. 9. Ceftriaxone 2 g intravenous daily for 14 more days. 10. Zofran 4 mg oral every 6 hours as needed for nausea. Continued home meds: 1. Xarelto 20 mg oral daily. 2. Allopurinol 300 mg oral daily. 3. Amlodipine 10 mg oral daily. 4. Vitamin B12 100 mcg oral daily. 5. Vitamin D3 1000 units oral daily. Changed home medications: 1. Glipizide decreased from 20 mg oral twice daily to 2.5 mg oral twice daily. 2. Lisinopril decreased from 20 mg oral twice daily to 10 mg oral daily. Discontinued home medications: Magnesium. HISTORY OF PRESENT ILLNESS: Mr. Richey is a 77-year-old male with past medical history significant for diabetes, hypertension, atrial fibrillation, on Xarelto, who presented to the hospital with concerns of cough, fever, and shortness of breath. Mr. Richey had been feeling unwell for a month with a chronic cough, decreased appetite, and generally feeling unwell. He presented to his primary care provider's office, Dr. Dunn, on Thursday of the week prior to his admission. At that time, it was felt that perhaps he had bronchitis. He was started on prednisone and Keflex. Despite being on antibiotics and prednisone, the patient continued to feel worse. He had worsening of his cough and had fevers as high as about 100. He also had pain with deep inspiration and a cough and had sore ribs from coughing so much. He was also reporting copious amounts of productive sputum that was red and brown. Based to this, he presented to the emergency room. While in the emergency room, he had white blood cell count of 24.7, CRP of 342.53. He had a chest x-ray showing cardiogenic pulmonary edema with likely bibasilar pleural effusions and possible consolidation at the lung bases. He had a chest CT showing a large bibasilar pleural effusion, circumferential pleural thickening, loculated pleural effusion, or potentially a neoplastic process and more prominently the air-fluid level of the proximal esophagus including oral contrast in the dependent most portion that could represent a Zenker's diverticulum. The patient confirmed having difficulty swallowing for many years and had been told he had a "pouch" in his throat. Due to the patient 's presentation and workup in the emergency room, the hospitalists were asked to evaluate the patient for admission. While in the hospital, the patient was treated for acute respiratory failure with hypoxia, suspected to be secondary to bilateral pneumococcal pneumonia with bilateral empyema with possible aspiration pneumonitis secondary to Zenker' s diverticulum. The patient was eventually weaned down on his supplemental oxygen with saturations in the mid to high 90s. For his empyema, he presented to the hospital with severe sepsis that was evolving on admission secondary to his bilateral pneumococcal pneumonia and bilateral empyemas. His sepsis resolved during his stay. He had had chest tubes removed on 10/06/17. He has continued on ceftriaxone 2 g IV for his Zenker's diverticulum. He was status post clipping of the Zenker's diverticulum on 09/30/[address] Sims. He was advanced from full liquids to soft with nectar thick with a goal to get to regular consistency diet, but he needs to continue to work with Speech Therapy to achieve this. He has malnutrition, was on TPN, and then has been weaned off TPN since 10/07/17. For his diabetes mellitus, his glucoses have been under good control. He did have an episode of hypoglycemia. He was resumed back on his oral antihyperglycemics at home. For urinary retention, he had greater than 3 L in his bladder. He had a Pink catheter placed. He will need to follow up with Urology outpatient. Paroxysmal atrial fibrillation has been controlled. He has been continued on Xarelto. His blood pressures have been slightly elevated. He has been continued on his home meds at decreased rate. During his stay, he also underwent a VATS procedure with Dr. Gold on 09/18/17 in addition to a tPA infusion to his left lung. He has had a stage II to III pressure ulcer to his buttocks. He has been turned in position frequently. It was felt he needed rehab needs with OT, PT, and speech therapy, due to his deconditioning from S. pneumoniae pneumonia and empyema. Mr. Richey is stable for discharge to [facility] today. Vital signs are as follows: Temperature 98.0, heart rate 95, respiratory rate 22, O2 sat 95% on 2 L via nasal cannula, blood pressure 141/51. DISCHARGE PLANS: Mr. Richey will be discharged to [facility] today. Activity as tolerated. He should be on a consistent carbohydrate diet with nectar thick liquids and a soft diet. As he works his speech therapy, he should be transitioned to a regular consistency diet. As far as his Zenker's diverticulum, he should be seen in followup by Dr. Sims. Dr. Sims's office will contact the family to set up a followup appointment. He should continue to work with Speech Therapy and advance his diet as tolerated. For his S. pneumoniae pneumonia with empyema, he should continue on IV ceftriaxone 2 g daily for 2 more weeks. He should have physical therapy and occupational therapy eval and continued treatment. He should be seen in followup by [facility] next week for his acute respiratory failure with hypoxia. He should be continued on oxygen at 2 L via nasal cannula to keep his O2 sats greater than 94%. In regards to his urinary retention, he should continue to have a urinary catheter and follow up with Urology outpatient. The patient should return to the emergency room for any chest pain, shortness of breath. He should be seen by provider at [facility] per their protocol. This is a summarized report of a complex medical history and hospital stay. For further details, please see the entire medical record. TIME SPENT: Time for this discharge was approximately 60 minutes, greater than half of that was spent with the patient discussing discharge plans and instructions. CONDITION ON DISCHARGE: Stable. KVNG VILLAFANA, LYDIA [id number]/[facility] #: [id number] JAIR
== END 2017-10-12 15:00 | DRG 853 ==
LOC: ED 14:33 → MED 17:23 → ICU 09-16 03:32 → MEDTELE 09-17 12:15 → ICU 09-18 16:09 → SSU 09-20 17:38 → ICU 09-22 14:55 → SSU 10-02 09:28
PROVIDERS: ADMIT Hospitalist; ATTEND Internal Medicine
PROC: 0W993ZZ Drainage of Right Pleural Cavity, Percutaneous Approach (ICD-10-PCS; 2017-09-14)
PROC: 0W9B3ZX Drainage of Left Pleural Cavity, Percutaneous Approach, Diagnostic (ICD-10-PCS; 2017-09-15)
PROC: 0T9B70Z Drainage of Bladder with Drainage Device, Via Natural or Artificial Opening (ICD-10-PCS; 2017-09-17)
PROC: 0W9940Z Drainage of Right Pleural Cavity with Drainage Device, Percutaneous Endoscopic Approach (ICD-10-PCS; 2017-09-18)
PROC: 5A1945Z Respiratory Ventilation, 24-96 Consecutive Hours (ICD-10-PCS; 2017-09-18)
PROC: 0W9B40Z Drainage of Left Pleural Cavity with Drainage Device, Percutaneous Endoscopic Approach (ICD-10-PCS; 2017-09-18)
PROC: 0BCN4ZZ Extirpation of Matter from Right Pleura, Percutaneous Endoscopic Approach (ICD-10-PCS; 2017-09-18)
PROC: 0BH17EZ Insertion of Endotracheal Airway into Trachea, Via Natural or Artificial Opening (ICD-10-PCS; 2017-09-18)
PROC: 3E0L3GC Introduction of Other Therapeutic Substance into Pleural Cavity, Percutaneous Approach (ICD-10-PCS; 2017-09-19)
PROC: 02HV33Z Insertion of Infusion Device into Superior Vena Cava, Percutaneous Approach (ICD-10-PCS; principal; 2017-09-24)
PROC: 0WPBX0Z Removal of Drainage Device from Left Pleural Cavity, External Approach (ICD-10-PCS; 2017-09-24)
PROC: 3E0336Z Introduction of Nutritional Substance into Peripheral Vein, Percutaneous Approach (ICD-10-PCS; 2017-09-25)
PROC: 0HBT3ZX Excision of Right Breast, Percutaneous Approach, Diagnostic (ICD-10-PCS; 2017-10-01)
PROC: 0DB48ZZ Excision of Esophagogastric Junction, Via Natural or Artificial Opening Endoscopic (ICD-10-PCS; 2017-10-02)
PROC: 0WP9X0Z Removal of Drainage Device from Right Pleural Cavity, External Approach (ICD-10-PCS; 2017-10-06)
DX: A41.9 Sepsis, unspecified organism (principal); J69.0 Pneumonitis due to inhalation of food and vomit; J96.01 Acute respiratory failure with hypoxia; J86.9 Pyothorax without fistula; I47.2 Ventricular tachycardia; J81.1 Chronic pulmonary edema; E44.0 Moderate protein-calorie malnutrition; L89.152 Pressure ulcer of sacral region, stage 2; J13 Pneumonia due to Streptococcus pneumoniae; J90 Pleural effusion, not elsewhere classified; J44.0 Chronic obstructive pulmonary disease with (acute) lower respiratory infection; K52.1 Toxic gastroenteritis and colitis; F05 Delirium due to known physiological condition; I45.2 Bifascicular block; S27.0XXA Traumatic pneumothorax, initial encounter; L89.313 Pressure ulcer of right buttock, stage 3; L89.312 Pressure ulcer of right buttock, stage 2; R65.20 Severe sepsis without septic shock; E11.649 Type 2 diabetes mellitus with hypoglycemia without coma; E66.01 Morbid (severe) obesity due to excess calories; I27.20 Pulmonary hypertension, unspecified; I48.0 Paroxysmal atrial fibrillation; M19.041 Primary osteoarthritis, right hand; M10.9 Gout, unspecified; R33.9 Retention of urine, unspecified; I08.3 Combined rheumatic disorders of mitral, aortic and tricuspid valves; D64.9 Anemia, unspecified; B95.3 Streptococcus pneumoniae as the cause of diseases classified elsewhere; N63.10 Unspecified lump in the right breast, unspecified quadrant; T36.0X5A Adverse effect of penicillins, initial encounter; Y92.239 Unspecified place in hospital as the place of occurrence of the external cause; D50.9 Iron deficiency anemia, unspecified; R11.0 Nausea; R13.10 Dysphagia, unspecified; I10 Essential (primary) hypertension; R59.0 Localized enlarged lymph nodes; Z98.42 Cataract extraction status, left eye; Z98.41 Cataract extraction status, right eye; Z82.49 Family history of ischemic heart disease and other diseases of the circulatory system; Z80.3 Family history of malignant neoplasm of breast; Z68.31 Body mass index [BMI] 31.0-31.9, adult; Z79.01 Long term (current) use of anticoagulants; Z79.4 Long term (current) use of insulin
CPT/HCPCS: 10021; 32555; 36415; 71010; 71045; 71046; 71250; 74019; 74230; 80048; 80053; 80202; 82150; 82465; 82607; 82945; 82947; 83540; 83550; 83605; 83615; 83735; 83880; 83986; 84100; 84134; 84145; 84157; 84478; 84484; 85025; 85027; 85045; 86140; 86850; 86900; 86901; 87040; 87070; 87073; 87077; 87205; 87493; 87640; 87641; 87899; 88112; 88172; 88173; 88304; 88305; 89051; 93005; 93306; 94002; 94003; 94640; 94667; 94668; 94760; 99213; A9270-GY; C1751; C1776; G0463; J0456; J0692; J0696; J1120; J1170; J1650; J1720; J1940; J2250; J2270; J2405; J2543; J2704; J2997; J3010; J3370; J3475; J3480; J3490; J7611; J7639

== ENCOUNTER 2017-11-09 17:42 | Emergency (ER) | payer MEDICARE, OTHER ==
--- OUTSIDE RECORDS SUMMARY | 2017-11-09 18:37 | XMS REPORT ---
:1940 External Reference #:[id number] Author Organization [facility] Address [address] [address] Phone [phone] Care Team Providers Name Role Phone Rafy Dunn MD Primary Care Physician Unavailable Payers Type Date Identification Numbers Payment Provider Subscriber Medicare Primary Effective: Policy Number: Medicare Darrin E 2008 [id number] Heliseva PayID: [id number] [address] [place] [address] Commercial Policy Number: [id number] [facility] Darrin E Heliseva Group Number: [id number] [address] PayID: [id number] [place] [address] Medigap Part B Expires: 2017 Policy Number: Aet [employer] Darrin House [id number] Heliseva Group Number: [id number] [id number] PayID: [id number] [place] [address] Problems Date Description Provider Status Onset: 01/17/2015 Atrial fibrillation Lul Marcus M.D., [facility], Active [facility] Onset: 02/25/2016 Chronic atrial fibrillation Lul Marcus M.D., [facility], Active [facility] Family History Date Family Member(s) Problem(s) Comments General Hypertension Grand mother, Aunt General Emphysema Grand father Father [place] Siblings 3 HTN Social History Type Date Description Comments Marital Status Lives With Alone Occupation Retired Cigarette Use Never Smoked Cigarettes ETOH Use Denies alcohol use Smoking Patient has never smoked Recreational Drug Use Denies Drug Use Daily Caffeine Consumes on average 3 cups of decaff coffee per day Exercise Type/Frequency Exercises rarely General Hx Text Do you follow a special diet : diabetic diet Do you have problems snoring, day time fatigue: hx of snoring witness son, sometimes daytime fatigue. Allergies, Adverse Reactions, Alerts Date Description Reaction Status Severity Comments 01/03/2015 Keflex active constipation 01/17/2015 Lopressor active lightheaded Medications Medication Date Status Form Strength Qnty SIG Indications Ordering Provider Lotrimin Ultra 10/21 Active Cream 1% 36gm apply Sony twice Schwed, daily to M.D. right chest Xarelto 01/17 Active Tablets 20mg 90tab 1 by mouth I48.91 Lul s every day Efren Marcus M.D., [facility], [facility] Lisinopril Active Tablets 20mg 180ta /2 by Lul bs mouth Schwartz sav Marcus M.D., [facility], [facility] Allopurinol Active Tablets 300mg 1 by mouth Unknown / every day Norvasc Active Tablets 10mg 1 by mouth every day Multivitamins Active Capsules 1 by mouth every day Vitamin D3 Active Tablets 1000Unit 1 tablet Unknown /0000 by mouth everyday Vitamin B-12 Active 1000Units daily Glipizide Active Tablets 2.5mg 1 tab Niziol twice sav Hillman MD Albuterol Sulfate Active Nebulizer (2.5mg/3M 1 vial via / L) 0.083% nebulizer 4 times daily as needed Colace Active Capsules 100mg 1 tab by Unknown / mouth 2 times a day as needed Cyanocobalamin Active Tablets Sub 100mcg take one /0000 capsule/ta blet daily sublingual ly Ferrous Sulfate Active Tablets 325(65Fe) 1 by mouth Unknown /0000 mg every day Lunesta Active Tablets 1mg as needed / for sleep Melatonin Active Capsules 3mg 1 capsules Unknown /0000 by mouth every 24 hours as needed for insomnia Milk Of Magnesia Active Suspension 400mg/5ML give 30 Unknown / milliliter s by mouth once daily as needed constipati on Ondansetron Active Tablets 4mg dissolve /0000 Dispers one tablet orally every 8 hours as needed for nausea. Percocet Active Tablets 2.5-325mg take 1 Unknown /0000 every 6 hours as needed for pain Rocephin Active Solution 2gm IV until Unknown /0000 Rec 10/25/17 Simethicone Active Chewtabs 80mg 1 tab by Unknown /0000 mouth at at bedtime for bloating or gas pain Timolol Maleate Hx Tablets 10mg 1 tab by Unknown /0000 mouth two - times a 01/17 day or directed Glipizide Hx Tablets 5mg 3 by mouth Unknown /0000 twice a - day 01/03 Indomethacin Hx Capsules 50mg as needed Unknown /0000 - 02/23 Triamcinolone Hx Ointment 0.5% apply to Unknown Acet /0000 affected - area three 02/23 daily as needed Neurontin Hx Capsules 300mg 1 by mouth Unknown /0000 three - times 01/16 Hydrochlorothiazi Hx Tablets 25mg 1 by mouth Unknown de / every day - 01/[address] Hx Table[address] 325mg 1 by mouth Unknown /0000 every day - 03/04 Famotidine Hx Tablets 20mg take one Unknown /0000 tablet as - needed 02/24 Magnesium Hx Tablets 500mg 1 by mouth Unknown /0000 every day Rivaroxaban 00 Hx 1 at Unknown /0000 bedtime (20mg) Medications Administered in Office Medication Date Status Form Strength Qnty SIG Indications Ordering Provider Inj, Administered Injection Lul Schwartz Regadenoson, 015 Amrit, 0.1 MG PRASHANT Matthews, F[place]NA Technetium TC Administered Injection uLl Schwartz 99M 015 Amrit TetrofCassie turner, PRASHANT, Per Unit Dose LOVE Up To 40 Millicuries Vital Signs Date Vital Result Comment 10/21/2017 Height 71 inches 5'11" Weight 225.00 lb Heart Rate 82 /min BP Systolic 150 mmHg BP Diastolic 72 mmHg Respiratory Rate 16 /min Body Temperature 98.0 F BMI (Body Mass Index) 31.4 kg/m2 02/25/2017 Height 71 inches 5'11" Weight 254.50 lb Heart Rate 64 /min BP Systolic Sitting 136 mmHg rue lg cuff BP Diastolic Sitting 68 mmHg rue lg cuff BP Systolic Standing 142 mmHg rue lg cuff BP Diastolic Standing 60 mmHg rue lg cuff Respiratory Rate 16 /min BMI (Body Mass Index) 35.5 kg/m2 Ejection Fraction 55-60% date 01/23/15 ECHO 02/25/2016 Height 71 inches 5'11" Weight 248.75 lb with shoes Heart Rate 60 /min BP Systolic Sitting 148 mmHg Ra lrg cuff BP Diastolic Sitting 70 mmHg Ra lrg cuff BP Systolic Standing 154 mmHg Ra krg cuff BP Diastolic Standing 72 mmHg Ra krg cuff Respiratory Rate 19 /min BMI (Body Mass Index) 34.7 kg/m2 Ejection Fraction 55-60% 01/23/15 03/05/2015 Height 71 inches 5'11" Weight 240.50 lb with shoes Heart Rate 60 /min BP Systolic Sitting 176 mmHg Ra reg cuff BP Diastolic Sitting 60 mmHg Ra reg cuff BP Systolic Standing 160 mmHg Ra reg cuff BP Diastolic Standing 60 mmHg Ra reg cuff Respiratory Rate 17 /min BMI (Body Mass Index) 33.5 kg/m2 Ejection Fraction 55-60% date 01/23/15 ECHO 01/17/2015 Height 71 inches 5'11" Weight 244.31 lb with shoes Heart Rate 64 /min BP Systolic 172 mmHg Ra, reg cuff BP Diastolic 172 mmHg Ra, reg cuff BP Systolic Sitting 158 mmHg LA, reg cuff BP Diastolic Sitting 72 mmHg LA, reg cuff BP Systolic Standing 150 mmHg LA BP Diastolic Standing 70 mmHg LA Respiratory Rate 18 /min BMI (Body Mass Index) 34.1 kg/m2 Results Test Date Test Result H/L Range Note Laboratory test finding 09/14/2017 Cytology Non-Nutritionist [facility] SEE RESULT BELOW 1 1 SEE RESULT BELOW Name: NISHA RICHEYIC : [address]: Praful Prescott MD Acct: [id number] Unit: [id number] AGE: 77 Location: [facility] [id number] Re09/13/17 SEX: M Status: ADM IN SPEC: [id number] JUAN: 09/14/[address] [facility] [address]: Fili Wilkinson MD REQ: [id number] RECD: 09/14/17 STATUS: BEV WHEELER DR: Rosalie Montoya DO _ ORDERED: NG THIN LAYER FINAL DIAGNOSIS Pleural effusion, thoracentesis: --Negative for malignant cells. --Abundant acute inflammation. 1. PLEURAL - PLEURAL FLUID GROSS DESCRIPTION 3.5 mls of cloudy bright orange pleural fluid. Signed (signature on file) Zay Dorsey MD 1350 END OF REPORT * ML=Testing performed at Main Lab DEPARTMENT OF PATHOLOGY, [address] [place] [address] Zay Dorsey M.D. Director [facility] # [id number] Procedures Date CPT Code Description Status 09/18/2017 67128 Thoracoscopy W/Partial Pulmonary Decortication Completed 09/18/2017 71427 Thoracoscopy W/Partial Pulmonary Decortication Completed 09/18/2017 92735 bronchoscopy (hospital service) Completed 09/14/2017 23570 ECHO Transthorasic Realtime 2D W Doppler & Color Completed Flow Hosp 09/14/2017 33989 Thoracentesis Needle/Catheter Aspiration W/ Img Completed Guidance 02/25/2017 81169 EKG Tracing & Interpretation Completed 02/25/2016 57067 EKG Tracing & Interpretation Completed 01/29/2015 30669 Stress Test Completed 01/29/2015 22442 Myocardial Perfusion Imaging Tomographic (Spect) Completed Multiple Studies 01/23/2015 67518 ECHO Transthoracic, Real-Time 2D With Doppler And Color Completed Flow 01/23/2015 98400 Holter Monitoring 24 HR New Completed 01/17/2015 20709 EKG Tracing & Interpretation Completed Encounters Type Date Location Provider CPT E/M Dx Office Visit 10/12/2017 [facility], [place] [address] J86.9 12:23p Hospitalists LYDIA Hopkins J18.9 I48.0 E11.9 Office Visit 10/11/2017 12:23p [facility], Alan Garcia, 40545 J86.9 Hospitalists Cassie,FACP I48.0 E11.9 Office Visit 10/10/2017 12:22p [facility], Alan Garcia, 88235 J86.9 Hospitalists Cassie,FACP J18.9 I48.0 Office Visit 10/09/2017 12:21p [facility], Rosalie Montoya, 67993 J86.9 Hospitalists Cassie J96.01 J18.9 K22.5 Office Visit 10/08/2017 12:21p [facility],vic Montoya, 24692 J86.9 Hospitalists Cassie J96.01 J18.9 K22.5 Office Visit 10/07/2017 12:20p [facility], Rosalie Montoya, 93709 J86.9 Hospitalists Cassie J96.01 J18.9 K22.5 Office Visit 10/06/2017 12:19p [facility], Rosalie Montoya, 57524 J86.9 Hospitalists Cassie J96.01 J18.9 K22.5 Office Visit 10/05/2017 12:19p [facility], Rosalie Montoya, 61257 J86.9 Hospitalists MEladio J96.01 J18.9 K22.5 Office Visit 10/04/2017 12:18p [facility], Rosalie Montoya, 06359 J86.9 Hospitalists MEladio J96.01 J18.9 K22.5 Office Visit 10/03/2017 12:17p [facility], Rosalie Montoya, 34756 J86.9 Hospitalists Cassie J96.01 J18.9 K22.5 Office Visit 10/02/2017 12:58p [facility] Raghav Christopher D.O. 15213 J86.9 E44.0 K22.5 J69.0 Office Visit 10/01/2017 12:58p [facility] Raghav Christopher D.O. 81346 J95.821 K22.5 J69.0 I48.0 Office Visit 09/30/2017 12:57p [facility] Raghav Christopher D.O. 98291 J86.9 J69.0 J96.01 I48.0 Office Visit 09/29/2017 12:57p [facility] Raghav Christopher D.O. 23430 J86.9 J96.01 J69.0 I48.0 Office Visit 09/28/2017 12:56p [facility] Raghav Christopher D.O. 12107 J86.9 J96.01 J69.0 I48.0 Office Visit 09/27/2017 9:08a [place] [address] J96.01 J69.0 J13 J90 K22.5 I48.91 Office Visit 09/26/2017 9:08a [place] [address] J96.01 J69.0 Office Visit 09/25/2017 9:07a [place] [address] J96.01 K22.5 J69.0 I48.91 J13 J90 Office Visit 09/24/2017 12:55p [place] [address] J86.9 J96.01 J69.0 I48.0 Office Visit 09/23/2017 12:55p [facility], [place] [address] J86.9 Hospitalists J18.9 J96.01 Office Visit 09/23/2017 9:33a [facility] [address] J90 [facility] J13 J98.11 R09.02 Office Visit 09/23/2017 1:34p [facility] Crow Stauffer, 48183 J86.9 Infectious Diseases M.DCarlos D72.829 K22.5 E11.9 Office Visit 09/22/2017 12:54p [place] [address] J86.9 J96.01 J18.9 R65.20 Office Visit 09/21/2017 10:23a [facility] [address] R13.10 [facility] R52 J90 J13 Office Visit 09/20/2017 12:53p [facility] Jazlyn LandisOCarlos 94749 J95.821 J86.9 A41.9 J15.4 Office Visit 09/19/2017 10:17a [facility] [address] J90 [facility] J13 Office Visit 09/19/2017 12:17p [facility] Jazlyn LandisOCarlos 79219 J86.9 J15.4 A41.9 J95.821 Office Visit 09/18/2017 10:14a [facility] [place] [address] R13.10 [facility] J90 J13 Office Visit 09/18/2017 12:16p [facility], Manuel Ignacio, 15284 J15.4 Hospitalists Cassie J86.9 A41.9 I48.0 Office Visit 09/17/2017 10:03a [facility] [place] [address] R13.10 [facility] J90 J13 Office Visit 09/17/2017 12:16p [facility], [place] [address] J15.4 Hospitalists A41.9 J86.9 I48.0 Office Visit 09/16/2017 7:00a [facility]omas Gold, 596[address] J90 Johnna M.Jazlyn Office Visit 09/16/2017 3:29p Pul[facility] [place] [address] J90 [facility] J13 Office Visit 09/16/2017 12:15p [facility], [place] [address] J15.4 Hospitalists J18.9 A41.9 I48.0 Office Visit 09/15/2017 3:14p [facility] Crow Stauffer, 11336 J18.9 Infectious Diseases M.DCarlos J90 E11.9 Office Visit 09/15/2017 12:14p [facility],[place] [address] A41.9 Hospitalists J86.9 J15.4 I48.0 Office Visit 09/15/2017 2:06p [facility] [place] [address] J90 [facility] Office Visit 09/14/2017 12:14p [facility], [place] [address] J18.9 Hospitalists E11.9 I48.0 A41.9 Office Visit 09/14/2017 7:00a [facility] [place] [address] J90 [facility] Office Visit 09/13/2017 12:13p [facility], Gene Mcwilliams.Krystle 38257 J18.9 Hospitalists E11.9 I48.0 A41.9 Office Visit 02/25/2017 11:00a [facility] Lulkushal Marcus, 83366 I48.2 Johnna Matthews, [facility] Office Visit 02/25/2016 10:45a [facility] Lul Schwartz Marcus, 68660 I48.2 Johnna Matthews, [facility] Office Visit 03/05/2015 10:45a [facility] Lul Schwartz Marcus, 63709 427.31 Johnna Matthews, [facility] Office Visit 01/17/2015 9:30a [facility] Lul Efren Marcus, 31167 427.31 Johnna Matthews, [facility], [facility] Plan of Care Future Appointment(s):11/04/2017 11:00 am - Tomas Gold M.D. at [facility]10/21/2017 - Tomas Gold M.D.J86.9 Pyothorax without fistulaNew Xrays:Chest PA & Lat 2 VWSJ18.9 Pneumonia, unspecified organismNew Xrays:Chest PA & Lat 2 VWS
--- OUTSIDE RECORDS SUMMARY | 2017-11-09 18:37 | XMS REPORT ---
:1940 External Reference #:[id number] Author Organization [facility] [employer] Address [address] [address] Phone [phone] Care Team Providers Name Role Phone Rafy Dunn MD Primary Care Physician Unavailable Payers Type Date Identification Numbers Payment Provider Subscriber Medicare Primary Effective: Policy Number: Medicare Darrin E 2008 [id number] Heliseva PayID: [id number] [address] [place] [address] Commercial Policy Number: [id number] [employer] Darrin E Helise[employer] Group Number: [id number] [id number] PayID: [id number] [place] [address] Medigap Part B Expires: 2017 Policy Number: [employer] Insurance Darrin E [id number] [employer] Group Number: [id number] [id number] PayID: [id number] [place] [address] Problems Date Description Provider Status Onset: 01/17/2015 Atrial fibrillation Lul Marcus M.D., [facility], Active [facility] Onset: 02/25/2016 Chronic atrial fibrillation Lul Marcus M.D., [facility], Active [facility] Family History Date Family Member(s) Problem(s) Comments General Hypertension Grand mother, Aunt General Emphysema Grand father Father [place] Siblings 3 HTN Social History Type Date [...] Lul s every day Efren Marcus M.D., [facility], [facility] Lisinopril Active Tablets 20mg 180ta 1/2 by Lul bs mouth Schwartz daily Cassie Marcus, [facility], [facility] Allopurinol Active Tablets 300mg 1 by mouth Unknown every day Norvasc Active Tablets 10mg 1 by mouth Unknown / every day Multivitamins Active Capsules 1 by mouth Unknown / every day Vitamin D3 Active Tablets 1000Unit 1 tablet Unknown /0000 by mouth everyday Vitamin B-12 Active 1000Units daily / Glipizide Active Tablets 2.5mg 1 tab Niziol twice Rafy, daily Albuterol Sulfate Active Nebulizer (2.5mg/3M 1 vial via / L) 0.083% nebulizer 4 times daily as needed Colace Active Capsules 100mg 1 tab by Unknown /0000 mouth 2 times a day as needed [...] Magnesia Active Suspension 400mg/5ML give 30 Unknown /0000 milliliter s by mouth once daily as needed constipati on Ondansetron Active Tablets 4mg dissolve Unknown /0000 Dispers one tablet orally every 8 [...] Triamcinolone Hx Ointment 0.5% apply to Unknown Acetonide /0000 affected - area three 02/23 daily [...] by mouth Unknown /0000 every day Rivaroxaban Hx 1 at Unknown /0000 bedtime (20mg) Medications Administered in Office Medication Date Status Form Strength Qnty SIG Indications Ordering Provider Inj, Administered Injection Lul Schwartz Regadenoson, 015 Amrit, 0.1 MG PRASHANT Matthews, [facility] Technetium TC Administered Injection Lul Schwartz 99M 015 Ze Marcus M.D., PRASHANT, Per Unit Dose LOVE Up To 40 Millicuries Vital Signs Date Vital Result Comment 11/04/2017 Heart Rate 100 /min BP Systolic 120 mmHg BP Diastolic 58 mmHg Respiratory Rate 20 /min Body Temperature 99.1 F 10/21/2017 Height 71 inches 5'11" Weight 225.00 [...] Range Note Laboratory test finding 09/14/2017 Cytology Non-Beef Trimmer SEE RESULT BELOW 1 1 SEE RESULT BELOW Name: DARRIN RICHEY : [address]: Praful Prescott MD Acct: [id number] Unit: [id number] AGE: 77 Location: [place] [address]- Re09/13/17 SEX: M Status: ADM IN SPEC: [id number] JUAN: 09/14/17 [facility] DR: Fili Wilkinson MD REQ: [id number] RECD: 09/14/17 STATUS: BEV WHEELER DR: Rosalie Montoya DO _ ORDERED: NG THIN LAYER FINAL DIAGNOSIS Pleural effusion, thoracentesis: --Negative for malignant cells. --Abundant acute inflammation. 1. PLEURAL - PLEURAL FLUID GROSS DESCRIPTION 3.5 mls of cloudy bright orange pleural fluid. Signed (signature on file) Zay Dorsey MD [id number] END OF REPORT * ML=Testing performed at Main Lab DEPARTMENT OF PATHOLOGY, [address] [place] [address] Zay Dorsey M.D. Director [facility] # [id number] Procedures Date CPT Code Description Status 10/10/2017 43625 EKG, Interpretation Only Completed 10/07/2017 21356 EKG, Interpretation Only Completed 09/18/2017 26540 Thoracoscopy W/Partial Pulmonary Decortication Completed 09/18/2017 05965 Thoracoscopy W/Partial Pulmonary Decortication Completed 09/18/2017 73780 bronchoscopy (hospital service) Completed 09/14/2017 58056 ECHO Transthorasic Realtime 2D W Doppler & Color Completed Flow Hosp 09/14/2017 70094 Thoracentesis Needle/Catheter Aspiration W/ Img Completed Guidance 02/25/2017 45110 EKG Tracing & Interpretation Completed 02/25/2016 34802 EKG Tracing & Interpretation Completed 01/29/2015 05389 Stress Test Completed 01/29/2015 67802 Myocardial Perfusion Imaging Tomographic (Spect) Completed Multiple Studies 01/23/2015 22321 ECHO Transthoracic, Real-Time 2D With Doppler And Color Completed Flow 01/23/2015 22978 Holter Monitoring 24 HR New Completed 01/17/2015 16371 EKG Tracing & Interpretation Completed Encounters Type Date Location Provider CPT E/M Dx Office Visit 10/12/2017 [facility] Ass, [place] [address] J86.9 12:23p Hospitalists LYDIA Hopkins J18.9 I48.0 E11.9 Office Visit 10/11/2017 12:23p [facility],vic Garcia, 89287 J86.9 Hospitalists [facility] I48.0 E11.9 Office Visit 10/10/2017 12:22p [facility],vic Garcia, 06259 J86.9 Hospitalists Cassie,FACP J18.9 I48.0 Office Visit 10/09/2017 12:21p [facility] Ass,vic Montoya 64249 J86.9 Hospitalists Cassie J96.01 J18.9 K22.5 Office Visit 10/08/2017 12:21p [facility],vic Montoya 09194 J86.9 Hospitalists Cassie J96.01 J18.9 K22.5 Office Visit 10/07/2017 12:20p [facility],vic Montoya 19655 J86.9 Hospitalists Cassie J96.01 J18.9 K22.5 Office Visit 10/06/2017 12:19p [facility], Rosalie Montoya, 59221 J86.9 Hospitalists MEladio J96.01 J18.9 K22.5 Office Visit 10/05/2017 12:19p [facility], Rosalie Montoya, 21837 J86.9 Hospitalists MEladio J96.01 J18.9 K22.5 Office Visit 10/05/2017 10:10a [facility] Crow Stauffer, 17865 J86.9 Infectious Diseases M.Jazlyn K52.1 T36.95xA Office Visit 10/04/2017 12:18p [facility], Rosalie Montoya, 05572 J86.9 Hospitalists MEladio J96.01 J18.9 K22.5 Office Visit 10/03/2017 12:17p [facility], Rosalie Montoya, 16294 J86.9 Hospitalists MEladio J96.01 J18.9 K22.5 Office Visit 10/02/2017 12:58p [facility] Raghav Christopher D.O. 33935 J86.9 E44.0 K22.5 J69.0 Office Visit 10/01/2017 12:58p [facility] Raghav Christopher D.O. 87423 J95.821 K22.5 J69.0 I48.0 Office Visit 09/30/2017 12:57p [facility] Raghav Christopher D.O. 85938 J86.9 J69.0 J96.01 I48.0 Office Visit 09/29/2017 12:57p [facility] Raghav Christopher D.O. 05416 J86.9 J96.01 J69.0 I48.0 Office Visit 09/28/2017 12:56p [facility] Raghav Christopher D.O. 77809 J86.9 J96.01 J69.0 I48.0 Office Visit 09/27/2017 9:08a [place] [address] J96.01 J69.0 J13 J90 K22.5 I48.91 Office Visit 09/26/2017 9:08a [place] [address] J96.01 J69.0 Office Visit 09/25/2017 9:07a [place] [address] J96.01 K22.5 J69.0 I48.91 J13 J90 Office Visit 09/24/2017 12:55p [place] [address] J86.9 J96.01 J69.0 I48.0 Office Visit 09/23/2017 9:33a [facility] [address] J90 [facility] J13 J98.11 R09.02 Office Visit 09/23/2017 [facility] 38704 J86.9 Infectious Diseases Cassie D72.829 K22.5 E11.9 Office Visit 09/23/2017 12:55p [facility], [place] [address] J86.9 Hospitalists J18.9 J96.01 Office Visit 09/22/2017 12:54p [place] [address] J86.9 J96.01 J18.9 R65.20 Office Visit 09/21/2017 10:23a [facility] [place] [address] R13.10 [facility] R52 J90 J13 Office Visit 09/20/2017 12:53p [facility] Raghav Christopher D.O. 37446 J95.821 J86.9 A41.9 J15.4 Office Visit 09/19/2017 12:17p [facility] Raghav Christopher D.O. 59527 J86.9 J15.4 A41.9 J95.821 Office Visit 09/19/2017 10:17a [facility] [place] [address] J90 [facility] J13 Office Visit 09/18/2017 12:16p [facility], Manuel Ignacio, 96766 J15.4 Hospitalists Cassie J86.9 A41.9 I48.0 Office Visit 09/18/2017 10:14a [facility] [place] [address] R13.10 [facility] J90 J13 Office Visit 09/17/2017 10:03a [facility] [place] [address] R13.10 [facility] J90 J13 Office Visit 09/17/2017 12:16p [facility],[place] [address] J15.4 Hospitalists A41.9 J86.9 I48.0 Office Visit 09/16/2017 12:15p [facility],[place] [address] J15.4 Hospitalists J18.9 A41.9 I48.0 Office Visit 09/16/2017 7:00a [facility] Tomas Gold 89990 J90 Johnna Matthews Office Visit 09/16/2017 3:29p [facility] [place] [address] J90 [facility] J13 Office Visit 09/15/2017 3:14p [facility] Crow Stauffer, 23964 J18.9 Infectious Diseases Cassie J90 E11.9 Office Visit 09/15/2017 12:14p [facility], [place] [address] A41.9 Hospitalists J86.9 J15.4 I48.0 Office Visit 09/15/2017 2:06p [facility] [place] [address] J90 [facility] Office Visit 09/14/2017 12:14p [facility], [place] [address] J18.9 Hospitalists E11.9 I48.0 A41.9 Office Visit 09/14/2017 7:00a [facility] [place] [address] J90 [facility] Office Visit 09/13/2017 12:13p [facility], Buffy Woodward N.P. 90729 J18.9 Hospitalists E11.9 I48.0 A41.9 Office Visit 02/25/2017 11:00a [facility] Lul Marcus, 67913 I48.2 Johnna Matthews, [facility], [facility] Office Visit 02/25/2016 10:45a [facility] Lul Marcus, 09855 I48.2 Johnna Matthews, [facility], [facility] Office Visit 03/05/2015 10:45a [facility] Schwartz Marcus, 49260 427.31 Johnna Matthews, [facility], [facility] Office Visit 01/17/2015 9:30a [facility] Schwartz Marcus, 03971 427.31 Johnna Matthews, [facility], [facility] Plan of Care Future Appointment(s):11/20/2017 9:30 am - Crow Stauffer M.D. at [facility]/21/2018 - Tomas Gold M.D.J86.9 Pyothorax without fistulaFollow up:As needed
--- NOTE | 2017-11-09 18:49 | ED ---
Upper Extremity Pain - HPI Summary HPI Summary: Pt here w/ abrupt onset Lt wrist pain, redness, warmth and swelling which he noticed upon waking yesterday morning. No known injury and denies numbness, tingling and weakness. Pain is worse with gripping and wrist movement such as supination as well as touch. Admits to history of gout however has not had a flareup in decades. Takes allopurinol. Has had this in many joints over the years (toes, knees, elbows, etc). Also takes an anticoagulant for atrial fibrillation. Denies fever, chills, fatigue. He is currently residing at a rehabilitation facility status post pneumonia which required hospitalization and a chest tube. He reports he is breathing much easier and regaining strength. Reports staff at rehabilitation facility said he should be there for another week and a few days before he can go home but he is progressing well. Has a Pink catheter in placereports she's not sure why is he did not have this prior hospitalization. He also had a chest tube on the right side for treatment of his pneumonia which is been removed and he has been doing well without it. Does admit to a right decubital ulcer which is tender. Admits staff has been caring for this routinely and they report it is healing well. - History of Current Complaint Chief Complaint: EDExtremityUpper Stated Complaint: SWOLLEN LT WRIST Time Seen by Provider: 11/09/17 18:23 Hx Obtained From: Patient - Allergies/Home Medications Allergies/Adverse Reactions: Allergies Allergy/AdvReac Type Severity Reaction Status Date / Time No Known Allergies Allergy Verified 09/13/17 13:45 Home Medications: Home Medications Cholecalciferol TAB* [Vitamin D TAB*] 1,000 unit PO DAILY 11/09/17 [History Confirmed 11/09/17] Clotrimazole 1% CREAM* [Clotrimazole 1%*] 1 applic TOPICAL BID 11/09/17 [ History Confirmed 11/09/17] Docusate CAP* [Colace Cap*] 200 mg PO BEDTIME PRN 11/09/17 [History Confirmed ] Eszopiclone TAB(NF) [Lunesta TAB(NF)] 1 mg PO DAILY 11/09/17 [History Confirmed 11/09/17] Ferrous Sulfate TAB* 325 mg PO DAILY 11/09/17 [History Confirmed 11/09/17] Lisinopril TAB* [Prinivil TAB 10 MG*] 10 mg PO BEDTIME 11/09/17 [History Confirmed 11/09/17] Polyethylene Glycol 3350* [Miralax*] 17 gm PO DAILY 11/09/17 [History Confirmed 11/09/17] glipiZIDE TAB* [Glucotrol TAB*] 5 mg PO BID 11/09/17 [History Confirmed 11/09/17 ] PMH/Surg Hx/FS Hx/Imm Hx Previously Healthy: No - RECOVERING IN REHAB FACILITY FROM PNEUMONIA Endocrine/Hematology History: Reports: Hx Diabetes Cardiovascular History: Reports: Hx Atrial Fibrillation - treated with blood thinners, Hx Hypertension Denies: Hx Deep Vein Thrombosis, Hx Myocardial Infarction, Hx Pacemaker/ICD Respiratory History: Reports: Hx Chronic Bronchitis, Hx Pneumonia Denies: Hx Chronic Obstructive Pulmonary Disease (COPD), Hx Seasonal Allergies Musculoskeletal History: Reports: Hx Arthritis - right hand Sensory History: Reports: Hx Cataracts - having surgery, Hx Contacts or Glasses - wears glasses Denies: Hx Hearing Aid Opthamlomology History: Reports: Hx Cataracts - having surgery, Hx Contacts or Glasses - wears glasses Neurological History: Reports: Other Neuro Impairments/Disorders - Bilateral foot neuropathy - Surgical History Hx Anesthesia Reactions: No Infectious Disease History: No Infectious Disease History: Denies: Traveled Outside the [place] in Last 30 Days - Family History Known Family History: Positive: Cardiac Disease - father, in 70s - Social History Occupation: Retired Lives: [facility] [employer] Alcohol Use: None Alcohol Amount: quit drinking 12 years ago Hx Substance Use: No Substance Use Type: Reports: None Hx Tobacco Use: No Smoking Status (MU): Never Smoked Tobacco Review of Systems Constitutional: Negative Negative: Fever, Chills, Fatigue Eyes: Negative Negative: Blurred Vision ENT: Negative Negative: Sore Throat Cardiovascular: Negative Negative: Chest Pain Respiratory: Negative Negative: Shortness Of Breath, Cough Gastrointestinal: Negative Negative: Abdominal Pain, Vomiting, Diarrhea, Nausea Positive: no symptoms reported Positive: Arthralgia, Myalgia, Decreased ROM, Edema Skin: Other - WRIST REDNESS Neurological: Negative Negative: Weakness, Paresthesia, Numbness Psychological: Normal All Other Systems Reviewed And Are Negative: Yes Physical Exam Triage Information Reviewed: Yes Vital Signs On Initial Exam: Initial Vitals Temp Pulse Resp BP Pulse Ox 99.1 F 81 16 144/81 96 11/09/17 17:43 11/09/17 17:43 11/09/17 17:43 11/09/17 17:43 11/09/17 17:43 Vital Signs Reviewed: Yes Appearance: Positive: Well-Appearing, No Pain Distress, Well-Nourished Skin: Positive: Warm, Skin Color Reflects Adequate Perfusion, Dry - Tissue about the left wrist is with erythema, edema, warmth to touchno lesions or skin breakdown; this area is tender to touch and patient has pain with movement of phalanges and wrist however he is able to move phalanges and wrist; no streaking, no palpable lymph nodes along upper extremity or into axillary region ; dry, clean wound dressing over Rt decubitus ulcer Head/Face: Positive: Normal Head/Face Inspection Eyes: Positive: Normal, EOMI, Conjunctiva Clear - Anicteric sclera. Negative: Conjunctiva Inflammed, Discharge ENT: Positive: Hearing grossly normal, Pharynx normal - mucosa moist Respiratory/Lung Sounds: Positive: Clear to Auscultation, Breath Sounds Present , Other - Chest tube wound over right mid axillary region appears to be healing wellno gus erythema, edema or purulent drainage. Negative: Rales, Rhonchi, Tracheal Deviation, Wheezes Cardiovascular: Positive: Pulses are Symmetrical in both Upper and Lower Extremities Abdomen Description: Positive: Nontender, Soft Bowel Sounds: Positive: Present Musculoskeletal: Positive: Normal, Strength/ROM Intact Neurological: Positive: Normal, Sensory/Motor Intact, Alert, Oriented to Person Place, Time, CN Intact II-III Psychiatric: Positive: Anxious - but cooperative and polite Diagnostics - Vital Signs Vital Signs Temp Pulse Resp BP Pulse Ox 11/09/17 17:43 99.1 F 81 16 144/81 96 - Laboratory Result Diagrams: 11/09/17 18:50 11/09/17 18:50 Lab Statement: Any lab studies that have been ordered have been reviewed, and results considered in the medical decision making process. Course/Dx - Course Course Of Treatment: Pt presents w/ abrupt onset Lt wrist pain, redness and swelling upon waking yesterday morning. Worse today. Denies fever, chills, streaking nad no known h/o injury. Discussed case including HPI, labs and imaging w/ Dr. Galarza. Given his strong h/o gout, will first trial colchicine for relief of sx (avoiding indomethacin as pt is on anti-coagulant). He reports colchicone has worked well in the past and if no improvement by tomorrow, he will f/u for further assessment of septic joint. NOTE: Pt's XR is w/o fx however report indicates arthritic changes w/ spacing of the carpals possibly suggestive of ligament injury. Placed pt in splint for stability and advised to f/u w/ ortho for further assessment. Although he denies acute injury, he has been in PT, utilizing walkers, etc and could have subtly injured himself. He is aware of danger s/sx of when to report to medical staff at rehab facility. - Diagnoses Provider Diagnoses: Gout of left wrist, Left wrist sprain - Physician Notifications Discussed Care of Patient With: Marisela Galarza Discharge - Discharge Plan Condition: Stable Disposition: [facility] Patient Education Materials: Gout (ED), Wrist Sprain (ED) Referrals: Rafy Dunn MD [Primary Care Provider] - Sofi Figueroa MD [Medical Doctor] - Additional Instructions: You received 1.2mg of colchicine here tonight. Take the 2nd dose of 0.6mg in 1 hour (at ___22:00 ). If symptoms are same or worse tomorrow, follow-up with PCP to assess for septic joint. Does not appear to be the case today. You also have what may appear to be a connective tissue injury in your wrist or a sprain. Follow-up with orthopedics for further assessment. Keep splint in place until cleared.
[2017-11-09 19:15] LABS: ABS Basophils 0.1 10^3/ul (0-0.2); ABS Eosinophils 0.2 10^3/ul (0-0.6); ABS Lymphocytes 1.1 10^3/ul (1.0-4.8); ABS Monocytes 0.7 10^3/ul (0-0.8); ABS Neutrophils 7.1 10^3/ul (1.5-7.7); ABS Nucleated RBC 0 10^3/ul; Eosinophil % 2.3 % (0-6); Hematocrit 32 % (42-52); Hemoglobin 10.5 g/dl (14.0-18.0); Lymphocyte % 11.9 % (25-47); Mean Corpuscular HGB Conc 33 g/dl (31-36); Mean Corpuscular Hemoglobin 25 pg (27-31); Mean Corpuscular Volume 78 fL (80-94); Mean Platelet Volume 7 um3 (7.4-10.4); Nucleated Red Blood Cells % 0.1; Platelet Count 325 10^3/ul (150-450); Red Blood Count 4.13 10^6/ul (4.0-5.4); Red Cell Distribution Width 18 % (10.5-15); White Blood Count 9.2 10^3/ul (3.5-10.8)
[2017-11-09 19:23] LABS: INR 1.96 (0.77-1.02)
[2017-11-09 19:35] LABS: EGFR Non-African American 110.6 (>60)
--- NOTE | 2017-11-09 19:48 | RAD ---
INDICATION: Acute onset erythema and edema at the LEFT wrist. COMPARISON: No relevant prior exams available on the [facility] for comparison. TECHNIQUE: AP, lateral, and oblique views LEFT wrist. REPORT: Bone density appears decreased throughout. No cortical disruption or suspicious trabecular irregularity to suggest fracture. Minimal scapholunate interval diastases and increased scapholunate angle suggests potential age indeterminate scapholunate ligament tear. 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 Diffuse soft tissue swelling. Peripheral vascular calcifications. IMPRESSION: 1. Negative for fracture. 2. Mild osteoarthritis. 3. Minimal scapholunate interval diastases and increased scapholunate angle suggests potential age indeterminate scapholunate ligament tear.
[2017-11-09 21:33] VITALS: BP 160/65
[2017-11-10] MEDS ORDERED: Colchicine* 0.6 MG TAB PO SCH ×2 (09:00)
== END 2017-11-09 21:51 ==
LOC: ED 17:42
DX: M10.9 Gout, unspecified (principal); S63.502A Unspecified sprain of left wrist, initial encounter; M19.032 Primary osteoarthritis, left wrist
CPT/HCPCS: 36415; 80053; 83605; 84550; 85025; 85610; 85652; 85730; 86140; 87040; 99284

== ENCOUNTER 2019-10-19 03:16 | Emergency (ER) | payer MEDICARE, OTHER ==
--- NOTE | 2019-10-19 03:49 | ED ---
GI/ HPI - HPI Summary HPI Summary: 79 year old M presenting to [facility] complains of clogged catheter and pain since 2099 yesterday 10/18/2019. Patient states he has had catheter for 2 years. He states he has it changed every 6 weeks. He has had his current catheter for 3 weeks. The patient rates the pain 9/10 in severity. Medications reviewed. On warfarin. Allergies noted. - History of Current Complaint Chief Complaint: EDUrogenitalProblems Time Seen by Provider: 10/19/19 03:42 Stated Complaint: CLOGED CATH PER PT Hx Obtained From: Patient Onset/Duration: Started Hours Ago - 2099 yesterday 10/18/2019, Still Present Timing: Constant Current Severity: Severe Pain Intensity: 9 Aggravating Factor(s): Nothing Alleviating Factor(s): Nothing - Additional Pertinent History Primary Care Physician: TORRES - Allergy/Home Medications Allergies/Adverse Reactions: Allergies Allergy/AdvReac Type Severity Reaction Status Date / Time No Known Allergies Allergy Verified 09/13/17 13:45 PMH/Surg Hx/FS Hx/Imm Hx Endocrine/Hematology History: Reports: Hx Diabetes Cardiovascular History: Reports: Hx Atrial Fibrillation - treated with blood thinners, Hx Hypertension Denies: Hx Deep Vein Thrombosis, Hx Myocardial Infarction, Hx Pacemaker/ICD Respiratory History: Reports: Hx Chronic Bronchitis, Hx Pneumonia Denies: Hx Chronic Obstructive Pulmonary Disease (COPD), Hx Seasonal Allergies Musculoskeletal History: Reports: Hx Arthritis - right hand Sensory History: Reports: Hx Cataracts - having surgery, Hx Contacts or Glasses - wears glasses Denies: Hx Hearing Aid Opthamlomology History: Reports: Hx Cataracts - having surgery, Hx Contacts or Glasses - wears glasses Neurological History: Reports: Hx Transient Ischemic Attacks (TIA), Other Neuro Impairments/Disorders - Bilateral foot neuropathy - Surgical History Surgery Procedure, Year, and Place: cataract Hx Anesthesia Reactions: No Infectious Disease History: No Infectious Disease History: Denies: Traveled Outside the [place] in Last 30 Days - Family History Known Family History: Positive: Cardiac Disease - father, in 70s - Social History Alcohol Use: None Alcohol Amount: quit drinking 12 years ago Hx Substance Use: No Substance Use Type: Reports: None Hx Tobacco Use: No Smoking Status (MU): Never Smoked Tobacco Review of Systems Negative: Fever Positive: pain, other - clogged catheter All Other Systems Reviewed And Are Negative: Yes Physical Exam - Summary Physical Exam Summary: Appearance: Well-appearing, Well-nourished, lying in bed comfortable Skin: Warm, dry, no obvious rash Eyes: sclera anicteric, no conjunctival pallor ENT: mucous membranes moist Neck: deferred Respiratory: No signs of respiratory distress Cardiovascular: Appears well perfused, pulses are nml Abdomen: deferred Musculoskeletal: Moving all 4 extremities without obvious discomfort Neurological: Awake and alert, mentation is normal, speech is fluent and appropriate Psychiatric: affect is normal, does not appear anxious or depressed Triage Information Reviewed: Yes Vital Signs On Initial Exam: Initial Vitals Temp Pulse Resp BP Pulse Ox 99 F 112 20 199/95 99 10/19/19 03:16 10/19/19 03:16 10/19/19 03:16 10/19/19 03:16 10/19/19 03:16 Vital Signs Reviewed: Yes Procedures - Sedation Patient Received Moderate/Deep Sedation with Procedure: No Diagnostics - Vital Signs Vital Signs Temp Pulse Resp BP Pulse Ox 10/19/19 03:16 99 F 112 20 199/95 99 - Laboratory Lab Statement: Any lab studies that have been ordered have been reviewed, and results considered in the medical decision making process. Re-Evaluation - Re-Evaluation First Eval Re-Evaluation Time: 04:13 Comment: nurse changed catheter. about 2000 cc urine came out after blood clot GIGU Course/Dx - Course Course Of Treatment: 79 y/o M c/o clogged catheter and pain since 2100 yesterday 10/18/2019. Patient states he has had catheter for 2 years. He states he has it changed every 6 weeks. He has had his current catheter for 3 weeks. Physical exam unremarkable. Catheter was changed. About 2000 cc urine came out after blood clot. Patient will be discharged home with follow up from his primary care provider. Patient was instructed to return to Emergency Department for new or worsening symptoms. Patient understands and is agreeable to this plan. - Diagnoses Provider Diagnoses: Urinary retention Discharge ED - Sign-Out/Discharge Documenting (check all that apply): Patient Departure - Discharge Plan Condition: Improved Disposition: HOME Patient Education Materials: Pink Catheter Placement and Care (ED) Referrals: Rafy Dunn MD [Primary Care Provider] - If Needed - Billing Disposition and Condition Condition: IMPROVED Disposition: Home - Attestation Statements Document Initiated by Scribe: Yes Documenting Scribe: Guerline Ríos Provider For Whom Keke is Documenting (Include Credential): Pj Morales MD Scribe Attestation: I, Guerline Ríos, scribed for Pj Morales MD on 10/19/19 at 0554. Scribe Documentation Reviewed: Yes Provider Attestation: The documentation as recorded by the robibe, Guerline Ríos accurately reflects the service I personally performed and the decisions made by me, Pj Morales MD Status of Scribe Document: Viewed
[2019-10-19 04:49] VITALS: BP 163/58
== END 2019-10-19 04:48 | disposition home or self-care (01) ==
LOC: ED 03:16
DX: R33.9 Retention of urine, unspecified (principal); T83.098A Other mechanical complication of other urinary catheter, initial encounter; E11.9 Type 2 diabetes mellitus without complications; I48.91 Unspecified atrial fibrillation; I10 Essential (primary) hypertension; Z86.73 Personal history of transient ischemic attack (TIA), and cerebral infarction without residual deficits; Z79.01 Long term (current) use of anticoagulants
CPT/HCPCS: 51702; 99282

== ENCOUNTER 2019-12-18 11:12 | Emergency (ER) | payer MEDICARE, OTHER ==
--- NOTE | 2019-12-18 11:38 | ED ---
GI/ HPI - HPI Summary HPI Summary: 79-year-old male with a significant past medical history of chronic urinary retention secondary to BPH, followed by Dr. Mcdermott presents to the emergency department today complaining of a plugged catheter. Patient states yesterday evening his catheter stopped draining and he now has significant suprapubic pain. Patient was recently seen in this emergency department 2 days ago with the same problem where he had the catheter replaced due to it being blocked by blood clots. Patient is currently in no acute distress no fever, chest pain, abdominal pain, burning with urination, nausea, vomiting, diarrhea. Patient takes warfarin for atrial fibrillation. - History of Current Complaint Chief Complaint: EDUrogenitalProblems Time Seen by Provider: 12/18/19 11:17 Stated Complaint: PLUGGED CATHIDER Hx Obtained From: Patient Onset/Duration: Started Hours Ago Timing: Constant Severity: Severe Current Severity: Severe Pain Intensity: 8 Location of Pain: Suprapubic Pain Characteristics: Cramping - Additional Pertinent History Primary Care Physician: [id number] - Allergy/Home Medications Allergies/Adverse Reactions: Allergies Allergy/AdvReac Type Severity Reaction Status Date / Time No Known Allergies Allergy Verified 12/18/19 11:15 Home Medications: Home Medications Allopurinol TAB* [Zyloprim 300 MG TAB*] 300 mg PO DAILY 07/05/16 [History Confirmed 11/09/17] Albuterol 2.5MG/3ML (0.083%)* [Ventolin 2.5 MG/3 ML NEB.ALTAGRACIA*] 2.5 mg INH Q4H PRN neb.soln 10/12/17 [Rx Confirmed 11/09/17] Melatonin 3 mg PO BEDTIME tab 10/12/17 [Rx Confirmed 11/09/17] Cholecalciferol TAB* [Vitamin D TAB*] 1,000 unit PO DAILY 11/09/17 [History Confirmed 11/09/17] Clotrimazole 1% CREAM* [Clotrimazole 1%*] 1 applic TOPICAL BID 11/09/17 [ History Confirmed 11/09/17] Docusate CAP* [Colace Cap*] 200 mg PO BEDTIME PRN 11/09/17 [History Confirmed ] Eszopiclone TAB(NF) [Lunesta TAB(NF)] 1 mg PO DAILY 11/09/17 [History Confirmed 11/09/17] Ferrous Sulfate TAB* 325 mg PO DAILY 11/09/17 [History Confirmed 11/09/17] Lisinopril TAB* [Prinivil TAB 10 MG*] 10 mg PO BEDTIME 11/09/17 [History Confirmed 11/09/17] Polyethylene Glycol 3350* [Miralax*] 17 gm PO DAILY 11/09/17 [History Confirmed 11/09/17] glipiZIDE TAB* [Glucotrol TAB*] 5 mg PO BID 11/09/17 [History Confirmed 11/09/17 ] PMH/Surg Hx/FS Hx/Imm Hx Endocrine/Hematology History: Reports: Hx Diabetes Cardiovascular History: Reports: Hx Atrial Fibrillation - treated with blood thinners, Hx Hypertension Denies: Hx Deep Vein Thrombosis, Hx Myocardial Infarction, Hx Pacemaker/ICD Respiratory History: Reports: Hx Chronic Bronchitis, Hx Pneumonia Denies: Hx Chronic Obstructive Pulmonary Disease (COPD), Hx Seasonal Allergies Musculoskeletal History: Reports: Hx Arthritis - right hand Sensory History: Reports: Hx Cataracts - having surgery, Hx Contacts or Glasses - wears glasses Denies: Hx Hearing Aid Opthamlomology History: Reports: Hx Cataracts - having surgery, Hx Contacts or Glasses - wears glasses Neurological History: Reports: Hx Transient Ischemic Attacks (TIA), Other Neuro Impairments/Disorders - Bilateral foot neuropathy - Surgical History Surgery Procedure, Year, and Place: cataract Hx Anesthesia Reactions: No Infectious Disease History: No Infectious Disease History: Denies: Traveled Outside the [place] in Last 30 Days - Family History Known Family History: Positive: Cardiac Disease - father, in 70s - Social History Alcohol Use: None Alcohol Amount: quit drinking 12 years ago Hx Substance Use: No Substance Use Type: Reports: None Hx Tobacco Use: No Smoking Status (MU): Never Smoked Tobacco Review of Systems Constitutional: Negative Eyes: Negative ENT: Negative Cardiovascular: Negative Respiratory: Negative Gastrointestinal: Negative Genitourinary: Negative Musculoskeletal: Negative Skin: Negative Neurological/Mental Status: Negative Psychological: Normal All Other Systems Reviewed And Are Negative: Yes Physical Exam - Summary Physical Exam Summary: Patient is in no acute distress. Inspection of the abdomen reveals no ecchymosis or masses. Auscultation reveals normoactive bowel sounds. Patient' s suprapubic area is mildly distended with pain with palpation. Inspection the catheter reveals slightly turbid urine in low quantities. Catheter does not appear to be draining. Triage Information Reviewed: Yes Vital Signs On Initial Exam: Initial Vitals Temp Pulse Resp BP Pulse Ox 99.7 F 74 19 195/155 97 12/18/19 11:13 12/18/19 11:13 12/18/19 11:13 12/18/19 11:13 12/18/19 11:13 Vital Signs Reviewed: Yes Appearance: Positive: Well-Appearing, No Pain Distress, Well-Nourished Skin: Positive: Warm, Skin Color Reflects Adequate Perfusion Eyes: Positive: EOMI, SALLY ENT: Positive: Hearing grossly normal Respiratory/Lung Sounds: Positive: Clear to Auscultation, Breath Sounds Present Cardiovascular: Positive: RRR, S1, S2 Abdomen Description: Positive: Nontender, Soft Bowel Sounds: Positive: Present Musculoskeletal: Positive: Strength/ROM Intact Neurological: Positive: Sensory/Motor Intact, Alert, Oriented to Person Place, Time, Normal Gait, Facial Symmetry, Speech Normal Psychiatric: Positive: Normal, Affect/Mood Appropriate AVPU Assessment: Alert Procedures - Sedation Patient Received Moderate/Deep Sedation with Procedure: No Diagnostics - Vital Signs Vital Signs Temp Pulse Resp BP Pulse Ox 12/18/19 11:13 99.7 F 74 19 195/155 97 - Laboratory Lab Statement: Any lab studies that have been ordered have been reviewed, and results considered in the medical decision making process. GIGU Course/Dx - Course Course Of Treatment: Patient was evaluated in the emergency department today for a plugged catheter. Vitals noted and stable. Patient previously had this done 2 days prior due to blood clot. Catheter was irrigated and replaced after replacement catheter appeared to be working properly. 1 L of urine was drained from bladder. Clogged catheter appeared to be causing bladder obstruction, this is resolved.. Patient discharged with outpatient follow-up with urology. - Diagnoses Differential Diagnoses - Male: Urinary Tract Infection, Other - Blocked Pink catheter Provider Diagnoses: Pink catheter problem Discharge ED - Sign-Out/Discharge Documenting (check all that apply): Patient Departure - Discharge Plan Condition: Stable Disposition: HOME Patient Education Materials: Pink Catheter Placement and Care (ED) Referrals: Prabhakar Mcdermott MD [Medical Doctor] - 3 Days Additional Instructions: Please follow up with urology. Please return to the emergency department immediately should you develop any new or worsening symptoms. - Billing Disposition and Condition Condition: STABLE Disposition: Home - Attestation Statements Provider Attestation: I was available for consult. This patient was seen by the PARVIN. The patient was not presented to, seen by, or examined by me. Brant Han MD
[2019-12-18 11:59] VITALS: BP 177/68
== END 2019-12-18 11:58 | disposition home or self-care (01) ==
LOC: ED 11:12
DX: T83.098A Other mechanical complication of other urinary catheter, initial encounter (principal); N40.1 Benign prostatic hyperplasia with lower urinary tract symptoms; R33.8 Other retention of urine; I48.91 Unspecified atrial fibrillation; E11.9 Type 2 diabetes mellitus without complications; I10 Essential (primary) hypertension; Z86.73 Personal history of transient ischemic attack (TIA), and cerebral infarction without residual deficits; Z79.01 Long term (current) use of anticoagulants; Z79.899 Other long term (current) drug therapy; Z79.84 Long term (current) use of oral hypoglycemic drugs
CPT/HCPCS: 51702; 99282

== ENCOUNTER 2019-12-20 19:42 | Emergency (ER) | payer MEDICARE, OTHER ==
--- NOTE | 2019-12-20 20:09 | ED ---
GI/ HPI - HPI Summary HPI Summary: Patient with history of chronic urinary retention secondary to BPH followed by , presents for the fourth time in 5 days for clogged catheter. Last known urine output at noon, patient complains of pelvic and penile pressure at this time. Patient saw Dr. Mcdermott this morning, Pink was working fine. Per patient Dr. Mcdermott believes that patient is over anticoagulated and thus patient is bleeding into urine which is causing clots and clogging catheter. Plan per patient is to decrease daily Coumadin dose in hopes of preventing further clots. Patient denies fever, cough, sore throat, CP, SOB, N/C/D, change in BM, testicular symptoms.. Patient taking Coumadin for A. fib. - History of Current Complaint Chief Complaint: EDUrogenitalProblems Time Seen by Provider: 12/20/19 20:07 Stated Complaint: CATH ISSUE Hx Obtained From: Patient Onset/Duration: Started Hours Ago Severity: Moderate Current Severity: Moderate Pain Intensity: 5 Location of Pain: Suprapubic Pain Characteristics: Aching Associated Signs and Symptoms: Positive: Dysuria, Abdominal Pain - Additional Pertinent History Primary Care Physician: [id number] - Allergy/Home Medications Allergies/Adverse Reactions: Allergies Allergy/AdvReac Type Severity Reaction Status Date / Time No Known Allergies Allergy Verified 12/18/19 11:15 Home Medications: Home Medications Allopurinol TAB* [Zyloprim 300 MG TAB*] 300 mg PO DAILY 07/05/16 [History Confirmed 12/20/19] Albuterol 2.5MG/3ML (0.083%)* [Ventolin 2.5 MG/3 ML NEB.ALTAGRACIA*] 2.5 mg INH Q4H PRN neb.soln 10/12/17 [Rx Confirmed 12/20/19] Cholecalciferol TAB* [Vitamin D TAB*] 1,000 unit PO DAILY 11/09/17 [History Confirmed 12/20/19] Docusate CAP* [Colace Cap*] 200 mg PO BEDTIME PRN 11/09/17 [History Confirmed ] Ferrous Sulfate TAB* 325 mg PO DAILY 11/09/17 [History Confirmed 12/20/19] Polyethylene Glycol 3350* [Miralax*] 17 gm PO DAILY 11/09/17 [History Confirmed 12/20/19] glipiZIDE TAB* [Glucotrol TAB*] 5 mg PO BID 11/09/17 [History Confirmed 12/20/19 ] Lisinopril TAB* [Prinivil TAB*] 20 mg PO DAILY 12/20/19 [History Confirmed 12/19] Warfarin TAB(*) [Coumadin TAB(*)] 5 mg PO DAILY 12/20/19 [History Confirmed 04/02] amLODIPine TAB* [Norvasc 5 mg TAB*] 10 mg PO DAILY 12/20/19 [History Confirmed 12/20/19] PMH/Surg Hx/FS Hx/Imm Hx Endocrine/Hematology History: Reports: Hx Diabetes Cardiovascular History: Reports: Hx Atrial Fibrillation - treated with blood thinners, Hx Hypertension Denies: Hx Deep Vein Thrombosis, Hx Myocardial Infarction, Hx Pacemaker/ICD Respiratory History: Reports: Hx Chronic Bronchitis, Hx Pneumonia Denies: Hx Chronic Obstructive Pulmonary Disease (COPD), Hx Seasonal Allergies Musculoskeletal History: Reports: Hx Arthritis - right hand Sensory History: Reports: Hx Cataracts - having surgery, Hx Contacts or Glasses - wears glasses Denies: Hx Hearing Aid Opthamlomology History: Reports: Hx Cataracts - having surgery, Hx Contacts or Glasses - wears glasses Neurological History: Reports: Hx Transient Ischemic Attacks (TIA), Other Neuro Impairments/Disorders - Bilateral foot neuropathy - Surgical History Surgery Procedure, Year, and Place: cataract Hx Anesthesia Reactions: No Infectious Disease History: No Infectious Disease History: Denies: Traveled Outside the [place] in Last 30 Days - Family History Known Family History: Positive: Cardiac Disease - father, in 70s - Social History Alcohol Use: None Alcohol Amount: quit drinking 12 years ago Hx Substance Use: No Substance Use Type: Reports: None Hx Tobacco Use: No Smoking Status (MU): Never Smoked Tobacco Review of Systems Constitutional: Negative Eyes: Negative ENT: Negative Cardiovascular: Negative Respiratory: Negative Positive: Abdominal Pain Positive: dysuria Musculoskeletal: Negative Skin: Negative Neurological/Mental Status: Negative Psychological: Normal All Other Systems Reviewed And Are Negative: Yes Physical Exam - Summary Physical Exam Summary: Mild pain to palpation suprapubically. Abdominal exam otherwise unremarkable. Triage Information Reviewed: Yes Vital Signs On Initial Exam: Initial Vitals Temp Pulse Resp BP Pulse Ox 100.2 F 73 18 205/93 96 12/20/19 19:56 12/20/19 19:56 12/20/19 19:56 12/20/19 19:56 12/20/19 19:56 Vital Signs Reviewed: Yes Appearance: Positive: Well-Appearing Skin: Positive: Warm Head/Face: Positive: Normal Head/Face Inspection Eyes: Positive: Normal Neck: Positive: Supple Respiratory/Lung Sounds: Positive: Clear to Auscultation Cardiovascular: Positive: Normal Abdomen Description: Positive: Nontender Musculoskeletal: Positive: Normal Neurological: Positive: Normal Psychiatric: Positive: Normal AVPU Assessment: Alert - Ran Coma Scale Best Eye Response: 4 - Spontaneous Best Motor Response: 6 - Obeys Commands Best Verbal Response: 5 - Oriented Coma Scale Total: 15 Procedures - Sedation Patient Received Moderate/Deep Sedation with Procedure: No Diagnostics - Vital Signs Vital Signs Temp Pulse Resp BP Pulse Ox 12/20/19 19:56 100.2 F 73 18 205/93 96 - Laboratory Lab Statement: Any lab studies that have been ordered have been reviewed, and results considered in the medical decision making process. GIGU Course/Dx - Course Course Of Treatment: Patient with history of chronic urinary retention secondary to BPH followed by , presents for the fourth time in 5 days for clogged catheter. Last known urine output at noon, patient complains of pelvic and penile pressure at this time. Patient saw Dr. Mcdermott this morning, Pink was working fine. Per patient Dr. Mcdermott believes that patient is over anticoagulated and thus patient is bleeding into urine which is causing clots and clogging catheter. Plan per patient is to decrease daily Coumadin dose in hopes of preventing further clots. Patient denies fever, cough, sore throat, CP , SOB, N/C/D, change in BM, testicular symptoms.. Patient taking Coumadin for A. fib. Bladder scan shows 252 mL's in bladder. Pink catheter changed out. - Diagnoses Provider Diagnoses: Obstructed Pink catheter, Urinary catheter (Pink) change required Discharge ED - Sign-Out/Discharge Documenting (check all that apply): Patient Departure - Discharge Plan Condition: Stable Disposition: HOME Patient Education Materials: Pink Catheter Placement and Care (ED) Referrals: Rafy Dunn MD [Primary Care Provider] - Additional Instructions: Follow-up with urology . Return to the ED for any new or worsening symptoms. - Billing Disposition and Condition Condition: STABLE Disposition: Home
[2019-12-20 21:11] VITALS: BP 184/73
== END 2019-12-20 21:08 | disposition home or self-care (01) ==
LOC: ED 19:42
DX: T83.098A Other mechanical complication of other urinary catheter, initial encounter (principal); I48.91 Unspecified atrial fibrillation; E11.9 Type 2 diabetes mellitus without complications; I10 Essential (primary) hypertension; Z86.73 Personal history of transient ischemic attack (TIA), and cerebral infarction without residual deficits; Z79.01 Long term (current) use of anticoagulants; Z79.84 Long term (current) use of oral hypoglycemic drugs; Z79.899 Other long term (current) drug therapy
CPT/HCPCS: 51702; 99282

== ENCOUNTER 2019-12-23 16:08 | Emergency (ER) | payer MEDICARE, OTHER ==
--- NOTE | 2019-12-23 16:33 | ED ---
GI/ HPI - HPI Summary HPI Summary: 79 y/o M presenting to [facility] c/o clogged garcia catheter starting 1200 today. Patient has had garcia catheter for the last 2 years for chronic urinary retention. He has been here multiple times in the past week to have his garcia changed because it keeps clogging. Last time it clogged was 3 days ago. Patient is followed by Dr. Mcdermott. Was seen by him 3 days ago and had his Coumadin dose changed. Hx blood clots in garcia. Medications reviewed. On Coumadin. - History of Current Complaint Chief Complaint: EDUrogenitalProblems Time Seen by Provider: 12/23/19 16:23 Stated Complaint: CATHETER PLUGGED Hx Obtained From: Patient Onset/Duration: Started Hours Ago - 1200 today, Still Present Timing: Constant Current Severity: Moderate Pain Intensity: 7 Aggravating Factor(s): Nothing Alleviating Factor(s): Nothing - Additional Pertinent History Primary Care Physician: [id number] - Allergy/Home Medications Allergies/Adverse Reactions: Allergies Allergy/AdvReac Type Severity Reaction Status Date / Time No Known Allergies Allergy Verified 12/18/19 11:15 Home Medications: Home Medications Allopurinol TAB* [Zyloprim 300 MG TAB*] 300 mg PO DAILY 07/05/16 [History Confirmed 12/23/19] Cholecalciferol TAB* [Vitamin D TAB*] 1,000 unit PO DAILY 11/09/17 [History Confirmed 12/23/19] Ferrous Sulfate TAB* 325 mg PO DAILY 11/09/17 [History Confirmed 12/23/19] glipiZIDE TAB* [Glucotrol TAB*] 5 mg PO BID 11/09/17 [History Confirmed 12/23/19 ] Lisinopril TAB* [Prinivil TAB*] 20 mg PO DAILY 12/20/19 [History Confirmed 12/22] Warfarin TAB(*) [Coumadin TAB(*)] 5 mg PO DAILY 12/20/19 [History Confirmed 07/03] amLODIPine TAB* [Norvasc 5 mg TAB*] 10 mg PO DAILY 12/20/19 [History Confirmed 12/23/19] PMH/Surg Hx/FS Hx/Imm Hx Endocrine/Hematology History: Reports: Hx Diabetes Cardiovascular History: Reports: Hx Atrial Fibrillation - treated with blood thinners, Hx Hypertension Denies: Hx Deep Vein Thrombosis, Hx Myocardial Infarction, Hx Pacemaker/ICD Respiratory History: Reports: Hx Chronic Bronchitis, Hx Pneumonia Denies: Hx Chronic Obstructive Pulmonary Disease (COPD), Hx Seasonal Allergies Musculoskeletal History: Reports: Hx Arthritis - right hand Sensory History: Reports: Hx Cataracts - having surgery, Hx Contacts or Glasses - wears glasses Denies: Hx Hearing Aid Opthamlomology History: Reports: Hx Cataracts - having surgery, Hx Contacts or Glasses - wears glasses Neurological History: Reports: Hx Transient Ischemic Attacks (TIA), Other Neuro Impairments/Disorders - Bilateral foot neuropathy - Surgical History Surgery Procedure, Year, and Place: cataract Hx Anesthesia Reactions: No Infectious Disease History: No Infectious Disease History: Denies: Traveled Outside the [place] in Last 30 Days - Family History Known Family History: Positive: Cardiac Disease - father, in 70s - Social History Alcohol Use: None Hx Substance Use: No Substance Use Type: Reports: None Hx Tobacco Use: No Smoking Status (MU): Never Smoked Tobacco Review of Systems Negative: Fever Positive: other - clogged garcia catheter All Other Systems Reviewed And Are Negative: Yes Physical Exam - Summary Physical Exam Summary: General: Well appearing, no distress HEENT: PERRL Cardiovascular: Skin is well perfused Pulmonary: No respiratory distress, no tachypnea Abdomen: Non-distended, non-tender, garcia in place Skin: Warm, pink, dry MSK: No edema Psych: Normal affect Neuro: A&Ox3 Triage Information Reviewed: Yes Vital Signs On Initial Exam: Initial Vitals Temp Pulse Resp BP Pulse Ox 98.9 F 112 18 251/108 97 12/23/19 16:11 12/23/19 16:11 12/23/19 16:11 12/23/19 16:11 12/23/19 16:11 Vital Signs Reviewed: Yes Procedures - Sedation Patient Received Moderate/Deep Sedation with Procedure: No Diagnostics - Vital Signs Vital Signs Temp Pulse Resp BP Pulse Ox 12/23/19 16:11 98.9 F 112 18 251/108 97 - Laboratory Lab Statement: Any lab studies that have been ordered have been reviewed, and results considered in the medical decision making process. Re-Evaluation - Re-Evaluation First Eval Re-Evaluation Time: 17:35 Change: Improved - garcia irrigated. clear yellow urine GIGU Course/Dx - Course Course Of Treatment: 79 y/o male w hx indwelling garcia, hematuria on coumadin p/ w clogged garcia. - VS mild tachycardia likely 2/2 discomfort. Hypertensive (hx of). - replaced garcia w [address] way, irrigated. Making clear yellow urine - Diagnoses Provider Diagnoses: Garcia catheter problem Discharge ED - Sign-Out/Discharge Documenting (check all that apply): Patient Departure - Discharge Plan Condition: Stable Disposition: HOME Patient Education Materials: Garcia Catheter Placement and Care (ED) Referrals: Rafy Dunn MD [Primary Care Provider] - Additional Instructions: You were seen in the emergency department for a clogged GARCIA catheter. We replaced your Garcia catheter. Please follow up with your primary care doctor in next 2-3 days and return to emergency department for worsening or concerning symptoms. It was a pleasure taking care of you today. - Billing Disposition and Condition Condition: STABLE Disposition: Home - Attestation Statements Document Initiated by Scribe: Yes Documenting Scribe: Guerline Ríos Provider For Whom Keke is Documenting (Include Credential): Erika Finnegan MD Scribe Attestation: IGuerline, scribed for Erika Finnegan MD on 12/23/19 at 1740. Scribe Documentation Reviewed: Yes Provider Attestation: The documentation as recorded by the Guerline whaley accurately reflects the service I personally performed and the decisions made by me, Erika Finnegan MD Status of Scribe Document: Viewed
[2019-12-23 18:11] VITALS: BP 195/71
== END 2019-12-23 18:11 | disposition home or self-care (01) ==
LOC: ED 16:08
DX: T83.098A Other mechanical complication of other urinary catheter, initial encounter (principal); E11.9 Type 2 diabetes mellitus without complications; I48.91 Unspecified atrial fibrillation; I10 Essential (primary) hypertension; Z86.73 Personal history of transient ischemic attack (TIA), and cerebral infarction without residual deficits; Z79.01 Long term (current) use of anticoagulants; Z79.84 Long term (current) use of oral hypoglycemic drugs; Z79.899 Other long term (current) drug therapy
CPT/HCPCS: 51702; 99282

== ENCOUNTER 2019-12-24 13:12 | Emergency (ER) | payer MEDICARE, OTHER ==
--- NOTE | 2019-12-24 13:28 | ED ---
GI/ HPI - HPI Summary HPI Summary: 79 y/o male presented to [facility] for bladder pressure present [facility]. Pt denies abd pain. Pt has has a Calvo catheter for 2 years for chronic urinary retention. He was seen multiple times in the past week to have his catheter changed because it keeps clogging. He was last seen yesterday in the ED. He has been on a lower dose of coumadin for [address] Mcdermott. Pt notes hx of blood clots in Calvo catheter. Multiple clots taken out yesterday. - History of Current Complaint Chief Complaint: EDUrogenitalProblems Time Seen by Provider: 12/24/19 13:17 Stated Complaint: PLUGGED URINARY CATHETER PER PT Hx Obtained From: Patient Onset/Duration: Started Days Ago, Still Present Timing: Lasting Days Current Severity: Severe Pain Intensity: 8 Location of Pain: Groin - bladder area Pain Characteristics: Pressure Associated Signs and Symptoms: Positive: Other: - negative - abdominal pain - Additional Pertinent History Primary Care Physician: [id number] - Allergy/Home Medications Allergies/Adverse Reactions: Allergies Allergy/AdvReac Type Severity Reaction Status Date / Time No Known Allergies Allergy Verified 12/24/19 13:16 Home Medications: Home Medications Allopurinol TAB* [Zyloprim 300 MG TAB*] 300 mg PO DAILY 07/05/16 [History Confirmed 12/23/19] Cholecalciferol TAB* [Vitamin D TAB*] 1,000 unit PO DAILY 11/09/17 [History Confirmed 12/23/19] Ferrous Sulfate TAB* 325 mg PO DAILY 11/09/17 [History Confirmed 12/23/19] glipiZIDE TAB* [Glucotrol TAB*] 5 mg PO BID 11/09/17 [History Confirmed 12/23/19 ] Lisinopril TAB* [Prinivil TAB*] 20 mg PO DAILY 12/20/19 [History Confirmed 12/22] Warfarin TAB(*) [Coumadin TAB(*)] 5 mg PO DAILY 12/20/19 [History Confirmed 07/03] amLODIPine TAB* [Norvasc 5 mg TAB*] 10 mg PO DAILY 12/20/19 [History Confirmed 12/23/19] PMH/Surg Hx/FS Hx/Imm Hx Endocrine/Hematology History: Reports: Hx Diabetes Cardiovascular History: Reports: Hx Atrial Fibrillation - treated with blood thinners, Hx Hypertension Denies: Hx Deep Vein Thrombosis, Hx Myocardial Infarction, Hx Pacemaker/ICD Respiratory History: Reports: Hx Chronic Bronchitis, Hx Pneumonia Denies: Hx Chronic Obstructive Pulmonary Disease (COPD), Hx Seasonal Allergies Musculoskeletal History: Reports: Hx Arthritis - right hand Sensory History: Reports: Hx Cataracts - having surgery, Hx Contacts or Glasses - wears glasses Denies: Hx Hearing Aid Opthamlomology History: Reports: Hx Cataracts - having surgery, Hx Contacts or Glasses - wears glasses Neurological History: Reports: Hx Transient Ischemic Attacks (TIA), Other Neuro Impairments/Disorders - Bilateral foot neuropathy - Surgical History Surgery Procedure, Year, and Place: cataract Hx Anesthesia Reactions: No Infectious Disease History: No Infectious Disease History: Denies: Traveled Outside the [place] in Last 30 Days - Family History Known Family History: Positive: Cardiac Disease - father, in 70s - Social History Alcohol Use: None Alcohol Amount: quit drinking 12 years ago Hx Substance Use: No Substance Use Type: Reports: None Hx Tobacco Use: No Smoking Status (MU): Never Smoked Tobacco Review of Systems Negative: Abdominal Pain Positive: pain - bladder, characterized as pressure All Other Systems Reviewed And Are Negative: Yes Physical Exam - Summary Physical Exam Summary: General: Well appearing, no distress HEENT: PERRL Cardiovascular: Skin is well perfused Pulmonary: No respiratory distress, no tachypnea Abdomen: Non-distended, mild suprapubic tenderness Skin: Warm, pink, dry MSK: No edema Psych: Normal affect Neuro: A&Ox3 Triage Information Reviewed: Yes Vital Signs On Initial Exam: Initial Vitals Temp Pulse Resp BP Pulse Ox 99.3 F 92 16 193/92 94 12/24/19 13:13 12/24/19 13:13 12/24/19 13:13 12/24/19 13:13 12/24/19 13:13 Vital Signs Reviewed: Yes Procedures - Sedation Patient Received Moderate/Deep Sedation with Procedure: No Diagnostics - Vital Signs Vital Signs Temp Pulse Resp BP Pulse Ox 12/24/19 13:13 99.3 F 92 16 193/92 94 - Laboratory Lab Statement: Any lab studies that have been ordered have been reviewed, and results considered in the medical decision making process. GIGU Course/Dx - Course Course Of Treatment: 79 y/o male w chronic indwelling calvo on coumadin, p/w clogged calvo. - unable to flush. Replaced w 24 Fr. Checked INR. D/w urology who recommends INR around 2, follow up outpatient. They may refer him to [facility]. - Diagnoses Provider Diagnoses: Malfunction of Calvo catheter - Physician Notifications Discussed Care Of Patient With: Prabhakar Mcdermott Time Discussed With Above Provider: 13:24 Instructed by Provider To: Other - At 1324 pt case was discussed with Dr. Mcdermott , who recommends INR and will see the pt on outpatient basis. Discharge ED - Sign-Out/Discharge Documenting (check all that apply): Patient Departure - dc - Discharge Plan Condition: Stable Disposition: HOME Referrals: Rafy Dunn MD [Primary Care Provider] - Additional Instructions: You were seen in the emergency department for a clogged calvo. Your INR today was 2.4. Please call your doctor to adjust your coumadin for a goal INR of 2.0 If any studies were not completed at the time of discharge you will be called with the relevant results. Please follow up with urology and your primary care doctor in the next 2-3 days and return to the emergency department for worsening or concerning symptoms. It was a pleasure taking care of you today. - Billing Disposition and Condition Condition: STABLE Disposition: Home - Attestation Statements Document Initiated by Keke: Yes Documenting Scribe: Esau Tran Provider For Whom Keke is Documenting (Include Credential): Erika Finnegan MD Scribe Attestation: IEsau, scribed for Erika Finnegan MD on 12/24/19 at 1405. Scribe Documentation Reviewed: Yes Provider Attestation: The documentation as recorded by the Esau whaley accurately reflects the service I personally performed and the decisions made by me, Erika Finnegan MD Status of Scribarmaan Document: Viewed
[2019-12-24 13:45] LABS: INR 2.42 (0.82-1.09)
[2019-12-24 14:13] VITALS: BP 168/71
== END 2019-12-24 14:00 | disposition home or self-care (01) ==
LOC: ED 13:12
DX: T83.018A Breakdown (mechanical) of other urinary catheter, initial encounter (principal); E11.9 Type 2 diabetes mellitus without complications; Z79.84 Long term (current) use of oral hypoglycemic drugs; Z79.01 Long term (current) use of anticoagulants; I48.91 Unspecified atrial fibrillation; Z86.73 Personal history of transient ischemic attack (TIA), and cerebral infarction without residual deficits
CPT/HCPCS: 36415; 85610; 99282

== ENCOUNTER 2019-12-25 07:39 | Emergency (ER) | payer MEDICARE, OTHER ==
--- NOTE | 2019-12-25 07:48 | ED ---
GI/ HPI - HPI Summary HPI Summary: 79 y/o M with hx HTN, gout, diabetes presenting to [facility] for clogged catheter. Patient has been seen here multiple times for same this month. Was seen here yesterday for same. Had his catheter irrigated and drained here yesterday 1200. Has not drained since. He states he plans to f/u with Dr. Mcdermott tomorrow. Was seen by Dr. Mcdermott last week and had his Coumadin dose lowered. On Coumadin for A fib. Medications reviewed. Allergies noted. - History of Current Complaint Chief Complaint: EDUrogenitalProblems Time Seen by Provider: 12/25/19 07:44 Stated Complaint: CATH ISSUE PER PT Hx Obtained From: Patient Onset/Duration: Started Hours Ago - 1200 yesterday, Still Present Timing: Constant Current Severity: Severe Pain Intensity: 8 Aggravating Factor(s): Nothing Alleviating Factor(s): Nothing - Additional Pertinent History Primary Care Physician: [id number] - Allergy/Home Medications Allergies/Adverse Reactions: Allergies Allergy/AdvReac Type Severity Reaction Status Date / Time No Known Allergies Allergy Verified 12/25/19 07:40 Home Medications: Home Medications Allopurinol TAB* [Zyloprim 300 MG TAB*] 300 mg PO DAILY 07/05/16 [History Confirmed 12/23/19] Cholecalciferol TAB* [Vitamin D TAB*] 1,000 unit PO DAILY 11/09/17 [History Confirmed 12/23/19] Ferrous Sulfate TAB* 325 mg PO DAILY 11/09/17 [History Confirmed 12/23/19] glipiZIDE TAB* [Glucotrol TAB*] 5 mg PO BID 11/09/17 [History Confirmed 12/23/19 ] Lisinopril TAB* [Prinivil TAB*] 20 mg PO DAILY 12/20/19 [History Confirmed 12/22] Warfarin TAB(*) [Coumadin TAB(*)] 5 mg PO DAILY 12/20/19 [History Confirmed 07/03] amLODIPine TAB* [Norvasc 5 mg TAB*] 10 mg PO DAILY 12/20/19 [History Confirmed 12/23/19] PMH/Surg Hx/FS Hx/Imm Hx Endocrine/Hematology History: Reports: Hx Diabetes Cardiovascular History: Reports: Hx Atrial Fibrillation - treated with blood thinners, Hx Hypertension Respiratory History: Reports: Hx Chronic Bronchitis, Hx Pneumonia Denies: Hx Chronic Obstructive Pulmonary Disease (COPD) Musculoskeletal History: Reports: Hx Arthritis - right hand, Hx Gout Sensory History: Reports: Hx Cataracts - having surgery, Hx Contacts or Glasses - wears glasses Opthamlomology History: Reports: Hx Cataracts - having surgery, Hx Contacts or Glasses - wears glasses Neurological History: Reports: Hx Transient Ischemic Attacks (TIA), Other Neuro Impairments/Disorders - Bilateral foot neuropathy - Surgical History Surgery Procedure, Year, and Place: cataract Hx Anesthesia Reactions: No Infectious Disease History: No Infectious Disease History: Denies: Traveled Outside the [place] in Last 30 Days - Family History Known Family History: Positive: Cardiac Disease - father, in 70s - Social History Alcohol Use: None Hx Substance Use: No Substance Use Type: Reports: None Hx Tobacco Use: No Smoking Status (MU): Never Smoked Tobacco Review of Systems Positive: other - clogged catheter All Other Systems Reviewed And Are Negative: Yes Physical Exam - Summary Physical Exam Summary: Constitutional: Well-developed, Well-nourished, Alert. (-) Distressed Skin: Warm, Dry HENT: Normocephalic; Atraumatic Eyes: Conjunctiva normal Neck: Musculoskeletal ROM normal neck. (-) JVD, (-) Stridor, (-) Tracheal deviation Cardio: Rhythm regular, rate normal, Heart sounds normal; Intact distal pulses; Radial pulses are 2+ and symmetric. (-) Murmur Pulmonary/Chest wall: Effort normal. (-) Respiratory distress, (-) Wheezes, (-) Rales Abd: Soft, (-) tenderness, (-) Distension, (-) Guarding, (-) Rebound : Suprapubic fullness, minimal urine in his leg bag Musculoskeletal: (-) Edema Lymph: (-) Cervical adenopathy Neuro: Alert, Oriented x3 Psych: Mood and affect Normal Triage Information Reviewed: Yes Vital Signs On Initial Exam: Initial Vitals Temp Pulse Resp BP Pulse Ox 98.2 F 90 16 160/97 97 12/25/19 07:40 12/25/19 07:40 12/25/19 07:40 12/25/19 07:40 12/25/19 07:40 Vital Signs Reviewed: Yes Procedures - Sedation Patient Received Moderate/Deep Sedation with Procedure: No Diagnostics - Vital Signs Vital Signs Temp Pulse Resp BP Pulse Ox 12/25/19 07:40 98.2 F 90 16 160/97 97 - Laboratory Lab Statement: Any lab studies that have been ordered have been reviewed, and results considered in the medical decision making process. GIGU Course/Dx - Course Course Of Treatment: Patient is here for his seventh visit this month for a clogged urinary catheter. Patient is on Coumadin and has hematuria/clots that pulled his catheter. Patient had his catheter flushed which showed a small amount of clot which then led to roughly 1 L of urine being drained. Patient is being seen by urology with a goal of decreasing his INR to 2. Patient is going to go to the urology office tomorrow to see Dr. Mcdermott. - Diagnoses Provider Diagnoses: Problem with urinary catheter Discharge ED - Sign-Out/Discharge Documenting (check all that apply): Patient Departure - Discharge Plan Condition: Stable Disposition: HOME Patient Education Materials: Pink Catheter Placement and Care (ED) Referrals: Prabhakar Mcdermott MD [Medical Doctor] - 12/26/19 Additional Instructions: Please follow up with Dr. Mcdermott tomorrow 12/26/2019. Please return to the Emergency Department if this happens again or for any new or worsening symptoms. - Billing Disposition and Condition Condition: STABLE Disposition: Home - Attestation Statements Document Initiated by Keke: Yes Documenting Scribe: Guerline Ríos Provider For Whom Keke is Documenting (Include Credential): Brant Han MD Scribe Attestation: Guerline Nix, scribed for Brant Han MD on 12/25/19 at 1608. Scribe Documentation Reviewed: Yes Provider Attestation: The documentation as recorded by the Guerline whaley accurately reflects the service I personally performed and the decisions made by me, Brant Han MD Status of Scribe Document: Viewed
[2019-12-25 08:35] VITALS: BP 186/72
== END 2019-12-25 08:23 | disposition home or self-care (01) ==
LOC: ED 07:39
DX: T83.098A Other mechanical complication of other urinary catheter, initial encounter (principal); I10 Essential (primary) hypertension; M10.9 Gout, unspecified; I48.91 Unspecified atrial fibrillation; E11.9 Type 2 diabetes mellitus without complications; G45.9 Transient cerebral ischemic attack, unspecified; Z79.01 Long term (current) use of anticoagulants; Z79.899 Other long term (current) drug therapy
CPT/HCPCS: 99281

== ENCOUNTER 2021-12-05 19:02 | Observation (INO) ==
[2021-12-05 21:40] LABS: ABS Eosinophils 0.1 10^3/ul (0-0.6); ABS Lymphocytes 0.9 10^3/ul (1.0-4.8); ABS Monocytes 0.8 10^3/ul (0-0.8); ABS Neutrophils 7.9 10^3/ul (1.5-7.7); Eosinophil % 0.6 %; Hematocrit 42 % (42-52); Hemoglobin 14.5 g/dL (14.0-18.0); Mean Corpuscular HGB Conc 34 g/dL (31-36); Mean Corpuscular Hemoglobin 29 pg (27-31); Mean Corpuscular Volume 85 fL (80-94); Mean Platelet Volume 6.8 fL (7.4-10.4); Nucleated Red Blood Cells % 0.2; Platelet Count 186 10^3/uL (150-450); Red Blood Count 4.99 10^6 /uL (4.18-5.48); Red Cell Distribution Width 16 % (10-15); White Blood Count 9.6 10^3/uL (3.5-10.8)
[2021-12-05 22:35] LABS: Albumin 3.6 g/dL (3.2-5.2); Albumin/Globulin Ratio 1.6 (1-3); Calcium 8.6 mg/dL (8.6-10.3); Globulin 2.2 g/dL (2-4); Potassium 4.4 mmol/L (3.5-5.0); Total Bilirubin 1.4 mg/dL (0.2-1.0); Total Protein 5.8 g/dL (6.4-8.9); eGFR CKD-EPI 62.5 (>60)
[2021-12-05 23:06] LABS: High Sensitivity Troponin 1 Hr 21 pg/mL (<20)
[2021-12-06] MEDS ORDERED: Furosemide 40 mg/4 ml IV VIAL IV SLOW PU ONE (01:31)
[2021-12-06 02:06] LABS: C Reactive Protein 7.26 mg/L (<8.01)
[2021-12-06] MEDS ORDERED: Albuterol/Ipratropium NEB.SOL (2.5/0.5 MG) 3 ML NEB.SOLN INH ONE (04:54)
[2021-12-06] MEDS ORDERED: Furosemide 20 mg/2 ml IV VIAL IV SLOW PU ONE (04:55)
[2021-12-06] MEDS ORDERED: Warfarin per PHARMACY **NOTE FOLLOW UP SCH ×2 (05:00→08:21)
[2021-12-06] MEDS: methylPREDNISolone SOD 40 mg/ml 1 ml VIAL IV SCH ×3 (05:46→21:04)
[2021-12-06 06:56] LABS: INR 2.21 (0.86-1.15)
[2021-12-06] MEDS ORDERED: Dextrose 50% Syringe 50 ml 25 GM/50 ML SYRINGE IV PUSH PRN (07:23)
[2021-12-06] MEDS ORDERED: Furosemide 40 mg/4 ml IV VIAL IV ONE (09:02)
[2021-12-06] MEDS: Cholecalciferol (VIT D3) 1,000 unit TAB PO SCH (09:58)
[2021-12-06] MEDS ORDERED: Albuterol/Ipratropium NEB.SOL (2.5/0.5 MG) 3 ML NEB.SOLN INH PRN (10:05)
[2021-12-06] MEDS ORDERED: Albuterol/Ipratropium NEB.SOL (2.5/0.5 MG) 3 ML NEB.SOLN INH SCH (11:00)
[2021-12-06] MEDS: Albuterol HFA INHALER 8 gm MDI INH SCH ×3 (12:10→21:29)
[2021-12-06] MEDS ORDERED: Perflutren Lipid Microsphere 3 ML VIAL ONE (14:10)
[2021-12-06] MEDS ORDERED: Warfarin DAILY REMINDER **NOTE FOLLOW UP SCH (17:00)
[2021-12-06] MEDS ORDERED: Enalaprilat IV 1.25 mg/ml 1 ml VIAL (1.25 MG) IV ONE (20:04)
[2021-12-07] MEDS: methylPREDNISolone SOD 40 mg/ml 1 ml VIAL IV SCH (04:34)
[2021-12-07] MEDS ORDERED: Furosemide 40 mg/4 ml IV VIAL IV ONE (07:33)
[2021-12-07 08:08] LABS: Calcium 9.3 mg/dL (8.6-10.3); Magnesium 2.1 mg/dL (1.9-2.7); Potassium 4.4 mmol/L (3.5-5.0); eGFR CKD-EPI 88.5 (>60)
[2021-12-07 08:27] LABS: INR 2.14 (0.86-1.15)
[2021-12-07] MEDS: Albuterol HFA INHALER 8 gm MDI INH SCH ×2 (08:33→10:50)
[2021-12-07] MEDS: Cholecalciferol (VIT D3) 1,000 unit TAB PO SCH (08:37)
[2021-12-07] MEDS ORDERED: Albuterol HFA INHALER 8 gm MDI INH PRN (10:56)
[2021-12-07 11:23] VITALS: BP 145/54
== END 2021-12-07 13:15 | disposition home or self-care (01) ==
LOC: EDHOLD 19:02 → ED 19:02 → SUATTDRO 12-06 05:23 → MEDTELE 12-06 09:13
PROVIDERS: ADMIT Internal Medicine; ATTEND Hospitalist

== ENCOUNTER 2021-12-14 09:11 | Inpatient (IN) ==
[2021-12-14 09:48] LABS: Hematocrit 45 % (42-52); Hemoglobin 15.4 g/dL (14.0-18.0); Mean Corpuscular HGB Conc 34 g/dL (31-36); Mean Corpuscular Hemoglobin 29 pg (27-31); Mean Corpuscular Volume 86 fL (80-94); Mean Platelet Volume 6.9 fL (7.4-10.4); Platelet Count 159 10^3/uL (150-450); Red Blood Count 5.29 10^6 /uL (4.18-5.48); Red Cell Distribution Width 15 % (10-15); White Blood Count 6.1 10^3/uL (3.5-10.8)
[2021-12-14 09:49] LABS: INR 4.16 (0.86-1.15)
[2021-12-14 10:18] LABS: Albumin 3.8 g/dL (3.2-5.2); Albumin/Globulin Ratio 1.5 (1-3); Globulin 2.5 g/dL (2-4); Potassium 4.5 mmol/L (3.5-5.0); Total Bilirubin 1.5 mg/dL (0.2-1.0); Total Protein 6.3 g/dL (6.4-8.9); eGFR CKD-EPI 83.6 (>60)
[2021-12-14 10:23] LABS: ABS Lymphocytes 0.6 10^3/ul (1.0-4.8); ABS Monocytes 0.5 10^3/ul (0-0.8); ABS Neutrophils 4.9 10^3/ul (1.5-7.7); Eosinophil % 0.6 %; Lymphocyte % 9.8 %
[2021-12-14 11:09] LABS: High Sensitivity Troponin 1 Hr 18 pg/mL (<20)
[2021-12-14] MEDS ORDERED: Furosemide 40 mg/4 ml IV VIAL IV ONE (11:29)
[2021-12-14] MEDS ORDERED: Albuterol HFA INHALER 8 gm MDI INH ONE (11:29)
[2021-12-14] MEDS ORDERED: Iodixanol (CONTRAST) 320 MG/ML 100 ML SDV IV ONE (11:34)
[2021-12-14] MEDS ORDERED: Labetalol IV 5 MG/ML 20 ml VIAL IV PUSH ONE (13:12)
[2021-12-14] MEDS ORDERED: Warfarin per PHARMACY **NOTE FOLLOW UP SCH (14:00)
[2021-12-14] MEDS ORDERED: Albuterol HFA INHALER 8 gm MDI INH PRN (14:14)
[2021-12-14] MEDS ORDERED: Dextrose 50% Syringe 50 ml 25 GM/50 ML SYRINGE IV PUSH PRN (14:15)
[2021-12-14] MEDS ORDERED: Labetalol IV 5 MG/ML 20 ml VIAL IV PUSH PRN (14:45)
[2021-12-14] MEDS ORDERED: Warfarin - No Order Today **NOTE FOLLOW UP ONE (17:00)
[2021-12-15 07:03] LABS: INR 4.58 (0.86-1.15)
[2021-12-15 07:40] LABS: Calcium 8.3 mg/dL (8.6-10.3); eGFR CKD-EPI 89.5 (>60)
[2021-12-15] MEDS: Cholecalciferol (VIT D3) 1,000 unit TAB PO SCH (09:22)
[2021-12-15] MEDS ORDERED: Furosemide 20 mg/2 ml IV VIAL IV SLOW PU ONE (12:54)
[2021-12-15] MEDS ORDERED: Warfarin - No Order Today **NOTE FOLLOW UP ONE (17:00)
[2021-12-16 06:10] LABS: Hematocrit 42 % (42-52); Hemoglobin 14.4 g/dL (14.0-18.0); INR 3.18 (0.86-1.15); Mean Corpuscular HGB Conc 35 g/dL (31-36); Mean Corpuscular Hemoglobin 29 pg (27-31); Mean Corpuscular Volume 84 fL (80-94); Mean Platelet Volume 6.9 fL (7.4-10.4); Platelet Count 183 10^3/uL (150-450); Red Cell Distribution Width 15 % (10-15); White Blood Count 7.5 10^3/uL (3.5-10.8)
[2021-12-16 06:32] LABS: Calcium 8.2 mg/dL (8.6-10.3); Magnesium 1.8 mg/dL (1.9-2.7); eGFR CKD-EPI 66.6 (>60)
[2021-12-16] MEDS: Cholecalciferol (VIT D3) 1,000 unit TAB PO SCH (08:15)
[2021-12-16] MEDS ORDERED: Magnesium Sulfate IV 3 GM in NS 0.9% 100 ml BAG 100 ML IVPB ONE (08:43)
[2021-12-16] MEDS ORDERED: Magnesium Sulfate 2 GM IV (Premix) IVPB ONE (09:00)
[2021-12-16] MEDS ORDERED: Magnesium Sulfate 1 GM IV 1 GM/100 ML BAG IV ONE (10:00)
[2021-12-16 11:53] LABS: C Reactive Protein 60.73 mg/L (<8.01)
[2021-12-16] MEDS ORDERED: Warfarin - No Order Today **NOTE FOLLOW UP ONE (17:00)
[2021-12-16] MEDS ORDERED: Furosemide 40 mg/4 ml IV VIAL IV ONE (17:39)
[2021-12-16] MEDS ORDERED: Labetalol IV 5 MG/ML 20 ml VIAL IV PUSH PRN (20:02)
[2021-12-17 05:59] LABS: Hematocrit 41 % (42-52); Hemoglobin 14.3 g/dL (14.0-18.0); Mean Corpuscular HGB Conc 35 g/dL (31-36); Mean Corpuscular Hemoglobin 29 pg (27-31); Mean Corpuscular Volume 83 fL (80-94); Mean Platelet Volume 7.3 fL (7.4-10.4); Platelet Count 181 10^3/uL (150-450); Red Blood Count 4.94 10^6 /uL (4.18-5.48); Red Cell Distribution Width 15 % (10-15)
[2021-12-17 06:05] LABS: INR 2.02 (0.86-1.15)
[2021-12-17 06:22] LABS: RBC Morphology Normal (Normal)
[2021-12-17 06:23] LABS: ABS Eosinophils 0.1 10^3/ul (0-0.6); ABS Lymphocytes 1.2 10^3/ul (1.0-4.8); ABS Monocytes 0.7 10^3/ul (0-0.8); ABS Neutrophils 6.1 10^3/ul (1.5-7.7); Eosinophil % 1.7 %; Lymphocyte % 14.3 %
[2021-12-17 06:30] LABS: Calcium 8.2 mg/dL (8.6-10.3); Magnesium 2.2 mg/dL (1.9-2.7); eGFR CKD-EPI 76.5 (>60)
[2021-12-17] MEDS: Cholecalciferol (VIT D3) 1,000 unit TAB PO SCH (08:41)
[2021-12-17] MEDS ORDERED: Warfarin DAILY REMINDER **NOTE FOLLOW UP SCH (17:00)
[2021-12-17 19:10] VITALS: BP 115/48
== END 2021-12-17 17:20 | disposition home or self-care (01) | DRG 291 ==
LOC: ED 09:11 → EDHOLD 09:11 → INTOOBSV 13:14 → OBSVTOIN 13:14 → SUATTDRO 13:14 → MEDTELE 17:04
PROVIDERS: ADMIT Hospitalist; ATTEND Internal Medicine

== ENCOUNTER 2022-06-01 07:17 | Inpatient (IN) ==
[2022-06-01] MEDS ORDERED: NS 0.9% 1000 ml BAG 1,000 ML IV ONE (07:51)
[2022-06-01] MEDS ORDERED: Tetan/Diph/Pertus SYR(Tdap) 0.5 ML SYR(BOOSTRIX) use SYR contains LATEX IM ONE (07:55)
[2022-06-01] MEDS ORDERED: cefTRIAXone 1 gm/50 mL D5W 1 GM/50 ML BAG IV ONE (08:06)
[2022-06-01 08:15] LABS: ABS Lymphocytes 0.3 10^3/ul (1.0-4.8); ABS Monocytes 0.7 10^3/ul (0-0.8); ABS Neutrophils 7.3 10^3/ul (1.5-7.7); Hematocrit 32 % (42-52); Hemoglobin 10.6 g/dL (14.0-18.0); Lymphocyte % 3.9 %; Mean Corpuscular HGB Conc 33 g/dL (31-36); Mean Corpuscular Hemoglobin 28 pg (27-31); Mean Corpuscular Volume 85 fL (80-94); Mean Platelet Volume 6.6 fL (7.4-10.4); Platelet Count 229 10^3/uL (150-450); Red Blood Count 3.74 10^6 /uL (4.18-5.48); Red Cell Distribution Width 15 % (10-15); White Blood Count 8.3 10^3/uL (3.5-10.8)
[2022-06-01 08:39] LABS: High Sens Troponin Baseline 33 pg/mL (<20); INR 1.16 (0.89-1.11)
[2022-06-01 08:52] LABS: ALT 34 U/L (7-52); Albumin 3.5 g/dL (3.2-5.2); Albumin/Globulin Ratio 1.4 (1-3); Alkaline Phosphatase 62 U/L (35-149); Blood Urea Nitrogen 26 mg/dL (6-24); CO2 Carbon Dioxide 20 mmol/L (22-32); Calcium 8.2 mg/dL (8.6-10.3); Chloride 96 mmol/L (101-111); Creatine Kinase 695 U/L (10-223); Globulin 2.5 g/dL (2-4); Glucose 164 mg/dL (70-100); Sodium 126 mmol/L (135-145)
[2022-06-01 08:59] LABS: CRP High Sensitivity > 80.00 mg/L (<2.00)
[2022-06-01 09:15] LABS: Magnesium 2.1 mg/dL (1.9-2.7)
[2022-06-01 09:16] LABS: Anion Gap 10 mmol/L (2-11)
[2022-06-01 09:33] LABS: Urine Appearance Slightly Cloudy; Urine Bilirubin Negative (Negative); Urine Color Yellow; Urine Glucose Negative (Negative); Urine Ketones 3+ (80mg/dL) (Negative); Urine Nitrite Negative (Negative); Urine Protein 2+ (100 mg/dL) (Negative); Urine Urobilinogen 0.2 (Negative) (Negative); Urine pH 7.5 (5.0-9.0)
[2022-06-01 09:48] LABS: High Sensitivity Troponin 1 Hr 37 pg/mL (<20)
[2022-06-01 10:39] LABS: Urine Bacteria 1+ (Absent); Urine Red Blood Cell Trace(0-2/hpf) (Absent); Urine White Blood Cell Trace(0-5/hpf) (Absent)
[2022-06-01 10:43] LABS: C Reactive Protein 166.35 mg/L (<8.01); Potassium Redraw 4.9 mmol/L (3.5-5.0)
[2022-06-01] MEDS ORDERED: Dextrose 50% Syringe 50 ml 25 GM/50 ML SYRINGE IV PUSH PRN (10:58)
[2022-06-01] MEDS ORDERED: Enoxaparin 100 MG/ML SYR SUBCUT SCH (11:00)
[2022-06-01 12:15] LABS: Erythrocyte Sed Rate 66 mm/Hr (0-19)
[2022-06-01] MEDS: metroNIDAZOLE IV 500 MG/100ML 500 MG/100 ML BAG IVPB SCH ×2 (13:26→22:34)
[2022-06-01] MEDS ORDERED: Vancomycin 1,500 MG in NS 0.9% 250 ml 250 ML IVPB ONE (15:35)
[2022-06-01] MEDS: Cefepime 2 GM in Dextrose 2 GM/50 ML BAG IV SCH ×2 (15:50→22:33)
[2022-06-01] MEDS ORDERED: Vancomycin per Pharmacy 1 EA NOTE FOLLOW UP SCH (16:00)
[2022-06-01] MEDS: Senna TAB 8.6 mg TAB PO PRN (18:04)
[2022-06-01] MEDS: Polyethylene Glycol 3350 17 GM PACKET PO PRN (18:04)
[2022-06-02] MEDS: Enoxaparin 100 MG/ML SYR SUBCUT SCH ×2 (05:11→20:08)
[2022-06-02] MEDS: Vancomycin 1,250 MG in NS 0.9% 250 ml 250 ML IVPB SCH ×2 (05:12→17:47)
[2022-06-02 05:53] LABS: ABS Lymphocytes 0.4 10^3/ul (1.0-4.8); ABS Monocytes 0.6 10^3/ul (0-0.8); ABS Neutrophils 4.5 10^3/ul (1.5-7.7); Hematocrit 33 % (42-52); Hemoglobin 10.9 g/dL (14.0-18.0); Lymphocyte % 7.9 %; Mean Corpuscular HGB Conc 33 g/dL (31-36); Mean Corpuscular Hemoglobin 29 pg (27-31); Mean Corpuscular Volume 87 fL (80-94); Mean Platelet Volume 7.1 fL (7.4-10.4); Nucleated Red Blood Cells % 0.1; Platelet Count 216 10^3/uL (150-450); Red Blood Count 3.81 10^6 /uL (4.18-5.48); Red Cell Distribution Width 16 % (10-15); White Blood Count 5.6 10^3/uL (3.5-10.8)
[2022-06-02 06:23] LABS: Calcium 8.5 mg/dL (8.6-10.3); Potassium 4.7 mmol/L (3.5-5.0); eGFR CKD-EPI 87.8 (>60)
[2022-06-02] MEDS: Cefepime 2 GM in Dextrose 2 GM/50 ML BAG IV SCH ×2 (11:36→23:00)
[2022-06-02] MEDS: metroNIDAZOLE IV 500 MG/100ML 500 MG/100 ML BAG IVPB SCH (12:21)
[2022-06-03] MEDS: metroNIDAZOLE IV 500 MG/100ML 500 MG/100 ML BAG IVPB SCH ×2 (00:34→11:41)
[2022-06-03 05:41] LABS: ABS Lymphocytes 0.6 10^3/ul (1.0-4.8); ABS Monocytes 0.7 10^3/ul (0-0.8); ABS Neutrophils 3.2 10^3/ul (1.5-7.7); Eosinophil % 0.1 %; Hematocrit 28 % (42-52); Hemoglobin 9.8 g/dL (14.0-18.0); Lymphocyte % 13.7 %; Mean Corpuscular HGB Conc 35 g/dL (31-36); Mean Corpuscular Hemoglobin 29 pg (27-31); Mean Corpuscular Volume 85 fL (80-94); Mean Platelet Volume 6.2 fL (7.4-10.4); Platelet Count 226 10^3/uL (150-450); Red Blood Count 3.33 10^6 /uL (4.18-5.48); Red Cell Distribution Width 15 % (10-15); White Blood Count 4.6 10^3/uL (3.5-10.8)
[2022-06-03] MEDS: Vancomycin 1,250 MG in NS 0.9% 250 ml 250 ML IVPB SCH ×2 (05:46→18:21)
[2022-06-03 06:06] LABS: C Reactive Protein 183.44 mg/L (<8.01); Calcium 7.9 mg/dL (8.6-10.3); Potassium 4.4 mmol/L (3.5-5.0); eGFR CKD-EPI 88.5 (>60)
[2022-06-03] MEDS: Cefepime 2 GM in Dextrose 2 GM/50 ML BAG IV SCH ×2 (10:00→23:26)
[2022-06-03] MEDS ORDERED: Propofol 10 MG/ML 20 ML BTL ONE (14:47)
[2022-06-03] MEDS ORDERED: fentaNYL 100 mcg/2 ml 50 MCG/ML VIAL ONE ×2 (14:47→16:19)
[2022-06-03] MEDS ORDERED: Succinylcholine 200 mg VIAL 20 mg/ml 10 ml VIAL (200 mg) ONE (14:47)
[2022-06-03] MEDS ORDERED: Lidocaine 2% PF 5 ML VIAL ONE (14:47)
[2022-06-03] MEDS ORDERED: Rocuronium 50 mg VIAL 10 mg/ml 5 ml VIAL (50 mg) ONE (14:47)
[2022-06-03] MEDS ORDERED: Naloxone 0.4 mg VIAL 0.4 mg/ml 1 ml VIAL IV PRN (16:13)
[2022-06-03] MEDS ORDERED: HYDROcodone/ACETAMIN 5/325 mg TAB PO PRN (16:13)
[2022-06-03] MEDS ORDERED: fentaNYL 100 mcg/2 ml 50 MCG/ML VIAL IV PRN (16:13)
[2022-06-03] MEDS ORDERED: Prochlorperazine 5 mg/ml 2 ml VIAL (10 mg) IV PRN (16:13)
[2022-06-04] MEDS: metroNIDAZOLE IV 500 MG/100ML 500 MG/100 ML BAG IVPB SCH ×3 (00:20→22:51)
[2022-06-04] MEDS: Vancomycin 1,250 MG in NS 0.9% 250 ml 250 ML IVPB SCH ×2 (05:29→17:48)
[2022-06-04 06:10] LABS: ABS Lymphocytes 0.6 10^3/ul (1.0-4.8); ABS Monocytes 0.8 10^3/ul (0-0.8); ABS Neutrophils 3.1 10^3/ul (1.5-7.7); Eosinophil % 0.1 %; Hematocrit 30 % (42-52); Hemoglobin 9.9 g/dL (14.0-18.0); Lymphocyte % 12.5 %; Mean Corpuscular HGB Conc 34 g/dL (31-36); Mean Corpuscular Hemoglobin 29 pg (27-31); Mean Corpuscular Volume 85 fL (80-94); Mean Platelet Volume 6.7 fL (7.4-10.4); Nucleated Red Blood Cells % 0.1; Platelet Count 280 10^3/uL (150-450); Red Blood Count 3.48 10^6 /uL (4.18-5.48); Red Cell Distribution Width 15 % (10-15); White Blood Count 4.5 10^3/uL (3.5-10.8)
[2022-06-04 06:35] LABS: Potassium 4.4 mmol/L (3.5-5.0); eGFR CKD-EPI 86.5 (>60)
[2022-06-04] MEDS: cefTRIAXone 1 gm/50 mL D5W 1 GM/50 ML BAG IV SCH (12:16)
[2022-06-04] MEDS ORDERED: Enoxaparin 100 MG/ML SYR SUBCUT ONE (16:50)
[2022-06-05] MEDS: Vancomycin 1,250 MG in NS 0.9% 250 ml 250 ML IVPB SCH ×2 (05:07→18:07)
[2022-06-05] MEDS ORDERED: Lactated Ringers 1000 ml BAG 1,000 ML IV SCH (06:00)
[2022-06-05] MEDS ORDERED: Sodium Citrate/Citric Acid LIQ 15 ML UDC PO ONE (06:00)
[2022-06-05] MEDS ORDERED: Buffered Lidocaine 1% SYRIN 1 ml INTRADERM ONE (06:00)
[2022-06-05 06:01] LABS: Hematocrit 30 % (42-52); Hemoglobin 10.1 g/dL (14.0-18.0); Mean Corpuscular HGB Conc 34 g/dL (31-36); Mean Corpuscular Hemoglobin 29 pg (27-31); Mean Corpuscular Volume 85 fL (80-94); Mean Platelet Volume 6.3 fL (7.4-10.4); Platelet Count 289 10^3/uL (150-450); Red Blood Count 3.47 10^6 /uL (4.18-5.48); Red Cell Distribution Width 15 % (10-15); White Blood Count 4.1 10^3/uL (3.5-10.8)
[2022-06-05 06:46] LABS: Potassium 4.4 mmol/L (3.5-5.0); eGFR CKD-EPI 73.8 (>60)
[2022-06-05 08:34] LABS: ABS Lymphocytes 0.7 10^3/ul (1.0-4.8); ABS Monocytes 0.6 10^3/ul (0-0.8); ABS Neutrophils 2.8 10^3/ul (1.5-7.7); Eosinophil % 0.1 %; Lymphocyte % 17.2 %
[2022-06-05] MEDS: metroNIDAZOLE IV 500 MG/100ML 500 MG/100 ML BAG IVPB SCH ×2 (11:19→22:07)
[2022-06-05] MEDS ORDERED: cefTRIAXone 1 gm/50 mL D5W 1 GM/50 ML BAG IV ONE (12:03)
[2022-06-05] MEDS: cefTRIAXone 1 gm/50 mL D5W 1 GM/50 ML BAG IV SCH (12:04)
[2022-06-05] MEDS ORDERED: Lidocaine 1% VIAL 10 MG/ML VIAL ONE (15:10)
[2022-06-05] MEDS ORDERED: Bupivacaine 0.5% 50 ML MDV VIAL ONE (15:10)
[2022-06-05] MEDS ORDERED: Lidocaine 2% PF 5 ML VIAL ONE (15:11)
[2022-06-05] MEDS ORDERED: Propofol 10 MG/ML 20 ML BTL ONE (15:11)
[2022-06-05] MEDS ORDERED: fentaNYL 100 mcg/2 ml 50 MCG/ML VIAL ONE (15:43)
[2022-06-06 05:29] LABS: ABS Lymphocytes 0.5 10^3/ul (1.0-4.8); ABS Monocytes 0.4 10^3/ul (0-0.8); ABS Neutrophils 3.8 10^3/ul (1.5-7.7); Eosinophil % 0.6 %; Hematocrit 30 % (42-52); Hemoglobin 10.3 g/dL (14.0-18.0); Lymphocyte % 10.5 %; Mean Corpuscular HGB Conc 34 g/dL (31-36); Mean Corpuscular Hemoglobin 29 pg (27-31); Mean Corpuscular Volume 85 fL (80-94); Mean Platelet Volume 6.7 fL (7.4-10.4); Platelet Count 300 10^3/uL (150-450); Red Blood Count 3.58 10^6 /uL (4.18-5.48); Red Cell Distribution Width 15 % (10-15); White Blood Count 4.8 10^3/uL (3.5-10.8)
[2022-06-06] MEDS ORDERED: Vancomycin Trough Check NOTE FOLLOW UP ONE (05:30)
[2022-06-06 06:17] LABS: Calcium 8.2 mg/dL (8.6-10.3); Magnesium 1.9 mg/dL (1.9-2.7); Vancomycin Trough 21.1 mcg/mL; eGFR CKD-EPI 60.6 (>60)
[2022-06-06] MEDS: Vancomycin 1,250 MG in NS 0.9% 250 ml 250 ML IVPB SCH (06:34)
[2022-06-06] MEDS: metroNIDAZOLE IV 500 MG/100ML 500 MG/100 ML BAG IVPB SCH (11:40)
[2022-06-06] MEDS: Polyethylene Glycol 3350 17 GM PACKET PO PRN (11:41)
[2022-06-06] MEDS: cefTRIAXone 1 gm/50 mL D5W 1 GM/50 ML BAG IV SCH (12:58)
[2022-06-07] MEDS: metroNIDAZOLE IV 500 MG/100ML 500 MG/100 ML BAG IVPB SCH ×4 (00:05→22:41)
[2022-06-07 04:54] LABS: Hematocrit 29 % (42-52); Mean Corpuscular HGB Conc 34 g/dL (31-36); Mean Corpuscular Hemoglobin 29 pg (27-31); Mean Corpuscular Volume 85 fL (80-94); Mean Platelet Volume 6.7 fL (7.4-10.4); Platelet Count 342 10^3/uL (150-450); Red Blood Count 3.47 10^6 /uL (4.18-5.48); Red Cell Distribution Width 15 % (10-15); White Blood Count 7.8 10^3/uL (3.5-10.8)
[2022-06-07 05:22] LABS: Calcium 7.9 mg/dL (8.6-10.3); Magnesium 1.9 mg/dL (1.9-2.7); Potassium 4.6 mmol/L (3.5-5.0); eGFR CKD-EPI 63.1 (>60)
[2022-06-07 06:36] LABS: Acanthocytes 1+; RBC Morphology Normal (Normal)
[2022-06-07 06:37] LABS: ABS Lymphocytes 1.3 10^3/ul (1.0-4.8); ABS Monocytes 0.8 10^3/ul (0-0.8); ABS Neutrophils 5.6 10^3/ul (1.5-7.7); Eosinophil % 0.1 %; Lymphocyte % 16.8 %
[2022-06-07] MEDS: Vancomycin 1,250 MG in NS 0.9% 250 ml 250 ML IVPB SCH (09:28)
[2022-06-07] MEDS: Polyethylene Glycol 3350 17 GM PACKET PO PRN (09:28)
[2022-06-07] MEDS ORDERED: Senna TAB 8.6 mg TAB PO PRN (10:47)
[2022-06-07] MEDS ORDERED: Polyethylene Glycol 3350 17 GM PACKET PO PRN (10:47)
[2022-06-07] MEDS ORDERED: Magnesium Hydroxide LIQ 30 ML UDC PO PRN (10:47)
[2022-06-07] MEDS: Lactulose 30 ml UDC PO PRN (12:28)
[2022-06-07] MEDS: Cholecalciferol (VIT D3) 1,000 unit TAB PO SCH (12:28)
[2022-06-07] MEDS: Enoxaparin 100 MG/ML SYR SUBCUT SCH ×2 (12:29→20:52)
[2022-06-07] MEDS ORDERED: Enoxaparin 100 MG/ML SYR SUBCUT SCH ×2 (12:30→13:00)
[2022-06-07] MEDS: cefTRIAXone 1 gm/50 mL D5W 1 GM/50 ML BAG IV SCH (13:17)
[2022-06-08 06:16] LABS: Hematocrit 32 % (42-52); Hemoglobin 10.4 g/dL (14.0-18.0); Mean Corpuscular HGB Conc 33 g/dL (31-36); Mean Corpuscular Hemoglobin 28 pg (27-31); Mean Corpuscular Volume 85 fL (80-94); Mean Platelet Volume 6.7 fL (7.4-10.4); Platelet Count 333 10^3/uL (150-450); Red Blood Count 3.76 10^6 /uL (4.18-5.48); Red Cell Distribution Width 16 % (10-15); White Blood Count 9.9 10^3/uL (3.5-10.8)
[2022-06-08 06:40] LABS: Calcium 8.2 mg/dL (8.6-10.3); Magnesium 1.8 mg/dL (1.9-2.7); Potassium 4.7 mmol/L (3.5-5.0); eGFR CKD-EPI 72.9 (>60)
[2022-06-08 07:16] LABS: ABS Basophils 0.1 10^3/ul (0-0.2); ABS Lymphocytes 0.9 10^3/ul (1.0-4.8); ABS Monocytes 0.9 10^3/ul (0-0.8); Anisocytosis 1+; Eosinophil % 0.1 %; Lymphocyte % 9.1 %; Microcytosis 2+; Target Cells 1+
[2022-06-08] MEDS: Cholecalciferol (VIT D3) 1,000 unit TAB PO SCH (08:39)
[2022-06-08] MEDS: Lactulose 30 ml UDC PO PRN (08:40)
[2022-06-08] MEDS: Polyethylene Glycol 3350 17 GM PACKET PO PRN (08:40)
[2022-06-08] MEDS: Enoxaparin 100 MG/ML SYR SUBCUT SCH ×2 (08:40→20:45)
[2022-06-08] MEDS: Vancomycin 1,250 MG in NS 0.9% 250 ml 250 ML IVPB SCH (09:07)
[2022-06-08] MEDS: metroNIDAZOLE IV 500 MG/100ML 500 MG/100 ML BAG IVPB SCH ×2 (11:48→23:54)
[2022-06-08] MEDS: cefTRIAXone 1 gm/50 mL D5W 1 GM/50 ML BAG IV SCH (12:38)
[2022-06-09 06:13] LABS: Hematocrit 33 % (42-52); Hemoglobin 10.9 g/dL (14.0-18.0); Mean Corpuscular HGB Conc 33 g/dL (31-36); Mean Corpuscular Hemoglobin 28 pg (27-31); Mean Corpuscular Volume 85 fL (80-94); Mean Platelet Volume 6.8 fL (7.4-10.4); Platelet Count 327 10^3/uL (150-450); Red Blood Count 3.85 10^6 /uL (4.18-5.48); Red Cell Distribution Width 15 % (10-15); White Blood Count 10.3 10^3/uL (3.5-10.8)
[2022-06-09 06:37] LABS: ABS Lymphocytes 0.8 10^3/ul (1.0-4.8); ABS Monocytes 0.8 10^3/ul (0-0.8); ABS Neutrophils 8.7 10^3/ul (1.5-7.7); Lymphocyte % 7.8 %; Polychromasia 1+
[2022-06-09 06:53] LABS: Calcium 8.2 mg/dL (8.6-10.3); Magnesium 1.9 mg/dL (1.9-2.7); Potassium 4.3 mmol/L (3.5-5.0); eGFR CKD-EPI 76.5 (>60)
[2022-06-09] MEDS ORDERED: Vancomycin Trough Check NOTE FOLLOW UP ONE (08:30)
[2022-06-09 09:01] LABS: Vancomycin Trough 11.5 mcg/mL; eGFR CKD-EPI 82.5 (>60)
[2022-06-09] MEDS: Enoxaparin 100 MG/ML SYR SUBCUT SCH ×2 (09:07→20:33)
[2022-06-09] MEDS: Cholecalciferol (VIT D3) 1,000 unit TAB PO SCH (09:07)
[2022-06-09] MEDS: Vancomycin 1,250 MG in NS 0.9% 250 ml 250 ML IVPB SCH (10:27)
[2022-06-09] MEDS: metroNIDAZOLE IV 500 MG/100ML 500 MG/100 ML BAG IVPB SCH (12:51)
[2022-06-09] MEDS ORDERED: Metoclopramide 5 MG/ML VIAL (10 mg) IV PRN (14:02)
[2022-06-09] MEDS: cefTRIAXone 1 gm/50 mL D5W 1 GM/50 ML BAG IV SCH (14:10)
[2022-06-10 06:15] LABS: Hematocrit 31 % (42-52); Hemoglobin 10.2 g/dL (14.0-18.0); Mean Corpuscular HGB Conc 33 g/dL (31-36); Mean Corpuscular Hemoglobin 28 pg (27-31); Mean Corpuscular Volume 85 fL (80-94); Mean Platelet Volume 6.9 fL (7.4-10.4); Platelet Count 306 10^3/uL (150-450); Red Blood Count 3.64 10^6 /uL (4.18-5.48); Red Cell Distribution Width 15 % (10-15); White Blood Count 8.6 10^3/uL (3.5-10.8)
[2022-06-10 06:50] LABS: Calcium 7.9 mg/dL (8.6-10.3); Magnesium 2.1 mg/dL (1.9-2.7); Potassium 4.2 mmol/L (3.5-5.0); eGFR CKD-EPI 84.7 (>60)
[2022-06-10 06:55] LABS: ABS Monocytes 0.8 10^3/ul (0-0.8); ABS Neutrophils 6.7 10^3/ul (1.5-7.7); Eosinophil % 0.1 %; Lymphocyte % 11.6 %
[2022-06-10] MEDS: Vancomycin 1,250 MG in NS 0.9% 250 ml 250 ML IVPB SCH (09:28)
[2022-06-10] MEDS: Enoxaparin 100 MG/ML SYR SUBCUT SCH ×2 (09:28→21:30)
[2022-06-10] MEDS: Cholecalciferol (VIT D3) 1,000 unit TAB PO SCH (09:29)
[2022-06-10] MEDS: cefTRIAXone 1 gm/50 mL D5W 1 GM/50 ML BAG IV SCH (12:49)
[2022-06-11] MEDS: Enoxaparin 100 MG/ML SYR SUBCUT SCH ×2 (08:57→21:25)
[2022-06-11] MEDS: Cholecalciferol (VIT D3) 1,000 unit TAB PO SCH (08:58)
[2022-06-11] MEDS: Vancomycin 1,250 MG in NS 0.9% 250 ml 250 ML IVPB SCH (09:57)
[2022-06-11] MEDS: cefTRIAXone 1 gm/50 mL D5W 1 GM/50 ML BAG IV SCH (11:43)
[2022-06-12] MEDS ORDERED: Vancomycin Trough Check NOTE FOLLOW UP ONE (08:30)
[2022-06-12] MEDS: Cholecalciferol (VIT D3) 1,000 unit TAB PO SCH (08:36)
[2022-06-12] MEDS: Enoxaparin 100 MG/ML SYR SUBCUT SCH ×2 (08:36→22:04)
[2022-06-12 09:17] LABS: Vancomycin Trough 11.7 mcg/mL; eGFR CKD-EPI 85.9 (>60)
[2022-06-12] MEDS: Vancomycin 1,250 MG in NS 0.9% 250 ml 250 ML IVPB SCH (10:00)
[2022-06-12] MEDS: cefTRIAXone 1 gm/50 mL D5W 1 GM/50 ML BAG IV SCH (12:10)
[2022-06-12] MEDS: Senna TAB 8.6 mg TAB PO PRN (22:02)
[2022-06-12 22:41] LABS: Rapid COVID-19 Molecular Detected (Undetected)
[2022-06-13] MEDS: Enoxaparin 100 MG/ML SYR SUBCUT SCH (09:59)
[2022-06-13] MEDS: Vancomycin 1,250 MG in NS 0.9% 250 ml 250 ML IVPB SCH (10:03)
[2022-06-13] MEDS: cefTRIAXone 1 gm/50 mL D5W 1 GM/50 ML BAG IV SCH (12:04)
[2022-06-13] MEDS: Cholecalciferol (VIT D3) 1,000 unit TAB PO SCH (13:39)
[2022-06-13 14:33] VITALS: BP 175/67
== END 2022-06-13 15:30 | disposition swing bed (61) | DRG 579 ==
LOC: ED 07:17 → EDHOLD 07:17 → SUATTDRO 10:36 → EDHOLD 11:41 → SSU 12:08 → SUATTDRO 06-02 13:37 → MED 06-13 09:11
PROVIDERS: ADMIT Hospitalist; ATTEND Pediatrics

== ENCOUNTER 2022-06-13 15:32 | Inpatient (IN) ==
[2022-06-13] MEDS ORDERED: Magnesium Hydroxide LIQ 30 ML UDC PO PRN (15:56)
[2022-06-13] MEDS ORDERED: Albuterol HFA INHALER 8 gm MDI INH PRN (16:03)
[2022-06-13] MEDS ORDERED: Dextrose 50% Syringe 50 ml 25 GM/50 ML SYRINGE IV PUSH PRN (16:05)
[2022-06-13] MEDS ORDERED: Lactulose 30 ml UDC PO PRN (16:06)
[2022-06-13] MEDS ORDERED: Polyethylene Glycol 3350 17 GM PACKET PO PRN (16:07)
[2022-06-13] MEDS ORDERED: Senna TAB 8.6 mg TAB PO PRN (16:08)
[2022-06-13] MEDS ORDERED: Vancomycin per Pharmacy 1 EA NOTE FOLLOW UP SCH (17:00)
[2022-06-13] MEDS: Enoxaparin 100 MG/ML SYR SUBCUT SCH (22:08)
[2022-06-14] MEDS: Magnesium Hydroxide LIQ 30 ML UDC PO SCH ×3 (02:12→23:00)
[2022-06-14] MEDS: Vancomycin 1,250 MG in NS 0.9% 250 ml 250 ML IVPB SCH (12:08)
[2022-06-14] MEDS: Enoxaparin 100 MG/ML SYR SUBCUT SCH ×2 (12:08→22:31)
[2022-06-14] MEDS: Cholecalciferol (VIT D3) 1,000 unit TAB PO SCH (12:08)
[2022-06-14] MEDS: cefTRIAXone 1 gm/50 mL D5W 1 GM/50 ML BAG IV SCH (14:07)
[2022-06-15] MEDS: Enoxaparin 100 MG/ML SYR SUBCUT SCH ×2 (09:03→21:52)
[2022-06-15] MEDS: Vancomycin 1,250 MG in NS 0.9% 250 ml 250 ML IVPB SCH (09:04)
[2022-06-15] MEDS: Cholecalciferol (VIT D3) 1,000 unit TAB PO SCH (09:04)
[2022-06-15] MEDS: Magnesium Hydroxide LIQ 30 ML UDC PO SCH ×3 (09:04→21:56)
[2022-06-15] MEDS: cefTRIAXone 1 gm/50 mL D5W 1 GM/50 ML BAG IV SCH (12:03)
[2022-06-16] MEDS ORDERED: Vancomycin Trough Check NOTE FOLLOW UP ONE (08:30)
[2022-06-16 08:37] LABS: Hematocrit 35 % (42-52); Hemoglobin 11.6 g/dL (14.0-18.0); Mean Corpuscular HGB Conc 33 g/dL (31-36); Mean Corpuscular Hemoglobin 28 pg (27-31); Mean Corpuscular Volume 86 fL (80-94); Mean Platelet Volume 6.7 fL (7.4-10.4); Platelet Count 293 10^3/uL (150-450); Red Blood Count 4.13 10^6 /uL (4.18-5.48); Red Cell Distribution Width 16 % (10-15); White Blood Count 6.7 10^3/uL (3.5-10.8)
[2022-06-16 09:08] LABS: Albumin 3.3 g/dL (3.2-5.2); Albumin/Globulin Ratio 1.2 (1-3); C Reactive Protein 13.59 mg/L (<8.01); Calcium 8.7 mg/dL (8.6-10.3); Globulin 2.7 g/dL (2-4); Potassium 4.5 mmol/L (3.5-5.0); Total Bilirubin 0.7 mg/dL (0.2-1.0)
[2022-06-16] MEDS: Vancomycin 1,250 MG in NS 0.9% 250 ml 250 ML IVPB SCH (09:35)
[2022-06-16] MEDS: Enoxaparin 100 MG/ML SYR SUBCUT SCH ×2 (09:39→21:53)
[2022-06-16] MEDS: Cholecalciferol (VIT D3) 1,000 unit TAB PO SCH (09:39)
[2022-06-16] MEDS: Magnesium Hydroxide LIQ 30 ML UDC PO SCH ×2 (09:52→21:57)
[2022-06-16 10:47] LABS: RBC Morphology Normal (Normal)
[2022-06-16 10:48] LABS: ABS Basophils 0.1 10^3/ul (0-0.2); ABS Monocytes 0.4 10^3/ul (0-0.8); ABS Neutrophils 5.2 10^3/ul (1.5-7.7); Eosinophil % 0.1 %; Lymphocyte % 14.6 %; Nucleated Red Blood Cells % 0.1
[2022-06-16] MEDS: cefTRIAXone 1 gm/50 mL D5W 1 GM/50 ML BAG IV SCH (12:05)
[2022-06-17] MEDS: Enoxaparin 100 MG/ML SYR SUBCUT SCH ×2 (08:45→21:42)
[2022-06-17] MEDS: Cholecalciferol (VIT D3) 1,000 unit TAB PO SCH (08:46)
[2022-06-17] MEDS: Vancomycin 1,250 MG in NS 0.9% 250 ml 250 ML IVPB SCH (08:50)
[2022-06-17] MEDS: Magnesium Hydroxide LIQ 30 ML UDC PO SCH ×2 (10:11→23:36)
[2022-06-17] MEDS: cefTRIAXone 1 gm/50 mL D5W 1 GM/50 ML BAG IV SCH (12:06)
[2022-06-18] MEDS: Magnesium Hydroxide LIQ 30 ML UDC PO SCH ×2 (08:39→21:13)
[2022-06-18] MEDS: Enoxaparin 100 MG/ML SYR SUBCUT SCH ×2 (08:39→21:13)
[2022-06-18] MEDS: Cholecalciferol (VIT D3) 1,000 unit TAB PO SCH (08:45)
[2022-06-18] MEDS: Vancomycin 1,250 MG in NS 0.9% 250 ml 250 ML IVPB SCH (08:47)
[2022-06-19 04:52] LABS: Hematocrit 32 % (42-52); Hemoglobin 10.7 g/dL (14.0-18.0); Mean Corpuscular HGB Conc 33 g/dL (31-36); Mean Corpuscular Hemoglobin 29 pg (27-31); Mean Corpuscular Volume 85 fL (80-94); Mean Platelet Volume 6.7 fL (7.4-10.4); Platelet Count 255 10^3/uL (150-450); Red Blood Count 3.74 10^6 /uL (4.18-5.48); Red Cell Distribution Width 16 % (10-15); White Blood Count 6.5 10^3/uL (3.5-10.8)
[2022-06-19 05:00] LABS: ABS Basophils 0.1 10^3/ul (0-0.2); ABS Lymphocytes 1.2 10^3/ul (1.0-4.8); ABS Monocytes 0.6 10^3/ul (0-0.8); ABS Neutrophils 4.7 10^3/ul (1.5-7.7); Eosinophil % 0.1 %; Lymphocyte % 18.4 %; Nucleated Red Blood Cells % 0.2
[2022-06-19 05:58] LABS: Calcium 8.3 mg/dL (8.6-10.3); Potassium 4.1 mmol/L (3.5-5.0)
[2022-06-19 06:03] LABS: C Reactive Protein 9.99 mg/L (<8.01)
[2022-06-19] MEDS: Enoxaparin 100 MG/ML SYR SUBCUT SCH ×2 (09:17→21:10)
[2022-06-19] MEDS: Cholecalciferol (VIT D3) 1,000 unit TAB PO SCH (09:20)
[2022-06-19] MEDS: Magnesium Hydroxide LIQ 30 ML UDC PO SCH ×2 (09:39→21:07)
[2022-06-20] MEDS: Cholecalciferol (VIT D3) 1,000 unit TAB PO SCH (09:09)
[2022-06-20] MEDS: Enoxaparin 100 MG/ML SYR SUBCUT SCH ×2 (09:09→19:52)
[2022-06-20] MEDS: Magnesium Hydroxide LIQ 30 ML UDC PO SCH ×2 (09:11→19:53)
[2022-06-21] MEDS: Enoxaparin 100 MG/ML SYR SUBCUT SCH ×2 (08:36→21:29)
[2022-06-21] MEDS: Cholecalciferol (VIT D3) 1,000 unit TAB PO SCH (08:36)
[2022-06-21] MEDS: Magnesium Hydroxide LIQ 30 ML UDC PO SCH ×2 (08:37→21:31)
[2022-06-22] MEDS: Magnesium Hydroxide LIQ 30 ML UDC PO SCH ×2 (08:47→19:43)
[2022-06-22] MEDS: Cholecalciferol (VIT D3) 1,000 unit TAB PO SCH (08:47)
[2022-06-22] MEDS: Enoxaparin 100 MG/ML SYR SUBCUT SCH ×2 (08:48→19:43)
[2022-06-23 06:18] VITALS: BP 160/53
[2022-06-23] MEDS: Cholecalciferol (VIT D3) 1,000 unit TAB PO SCH (08:36)
[2022-06-23] MEDS: Enoxaparin 100 MG/ML SYR SUBCUT SCH (08:36)
[2022-06-23] MEDS: Magnesium Hydroxide LIQ 30 ML UDC PO SCH (08:37)
== END 2022-06-23 12:10 | DRG 637 ==
LOC: SUATTDRO 15:32 → MED 15:32
PROVIDERS: ADMIT Hospitalist; ATTEND Hospitalist